=== PATIENT | female | born 1935 | race Hispanic/Latino ===

== ENCOUNTER 2017-01-01 11:45 | Emergency (ER) | payer MEDICARE, BC ==
[2017-01-01 12:06] VITALS: BMI 20.5
[2017-01-01 12:10] VITALS: RESP 18; TEMP 97.9; O2SAT 100
--- NOTE | 2017-01-01 12:11 | ED PDOC ---
Arrival/HPI - General Time Seen by Provider: 01/01/17 11:57 Historian: Patient - History of Present Illness Narrative History of Present Illness (Text): 01/01/17 12:00 Yudith Vann is a 81 year old female whose past medical history includes Atrial Fibrillation and Hypertension, presents to the emergency department complaining of right sided body pain after a fall. Patient reports 3 days ago she was feeling very tired, got up to walk to the bathroom, and when returning to her seat she fell and could not get back up. Patient notes she is unsure why she fell and has been using icy/hot patches to relieve the pain. Patient denies shortness of breath, dizziness, lightheadedness, or palpitation. Patient did not hit their head. Patient denies any loss of consciousness, headache, fever, chills, cough, nausea, vomiting, diarrhea, visual changes, neck pain, other bodily pain or injury. PMD: Dr. Lesa Whiteside Time/Duration: < week (3 days ago) Symptom Onset: Sudden Symptom Course: Unchanged Activities at Onset: Light Context: Home, Other (fall) Associated Symptoms (Text): None Past Medical History - Provider Review Nursing Documentation Reviewed: Yes - Infectious Disease Hx of Infectious Diseases: None - Tetanus Immunization Tetanus Immunization: Unknown - Cardiac Hx Cardiac Disorders: Yes (Afib) Hx Congestive Heart Failure: Yes Hx Hypertension: Yes - Neurological Other/Comment: DELERIUM SINCE SURGERY ORIF ONE WK AGO - HEENT Hx Cataracts: Yes - Endocrine/Metabolic Hx Diabetes Mellitus Type 2: Yes - Hematological/Oncological Hx Anemia: Yes - Musculoskeletal/Rheumatological Hx Falls: Yes - Gastrointestinal Hx Gastrointestinal Disorders: No (CONSTIPATION) - Genitourinary/Gynecological Hx Genitourinary Disorders: Yes (URGENCY FREQUENCY) Hx Reproductive Disorders: No - Psychiatric Hx Anxiety: Yes Hx Depression: Yes Hx Substance Use: No - Surgical History Other/Comment: knee replacement. orif let hip - Anesthesia Hx Anesthesia Reactions: No Hx Malignant Hyperthermia: No - Suicidal Assessment Feels Threatened In Home Enviroment: No Family/Social History - Physician Review Nursing Documentation Reviewed: Yes Family/Social History: Unknown Family HX Smoking Status: Never Smoked Hx Alcohol Use: No Hx Substance Use: No Hx Substance Use Treatment: No Allergies/Home Meds Allergies/Adverse Reactions: Allergies lactose Adverse Reaction (Verified 01/12/16 14:22) DIARRHEA Home Medications: Home Meds Medication Instructions Recorded Confirmed Metoprolol Succinate 50 mg PO DAILY 02/10/13 01/01/17 Calcium Carbonate [Oscal] 1,000 mg PO DAILY 02/17/13 01/01/17 Furosemide [Lasix] 20 mg PO DAILY 01/11/16 01/01/17 Potassium Chloride [Klor-Con 10] 30 meq PO DAILY 01/11/16 01/01/17 Trazodone HCl 100 mg PO DAILY 01/11/16 01/01/17 Warfarin Sodium [Jantoven] 5 mg PO DAILY 01/11/16 01/01/17 Review of Systems - Review of Systems Constitutional: absent: Fevers Respiratory: absent: SOB Gastrointestinal: absent: Abdominal Pain Genitourinary Female: absent: Dysuria, Frequency Musculoskeletal: Other (right sided body pain after fall). absent: Back Pain Neurological: absent: Headache, Dizziness, Focal Weakness Physical Exam Vital Signs Reviewed: Yes Vital Signs Temp Pulse Resp BP Pulse Ox 01/01/17 16:14 69 18 148/69 100 01/01/17 15:33 75 18 151/71 H 100 01/01/17 14:52 79 18 155/79 H 100 01/01/17 12:10 97.9 F 82 18 160/85 H 100 Temperature: Afebrile Blood Pressure: Hypertensive Pulse: Regular Respiratory Rate: Normal Appearance: Positive for: Well-Appearing, Non-Toxic, Comfortable Pain Distress: None Mental Status: Positive for: Alert and Oriented X 3 - Systems Exam Head: Present: Atraumatic, Normocephalic Pupils: Present: PERRL Extroacular Muscles: Present: EOMI Conjunctiva: Present: Normal Mouth: Present: Moist Mucous Membranes Neck: Present: Normal Range of Motion Respiratory/Chest: Present: Clear to Auscultation, Good Air Exchange. No: Respiratory Distress, Accessory Muscle Use Cardiovascular: Present: Regular Rate and Rhythm, Normal S1, S2. No: Murmurs Abdomen: Present: Normal Bowel Sounds. No: Tenderness (soft), Distention, Peritoneal Signs Back: Present: Normal Inspection Upper Extremity: Present: Normal Inspection, Normal ROM. No: Cyanosis, Edema Lower Extremity: Present: Normal Inspection, Swelling (chronic leg swelling), Other (no bony hip tenderness). No: Edema Neurological: Present: GCS=15, CN II-XII Intact, Speech Normal Skin: Present: Warm, Dry, Normal Color, Other (large hematoma on chest. small hematoma on right wrist.). No: Rashes Psychiatric: Present: Alert, Oriented x 3, Normal Insight, Normal Concentration Medical Decision Making ED Course and Treatment: 01/01/17 Impression: 81 year old female with right sided body pain after fall 3 days ago Plan: -- CT Head without contrast -- CT Chest abdomen and pelvis without contrast -- Chest X-ray -- Labs -- Sodium Chloride -- Reassess and disposition Progress Notes: 01/01/17 12:[address] Delmy Ortiz, who is aware of plan and will evaluate patient in the Emergency room. 01/01/17 14:15 Chest X-ray: Creator : Nick Lopez MD COMPARISON: 01/08/2016 FINDINGS: LUNGS: Clear. PLEURA: No pneumothorax or pleural fluid seen. CARDIOVASCULAR: There is mild vascular congestion. Mild cardiomegaly. OSSEOUS STRUCTURES: No significant abnormalities. VISUALIZED UPPER ABDOMEN: Normal. OTHER FINDINGS: None. IMPRESSION: Mild vascular congestion EKG: Ordered, reviewed, and independently interpreted the EKG. Rate : 93 BPM Rhythm : A-fib 01/01/17 15:[address]: Creator : Nick Lopez MD FINDINGS: HEMORRHAGE: No intracranial hemorrhage. BRAIN: No mass effect or edema. There is moderate atrophy VENTRICLES: Unremarkable. No hydrocephalus. CALVARIUM: Unremarkable. PARANASAL SINUSES: Unremarkable as visualized. No significant inflammatory changes. MASTOID AIR CELLS: Unremarkable as visualized. No inflammatory changes. OTHER FINDINGS: None. IMPRESSION: No acute findings 01/01/17 16:10 CT Chest, Abdomen and Pelvis with intravenous contrast: Creator : Nick Lopez MD FINDINGS: CT CHEST WITH CONTRAST: LUNGS: Clear. No nodule, mass or consolidation. MEDIASTINUM: There is cardiomegaly. 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 LYMPH NODES: Unremarkable. PLEURA: Unremarkable. No pneumothorax. No pleural fluid. BONES: Unremarkable. OTHER FINDINGS:None. CT ABDOMEN AND PELVIS: LIVER: Unremarkable. No gross lesion or ductal dilatation. GALLBLADDER AND BILE DUCTS: Unremarkable. PANCREAS: Unremarkable. No gross lesion or ductal dilatation. SPLEEN: Unremarkable. ADRENALS: Unremarkable. No mass. KIDNEYS AND URETERS: Unremarkable. No hydronephrosis. No solid mass. VASCULATURE: Unremarkable. No aortic aneurysm. BOWEL: Unremarkable. No obstruction. No gross mural thickening. APPENDIX: Normal appendix. PERITONEUM:Unremarkable. No free fluid. No free air. LYMPH NODES: Unremarkable. No enlarged lymph nodes. BLADDER: Unremarkable. REPRODUCTIVE: There is a 5.6 cm fibroid. BONES: Multiple compression fractures are seen in the mid thoracic spine. Age uncertain. There is no evidence of rib fracture. The pelvis is unremarkable OTHER FINDINGS: None. IMPRESSION: No acute findings There are no traumatic injuries from patient's fall, but would transfer to tele observation for ?syncope and neuro checks due to hypercoagulable state and trauma. Also, WBC is low, as well as hemoglobin. All of this needs further evaluation. However, patient reports that she does not want to stay in ED. Sister at bedside and unable to make patient agree to stay. 01/01/17 16:22 Leaving Against Medical Advice (AMA): The patient is choosing to leave against medical advice. I have personally explained to the patient that choosing to do so may result in permanent bodily harm or . I have discussed at great length that without further evaluation and monitoring there may be unforeseen circumstances and/or deterioration causing permanent bodily harm or as a result of their choice. The patient is alert, oriented, and shows the mental capacity to make clear decisions regarding the patients health care at this time. The patient continues to wish to leave against medical advice. In light of the patients decision to leave against medical advice, follow-up has been arranged and the patient is aware of the importance to following up as instructed. The patient has been advised that they should return to the emergency room immediately if they change their mind at any time, or if their condition begins to change or worsen in any way. - Lab Interpretations Lab Results: 01/01/17 12:30 01/01/17 12:55 Lab Results 01/01/17 12:55: Sodium 139, Potassium 4.4, Chloride 112 H, Carbon Dioxide 21, Anion Gap 10, BUN 20, Creatinine 0.8, Est GFR ( Amer) > 60, Est GFR (Non- Af Amer) > 60, Random Glucose 90, Calcium 8.3 L, Phosphorus 4.2, Magnesium 1.8, Total Bilirubin 1.1, AST 17, ALT 6 L, Alkaline Phosphatase 76, Total Creatine Kinase 27 L, Troponin I < 0.01 D, Total Protein 10.6 H, Albumin 3.3, Globulin 7.3, Albumin/Globulin Ratio 0.5 L 01/01/17 12:30: PT 29.4 H, INR 2.72 H, APTT 41.0 H 01/01/17 12:30: WBC 2.3 L* D, RBC 2.06 L, Hgb 7.2 L, Hct 22.7 L, MCV 110.2 H, MCH 35.0, MCHC 31.7, RDW 16.6 H, Plt Count 152, MPV 10.1, Gran % 60.9, Lymph % ( Auto) 25.9, Baxter % (Auto) 11.0 H, Eos % (Auto) 1.8, Baso % (Auto) 0.4, Gran # 1.39 L, Lymph # 0.6 L, Baxter # 0.3, Eos # 0.0, Baso # 0.01 I have reviewed the lab results: Yes - RAD Interpretation Radiology Orders: 01/01/17 12:08 CHEST ONE VIEW [RAD] Stat 01/01/17 14:39 CHEST,ABD,PEL W/IV CONT ONLY [CT] Stat HEAD W/O CONTRAST [CT] Stat [employer] Faculty Member: Radiologist - Medication Orders Current Medication Orders: Discontinued Medications Diazepam (Valium) 1 mg IVP STAT STA PRN Reason: Protocol Stop: 01/01/17 14:17 Last Admin: 01/01/17 14:41 Dose: 1 mg Iohexol (Omnipaque 350 100 Ml) Confirm Administered Dose 350 mg .ROUTE .STK-MED ONE Stop: 01/01/17 13:32 Iohexol (Omnipaque 350 100 Ml) Confirm Administered Dose 350 mg .ROUTE .STK-MED ONE Stop: 01/01/17 15:04 - Scribe Statement The provider has reviewed the documentation as recorded by the Scribe 01/01/2017 Alondra Kraus Provider Scribe Attestation: All medical record entries made by the Scribe were at my direction and personally dictated by me. I have reviewed the chart and agree that the record accurately reflects my personal performance of the history, physical exam, medical decision making, and the department course for this patient. I have also personally directed, reviewed, and agree with the discharge instructions and disposition. Disposition/Present on Arrival - Present on Arrival Any Indicators Present on Arrival: No History of DVT/PE: No History of Uncontrolled Diabetes: No Urinary Catheter: No History Surgical Site Infection Following: None - Disposition Have Diagnosis and Disposition been Completed?: Yes Diagnosis: Fall, Anemia, Supratherapeutic INR Disposition: AGAINST MEDICAL ADVICE Disposition Time: 16:21 Condition: UNKNOWN Additional Instructions: YOU ARE SIGNING OUT AGAINST MEDICAL ADVISE. RETURN IF YOU DESIRE TREATMENT Referrals: Alysa Brock DPM [Primary Care Provider] - Follow up with primary Forms: [employer] (Ukrainian)
[2017-01-01 12:48] LABS: BASO # 0.01 K/mm3 (0.0-2.0); BASO % 0.4 % (0.0-3.0); EOS % 1.8 % (1.5-5.0); GRAN # 1.39 (1.4-6.5); GRAN % 60.9 % (50.0-68.0); LYMPH # 0.6 (1.2-3.4); LYMPH % 25.9 % (22.0-35.0); MEAN CELL VOLUME 110.2 fl (80.0-105.0); MEAN CORPUSCULAR HGB CONC 31.7 g/dl (31.0-37.0); MEAN PLATELET VOLUME 10.1 fl (7.0-11.0); MONO # 0.3 (0.1-0.6); RED CELL DISTRIBUTION WIDTH 16.6 % (11.5-14.5)
[2017-01-01 12:52] LABS: HEMATOCRIT 22.7 % (36.0-48.0); WHITE BLOOD COUNT 2.3 10^3/ul (4.5-11.0)
[2017-01-01 12:54] LABS: INR 2.72 (0.93-1.08)
[2017-01-01 13:17] LABS: ALB/GLOB RATIO 0.5 (1.1-1.8); ALKALINE PHOSPHATASE 76 U/L (38-133); ALT/SGPT 6 U/L (7-56); AST/SGOT 17 U/L (15-39); BILIRUBIN,TOTAL 1.1 mg/dL (0.2-1.3); BLOOD UREA NITROGEN 20 mg/dL (7-21); CALCIUM 8.3 mg/dL (8.4-10.5); CARBON DIOXIDE 21 mmol/L (21-33); CHLORIDE 112 mmol/L (98-107); GFR AFRICAN-AMERICAN > 60; GLUCOSE,RANDOM 90 mg/dL (70-110); MAGNESIUM 1.8 mg/dL (1.7-2.2); PHOSPHOROUS 4.2 mg/dL (2.5-4.5); POTASSIUM 4.4 mmol/L (3.6-5.0); SODIUM 139 mmol/L (132-148); TOTAL PROTEIN 10.6 g/dL (5.8-8.3)
[2017-01-01 13:28] LABS: TROPONIN I < 0.01 ng/mL
[2017-01-01] MEDS ORDERED: Iohexol 350 MG/100 ML VIAL ONE ×2 (13:31→15:03)
--- NOTE | 2017-01-01 14:02 | RAD ---
PROCEDURE: CHEST RADIOGRAPH, 1 VIEW HISTORY: R sided hematoma COMPARISON: 01/08/2016 FINDINGS: LUNGS: Clear. PLEURA: No pneumothorax or pleural fluid seen. CARDIOVASCULAR: There is mild vascular congestion. Mild cardiomegaly. OSSEOUS STRUCTURES: No significant abnormalities. VISUALIZED UPPER ABDOMEN: Normal. OTHER FINDINGS: None. IMPRESSION: Mild vascular congestion
[2017-01-01] MEDS ORDERED: diaZEpam 10 mg/2 ml Inj IVP STA (14:16)
--- NOTE | 2017-01-01 15:24 | CT ---
PROCEDURE: CT HEAD WITHOUT CONTRAST. HISTORY: head injury COMPARISON: None available. TECHNIQUE: Axial computed tomography images were obtained through the head/brain without intravenous contrast. Radiation dose: Total exam DLP = 711 mGy-cm. This CT exam was performed using one or more of the following dose reduction techniques: Automated exposure control, adjustment of the mA and/or kV according to patient size, and/or use of iterative reconstruction technique. FINDINGS: HEMORRHAGE: No intracranial hemorrhage. BRAIN: No mass effect or edema. There is moderate atrophy VENTRICLES: Unremarkable. No hydrocephalus. CALVARIUM: Unremarkable. PARANASAL SINUSES: Unremarkable as visualized. No significant inflammatory changes. MASTOID AIR CELLS: Unremarkable as visualized. No inflammatory changes. OTHER FINDINGS: None. IMPRESSION: No acute findings
--- NOTE | 2017-01-01 16:05 | CT ---
PROCEDURE: CT Chest, Abdomen and Pelvis with intravenous contrast HISTORY: fall with R chest hematoma COMPARISON: None. TECHNIQUE: IV dose administered: 100 cc of Omni 350 Radiation dose: Total exam DLP = 820 mGy-cm. This CT exam was performed using one or more of the following dose reduction techniques: Automated exposure control, adjustment of the mA and/or kV according to patient size, and/or use of iterative reconstruction technique. FINDINGS: CT CHEST WITH CONTRAST: LUNGS: Clear. No nodule, mass or consolidation. MEDIASTINUM: There is cardiomegaly. 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 LYMPH NODES: Unremarkable. PLEURA: Unremarkable. No pneumothorax. No pleural fluid. BONES: Unremarkable. OTHER FINDINGS: None. CT ABDOMEN AND PELVIS: LIVER: Unremarkable. No gross lesion or ductal dilatation. GALLBLADDER AND BILE DUCTS: Unremarkable. PANCREAS: Unremarkable. No gross lesion or ductal dilatation. SPLEEN: Unremarkable. ADRENALS: Unremarkable. No mass. KIDNEYS AND URETERS: Unremarkable. No hydronephrosis. No solid mass. VASCULATURE: Unremarkable. No aortic aneurysm. BOWEL: Unremarkable. No obstruction. No gross mural thickening. APPENDIX: Normal appendix. PERITONEUM: Unremarkable. No free fluid. No free air. LYMPH NODES: Unremarkable. No enlarged lymph nodes. BLADDER: Unremarkable. REPRODUCTIVE: There is a 5.6 cm fibroid. BONES: Multiple compression fractures are seen in the mid thoracic spine. Age uncertain. There is no evidence of rib fracture. The pelvis is unremarkable OTHER FINDINGS: None. IMPRESSION: No acute findings
[2017-01-01 16:14] VITALS: BP 148/69; PULSE 69
--- NOTE | 2017-01-01 16:35 | CARD ---
APPROVED REPORT EKG Measurement Heart [id number] <Conclusion> Atrial fibrillation Septal infarct, age undetermined Abnormal ECG
== END 2017-01-01 17:06 | disposition left against medical advice (07) ==
LOC: ED 11:45
DX: Z04.3 Encounter for examination and observation following other accident (principal); W18.39XA Other fall on same level, initial encounter; Y93.89 Activity, other specified; Y92.008 Other place in unspecified non-institutional (private) residence as the place of occurrence of the external cause; D64.9 Anemia, unspecified; R79.1 Abnormal coagulation profile; I11.0 Hypertensive heart disease with heart failure; I50.9 Heart failure, unspecified; I48.91 Unspecified atrial fibrillation; E11.9 Type 2 diabetes mellitus without complications
CPT/HCPCS: 70450; 71010; 71260; 74177; 80053; 82550; 83735; 84100; 84484; 85025; 85610; 85730; 93005; 96374; 99285; J3360; Q9967

== ENCOUNTER 2017-01-03 18:23 | Inpatient (IN) | payer MEDICARE, BC ==
[2017-01-03 18:56] VITALS: BMI 29.0
[2017-01-03 20:30] LABS: EOS % 0.4 % (1.5-5.0); GRAN # 4.11 (1.4-6.5); GRAN % 81.6 % (50.0-68.0); LYMPH # 0.6 (1.2-3.4); LYMPH % 11.5 % (22.0-35.0); MEAN CELL VOLUME 108.8 fl (80.0-105.0); MEAN CORPUSCULAR HEMOGLOBIN 34.6 pg (25.0-35.0); MEAN CORPUSCULAR HGB CONC 31.8 g/dl (31.0-37.0); MONO # 0.3 (0.1-0.6); MONO % 6.5 % (1.0-6.0); RED CELL DISTRIBUTION WIDTH 17.3 % (11.5-14.5)
[2017-01-03 20:35] LABS: HEMATOCRIT 23.6 % (36.0-48.0)
[2017-01-03 20:59] LABS: ALB/GLOB RATIO 0.4 (1.1-1.8); ALKALINE PHOSPHATASE 87 U/L (38-133); ALT/SGPT 7 U/L (7-56); AST/SGOT 21 U/L (15-39); BILIRUBIN,TOTAL 1.2 mg/dL (0.2-1.3); BLOOD UREA NITROGEN 19 mg/dL (7-21); CALCIUM 8.3 mg/dL (8.4-10.5); CARBON DIOXIDE 18 mmol/L (21-33); CHLORIDE 111 mmol/L (98-107); GFR AFRICAN-AMERICAN > 60; GLUCOSE,RANDOM 95 mg/dL (70-110); POTASSIUM 4.3 mmol/L (3.6-5.0); SODIUM 141 mmol/L (132-148); TOTAL PROTEIN 10.7 g/dL (5.8-8.3)
--- NOTE | 2017-01-03 21:04 | ED PDOC ---
Arrival/HPI - General Chief Complaint: Weakness/Neurological Deficit Time Seen by Provider: 01/03/17 18:35 Historian: Patient - History of Present Illness Narrative History of Present Illness (Text): 01/03/17 19:10 Yudith Vann is a 80 year old female whose past medical history includes Atrial Fibrillation and Hypertension, presents to the emergency department complaining of generalized weakness today. Patient denies any chest pain, shortness of breath, nausea, vomiting, diarrhea, back pain, neck pain, headache , dizziness, or any other complaints. Symptom Onset: Gradual Symptom Course: Unchanged Activities at Onset: Light Context: Home Past Medical History - Provider Review Nursing Documentation Reviewed: Yes - Infectious Disease Hx of Infectious Diseases: None - Tetanus Immunization Tetanus Immunization: Unknown - Cardiac Hx Cardiac Disorders: Yes (Afib) Hx Congestive Heart Failure: Yes Hx Hypertension: Yes - Pulmonary Hx Respiratory Disorders: No - Neurological Hx Neurological Disorder: Yes Other/Comment: DELERIUM SINCE SURGERY ORIF ONE WK AGO - HEENT Hx HEENT Disorder: Yes Hx Cataracts: Yes - Renal Hx Renal Disorder: No - Endocrine/Metabolic Hx Endocrine Disorders: Yes Hx Diabetes Mellitus Type 2: Yes - Hematological/Oncological Hx Blood Disorders: Yes Hx Anemia: Yes - Integumentary Hx Dermatological Disorder: No - Musculoskeletal/Rheumatological Hx Musculoskeletal Disorders: Yes Hx Falls: Yes - Gastrointestinal Hx Gastrointestinal Disorders: No (CONSTIPATION) - Genitourinary/Gynecological Hx Genitourinary Disorders: Yes (URGENCY FREQUENCY) - Psychiatric Hx Psychophysiologic Disorder: Yes Hx Anxiety: Yes Hx Depression: Yes Hx Substance Use: No - Surgical History Other/Comment: knee replacement. orif let hip - Anesthesia Hx Anesthesia: No Hx Anesthesia Reactions: No Hx Malignant Hyperthermia: No - Suicidal Assessment Feels Threatened In Home Enviroment: No Family/Social History - Physician Review Nursing Documentation Reviewed: Yes Family/Social History: Unknown Family HX Smoking Status: Never Smoked Hx Alcohol Use: No Hx Substance Use: No Hx Substance Use Treatment: No Allergies/Home Meds Allergies/Adverse Reactions: Allergies lactose Adverse Reaction (Verified 01/06/17 14:34) DIARRHEA Home Medications: Home Meds Medication Instructions Recorded Confirmed Metoprolol Succinate 50 mg PO DAILY 02/10/13 01/06/17 Calcium Carbonate [Oscal] 1,000 mg PO DAILY 02/17/13 01/06/17 Furosemide [Lasix] 20 mg PO DAILY 01/11/16 01/06/17 Potassium Chloride [Klor-Con 10] 30 meq PO DAILY 01/11/16 01/06/17 Trazodone HCl 100 mg PO DAILY 01/11/16 01/06/17 Warfarin Sodium [Jantoven] 5 mg PO DAILY 01/11/16 01/06/17 Review of Systems - Physician Review All systems were reviewed & negative as marked: Yes - Review of Systems Constitutional: Other (+generalized weakness). absent: Fevers Eyes: Normal ENT: Normal Respiratory: Normal. absent: SOB, Cough Cardiovascular: Normal. absent: Chest Pain Gastrointestinal: Normal. absent: Abdominal Pain, Diarrhea, Nausea, Vomiting Genitourinary Female: Normal. absent: Dysuria, Frequency, Hematuria, Urine Output Changes Musculoskeletal: Normal. absent: Back Pain, Neck Pain Skin: Normal. absent: Rash Neurological: Normal. absent: Headache, Dizziness Endocrine: Normal Hemo/Lymphatic: Normal Psychiatric: Normal Physical Exam Vital Signs Reviewed: Yes Vital Signs Temp Pulse Resp BP Pulse Ox 01/03/17 23:51 99.4 F 108 H 18 139/88 01/03/17 23:27 98.8 F 107 H 19 129/81 01/03/17 22:57 107 H 18 142/78 99 01/03/17 18:49 98.1 F 130 H 24 148/71 100 Temperature: Afebrile Blood Pressure: Normal Pulse: Regular Respiratory Rate: Normal Appearance: Positive for: Well-Appearing, Non-Toxic, Comfortable Pain Distress: None Mental Status: Positive for: Alert and Oriented X 3 - Systems Exam Head: Present: Atraumatic, Normocephalic Pupils: Present: PERRL Extroacular Muscles: Present: EOMI Conjunctiva: Present: Normal Mouth: Present: Moist Mucous Membranes Neck: Present: Normal Range of Motion Respiratory/Chest: Present: Clear to Auscultation, Good Air Exchange. No: Respiratory Distress, Accessory Muscle Use Cardiovascular: Present: Regular Rate and Rhythm, Normal S1, S2. No: Murmurs Abdomen: Present: Normal Bowel Sounds. No: Tenderness, Distention, Peritoneal Signs Back: Present: Normal Inspection Upper Extremity: Present: Normal Inspection. No: Cyanosis, Edema Lower Extremity: Present: Swelling (Bilateral lower extremity swelling). No: Edema Neurological: Present: GCS=15, CN II-XII Intact, Speech Normal Skin: Present: Warm, Dry, Normal Color. No: Rashes Psychiatric: Present: Alert, Oriented x 3, Normal Insight, Normal Concentration Medical Decision Making ED Course and Treatment: 01/03/17 19:10 Impression: 81 year old female complaining of generalized weakness. Differential Diagnosis included but are not limited to: anemia Plan: -- EKG -- CXR -- Labs, troponin, blood cultures -- Urinalysis, urine cultures -- Reassess and disposition Prior Visits: Notes and results from previous visits were reviewed. On 01/01/2017, pt was seen in the Emergency department for right-sided body pain s/p fall. Pt left against medical advice. Progress Notes: Reviewed EKG, a fib at 117 bpm. Non-specific ST/T wave changes. 01/03/17 20:30 Reviewed radiology, CXR shows no acute processes. 01/03/17 21:00 Labs reviewed, hemoglobin:7.5, hematocrit:23.6. Blood type and screen order. Will transfuse pt. 01/03/17 22:[address] Barrera, who is aware and agrees with plan. Accepts pt in to his service. Pt will be admitted to Telemetry for anemia and atrial fibrillation. 01/03/17 22:[address] Head, shows: 1. No definite acute intracranial abnormality. 2. Incidental/non-acute findings are described above. - Lab Interpretations Microbiology Results: Microbiology Results 01/03/17 20:00 Blood-Venous Blood Culture - Preliminary NO GROWTH AFTER 48 HOURS 01/03/17 19:30 Blood-Venous Blood Culture - Preliminary NO GROWTH AFTER 48 HOURS Lab Results: 01/03/17 20:00 01/03/17 20:38 Lab Results 01/03/17 21:00: Blood Type O POSITIVE, Antibody Screen Negative, Crossmatch See Detail, BBK History Checked Patient has bt 01/03/17 20:38: Sodium 141, Potassium 4.3, Chloride 111 H, Carbon Dioxide 18 L, Anion Gap 16, BUN 19, Creatinine 0.8, Est GFR ( Amer) > 60, Est GFR (Non- Af Amer) > 60, Random Glucose 95, Calcium 8.3 L, Total Bilirubin 1.2, AST 21, ALT 7, Alkaline Phosphatase 87, Troponin I 0.05 D, Total Protein 10.7 H, Albumin 3.3, Globulin 7.5, Albumin/Globulin Ratio 0.4 L 01/03/17 20:00: PT 27.4 H, INR 2.54 H 01/03/17 20:00: WBC 5.0 D, RBC 2.17 L, Hgb 7.5 L, Hct 23.6 L, MCV 108.8 H, MCH 34.6, MCHC 31.8, RDW 17.3 H, Plt Count 235, MPV 11.0, Gran % 81.6 H, Lymph % ( Auto) 11.5 L, [place] % (Auto) 6.5 H, Eos % (Auto) 0.4 L, Baso % (Auto) 0.0, Gran # 4.11, Lymph # 0.6 L, [place] # 0.3, Eos # 0.0, Baso # 0.00 I have reviewed the lab results: Yes - RAD Interpretation Narrative RAD Interpretations (Text): CT Head shows: Limitations: Motion artifact - mild to moderate. Brain: [id number] atrophy. No definite intracranial hemorrhage. No mass. No definite edema. Ventricles: No hydrocephalus. Bones/joints: No acute fracture. Soft tissues: Unremarkable. Vasculature: Atherosclerotic disease of intracranial arteries. Sinuses: No acute sinusitis. Mastoid air cells: No mastoid effusion. Orbits: Unremarkable as visualized. IMPRESSION: 1. No definite acute intracranial abnormality. 2. Incidental/non-acute findings are described above. Radiology Orders: 01/03/17 19:15 CHEST PORTABLE [RAD] Stat 01/03/17 21:29 HEAD W/O CONTRAST [CT] Stat Service Station Console Operator: ED Physician, Radiologist - EKG Interpretation Interpreted by ED Physician: Yes Type: 12 lead EKG - Medication Orders Current Medication Orders: Discontinued Medications Acetaminophen (Tylenol 325mg Tab) 650 mg PO Q4H PRN PRN Reason: Fever >100.5 F Last Admin: 01/05/17 05:33 Dose: 650 mg Re-Assess: [id number] Pain/Vitals Document 01/05/17 07:30 MM (Rec: 01/05/17 11:34 MM [id number]) Pain Reassessment Is This A Pain ReAssessment? Yes Sleep Is patient sleeping during reassessment? Yes Furosemide (Lasix) 20 mg PO DAILY NIKKIE Last Admin: 01/06/17 09:11 Dose: 20 mg Lidocaine HCl (Lidocaine 1% (20ml)) 1 ml IJ ONCE STA Stop: 01/05/17 14:01 Metoprolol Succinate (Toprol Xl) 50 mg PO DAILY [facility] Last Admin: 01/06/17 09:13 Dose: 50 mg Metoprolol Succinate (Toprol Xl) 100 mg PO BRK NIKKIE Last Admin: 01/06/17 11:23 Dose: Trazodone HCl (Desyrel) 100 mg PO HS [facility] Last Admin: 01/05/17 21:53 Dose: 100 mg Warfarin Sodium (Coumadin) 5 mg PO 1800 NIKKIE PRN Reason: Protocol - Scribe Statement The provider has reviewed the documentation as recorded by the Scribe Talisha Adam All medical record entries made by the Scribe were at my direction and personally dictated by me. I have reviewed the chart and agree that the record accurately reflects my personal performance of the history, physical exam, medical decision making, and the department course for this patient. I have also personally directed, reviewed, and agree with the discharge instructions and disposition. Disposition/Present on Arrival - Present on Arrival Any Indicators Present on Arrival: No History of DVT/PE: No History of Uncontrolled Diabetes: No Urinary Catheter: No History of Decub. Ulcer: No History Surgical Site Infection Following: None - Disposition Have Diagnosis and Disposition been Completed?: Yes Diagnosis: Anemia Disposition: HOSPITALIZED Disposition Time: 22:20 Condition: FAIR
[2017-01-03 21:10] LABS: TROPONIN I 0.05 ng/mL
--- NOTE | 2017-01-03 22:27 | CT ---
EXAM: CT Head Without Intravenous Contrast CLINICAL HISTORY: 81 years old, female; Pain; Headache; Headache not specified; Additional info: [facility] TECHNIQUE: Axial computed tomography images of the head/brain without intravenous contrast. All CT scans at this facility use one or more dose reduction techniques, viz.: automated exposure control; ma/kV adjustment per patient size (including targeted exams where dose is matched to indication; i.e. head); or iterative reconstruction technique. COMPARISON: CT - HEAD W/O CONTRAST 01/01/2017 3:02:16 PM FINDINGS: Limitations: Motion artifact - mild to moderate. Brain: [id number] atrophy. No definite intracranial hemorrhage. No mass. No definite edema. Ventricles: No hydrocephalus. Bones/joints: No acute fracture. Soft tissues: Unremarkable. Vasculature: Atherosclerotic disease of intracranial arteries. Sinuses: No acute sinusitis. Mastoid air cells: No mastoid effusion. Orbits: Unremarkable as visualized. IMPRESSION: 1. No definite acute intracranial abnormality. 2. Incidental/non-acute findings are described above.
[2017-01-04 00:20] LABS: INR 2.54 (0.93-1.08)
[2017-01-04 07:26] LABS: HEMATOCRIT 25.3 % (36.0-48.0); MEAN CELL VOLUME 99.6 fl (80.0-105.0); MEAN CORPUSCULAR HEMOGLOBIN 31.1 pg (25.0-35.0); MEAN CORPUSCULAR HGB CONC 31.2 g/dl (31.0-37.0); MEAN PLATELET VOLUME 9.6 fl (7.0-11.0); RED CELL DISTRIBUTION WIDTH 24.9 % (11.5-14.5); WHITE BLOOD COUNT 3.2 10^3/ul (4.5-11.0)
[2017-01-04 07:42] LABS: ALB/GLOB RATIO 0.4 (1.1-1.8); ALKALINE PHOSPHATASE 70 U/L (38-133); ALT/SGPT 16 U/L (7-56); AST/SGOT 23 U/L (15-39); BILIRUBIN,TOTAL 2.5 mg/dL (0.2-1.3); BLOOD UREA NITROGEN 19 mg/dL (7-21); CALCIUM 7.6 mg/dL (8.4-10.5); CARBON DIOXIDE 19 mmol/L (21-33); CHLORIDE 114 mmol/L (98-107); GFR AFRICAN-AMERICAN > 60; GLUCOSE,RANDOM 99 mg/dL (70-110); POTASSIUM 3.8 mmol/L (3.6-5.0); SODIUM 139 mmol/L (132-148); TOTAL PROTEIN 8.9 g/dL (5.8-8.3)
[2017-01-04 08:08] LABS: TROPONIN I 0.45 ng/mL
[2017-01-04 08:11] LABS: IRON 143 ug/dL (45-180)
--- NOTE | 2017-01-04 08:40 | RAD ---
HISTORY: cp COMPARISON: 01/01/2017 FINDINGS: LUNGS: Examination limited due to steep Joshua oblique positioning. No infiltrate identified. Linear scar or atelectasis at left base, unchanged. Left apex obscured by patient's mandible. PLEURA: No significant pleural effusion identified, no pneumothorax apparent. CARDIOVASCULAR: Normal. OSSEOUS STRUCTURES: No significant abnormalities. VISUALIZED UPPER ABDOMEN: Normal. OTHER FINDINGS: None. IMPRESSION: No active disease.
[2017-01-04 09:10] LABS: PH,URINE 5.5 (4.7-8.0); URINE BILIRUBIN NEGATIVE (NEGATIVE); URINE BLOOD TRACE-INTACT (NEGATIVE); URINE GLUCOSE (UA) NEGATIVE (NEGATIVE); URINE KETONE NEGATIVE (NEGATIVE); URINE LEUKOCYTE ESTERASE NEGATIVE Leu/uL (NEGATIVE); URINE PROTEIN TRACE mg/dL (<30 mg/dL)
[2017-01-04 09:12] LABS: URINE APPEARANCE SL CLOUDY (CLEAR)
[2017-01-04 09:14] LABS: URINE COLOR YELLOW (YELLOW)
[2017-01-04 09:25] LABS: URINE BACTERIA SMALL (NEG); URINE RBC 0 - 2 /hpf (0-2); URINE WBC 0 - 2 /hpf (0-6)
--- NOTE | 2017-01-04 09:45 | CARD ---
APPROVED REPORT EKG Measurement Heart [id number] <Conclusion> Atrial fibrillation with rapid ventricular response Anteroseptal infarct, age undetermined Abnormal ECG
[2017-01-04] MEDS: Metoprolol Succinate 50 mg XL Tab PO SCH (09:58)
--- NOTE | 2017-01-04 14:40 | CP.PCM.CON ---
Addendum entered and electronically signed by Jose Jones DO 01/04/17 16:32: Correction to physical exam - Extremities Exam Extremities exam: Bilateral LE wrappings from mid-foot to knees (patient reports chronically wrapped due to lymphedema, as per Dr. Brock's instructions ). Negative for: calf tenderness, pedal edema, tenderness, joint effusions Original Note: <Jose Jones - Last Filed: 01/04/17 14:30> History of Present Illness - History of Present Illness History of Present Illness: Neurology Consult Note for Dr. Paz Service Consulted for Weakness HPI: This is an 81 yo F with PMH of HTN, AFib, CHF, DM2, and anxiety who presented to [facility] [place] for persisting generalized weakness. History obtained from pt and children at bedside. As per pt, she had a mechanical fall onto her sacral region 2 days prior to current presentation (denies head trauma/ LOC/memory loss), for which she was seen in the ED and discharged to home. Admits that the fall was due to not using her lights in the bathroom when transitioning from toilet to motorized chair because she was trying to keep her electric costs down. Since that time, she has continued to feel "not right," with persisting and worsening weakness, and finally decided to return to the ED last night. In the ED, was noted to have AFib with a rate of 117 bpm and a Hgb of 7.5 (baseline per prior charting mid 8.0's-10). Patient admits after prompting from her children that she has been eating little due to lack of appetite, and is only drinking hot tea and iced teas at home for fluids (both catenated). When discussing testing that she has already done and possible future testing required, patient becomes despondent and agitated, stating that she doesn't want anymore testing, that she is "sick of it all," and wants to be done with this and is ready to . Children state mother is mentating at baseline but her depressive attitude is new. Patient complains of back and shoulder pain which she says has been present since the recent fall, but denies chest pain, shortness of breath, room spinning, syncope/near-syncope, fevers/ chills, nausea/emesis, diarrhea/constipation, melena/hematochezia, head trauma, focal weakness/paresthesias, or dysuria/hematuria. All other ROS in 12-point system review negative. PMH: as above PSH: L-hip ORIF, R knee replacement, unspecified hernia repair FHx: denies SHx: denies tobacco/EtOH/Illicits/IVDA, lives alone (children currently visiting , but live out of state normally) PMD: Dr. Whiteside Review of Systems - Review of Systems All systems: reviewed and no additional remarkable complaints except (as per HPI ) Past Patient History - Infectious Disease Hx of Infectious Diseases: None - Tetanus Immunizations Tetanus Immunization: Unknown - Past Social History Smoking Status: Never Smoked - CARDIAC Hx Cardiac Disorders: Yes (Afib) Hx Congestive Heart Failure: Yes Hx Hypertension: Yes - PULMONARY Hx Respiratory Disorders: No - NEUROLOGICAL Hx Neurological Disorder: Yes Other/Comment: DELERIUM SINCE SURGERY ORIF ONE WK AGO - HEENT Hx HEENT Problems: Yes Hx Cataracts: Yes - RENAL Hx Chronic Kidney Disease: No - ENDOCRINE/METABOLIC Hx Diabetes Mellitus Type 2: Yes - HEMATOLOGICAL/ONCOLOGICAL Hx Blood Disorders: Yes Hx Anemia: Yes - INTEGUMENTARY Hx Dermatological Problems: No - MUSCULOSKELETAL/RHEUMATOLOGICAL Hx Musculoskeletal Disorders: Yes Hx Falls: Yes - GASTROINTESTINAL Hx Gastrointestinal Disorders: No (CONSTIPATION) - GENITOURINARY/GYNECOLOGICAL Hx Genitourinary Disorders: Yes (URGENCY FREQUENCY) - PSYCHIATRIC Hx Psychophysiologic Disorder: Yes Hx Anxiety: Yes Hx Depression: Yes - SURGICAL HISTORY Other/Comment: knee replacement. orif let hip - ANESTHESIA Hx Anesthesia: No Hx Anesthesia Reactions: No Hx Malignant Hyperthermia: No Meds Allergies/Adverse Reactions: Allergies Allergy/AdvReac Type Severity Reaction Status Date / Time lactose AdvReac DIARRHEA Verified 01/03/17 19:05 - Medications Medications: Current Medications Acetaminophen (Tylenol 325mg Tab) 650 mg PO Q4H PRN PRN Reason: Fever >100.5 F Last Admin: 01/04/17 04:36 Dose: 650 mg Metoprolol Succinate (Toprol Xl) 50 mg PO DAILY NIKKIE Last Admin: 01/04/17 09:58 Dose: 50 mg Trazodone HCl (Desyrel) 100 mg PO HS NIKKIE Physical Exam - Constitutional Appears: Non-toxic, Chronically Ill Additional comments: Initially in no acute distress and not agitated, but became agitated/depressed when discussing further testing/workup - Head Exam Head Exam: ATRAUMATIC, NORMAL INSPECTION, NORMOCEPHALIC - Eye Exam Eye Exam: EOMI, Normal appearance. absent: Conjunctival injection, Scleral icterus Pupil Exam: absent: Irregular, Unequal - ENT Exam ENT Exam: Mucous Membranes Moist. absent: Mucous Membranes Dry - Neck Exam Neck exam: Positive for: Full Rom - Respiratory Exam Respiratory Exam: Clear to Auscultation Bilateral, NORMAL BREATHING PATTERN. absent: Accessory Muscle Use, Chest Wall Tenderness, Decreased Breath Sounds, Rales, Rhonchi, Wheezes - Cardiovascular Exam Cardiovascular Exam: Tachycardia, Irregular Rhythm, +S1, +S2. absent: Bradycardia, Diastolic murmur, REGULAR RHYTHM, JVD, RRR, +S4, Systolic Murmur - GI/Abdominal Exam GI & Abdominal Exam: Normal Bowel Sounds, Soft. absent: Diminished Bowel Sounds , Hyperactive Bowel Sounds, Hypoactive Bowel Sounds, Tenderness - Extremities Exam Extremities exam: Negative for: calf tenderness, pedal edema, tenderness - Back Exam Back exam: absent: CVA tenderness (L), CVA tenderness (R) - Neurological Exam Neurological exam: Alert, CN II-XII Intact, Oriented x3 Additional comments: All extremities 5/5 motor strength, sensation grossly intact as well - Psychiatric Exam Psychiatric exam: Agitated, Depressed - Skin Skin Exam: Dry, Intact, Normal Color, Warm Results - Vital Signs Recent Vital Signs: Last Vital Signs Temp 97.8 F 01/04/17 11:21 Pulse 78 01/04/17 11:21 Resp 18 01/04/17 11:21 BP 130/78 01/04/17 11:21 Pulse Ox 99 01/03/17 22:57 - Labs Result Diagrams: 01/04/17 06:50 01/04/17 06:50 Labs: Laboratory Results - last 24 hr 01/04/17 01/04/17 01/04/17 06:50 06:50 06:50 WBC 3.2 L D RBC 2.54 L Hgb 7.9 L Hct 25.3 L MCV 99.6 D MCH 31.1 MCHC 31.2 RDW 24.9 H Plt Count 135 MPV 9.6 Sodium 139 Potassium 3.8 Chloride 114 H Carbon Dioxide 19 L Anion Gap 10 BUN 19 Creatinine 0.8 Est GFR ( Amer) > 60 Est GFR (Non-Af Amer) > 60 Random Glucose 99 Calcium 7.6 L Iron 143 TIBC 210 L % Saturation 68 H Ferritin 223.0 Total Bilirubin 2.5 H AST 23 ALT 16 Alkaline Phosphatase 70 Troponin I 0.45 H* D Total Protein 8.9 H Albumin 2.7 L Globulin 6.2 Albumin/Globulin Ratio 0.4 L Vitamin B12 627 Urine Color Urine Appearance Urine pH Ur Specific Wh[place] Urine Protein Urine Glucose (UA) Urine Ketones Urine Blood Urine Nitrate Urine Bilirubin Urine Urobilinogen Ur Leukocyte Esterase Urine RBC Urine WBC Ur Epithelial Cells Urine Bacteria 01/04/17 07:00 WBC RBC Hgb Hct MCV MCH MCHC RDW Plt Count MPV Sodium Potassium Chloride Carbon Dioxide Anion Gap BUN Creatinine Est GFR ( Amer) Est GFR (Non-Af Amer) Random Glucose Calcium Iron TIBC % Saturation Ferritin Total Bilirubin AST ALT Alkaline Phosphatase Troponin I Total Protein Albumin Globulin Albumin/Globulin Ratio Vitamin B12 Urine Color Yellow Urine Appearance Sl cloudy Urine pH 5.5 Ur Specific [place] >= 1.030 Urine Protein Trace H Urine Glucose (UA) Negative Urine Ketones Negative Urine Blood Trace-intact H Urine Nitrate Negative Urine Bilirubin Negative Urine Urobilinogen 1.0 H Ur Leukocyte Esterase Negative Urine RBC 0 - 2 Urine WBC 0 - 2 Ur Epithelial Cells 3 - 4 Urine Bacteria Small Assessment & Plan - Assessment and Plan (Free Text) Assessment: This is an 81 yo F with PMH of HTN, AFib, CHF, DM2, anxiety, s/p recent mechanical fall, who presented to [facility] [place] for persisting generalized weakness. Her generalized weakness is likely multifactorial, including her depressive affect, deconditioning, and decreased PO intake in the setting of multiple underlying chronic medical conditions. Her Afib may also be contributing as she was tachy-afib up to 130 in the ED, and given her depressive affect, there is a question as to whether she is taking her medications. Anemia component likely present as well, as Hgb was 7.5 on arrival (80-10 baseline), and in setting of decreased PO intake, likely hemoconcentrated with true Hgb lower; pt is s/p transfusion 2 units pRBCs as per Primary. Less likely neurologic component given normal motor strength, sensation, and lack of AMS. Psychiatric consultation would be of benefit for this patient. Plan: 1) Thiamine 100mg PO BID 2) Encourage PO intake 3) Management of anemia as per Primary 4) Psychiatric assessment recommended for depressive affect 5) PT/OT for deconditioning and gait instability Patient reviewed and discussed with attending, Dr. Lori Paz. <Delfino Paz - Last Filed: 01/04/17 17:38> Meds - Medications Medications: Current Medications Acetaminophen (Tylenol 325mg Tab) 650 mg PO Q4H PRN PRN Reason: Fever >100.5 F Last Admin: 01/04/17 04:36 Dose: 650 mg Metoprolol Succinate (Toprol Xl) 50 mg PO DAILY [facility] Last Admin: 01/04/17 09:58 Dose: 50 mg Trazodone HCl (Desyrel) 100 mg PO HS [facility] Results - Vital Signs Recent Vital Signs: Last Vital Signs Temp 97.8 F 01/04/17 11:21 Pulse 70 01/04/17 14:00 Resp 18 01/04/17 11:21 BP 130/78 01/04/17 11:21 Pulse Ox 99 01/03/17 22:57 - Labs Result Diagrams: 01/04/17 06:50 01/04/17 06:50 Labs: Laboratory Results - last 24 hr 01/04/17 01/04/17 01/04/17 06:50 06:50 06:50 WBC 3.2 L D RBC 2.54 L Hgb 7.9 L Hct 25.3 L MCV 99.6 D MCH 31.1 MCHC 31.2 RDW 24.9 H Plt Count 135 MPV 9.6 Sodium 139 Potassium 3.8 Chloride 114 H Carbon Dioxide 19 L Anion Gap 10 BUN 19 Creatinine 0.8 Est GFR ( Amer) > 60 Est GFR (Non-Af Amer) > 60 Random Glucose 99 Calcium 7.6 L Iron 143 TIBC 210 L % Saturation 68 H Ferritin 223.0 Total Bilirubin 2.5 H AST 23 ALT 16 Alkaline Phosphatase 70 Troponin I 0.45 H* D Total Protein 8.9 H Albumin 2.7 L Globulin 6.2 Albumin/Globulin Ratio 0.4 L Vitamin B12 627 Urine Color Urine Appearance Urine pH Ur Specific [place] Urine Protein Urine Glucose (UA) Urine Ketones Urine Blood Urine Nitrate Urine Bilirubin Urine Urobilinogen Ur Leukocyte Esterase Urine RBC Urine WBC Ur Epithelial Cells Urine Bacteria 01/04/17 07:00 WBC RBC Hgb Hct MCV MCH MCHC RDW Plt Count MPV Sodium Potassium Chloride Carbon Dioxide Anion Gap BUN Creatinine Est GFR ( Amer) Est GFR (Non-Af Amer) Random Glucose Calcium Iron TIBC % Saturation Ferritin Total Bilirubin AST ALT Alkaline Phosphatase Troponin I Total Protein Albumin Globulin Albumin/Globulin Ratio Vitamin B12 Urine Color Yellow Urine Appearance Sl cloudy Urine pH 5.5 Ur Specific [place] >= 1.030 Urine Protein Trace H Urine Glucose (UA) Negative Urine Ketones Negative Urine Blood Trace-intact H Urine Nitrate Negative Urine Bilirubin Negative Urine Urobilinogen 1.0 H Ur Leukocyte Esterase Negative Urine RBC 0 - 2 Urine WBC 0 - 2 Ur Epithelial Cells 3 - 4 Urine Bacteria Small Attending/Attestation - Attestation I have personally seen and examined this patient.: Yes I have fully participated in the care of the patient.: Yes I have reviewed all pertinent clinical information: Yes
--- NOTE | 2017-01-04 21:41 | CON ---
DATE: 01/04/2017 REQUESTING PHYSICIAN: Dr. Barrera. REASON FOR CONSULTATION: Atrial fibrillation and weakness. HISTORY OF PRESENT ILLNESS: This is an 81-year-old woman known to us with history of chronic atrial fibrillation, hypertension, multiple falls, recent hip surgery, who was admitted with generalized weakness. She suffered a fall and a contusion of her chest wall. She denies any loss of consciousness. She is seen in the presence of her daughter. She denied any chest pain, was unaware of palpitation or lightheadedness prior to her event. She apparently has history of chronic anemia, has been advised hematologic evaluation, which she has refused for sometime. Her hemoglobin is noted to be less than 8 upon admission and she has been transfused. PAST MEDICAL HISTORY: Notable for chronic atrial fibrillation, hypertension, diabetes, recent left hip surgery as well as prior knee replacement surgery. MEDICATIONS AT HOME: Include metoprolol 50 mg daily, Lasix 20 mg daily, potassium, trazodone 100 mg daily and warfarin. ALLERGIES: SHE HAS NO REPORTED ALLERGIES. SOCIAL HISTORY: She does not smoke or drink. FAMILY HISTORY: Both parents are from age related illness. REVIEW OF SYSTEMS: A 10-point review of systems is notable mainly for the problems mentioned above. PHYSICAL EXAMINATION: GENERAL: She is an elderly woman, who appears comfortable at rest. VITAL SIGNS: Her blood pressure is 134/76 with a pulse of 80-100 in atrial fibrillation, respirations are 16. She is afebrile. HEENT: Normocephalic, atraumatic. NECK: Supple. No JVD noted. CHEST: Few scattered rhonchi heard. HEART: PMI displaced laterally with an irregularly irregular rhythm, systolic murmur presents with the left sternal border and apex. ABDOMEN: Soft, nontender with normoactive bowel sounds. EXTREMITIES: Both lower extremities are currently wrapped. SKIN: Warm and dry. PSYCHIATRIC: Normal mood and affect. NEUROLOGIC: No gross motor or sensory deficits notable. DIAGNOSTIC DATA: Potassium 3.8, BUN and creatinine are 19 and 0.8. Initial troponin was 0.05, repeat is 0.45. White count 3.2, initial hemoglobin 7.5 repeat is 7.9, hematocrit 25.3 with a platelet count 135,000. Chest x-ray is rotated film, cardiac silhouette appears normal with no other abnormalities noted. Electrocardiogram reveals atrial fibrillation with moderate ventricular response prior anteroseptal wall myocardial infarction pattern cannot be excluded. No acute abnormalities are seen. CT of the head is notable for age related atrophy. No clear evidence of acute infarct. IMPRESSION: 1. Weakness, no clear documentation of the syncope possibly related to some degree of hemodynamic compromise with severity of anemia. 2. Marked macrocytic anemia, has refused significant workup to this point in time. Repeat complete blood count is pending. 3. Chronic atrial fibrillation, has been maintained on Coumadin therapy; however, the risk of this may be excessive given her sever anemia and recurrent falls. Rest of the problems as noted. RECOMMENDATIONS: 1. Followup troponin will be order for the morning as well as repeat EKG. 2. Anticoagulant therapy is on hold for the moment. 3. She is strongly encouraged to proceed with evaluation of her macrocytic anemia. The safety of continued anticoagulant therapy in the setting of severe anemia and increased fall risk may be excessive; however, her CHADS-VASc score is 4, putting her at increase risk of cerebrovascular accident. Rate control therapy for atrial fibrillation, she will continue at this time. We will be happy to follow and make further recommendation as appropriate. Thank you for this consultation. Jackson Santos MD
[2017-01-05 08:59] LABS: HEMATOCRIT 27.3 % (36.0-48.0); MEAN CELL VOLUME 102.6 fl (80.0-105.0); MEAN CORPUSCULAR HEMOGLOBIN 32.3 pg (25.0-35.0); MEAN CORPUSCULAR HGB CONC 31.5 g/dl (31.0-37.0); MEAN PLATELET VOLUME 9.8 fl (7.0-11.0)
[2017-01-05 09:03] LABS: WHITE BLOOD COUNT 2.7 10^3/ul (4.5-11.0)
[2017-01-05 09:04] LABS: BLOOD UREA NITROGEN 17 mg/dL (7-21); CALCIUM 7.6 mg/dL (8.4-10.5); CARBON DIOXIDE 21 mmol/L (21-33); CHLORIDE 112 mmol/L (98-107); GFR AFRICAN-AMERICAN > 60; GLUCOSE,RANDOM 85 mg/dL (70-110); MAGNESIUM 1.7 mg/dL (1.7-2.2); PHOSPHOROUS 3.4 mg/dL (2.5-4.5); POTASSIUM 3.9 mmol/L (3.6-5.0); SODIUM 141 mmol/L (132-148)
[2017-01-05 10:58] LABS: IRON 55 ug/dL (45-180)
[2017-01-05] MEDS: Metoprolol Succinate 50 mg XL Tab PO SCH (11:28)
--- NOTE | 2017-01-05 11:28 | CARD ---
APPROVED REPORT EKG Measurement Heart [id number] <Conclusion> Atrial fibrillation Septal infarct, age undetermined ST & T wave abnormality, consider anterolateral ischemia or digitalis effect Prolonged QT Abnormal ECG
[2017-01-05] MEDS ORDERED: Lidocaine 1% Inj (20ml) IJ STA (14:00)
[2017-01-05 18:53] LABS: FOLATE 8.6 ng/mL
--- NOTE | 2017-01-05 19:01 | PN ---
DATE: 01/05/2017 SUBJECTIVE: The patient was seen, lying in bed on telemetry. She is comfortable at the present time. She continues to feel somewhat fatigue. Her post transfusion, hemoglobin is now 8.6. CURRENT MEDICATIONS: Include Desyrel, Toprol-XL 50 mg daily and Tylenol. OBJECTIVE: GENERAL: She is a elderly woman, who is comfortable at rest. VITAL SIGNS: Blood pressure is 122/86 with a pulse of 90 in atrial fibrillation, respirations are 16. She is afebrile. NECK: No JVD. CHEST: Few scattered rhonchi. HEART: PMI displaced laterally with an irregularly irregular rhythm, systolic murmur presents with the left sternal border and apex. ABDOMEN: Soft, nontender with normoactive bowel sounds. EXTREMITIES: Both lower extremities are wrapped. SKIN: Warm and dry. DIAGNOSTIC DATA: Troponin 0.16, potassium 3.9, BUN and creatinine are 17 and 0.8. White count 2.7, hemoglobin 8.6, hematocrit 27.3 and platelet count 135,000. Electrocardiogram reveals atrial fibrillation with prior septal infarct pattern and SVT changes suggestive of anterolateral ischemia, unchaged prior from tracings. IMPRESSION: 1. Weakness, no obvious syncope. 2. Significant macrocytic anemia, status post transfusion. 3. Chronic atrial fibrillation. 4. Rest of the problems as noted. 5. Borderline troponin, doubt acute injury at this time. RECOMMENDATIONS: Conservative cardiac management appears most appropriate at this time and continuation of anticoagulation would be appropriate given her atrial fibrillation; however, she has been strongly advised to proceed with anemia workup, which she has refused in the past. We will be happy to follow during her hospital course and make further recommendation as appropriate. Jackson Santos MD
--- NOTE | 2017-01-06 00:34 | CP.PCM.HP ---
History of Present Illness - History of Present Illness History of Present Illness: Pt. is an 81 year old female admitted with generalized weakness. Hb in ED was 7.5 gm/dl. She has history of CHF, a-fib. H/O DM II controlled on current meds. review of records show progressive decline in WC and Hb over past few years. She gets B12 shots at Dr. Whiteside's office. A-Fib, HR controlled , on anticoagulation. with therapeutic INR. No bleeding from any site. Present on Admission - Present on Admission Any Indicators Present on Admission: No Review of Systems - Constitutional Constitutional: Fatigue, Malaise - EENT Eyes: absent: As Per HPI, Blind Spots, Blurred Vision, Change in Vision, Decreased Night Vision, Diplopia, Discharge, Dry Eye, Exophthalmos, Floaters, Irritation, Itchy Eyes, Loss of Peripheral Vision, Pain, Photophobia, Requires Corrective Lenses, Sees Flashes, Spots in Vision, Tunnel Vision, Other Visual Disturbances, Loss of Vision, Other Ears: absent: As Per HPI, Decreased Hearing, Ear Discharge, Ear Pain, Tinnitus, Abnormal Hearing, Disequilibrium, Dizziness, Other Nose/Mouth/Throat: absent: As Per HPI, Epistaxis, Nasal Congestion, Nasal Discharge, Nasal Obstruction, Nasal Trauma, Nose Pain, Post Nasal Drip, Sinus Pain, Sinus Pressure, Bleeding Gums, Change in Voice, Dental Pain, Dry Mouth, Dysphagia, Halitosis, Hoarsness, Lip Swelling, Mouth Lesions, Mouth Pain, Odynophagia, Sore Throat, Throat Swelling, Tongue Swelling, Facial Pain, Neck Pain, Neck Mass, Other - Cardiovascular Cardiovascular: As Per HPI - Respiratory Respiratory: absent: As Per HPI, Cough, Dyspnea, Hemoptysis, Dyspnea on Exertion , Wheezing, Snoring, Stridor, Pain on Inspiration, Chest Congestion, Excessive Mucous Production, Change in Mucous Color, Pain with Coughing, Other - Musculoskeletal Musculoskeletal: As Per HPI - Integumentary Integumentary: absent: As Per HPI, Acne, Alopecia, Bleeding Lesions, Change in Hair, Change in Nails, Change in Pigmentation, Changing Lesions, Dry Skin, Erythema, Furuncle, Hirsutism, Lesions, New Lesions, Non-Healing Lesions, Photosensitivity, Pruritus, Rash, Skin Pain, Skin Ulcer, Sores, Striae, Swelling , Unusual Bruising, Wounds, Jaundice, Other - Neurological Neurological: absent: As Per HPI, Abnormal Gait, Abnormal Hearing, Abnormal Movements, Abnormal Speech, Behavioral Changes, Burning Sensations, Confusion, Convulsions, Disequilibrium, Dizziness, Numbness, Focal Weakness, Frequent Falls , Headaches, Lack of Coordination, Loss of Vision, Memory Loss, Paresthesias, Radicular Pain, Restless Legs, Sensory Deficit, Syncope, Tingling, Tremor, Vertigo, Weakness, Other Visual Disturbances, Other - Endocrine Endocrine: absent: As Per HPI, Change in Body Appearance, Change in Libido, Cold Intolorance, Deepening of Voice, Excessive Sweating, Fatigue, Flushing, Heat Intolorance, Increase in Ring/Shoe/Hat Size, Palpitations, Polydipsia, Polyphagia, Polyuria, Other - Hematologic/Lymphatic Hematologic: As Per HPI Past Patient History - Infectious Disease Hx of Infectious Diseases: None - Tetanus Immunizations Tetanus Immunization: Unknown - Past Medical History & Family History Past Medical History?: Yes Past Family History: Reviewed and not pertinent - Past Social History Smoking Status: Never Smoked - CARDIAC Hx Cardiac Disorders: Yes (Afib) Hx Congestive Heart Failure: Yes Hx Hypertension: Yes - PULMONARY Hx Respiratory Disorders: No - NEUROLOGICAL Hx Neurological Disorder: Yes Other/Comment: DELERIUM SINCE SURGERY ORIF ONE WK AGO - HEENT Hx HEENT Problems: Yes Hx Cataracts: Yes - RENAL Hx Chronic Kidney Disease: No - ENDOCRINE/METABOLIC Hx Diabetes Mellitus Type 2: Yes - HEMATOLOGICAL/ONCOLOGICAL Hx Blood Disorders: Yes Hx Anemia: Yes - INTEGUMENTARY Hx Dermatological Problems: No - MUSCULOSKELETAL/RHEUMATOLOGICAL Hx Musculoskeletal Disorders: Yes Hx Falls: Yes - GASTROINTESTINAL Hx Gastrointestinal Disorders: No (CONSTIPATION) - GENITOURINARY/GYNECOLOGICAL Hx Genitourinary Disorders: Yes (URGENCY FREQUENCY) - PSYCHIATRIC Hx Psychophysiologic Disorder: Yes Hx Anxiety: Yes Hx Depression: Yes - SURGICAL HISTORY Other/Comment: knee replacement. orif let hip - ANESTHESIA Hx Anesthesia: No Hx Anesthesia Reactions: No Hx Malignant Hyperthermia: No Meds Allergies/Adverse Reactions: Allergies Allergy/AdvReac Type Severity Reaction Status Date / Time lactose AdvReac DIARRHEA Verified 01/03/17 19:05 Physical Exam - Constitutional Appears: Chronically Ill - Head Exam Head Exam: ATRAUMATIC, NORMAL INSPECTION, NORMOCEPHALIC - Eye Exam Eye Exam: Normal appearance - ENT Exam ENT Exam: Mucous Membranes Moist - Neck Exam Neck exam: Positive for: Normal Inspection - Respiratory Exam Respiratory Exam: Clear to Auscultation Bilateral, NORMAL BREATHING PATTERN - Cardiovascular Exam Cardiovascular Exam: REGULAR RHYTHM, +S1, +S2 - GI/Abdominal Exam GI & Abdominal Exam: Normal Bowel Sounds - Extremities Exam Extremities exam: Positive for: pedal edema - Back Exam Back exam: NORMAL INSPECTION - Neurological Exam Neurological exam: Alert, Oriented x3 - Skin Skin Exam: Normal Color, Warm Results - Vital Signs Recent Vital Signs: Last Vital Signs Temp 98.4 F 01/05/17 23:27 Pulse 90 01/05/17 23:27 Resp 20 01/05/17 23:27 BP 158/86 H 01/05/17 23:27 Pulse Ox 96 01/05/17 23:27 - Labs Result Diagrams: 01/05/17 06:00 01/05/17 06:00 Labs: Laboratory Results - last 24 hr 01/05/17 01/05/17 01/05/17 05:50 06:00 06:00 WBC 2.7 L* RBC 2.66 L Hgb 8.6 L Hct 27.3 L MCV 102.6 D MCH 32.3 MCHC 31.5 RDW 25.0 H Plt Count 135 MPV 9.8 Sodium 141 Potassium 3.9 Chloride 112 H Carbon Dioxide 21 Anion Gap 12 BUN 17 Creatinine 0.8 Est GFR ( Amer) > 60 Est GFR (Non-Af Amer) > 60 POC Glucose (mg/dL) Random Glucose 85 Calcium 7.6 L Phosphorus 3.4 Magnesium 1.7 Iron TIBC % Saturation Ferritin Troponin I 0.16 H* D Vitamin B12 Folate 01/05/17 01/05/17 01/05/17 07:23 08:30 08:30 WBC RBC Hgb Hct MCV MCH MCHC RDW Plt Count MPV Sodium Potassium Chloride Carbon Dioxide Anion Gap BUN Creatinine Est GFR ( Amer) Est GFR (Non-Af Amer) POC Glucose (mg/dL) 108 Random Glucose Calcium Phosphorus Magnesium Iron 55 TIBC 205 L % Saturation 27 Ferritin 192.0 Troponin I Vitamin B12 493 Folate 8.6 01/05/17 11:28 WBC RBC Hgb Hct MCV MCH MCHC RDW Plt Count MPV Sodium Potassium Chloride Carbon Dioxide Anion Gap BUN Creatinine Est GFR ( Amer) Est GFR (Non-Af Amer) POC Glucose (mg/dL) 146 H Random Glucose Calcium Phosphorus Magnesium Iron TIBC % Saturation Ferritin Troponin I Vitamin B12 Folate Assessment & Plan - Assessment and Plan (Free Text) Assessment: 1. Severe anemia : HB declined over past few years. Leukopenia . Iron studies ordered. Anmeia macrocytic. Renal functions normal. very likley she has myelodysplastic syndrome. She will need bone marrow apiration/biopsy for evaluation. She will benefit from erythropoeitin therapy. 2 units of PRBC 2. Leukopenia : progressive: likely related to MDS 3. CHF : cardiology consult Dr. Rivera. continue cardiac meds. 4,. A-Fib : HR controlled on current meds. continue coumadin. 5. podiatry consult for chronic leg cellulitis. - Date & Time Date: 01/04/17 Time: 10:00
--- NOTE | 2017-01-06 00:48 | CP.PCM.PN ---
Subjective - Date & Time of Evaluation Date of Evaluation: 01/05/17 Time of Evaluation: 10:00 - Subjective Subjective: complaining of weakness, fatigue. No shortness of breath. . S/P 2 units of PRBC transfusion for severe anemia. A-Fib, HR controlled on current meds. Objective - Vital Signs/Intake and Output Vital Signs (last 24 hours): Temp Pulse Resp BP Pulse Ox 98.4 F 90 20 158/86 H 96 01/05/17 23:27 01/05/17 23:27 01/05/17 23:27 01/05/17 23:27 01/05/17 23:27 Intake and Output: 01/05/17 01/06/17 18:59 06:59 Intake Total 720 Output Total 400 Balance 320 - Medications Medications: Current Medications Acetaminophen (Tylenol 325mg Tab) 650 mg PO Q4H PRN PRN Reason: Fever >100.5 F Last Admin: 01/05/17 05:33 Dose: 650 mg Metoprolol Succinate (Toprol Xl) 50 mg PO DAILY [facility] Last Admin: 01/05/17 11:28 Dose: 50 mg Trazodone HCl (Desyrel) 100 mg PO HS [facility] Last Admin: 01/05/17 21:53 Dose: 100 mg Warfarin Sodium (Coumadin) 5 mg PO 1800 NIKKIE PRN Reason: Protocol - Labs Labs: 01/05/17 06:00 01/05/17 06:00 PT 27.4 Seconds (9.9-11.8) H 01/03/17 20:00 INR 2.54 (0.93-1.08) H 01/03/17 20:00 - Constitutional Appears: Chronically Ill - Head Exam Head Exam: ATRAUMATIC, NORMAL INSPECTION, NORMOCEPHALIC - Eye Exam Eye Exam: Normal appearance Pupil Exam: NORMAL ACCOMODATION - ENT Exam ENT Exam: Mucous Membranes Moist, Normal Exam - Neck Exam Neck Exam: Full ROM, Normal Inspection - Respiratory Exam Respiratory Exam: Clear to Ausculation Bilateral, NORMAL BREATHING PATTERN - Cardiovascular Exam Cardiovascular Exam: REGULAR RHYTHM, +S1, +S2 - GI/Abdominal Exam GI & Abdominal Exam: Soft, Normal Bowel Sounds - Extremities Exam Extremities Exam: Pedal Edema - Back Exam Back Exam: NORMAL INSPECTION - Neurological Exam Neurological Exam: Alert, Awake, Oriented x3 - Skin Skin Exam: Pallor, Warm Assessment and Plan - Assessment and Plan (Free Text) Assessment: 1. Severe anemia : HB declined over past few years. Leukopenia . Iron -54. Anmeia macrocytic. Renal functions normal. very likley she has myelodysplastic syndrome. She will need bone marrow apiration/biopsy for evaluation. She will benefit from erythropoeitin therapy. s/p 2 units of PRBC. Had a lenghty discussion with patient and daughter regarding possible diagnosis of MDS. Initially patient agreed for Bone marow aspiration but then declined. Daughter agreed that she should get work up and treated. 2. Leukopenia : progressive: likely related to MDS 3. CHF : cardiology consult Dr. Rivera appreciated. continue cardiac meds. 4,. A-Fib : HR controlled on current meds. continue coumadin. Pt, INR am.
[2017-01-06 05:48] VITALS: PULSE 86
[2017-01-06 06:45] VITALS: RESP 22; TEMP 98.3; O2SAT 95
[2017-01-06] MEDS: Metoprolol Succinate 50 mg XL Tab PO SCH (09:13)
[2017-01-06 09:16] VITALS: BP 130/70
--- NOTE | 2017-01-06 09:37 | PN ---
DATE: 01/06/2017 SUBJECTIVE: The patient has no complaints of any chest pain or shortness of breath or headaches. PHYSICAL EXAMINATION: VITAL SIGNS: Temperature 98.3, pulse of 86, blood pressure 158/86, and respiration 22. GENERAL: The patient is lying in bed, flat, comfortable. HEENT: No oral lesion. Anicteric sclerae. Moist mucosa. NECK: No JVD, adenopathy, or thyromegaly. CARDIOVASCULAR: S1 and S2, regular. No murmurs, rubs, or gallops. LUNGS: Clear to auscultation bilaterally. No wheeze, rales, or rhonchi. ABDOMEN: Bowel sounds are positive, soft, nontender and nondistended. EXTREMITIES: Both legs are wrapped. LABORATORY DATA: White count of 2.7, hemoglobin 8.6, and platelet count is 135. Creatinine 0.8. ASSESSMENT: 1. Acute anemia, most likely secondary to myelodysplastic syndrome. 2. Leukopenia. 3. Atrial fibrillation. 4. Hypertension. 5. Diabetes type 2. 6. Congestive heart failure secondary to systolic dysfunction, chronic, stable. PLAN: The patient is current comfortable. She is on her Coumadin. She is going to continue with trazodone. She is on metoprolol. She is waiting to got to transitional care unit. She is cleared to be discharged to the transitional care unit for rehab. The patient is going to need followup for issues with Dr. Brock. The patient is on metoprolol. I will also discontinue telemetry. Nas Barrera MD
[2017-01-06] MEDS ORDERED: Metoprolol Succinate 50 mg XL Tab PO SCH (10:20)
[2017-01-06] MEDS ORDERED: Metoprolol Succinate 100 mg XL Tab PO SCH (10:20)
[2017-01-06 10:39] LABS: MEAN CELL VOLUME 102.7 fl (80.0-105.0); MEAN CORPUSCULAR HEMOGLOBIN 32.3 pg (25.0-35.0); MEAN CORPUSCULAR HGB CONC 31.5 g/dl (31.0-37.0); MEAN PLATELET VOLUME 9.6 fl (7.0-11.0); RED CELL DISTRIBUTION WIDTH 23.8 % (11.5-14.5)
[2017-01-06 10:42] LABS: WHITE BLOOD COUNT 2.6 10^3/ul (4.5-11.0)
[2017-01-06 10:45] LABS: INR 1.86 (0.93-1.08)
[2017-01-06 10:46] LABS: BLOOD UREA NITROGEN 15 mg/dL (7-21); CALCIUM 7.7 mg/dL (8.4-10.5); CARBON DIOXIDE 22 mmol/L (21-33); CHLORIDE 113 mmol/L (98-107); GFR AFRICAN-AMERICAN > 60; GLUCOSE,RANDOM 88 mg/dL (70-110); POTASSIUM 3.7 mmol/L (3.6-5.0); SODIUM 139 mmol/L (132-148)
--- NOTE | 2017-01-06 16:35 | PN ---
DATE: 01/06/2017 SUBJECTIVE: The patient is seen, lying in bed, on telemetry. She is currently comfortable. She denies any chest pain or dyspnea at rest. She remains in atrial fibrillation. CURRENT MEDICATIONS: Include warfarin, Desyrel, Lasix 20 mg daily and Toprol-XL 50 mg daily. OBJECTIVE: GENERAL: She is an elderly woman, who appears comfortable at rest. VITAL SIGNS: Blood pressure is 130/70 with a pulse of 90-120 in atrial fibrillation, respirations are 14. She is afebrile. NECK: No JVD. CHEST: Few scattered rhonchi noted. HEART: PMI displaced laterally with an irregularly irregular rhythm, systolic murmur present at the left sternal border and apex. ABDOMEN: Soft, nontender with normoactive bowel sounds. EXTREMITIES: Both legs are wrapped. DIAGNOSTIC DATA: Morning blood work is pending. IMPRESSION: 1. Admitting diagnosis of weakness, likely multifactorial in nature. 2. Does have significant macrocytic anemia, received packed cells and is contemplating a possible anemia workup; however, she is fairly reluctant to do so. 3. Chronic atrial fibrillation with suboptimal rate control. 4. Borderline troponin on admission, likely secondary to stress of illness and not true infarct. RECOMMENDATIONS: At this time, her metoprolol dose to be increased for her heart rate and blood pressure control. Continued anticoagulation is reasonable, but close monitoring of her hemoglobin will be necessary. She was strongly encouraged to proceed with hematologic workup. We will continue to follow and make further recommendations as appropriate. Jackson Santos MD
== END 2017-01-06 13:10 | DRG 812 ==
LOC: ED 18:23 → ERH 22:28 → 2RNO 01-04 00:11
PROVIDERS: ADMIT Internal Medicine Nephrology; ATTEND Internal Medicine Nephrology
PROC: 30233N1 Transfusion of Nonautologous Red Blood Cells into Peripheral Vein, Percutaneous Approach (ICD-10-PCS; principal; 2017-01-03)
DX: D53.9 Nutritional anemia, unspecified (principal); I50.22 Chronic systolic (congestive) heart failure; I11.0 Hypertensive heart disease with heart failure; I48.2 Chronic atrial fibrillation; L03.119 Cellulitis of unspecified part of limb; D46.9 Myelodysplastic syndrome, unspecified; E11.9 Type 2 diabetes mellitus without complications; D72.819 Decreased white blood cell count, unspecified; R53.1 Weakness; F41.9 Anxiety disorder, unspecified; Z79.01 Long term (current) use of anticoagulants

== ENCOUNTER 2017-01-06 13:20 | Inpatient (IN) | payer OTHER, BC ==
[2017-01-06 13:31] VITALS: BMI 28.7
[2017-01-06] MEDS ORDERED: Pneumococcal 23-Valent Vaccine IM ONE (15:02)
[2017-01-07] MEDS: Metoprolol Succinate 50 mg XL Tab PO SCH (11:09)
--- NOTE | 2017-01-07 12:34 | PN ---
DATE: 01/07/2017 SUBJECTIVE: The patient has no complaints of any chest pain or shortness of breath or headaches. The patient's initial H and P was reviewed and I do agree with this. PHYSICAL EXAMINATION: VITAL SIGNS: Temperature 97.3, pulse of 90, blood pressure 172/99, and respirations 20. GENERAL: The patient is lying in bed, flat, comfortable. HEENT: No oral lesion. Anicteric sclerae. Moist mucosa. NECK: No JVD, adenopathy, or thyromegaly. CARDIOVASCULAR: S1 and S2, regular. No murmurs, rubs, or gallops. LUNGS: Clear to auscultation bilaterally. No wheeze, rales, or rhonchi. ABDOMEN: Bowel sounds are positive, soft, nontender and nondistended. EXTREMITIES: No cyanosis, clubbing or edema. ASSESSMENT: 1. Acute anemia, possibly secondary to myelodysplastic syndrome. 2. Acute leukopenia. 3. Atrial fibrillation. 4. Hypertension. 5. Diabetes type 2. 6. Congestive heart failure secondary to systolic dysfunction, chronic, stable. PLAN: The patient is currently comfortable. He is on Coumadin. The patient will need her PT/INR to be checked. She is on Lasix daily. She is receiving Tylenol as needed. She is on heart healthy diet. She is eating well. We will continue to follow closely. Nas Barrera MD
--- NOTE | 2017-01-07 14:08 | CP.PCM.CON ---
<Amita Treviño - Last Filed: 01/07/17 22:25> History of Present Illness - History of Present Illness History of Present Illness: 81 y/o female with PMHx of DM, CHF, and atrial fibrillation seen at bedside for bilateral venous stasis ulcerations. Patient states she came in feeling generally weak a few days ago. Patient states she regularly sees Dr. Brock for dressing changes in the wound care center. Patient has kept her dressings clean dry and intact since her last visit with Dr. Brock. Patient has been experiencing weakness and fatigue, but denies F/C/N/V/SOB. Review of Systems - Review of Systems All systems: reviewed and no additional remarkable complaints except (per HPI) Past Patient History - Infectious Disease Hx of Infectious Diseases: None - Tetanus Immunizations Tetanus Immunization: Unknown - Past Social History Smoking Status: Never Smoked - CARDIAC Hx Cardiac Disorders: Yes (Afib) Hx Congestive Heart Failure: Yes Hx Hypertension: Yes - PULMONARY Hx Respiratory Disorders: No - NEUROLOGICAL Hx Neurological Disorder: Yes Other/Comment: DELERIUM SINCE SURGERY ORIF ONE WK AGO - HEENT Hx HEENT Problems: Yes Hx Cataracts: Yes - RENAL Hx Chronic Kidney Disease: No - ENDOCRINE/METABOLIC Hx Diabetes Mellitus Type 2: Yes - HEMATOLOGICAL/ONCOLOGICAL Hx Blood Disorders: Yes Hx Anemia: Yes - INTEGUMENTARY Hx Dermatological Problems: No - MUSCULOSKELETAL/RHEUMATOLOGICAL Hx Falls: Yes - GASTROINTESTINAL Hx Gastrointestinal Disorders: Yes (CONSTIPATION) - GENITOURINARY/GYNECOLOGICAL Hx Genitourinary Disorders: No (URGENCY/FREQUENCY) Hx Reproductive Disorders: No - PSYCHIATRIC Hx Psychophysiologic Disorder: Yes Hx Anxiety: Yes Hx Depression: Yes - SURGICAL HISTORY Other/Comment: knee replacement. orif let hip - ANESTHESIA Hx Anesthesia: No Hx Anesthesia Reactions: No Hx Malignant Hyperthermia: No Meds Allergies/Adverse Reactions: Allergies Allergy/AdvReac Type Severity Reaction Status Date / Time lactose AdvReac DIARRHEA Verified 01/06/17 14:34 - Medications Medications: Current Medications Acetaminophen (Tylenol 325mg Tab) 650 mg PO Q4H PRN; Protocol PRN Reason: Fever >100.4 F Last Admin: 01/06/17 21:35 Dose: 650 mg Furosemide (Lasix) 20 mg PO DAILY [facility] PRN Reason: Protocol Last Admin: 01/07/17 11:09 Dose: 20 mg Metoprolol Succinate (Toprol Xl) 50 mg PO DAILY [facility] PRN Reason: Protocol Last Admin: 01/07/17 11:09 Dose: 50 mg Trazodone HCl (Desyrel) 100 mg PO HS [facility] PRN Reason: Protocol Last Admin: 01/06/17 21:35 Dose: 100 mg Warfarin Sodium (Coumadin) 5 mg PO 1800 NIKKIE PRN Reason: Protocol Last Admin: 01/06/17 17:18 Dose: 5 mg Physical Exam - Constitutional Appears: Well, Non-toxic, No Acute Distress - Extremities Exam Additional comments: Vasc: Diffuse edema noted to bilateral lower extremities. Derm: Bilateral diffuse venous stasis ulcerations noted, R>L. Minimal drainage noted to RLE dressing, none to LLE dressing. No active drainage noted. No purulence, no malodor. Hyperpigmentation with hemosiderin deposits noted to B/L lower extremities. Neuro: Protective sensation grossly intact Ortho: Tenderness noted on palpation of B/L lower extremities, R>L. - Neurological Exam Neurological exam: Alert, Oriented x3 - Psychiatric Exam Psychiatric exam: Normal Affect, Normal Mood Results - Vital Signs Recent Vital Signs: Last Vital Signs Temp 98.0 F 01/07/17 10:00 Pulse 99 H 01/07/17 11:09 Resp 19 01/07/17 10:00 BP 144/84 01/07/17 11:09 Pulse Ox 98 01/07/17 10:00 Assessment & Plan - Assessment and Plan (Free Text) Assessment: 81 y/o female with bilateral lower extremity venous stasis ulcerations Plan: Pt seen and evaluated at bedside Discussed plan in detail with attending Dr. Brock Dressed bilateral lower extremities with xeroform, ABD pads, kerlix and CARLOS bandages Podiatry will continue to follow while in house Thank you for the consult <Alysa Brock - Last Filed: 01/12/17 13:19> Meds - Medications Medications: Current Medications Acetaminophen (Tylenol 325mg Tab) 650 mg PO Q4H PRN; Protocol PRN Reason: Fever >100.4 F Last Admin: 01/12/17 03:40 Dose: 650 mg Furosemide (Lasix) 20 mg PO DAILY [facility] PRN Reason: Protocol Last Admin: 01/12/17 09:40 Dose: 20 mg Lactic Acid (Lac-Hydrin 12% Cream (140 G)) 0 ea TOP BID [facility] Last Admin: 01/12/17 09:41 Dose: 1 applic Metoprolol Succinate (Toprol Xl) 50 mg PO DAILY [facility] PRN Reason: Protocol Last Admin: 01/12/17 09:40 Dose: 50 mg Potassium Chloride (K-Dur 20 Meq Er Tab) 20 meq PO DAILY [facility] Last Admin: 01/12/17 09:40 Dose: 20 meq Trazodone HCl (Desyrel) 100 mg PO HS [facility] PRN Reason: Protocol Last Admin: 01/11/17 21:07 Dose: Not Given Warfarin Sodium (Coumadin) 5 mg PO 1800 NIKKIE PRN Reason: Protocol Last Admin: 01/11/17 17:49 Dose: 5 mg Results - Vital Signs Recent Vital Signs: Last Vital Signs Temp 97.6 F 01/12/17 10:00 Pulse 76 01/12/17 10:00 Resp 18 01/12/17 10:00 BP 143/80 01/12/17 10:00 Pulse Ox 99 01/12/17 05:31 - Labs Result Diagrams: 01/10/17 16:14 01/10/17 16:14 Attending/Attestation - Attestation I have personally seen and examined this patient.: Yes I have fully participated in the care of the patient.: Yes I have reviewed all pertinent clinical information: Yes
--- NOTE | 2017-01-07 17:21 | CON ---
DATE: 01/07/2017 CHIEF COMPLAINT: Generalized weakness. HISTORY OF PRESENT ILLNESS: This is an 81-year-old woman with past medical history of hypertension and atrial fibrillation, CHF, type 2 diabetes mellitus, anxiety, who came initially to [facility] on 01/03 for generalized weakness. She was found to have low hemoglobin of 7.5 and was also noted to be in atrial fibrillation with rate of 117 initially. She is status post transfusion which currently her hemoglobin today is 8.5, but she has a low WBC count of 2.6. Her acute anemia is possibly likely secondary to myelodysplastic syndrome. She is currently in [facility] for underlying deconditioned state, undergoing physical and occupational therapy. No acute events overnight. PAST MEDICAL HISTORY: History of type 2 diabetes mellitus, hypertension, CHF, and dyslipidemia. REVIEW OF SYSTEMS: A 14-point review of systems is negative except per the HPI. PAST SURGICAL HISTORY: Left hip ORIF and right knee replacement. FAMILY HISTORY: Noncontributory. SOCIAL HISTORY: No illicit drug use, smoking, or EtOH abuse. ALLERGIES: ALLERGIC TO LACTULOSE. PHYSICAL EXAMINATION VITAL SIGNS: The patient is afebrile, pulse rate of 98, blood pressure 144/44, respiratory rate of 19, oxygen saturation 98%. GENERAL: The patient is sitting up in bed, in no acute distress. HEENT: Head is atraumatic and normocephalic. PERRLA. Extraocular muscles intact. NECK: Supple. No JVD. No adenopathy noted. LUNGS: Clear to auscultation. No adventitious sounds. HEART: S1 and S2, normal rate and rhythm. No murmurs, rubs, or gallops. ABDOMEN: Soft, nontender, nondistended. Bowel sounds are present. EXTREMITIES: No clubbing. No cyanosis. Peripheral pulses 2+ felt bilaterally. NEUROLOGIC: The patient is alert and oriented to person, place, month but not year. Recall after 5 minutes is 0/3. Poor attention span, slow thought process. Cranial nerves II through XII intact. Motor exam: Moves all extremities equally. Slight increased tone throughout. No pronator drift seen. Sensory exam: Decreased light touch and pinprick up to calves bilaterally. DTRs are 1+ throughout and absent at the ankles. Coordination: [id number] intact. Gait is deferred for now. LABORATORY DATA: WBC is 2.6, hemoglobin 8.5, hematocrit 27, platelet count of 127. Sodium is 139, potassium 3.7, chloride 113, carbon dioxide 22, BUN of 15, creatinine 0.8, random glucose 88, calcium is 7.7. ASSESSMENT AND PLAN: This is an 81-year-old woman with past medical history of hypertension, atrial fibrillation, congestive heart failure, type 2 diabetes mellitus, anxiety, status post recent mechanical fall, presented to the [facility] for persisting generalized weakness, at that time in the hospital was found that her generalized weakness is likely multifactorial including secondary to underlying depressive effect, deconditioning state, decreased p.o. intake in the setting of underlying chronic medical conditions. She has also had acute anemia which is with a hemoglobin of 7.5 and was transfused 2 units of packed red blood cells which is now 8.5. She is currently in [facility] for underlying deconditioned state, undergoing physical therapy and occupational therapy. No acute events overnight. She has some evidence of myelodysplastic syndrome, likely cause of her acute anemia and acute leukopenia. Hematology is on board. At this time, recommend: 1. 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 2. Avoid sedative medications. 3. Frequent orientation throughout the day. 4. Continue with Coumadin 5 mg p.o. daily for underlying atrial fibrillation for stroke prevention and continue current present medical management. Thank you for this consult. She is neurologically stable. Delfino Paz MD
[2017-01-08 07:16] LABS: INR 2.54 (0.93-1.08)
--- NOTE | 2017-01-08 09:27 | PN ---
DATE: 01/08/2017 SUBJECTIVE: The patient is seen, sitting in bed, in the transitional care unit. She is tearful and unhappy. She feels that her leg wounds are not being dressed appropriately. She denies any chest pain or dyspnea present. CURRENT MEDICATIONS: Include Coumadin, trazodone, Lasix 20 mg daily, metoprolol 50 mg daily and Tylenol p.r.n. OBJECTIVE: GENERAL: She is an elderly woman, who appears somewhat stressed. VITAL SIGNS: Her blood pressure is 146/90 with a pulse of 76 in irregularly irregular, respirations are 16. HEENT: No JVD. CHEST: Few scattered rhonchi noted. HEART: PMI displaced laterally with systolic murmur at the left sternal border. Rhythm is irregularly irregular. ABDOMEN: Soft, nontender with normoactive bowel sounds. EXTREMITIES: Both lower extremities are wrapped. DIAGNOSTIC DATA: INR is 2.54. IMPRESSION: 1. Severe anemia, suspicious for myelodysplastic syndrome. 2. Chronic atrial fibrillation, maintained on anticoagulation and rhythm control. 3. History of hypertension, diabetes. 4. Chronic congestive heart failure, predominantly systolic, stable at present. . RECOMMENDATIONS: Current medications should be continued. She is encouraged to proceed with workup of her anemia, but remains reluctant to do so. Increase activities as tolerated is recommended. We would be happy to continue to follow along as needed. Jackson Santos MD
[2017-01-08] MEDS: Metoprolol Succinate 50 mg XL Tab PO SCH (10:42)
--- NOTE | 2017-01-08 11:03 | CP.PCM.PN ---
<HudsonAmita - Last Filed: 01/08/17 11:06> Subjective - Date & Time of Evaluation Date of Evaluation: 01/08/17 Time of Evaluation: 11:02 - Subjective Subjective: 81 y/o female seen at bedside with Dr. Brock for bilateral non-draining venous stasis superficial ulcerations. Patient states she is experiencing a little bit of pain in the legs. Pt admits that she has not been moving out of bed very much. Pt denies F/C/N/V/SOB at this time. Objective - Vital Signs/Intake and Output Vital Signs (last 24 hours): Temp Pulse Resp BP Pulse Ox 97.4 F L 93 H 14 155/97 H 94 L 01/08/17 10:08 01/08/17 10:42 01/08/17 10:08 01/08/17 10:42 01/08/17 10:08 - Medications Medications: Current Medications Acetaminophen (Tylenol 325mg Tab) 650 mg PO Q4H PRN; Protocol PRN Reason: Fever >100.4 F Last Admin: 01/07/17 21:12 Dose: 650 mg Furosemide (Lasix) 20 mg PO DAILY NIKKIE PRN Reason: Protocol Last Admin: 01/08/17 10:42 Dose: 20 mg Lactic Acid (Lac-Hydrin 12% Cream (140 G)) 0 ea TOP BID NIKKIE Metoprolol Succinate (Toprol Xl) 50 mg PO DAILY NIKKIE PRN Reason: Protocol Last Admin: 01/08/17 10:42 Dose: 50 mg Trazodone HCl (Desyrel) 100 mg PO HS NIKKIE PRN Reason: Protocol Last Admin: 01/07/17 21:12 Dose: 100 mg Warfarin Sodium (Coumadin) 5 mg PO 1800 NIKKIE PRN Reason: Protocol Last Admin: 01/07/17 17:30 Dose: 5 mg - Labs Labs: PT 27.4 Seconds (9.9-11.8) H 01/08/17 07:01 INR 2.54 (0.93-1.08) H 01/08/17 07:01 - Constitutional Appears: Well, Non-toxic, No Acute Distress - Extremities Exam Additional comments: Vasc: Diffuse edema noted to bilateral lower extremities Derm: Venous stasis superficial preulcerations noted to bilateral lower extremities. No drainage noted on dressing. No active drainage noted. No purulence, no malodor. Hyperpigmentation with hemosiderin deposits noted to B/L lower extremities. Neuro: Protective sensation grossly intact Ortho: Tenderness noted on palpation of B/L lower extremities, R>L. - Neurological Exam Neurological Exam: Alert, Awake, Oriented x3 - Psychiatric Exam Psychiatric exam: Normal Affect, Normal Mood Assessment and Plan - Assessment and Plan (Free Text) Assessment: 81 y/o female with bilateral lower extremity superficial venous stasis preulcerations Plan: Pt seen and evaluated at bedside with attending Dr. Brock Applied Tubigrip stockings to bilateral lower extremities Lac Hydrin to be applied BID to legs and Tubigrips to be worn at all times during the day and removed at night to sleep Pt encouraged to increase ambulation and mobilize to and from her chair No additional dressings are to be applied to B/L lower extremities Podiatry will continue to follow while in house <Alysa Brock - Last Filed: 01/12/17 13:19> Objective - Vital Signs/Intake and Output Vital Signs (last 24 hours): Temp Pulse Resp BP Pulse Ox 97.6 F 76 18 143/80 99 01/12/17 10:00 01/12/17 10:00 01/12/17 10:00 01/12/17 10:00 01/12/17 05:31 - Medications Medications: Current Medications Acetaminophen (Tylenol 325mg Tab) 650 mg PO Q4H PRN; Protocol PRN Reason: Fever >100.4 F Last Admin: 01/12/17 03:40 Dose: 650 mg Furosemide (Lasix) 20 mg PO DAILY NIKKIE PRN Reason: Protocol Last Admin: 01/12/17 09:40 Dose: 20 mg Lactic Acid (Lac-Hydrin 12% Cream (140 G)) 0 ea TOP BID NIKKIE Last Admin: 01/12/17 09:41 Dose: 1 applic Metoprolol Succinate (Toprol Xl) 50 mg PO DAILY NIKKIE PRN Reason: Protocol Last Admin: 01/12/17 09:40 Dose: 50 mg Potassium Chloride (K-Dur 20 Meq Er Tab) 20 meq PO DAILY NIKKIE Last Admin: 01/12/17 09:40 Dose: 20 meq Trazodone HCl (Desyrel) 100 mg PO HS NIKKIE PRN Reason: Protocol Last Admin: 01/11/17 21:07 Dose: Not Given Warfarin Sodium (Coumadin) 5 mg PO 1800 NIKKIE PRN Reason: Protocol Last Admin: 01/11/17 17:49 Dose: 5 mg - Labs Labs: 01/10/17 16:14 01/10/17 16:14 PT 27.4 Seconds (9.9-11.8) H 01/08/17 07:01 INR 2.54 (0.93-1.08) H 01/08/17 07:01 Attending/Attestation - Attestation I have personally seen and examined this patient.: Yes I have fully participated in the care of the patient.: Yes I have reviewed all pertinent clinical information, including history, physical exam and plan: Yes
[2017-01-08] MEDS: Ammonium Lactate 12% Cream (140 g) TOP SCH (18:40)
--- NOTE | 2017-01-09 08:32 | CP.PCM.PN ---
<Beronica Looney - Last Filed: 01/09/17 08:30> Subjective - Date & Time of Evaluation Date of Evaluation: 01/09/17 Time of Evaluation: 08:30 - Subjective Subjective: 81 y/o female seen at bedside with Dr. Brock for bilateral non-draining venous stasis superficial ulcerations. Patient states she is experiencing a little bit of pain in the legs. Pt admits that she has not been moving out of bed very much. Pt denies F/C/N/V/SOB at this time. Objective - Vital Signs/Intake and Output Vital Signs (last 24 hours): Temp Pulse Resp BP Pulse Ox 98.5 F 78 20 150/75 98 01/09/17 06:00 01/09/17 06:00 01/09/17 06:00 01/09/17 06:00 01/09/17 06:00 - Medications Medications: Current Medications Acetaminophen (Tylenol 325mg Tab) 650 mg PO Q4H PRN; Protocol PRN Reason: Fever >100.4 F Last Admin: 01/07/17 21:12 Dose: 650 mg Furosemide (Lasix) 20 mg PO DAILY NIKKIE PRN Reason: Protocol Last Admin: 01/08/17 10:42 Dose: 20 mg Lactic Acid (Lac-Hydrin 12% Cream (140 G)) 0 ea TOP BID [facility] Last Admin: 01/08/17 18:40 Dose: 1 applic Metoprolol Succinate (Toprol Xl) 50 mg PO DAILY NIKKIE PRN Reason: Protocol Last Admin: 01/08/17 10:42 Dose: 50 mg Trazodone HCl (Desyrel) 100 mg PO HS NIKKIE PRN Reason: Protocol Last Admin: 01/08/17 21:16 Dose: Not Given Warfarin Sodium (Coumadin) 5 mg PO 1800 NIKKIE PRN Reason: Protocol Last Admin: 01/08/17 18:39 Dose: 5 mg - Labs Labs: PT 27.4 Seconds (9.9-11.8) H 01/08/17 07:01 INR 2.54 (0.93-1.08) H 01/08/17 07:01 - Constitutional Appears: Well, Non-toxic, No Acute Distress - Extremities Exam Additional comments: Vasc: Diffuse edema noted to bilateral lower extremities Derm: Venous stasis superficial preulcerations noted to bilateral lower extremities. No drainage noted on dressing. No active drainage noted. No purulence, no malodor. Hyperpigmentation with hemosiderin deposits noted to B/L lower extremities. Neuro: Protective sensation grossly intact Ortho: Tenderness noted on palpation of B/L lower extremities, R>L. - Neurological Exam Neurological Exam: Alert, Awake, Oriented x3 - Psychiatric Exam Psychiatric exam: Normal Affect, Normal Mood Assessment and Plan - Assessment and Plan (Free Text) Assessment: 81 y/o female with bilateral lower extremity superficial venous stasis preulcerations Plan: Pt seen and evaluated at bedside with attending Dr. Brock Lac Hydrin to be applied BID to legs and Tubigrips to be worn at all times during the day and removed at night to sleep Pt encouraged to increase ambulation and mobilize to and from her chair No additional dressings are to be applied to B/L lower extremities Podiatry will continue to follow while in house <Alysa Brock - Last Filed: 01/12/17 13:21> Objective - Vital Signs/Intake and Output Vital Signs (last 24 hours): Temp Pulse Resp BP Pulse Ox 97.6 F 76 18 143/80 99 01/12/17 10:00 01/12/17 10:00 01/12/17 10:00 01/12/17 10:00 01/12/17 05:31 - Medications Medications: Current Medications Acetaminophen (Tylenol 325mg Tab) 650 mg PO Q4H PRN; Protocol PRN Reason: Fever >100.4 F Last Admin: 01/12/17 03:40 Dose: 650 mg Furosemide (Lasix) 20 mg PO DAILY NIKKIE PRN Reason: Protocol Last Admin: 01/12/17 09:40 Dose: 20 mg Lactic Acid (Lac-Hydrin 12% Cream (140 G)) 0 ea TOP BID NIKKIE Last Admin: 01/12/17 09:41 Dose: 1 applic Metoprolol Succinate (Toprol Xl) 50 mg PO DAILY [facility] PRN Reason: Protocol Last Admin: 01/12/17 09:40 Dose: 50 mg Potassium Chloride (K-Dur 20 Meq Er Tab) 20 meq PO DAILY NIKKIE Last Admin: 01/12/17 09:40 Dose: 20 meq Trazodone HCl (Desyrel) 100 mg PO HS NIKKIE PRN Reason: Protocol Last Admin: 01/11/17 21:07 Dose: Not Given Warfarin Sodium (Coumadin) 5 mg PO 1800 NIKKIE PRN Reason: Protocol Last Admin: 01/11/17 17:49 Dose: 5 mg - Labs Labs: 01/10/17 16:14 01/10/17 16:14 PT 27.4 Seconds (9.9-11.8) H 01/08/17 07:01 INR 2.54 (0.93-1.08) H 01/08/17 07:01 Attending/Attestation - Attestation I have personally seen and examined this patient.: Yes I have fully participated in the care of the patient.: Yes I have reviewed all pertinent clinical information, including history, physical exam and plan: Yes
--- NOTE | 2017-01-09 09:16 | PN ---
DATE: 01/09/2017 SUBJECTIVE: The patient is seen lying in bed on the TCU. She is currently comfortable at the present time. She denies any chest pain. Her leg edema has improved. CURRENT MEDICATIONS: Remain Coumadin, trazodone, Lasix 20 mg daily, Toprol XL 50 mg daily. OBJECTIVE GENERAL: She is an elderly woman, who is comfortable at rest. VITAL SIGNS: Blood pressure is 150/70 with a pulse of 76 and sinus, respiratory rate is 14, she is afebrile. HEENT: No JVD. CHEST: Few scattered rhonchi noted. HEART: PMI displaced laterally with a systolic murmur at the lower left sternal border. ABDOMEN: Soft and nontender with normoactive bowel sounds. EXTREMITIES: Chronic cellulitic changes noted in both legs. LABORATORY DATA: Morning labs are pending. IMPRESSION: 1. Severe anemia, suspicious for myelodysplastic syndrome. 2. Chronic atrial fibrillation, maintained on anticoagulation and rhythm control at present. 3. Chronic congestive heart failure, predominantly systolic, stable at present. 4. History of hypertension. 5. Diabetes. RECOMMENDATIONS: Her current medications should continue. She is encouraged to proceed with anemia workup at this time. Continue fluid restriction as advised. Local wound care for her leg issues is planned. We would be happy to follow along as needed. Jackson Santos MD
[2017-01-09] MEDS: Metoprolol Succinate 50 mg XL Tab PO SCH (09:40)
[2017-01-09] MEDS: Ammonium Lactate 12% Cream (140 g) TOP SCH ×2 (09:41→17:56)
[2017-01-10] MEDS: Ammonium Lactate 12% Cream (140 g) TOP SCH ×2 (09:53→17:17)
[2017-01-10] MEDS: Metoprolol Succinate 50 mg XL Tab PO SCH (10:00)
--- NOTE | 2017-01-10 16:06 | CP.PCM.PN ---
<Beronica Looney - Last Filed: 01/10/17 16:04> Subjective - Date & Time of Evaluation Date of Evaluation: 01/10/17 Time of Evaluation: 16:04 - Subjective Subjective: 81 y/o female seen at bedside with Dr. Brock for bilateral non-draining venous stasis superficial ulcerations. Patient states she is not experiencing any pain in the legs. Pt admits that she has not been moving out of bed very much. Pt denies F/C/N/V/SOB at this time. Objective - Vital Signs/Intake and Output Vital Signs (last 24 hours): Temp Pulse Resp BP Pulse Ox 98.8 F 77 14 184/92 H 99 01/10/17 11:17 01/10/17 11:17 01/10/17 11:17 01/10/17 11:17 01/10/17 11:17 Intake and Output: 01/10/17 01/10/17 06:59 18:59 Intake Total 240 Balance 240 - Medications Medications: Current Medications Acetaminophen (Tylenol 325mg Tab) 650 mg PO Q4H PRN; Protocol PRN Reason: Fever >100.4 F Last Admin: 01/10/17 05:30 Dose: 650 mg Furosemide (Lasix) 20 mg PO DAILY NIKKIE PRN Reason: Protocol Last Admin: 01/10/17 09:54 Dose: 20 mg Lactic Acid (Lac-Hydrin 12% Cream (140 G)) 0 ea TOP BID NIKKIE Last Admin: 01/10/17 09:53 Dose: 1 applic Metoprolol Succinate (Toprol Xl) 50 mg PO DAILY NIKKIE PRN Reason: Protocol Last Admin: 01/09/17 09:40 Dose: 50 mg Trazodone HCl (Desyrel) 100 mg PO HS NIKKIE PRN Reason: Protocol Last Admin: 01/09/17 21:42 Dose: Not Given Warfarin Sodium (Coumadin) 5 mg PO 1800 NIKKIE PRN Reason: Protocol Last Admin: 01/09/17 17:59 Dose: 5 mg - Labs Labs: PT 27.4 Seconds (9.9-11.8) H 01/08/17 07:01 INR 2.54 (0.93-1.08) H 01/08/17 07:01 - Constitutional Appears: Well, Non-toxic, No Acute Distress - Extremities Exam Additional comments: Vasc: Diffuse edema noted to bilateral lower extremities Derm: Venous stasis superficial preulcerations noted to bilateral lower extremities. No drainage noted on dressing. No active drainage noted. No purulence, no malodor. Hyperpigmentation with hemosiderin deposits noted to B/L lower extremities. Neuro: Protective sensation grossly intact Ortho: Tenderness noted on palpation of B/L lower extremities, R>L. - Neurological Exam Neurological Exam: Alert, Awake, Oriented x3 - Psychiatric Exam Psychiatric exam: Normal Affect, Normal Mood Assessment and Plan - Assessment and Plan (Free Text) Assessment: 81 y/o female with bilateral lower extremity superficial venous stasis preulcerations Plan: Pt seen and evaluated at bedside with attending Dr. Brock Lac Hydrin to be applied BID to legs and Tubigrips to be worn at all times during the day and removed at night to sleep Pt encouraged to increase ambulation and mobilize to and from her chair No additional dressings are to be applied to B/L lower extremities Podiatry will continue to follow while in house <Alysa Brock - Last Filed: 01/12/17 13:22> Objective - Vital Signs/Intake and Output Vital Signs (last 24 hours): Temp Pulse Resp BP Pulse Ox 97.6 F 76 18 143/80 99 01/12/17 10:00 01/12/17 10:00 01/12/17 10:00 01/12/17 10:00 01/12/17 05:31 - Medications Medications: Current Medications Acetaminophen (Tylenol 325mg Tab) 650 mg PO Q4H PRN; Protocol PRN Reason: Fever >100.4 F Last Admin: 01/12/17 03:40 Dose: 650 mg Furosemide (Lasix) 20 mg PO DAILY NIKKIE PRN Reason: Protocol Last Admin: 01/12/17 09:40 Dose: 20 mg Lactic Acid (Lac-Hydrin 12% Cream (140 G)) 0 ea TOP BID NIKKIE Last Admin: 01/12/17 09:41 Dose: 1 applic Metoprolol Succinate (Toprol Xl) 50 mg PO DAILY NIKKIE PRN Reason: Protocol Last Admin: 01/12/17 09:40 Dose: 50 mg Potassium Chloride (K-Dur 20 Meq Er Tab) 20 meq PO DAILY NIKKIE Last Admin: 01/12/17 09:40 Dose: 20 meq Trazodone HCl (Desyrel) 100 mg PO HS NIKKIE PRN Reason: Protocol Last Admin: 01/11/17 21:07 Dose: Not Given Warfarin Sodium (Coumadin) 5 mg PO 1800 NIKKIE PRN Reason: Protocol Last Admin: 01/11/17 17:49 Dose: 5 mg - Labs Labs: 01/10/17 16:14 01/10/17 16:14 PT 27.4 Seconds (9.9-11.8) H 01/08/17 07:01 INR 2.54 (0.93-1.08) H 01/08/17 07:01 Attending/Attestation - Attestation I have personally seen and examined this patient.: Yes I have fully participated in the care of the patient.: Yes I have reviewed all pertinent clinical information, including history, physical exam and plan: Yes
[2017-01-10 16:25] LABS: EOS # 0.1 (0.0-0.7); EOS % 2.7 % (1.5-5.0); GRAN # 1.35 (1.4-6.5); GRAN % 51.7 % (50.0-68.0); HEMATOCRIT 29.5 % (36.0-48.0); LYMPH % 36.4 % (22.0-35.0); MEAN CELL VOLUME 102.8 fl (80.0-105.0); MEAN CORPUSCULAR HEMOGLOBIN 32.4 pg (25.0-35.0); MEAN CORPUSCULAR HGB CONC 31.5 g/dl (31.0-37.0); MEAN PLATELET VOLUME 10.2 fl (7.0-11.0); MONO # 0.2 (0.1-0.6); MONO % 9.2 % (1.0-6.0)
[2017-01-10 16:29] LABS: BLOOD UREA NITROGEN 15 mg/dL (7-21); CARBON DIOXIDE 27 mmol/L (21-33); CHLORIDE 105 mmol/L (98-107); GFR AFRICAN-AMERICAN > 60; GLUCOSE,RANDOM 93 mg/dL (70-110); POTASSIUM 3.5 mmol/L (3.6-5.0); SODIUM 138 mmol/L (132-148)
[2017-01-10 16:30] LABS: WHITE BLOOD COUNT 2.6 10^3/ul (4.5-11.0)
[2017-01-11] MEDS: Metoprolol Succinate 50 mg XL Tab PO SCH (09:44)
[2017-01-11] MEDS: Ammonium Lactate 12% Cream (140 g) TOP SCH ×2 (09:55→17:59)
--- NOTE | 2017-01-11 11:00 | CP.PCM.PN ---
<Beronica Looney - Last Filed: 01/11/17 10:58> Subjective - Date & Time of Evaluation Date of Evaluation: 01/11/17 Time of Evaluation: 10:59 - Subjective Subjective: 81 y/o female seen at bedside for bilateral non-draining venous stasis superficial ulcerations. Patient states she is not experiencing any pain in the legs. Pt admits that she has not been moving out of bed very much. SHe states that her legs have been very itchy overnight and was not able to sleep. Pt denies F/C/N/V/SOB at this time. Objective - Vital Signs/Intake and Output Vital Signs (last 24 hours): Temp Pulse Resp BP Pulse Ox 97.6 F 79 18 158/79 H 98 01/10/17 16:20 01/11/17 09:44 01/10/17 16:20 01/11/17 09:44 01/10/17 16:20 - Medications Medications: Current Medications Acetaminophen (Tylenol 325mg Tab) 650 mg PO Q4H PRN; Protocol PRN Reason: Fever >100.4 F Last Admin: 01/10/17 05:30 Dose: 650 mg Furosemide (Lasix) 20 mg PO DAILY NIKKIE PRN Reason: Protocol Last Admin: 01/11/17 09:43 Dose: 20 mg Lactic Acid (Lac-Hydrin 12% Cream (140 G)) 0 ea TOP BID NIKKIE Last Admin: 01/11/17 09:55 Dose: 1 applic Metoprolol Succinate (Toprol Xl) 50 mg PO DAILY NIKKIE PRN Reason: Protocol Last Admin: 01/11/17 09:44 Dose: 50 mg Trazodone HCl (Desyrel) 100 mg PO HS NIKKIE PRN Reason: Protocol Last Admin: 01/10/17 21:29 Dose: Not Given Warfarin Sodium (Coumadin) 5 mg PO 1800 NIKKIE PRN Reason: Protocol Last Admin: 01/10/17 17:16 Dose: 5 mg - Labs Labs: 01/10/17 16:14 01/10/17 16:14 PT 27.4 Seconds (9.9-11.8) H 01/08/17 07:01 INR 2.54 (0.93-1.08) H 01/08/17 07:01 - Constitutional Appears: Well, Non-toxic, No Acute Distress - Extremities Exam Additional comments: Vasc: Diffuse edema noted to bilateral lower extremities Derm: Venous stasis superficial preulcerations noted to bilateral lower extremities. No drainage noted on dressing. No active drainage noted. No purulence, no malodor. Hyperpigmentation with hemosiderin deposits noted to B/L lower extremities. Neuro: Protective sensation grossly intact Ortho: Tenderness noted on palpation of B/L lower extremities, R>L. - Neurological Exam Neurological Exam: Alert, Awake, Oriented x3 - Psychiatric Exam Psychiatric exam: Normal Affect, Normal Mood Assessment and Plan - Assessment and Plan (Free Text) Assessment: 81 y/o female with bilateral lower extremity superficial venous stasis preulcerations Plan: Pt seen and evaluated at bedside with attending Dr. Brock Lac Hydrin to be applied BID to legs and Tubigrips to be worn at all times during the day and removed at night to sleep Pt encouraged to increase ambulation and mobilize to and from her chair No additional dressings are to be applied to B/L lower extremities Podiatry will continue to follow while in house <Alysa Brock - Last Filed: 01/12/17 13:22> Objective - Vital Signs/Intake and Output Vital Signs (last 24 hours): Temp Pulse Resp BP Pulse Ox 97.6 F 76 18 143/80 99 01/12/17 10:00 01/12/17 10:00 01/12/17 10:00 01/12/17 10:00 01/12/17 05:31 - Medications Medications: Current Medications Acetaminophen (Tylenol 325mg Tab) 650 mg PO Q4H PRN; Protocol PRN Reason: Fever >100.4 F Last Admin: 01/12/17 03:40 Dose: 650 mg Furosemide (Lasix) 20 mg PO DAILY NIKKIE PRN Reason: Protocol Last Admin: 01/12/17 09:40 Dose: 20 mg Lactic Acid (Lac-Hydrin 12% Cream (140 G)) 0 ea TOP BID NIKKIE Last Admin: 01/12/17 09:41 Dose: 1 applic Metoprolol Succinate (Toprol Xl) 50 mg PO DAILY NIKKIE PRN Reason: Protocol Last Admin: 01/12/17 09:40 Dose: 50 mg Potassium Chloride (K-Dur 20 Meq Er Tab) 20 meq PO DAILY NIKKIE Last Admin: 01/12/17 09:40 Dose: 20 meq Trazodone HCl (Desyrel) 100 mg PO HS NIKKIE PRN Reason: Protocol Last Admin: 01/11/17 21:07 Dose: Not Given Warfarin Sodium (Coumadin) 5 mg PO 1800 NIKKIE PRN Reason: Protocol Last Admin: 01/11/17 17:49 Dose: 5 mg - Labs Labs: 01/10/17 16:14 01/10/17 16:14 PT 27.4 Seconds (9.9-11.8) H 01/08/17 07:01 INR 2.54 (0.93-1.08) H 01/08/17 07:01 Attending/Attestation - Attestation I have personally seen and examined this patient.: Yes I have fully participated in the care of the patient.: Yes I have reviewed all pertinent clinical information, including history, physical exam and plan: Yes
[2017-01-12] MEDS: Potassium Chloride 20 mEq ER Tab PO SCH (09:40)
[2017-01-12] MEDS: Metoprolol Succinate 50 mg XL Tab PO SCH (09:40)
[2017-01-12] MEDS: Ammonium Lactate 12% Cream (140 g) TOP SCH ×2 (09:41→17:46)
--- NOTE | 2017-01-12 11:47 | CP.PCM.PN ---
<AureBeronica - Last Filed: 01/12/17 11:45> Subjective - Date & Time of Evaluation Date of Evaluation: 01/12/17 Time of Evaluation: 11:45 - Subjective Subjective: 81 y/o female seen at bedside with attending Dr. Montgomery for bilateral non- draining venous stasis superficial ulcerations. Patient states she is not experiencing any pain in the legs. Pt admits that she has not been moving out of bed very much. SHe states that her legs have been very itchy in her legs. Pt denies F/C/N/V/SOB at this time. Objective - Vital Signs/Intake and Output Vital Signs (last 24 hours): Temp Pulse Resp BP Pulse Ox 97.8 F 79 18 149/85 99 01/12/17 05:31 01/12/17 09:40 01/12/17 05:31 01/12/17 09:40 01/12/17 05:31 - Medications Medications: Current Medications Acetaminophen (Tylenol 325mg Tab) 650 mg PO Q4H PRN; Protocol PRN Reason: Fever >100.4 F Last Admin: 01/12/17 03:40 Dose: 650 mg Furosemide (Lasix) 20 mg PO DAILY NIKKIE PRN Reason: Protocol Last Admin: 01/12/17 09:40 Dose: 20 mg Lactic Acid (Lac-Hydrin 12% Cream (140 G)) 0 ea TOP BID NIKKIE Last Admin: 01/12/17 09:41 Dose: 1 applic Metoprolol Succinate (Toprol Xl) 50 mg PO DAILY NIKKIE PRN Reason: Protocol Last Admin: 01/12/17 09:40 Dose: 50 mg Potassium Chloride (K-Dur 20 Meq Er Tab) 20 meq PO DAILY NIKKIE Last Admin: 01/12/17 09:40 Dose: 20 meq Trazodone HCl (Desyrel) 100 mg PO HS NIKKIE PRN Reason: Protocol Last Admin: 01/11/17 21:07 Dose: Not Given Warfarin Sodium (Coumadin) 5 mg PO 1800 NIKKIE PRN Reason: Protocol Last Admin: 01/11/17 17:49 Dose: 5 mg - Labs Labs: 01/10/17 16:14 01/10/17 16:14 PT 27.4 Seconds (9.9-11.8) H 01/08/17 07:01 INR 2.54 (0.93-1.08) H 01/08/17 07:01 - Constitutional Appears: Well, Non-toxic, No Acute Distress - Extremities Exam Additional comments: Vasc: Diffuse edema noted to bilateral lower extremities Derm: Venous stasis superficial preulcerations noted to bilateral lower extremities. No drainage noted on dressing. No active drainage noted. No purulence, no malodor. Hyperpigmentation with hemosiderin deposits noted to B/L lower extremities. Neuro: Protective sensation grossly intact Ortho: Tenderness noted on palpation of B/L lower extremities, R>L. - Neurological Exam Neurological Exam: Alert, Awake, Oriented x3 - Psychiatric Exam Psychiatric exam: Normal Affect, Normal Mood Assessment and Plan - Assessment and Plan (Free Text) Assessment: 81 y/o female with bilateral lower extremity superficial venous stasis preulcerations Plan: Pt seen and evaluated at bedside with attending Dr. Montgomery applied lac hydrin to legs bilaterally Lac Hydrin to be applied BID to legs and Tubigrips to be worn at all times during the day and removed at night to sleep Pt encouraged to increase ambulation and mobilize to and from her chair No additional dressings are to be applied to B/L lower extremities Podiatry will continue to follow while in house <Bryan Montgomery - Last Filed: 01/12/17 15:53> Objective - Vital Signs/Intake and Output Vital Signs (last 24 hours): Temp Pulse Resp BP Pulse Ox 97.6 F 76 18 143/80 99 01/12/17 10:00 01/12/17 10:00 01/12/17 10:00 01/12/17 10:00 01/12/17 05:31 Intake and Output: 01/12/17 01/12/17 06:59 18:59 Intake Total 840 Balance 840 - Medications Medications: Current Medications Acetaminophen (Tylenol 325mg Tab) 650 mg PO Q4H PRN; Protocol PRN Reason: Fever >100.4 F Last Admin: 01/12/17 03:40 Dose: 650 mg Furosemide (Lasix) 20 mg PO DAILY NIKKIE PRN Reason: Protocol Last Admin: 01/12/17 09:40 Dose: 20 mg Lactic Acid (Lac-Hydrin 12% Cream (140 G)) 0 ea TOP BID NIKKIE Last Admin: 01/12/17 09:41 Dose: 1 applic Metoprolol Succinate (Toprol Xl) 50 mg PO DAILY NIKKIE PRN Reason: Protocol Last Admin: 01/12/17 09:40 Dose: 50 mg Potassium Chloride (K-Dur 20 Meq Er Tab) 20 meq PO DAILY NIKKIE Last Admin: 01/12/17 09:40 Dose: 20 meq Trazodone HCl (Desyrel) 100 mg PO HS NIKKIE PRN Reason: Protocol Last Admin: 01/11/17 21:07 Dose: Not Given Warfarin Sodium (Coumadin) 5 mg PO 1800 NIKKIE PRN Reason: Protocol Last Admin: 01/11/17 17:49 Dose: 5 mg - Labs Labs: 01/10/17 16:14 01/10/17 16:14 PT 27.4 Seconds (9.9-11.8) H 01/08/17 07:01 INR 2.54 (0.93-1.08) H 01/08/17 07:01 Attending/Attestation - Attestation I have personally seen and examined this patient.: Yes I have fully participated in the care of the patient.: Yes I have reviewed all pertinent clinical information, including history, physical exam and plan: Yes
--- NOTE | 2017-01-13 09:39 | CP.PCM.PN ---
<Ella Del Toro - Last Filed: 01/13/17 09:36> Subjective - Date & Time of Evaluation Date of Evaluation: 01/13/17 Time of Evaluation: 09:36 - Subjective Subjective: 81 y/o female seen at bedside with attending Dr. Montgomery for bilateral non- draining venous stasis superficial ulcerations. Patient is AAOx3 and is in NAD. Patient states she is not experiencing any pain in the legs. Pt admits that she has not been moving out of bed very much. She states that her legs have been very itchy in her legs. Pt denies F/C/N/V/SOB at this time. Objective - Vital Signs/Intake and Output Vital Signs (last 24 hours): Temp Pulse Resp BP Pulse Ox 98 F 87 20 157/73 H 97 01/13/17 05:49 01/13/17 05:49 01/13/17 05:49 01/13/17 05:49 01/13/17 05:49 - Medications Medications: Current Medications Acetaminophen (Tylenol 325mg Tab) 650 mg PO Q4H PRN; Protocol PRN Reason: Fever >100.4 F Last Admin: 01/13/17 08:36 Dose: 650 mg Furosemide (Lasix) 20 mg PO DAILY NIKKIE PRN Reason: Protocol Last Admin: 01/12/17 09:40 Dose: 20 mg Lactic Acid (Lac-Hydrin 12% Cream (140 G)) 0 ea TOP BID NIKKIE Last Admin: 01/12/17 17:46 Dose: 1 applic Metoprolol Succinate (Toprol Xl) 50 mg PO DAILY NIKKIE PRN Reason: Protocol Last Admin: 01/12/17 09:40 Dose: 50 mg Potassium Chloride (K-Dur 20 Meq Er Tab) 20 meq PO DAILY NIKKIE Last Admin: 01/12/17 09:40 Dose: 20 meq Trazodone HCl (Desyrel) 100 mg PO HS NIKKIE PRN Reason: Protocol Last Admin: 01/12/17 21:59 Dose: Not Given Warfarin Sodium (Coumadin) 5 mg PO 1800 NIKKIE PRN Reason: Protocol Last Admin: 01/12/17 17:45 Dose: 5 mg - Labs Labs: 01/10/17 16:14 01/10/17 16:14 PT 27.4 Seconds (9.9-11.8) H 01/08/17 07:01 INR 2.54 (0.93-1.08) H 01/08/17 07:01 - Constitutional Appears: Well, Non-toxic, No Acute Distress - Extremities Exam Additional comments: Vasc: Diffuse edema noted to bilateral lower extremities Derm: Venous stasis superficial preulcerations noted to bilateral lower extremities. No drainage noted on dressing. No active drainage noted. No purulence, no malodor. Hyperpigmentation with hemosiderin deposits noted to B/L lower extremities, superficial sloughing of the skin noted on the legs bilaterally Neuro: Protective sensation grossly intact Ortho: Tenderness noted on palpation of B/L lower extremities, R>L. - Neurological Exam Neurological Exam: Alert, Awake, Oriented x3 - Psychiatric Exam Psychiatric exam: Normal Affect, Normal Mood Assessment and Plan - Assessment and Plan (Free Text) Assessment: 81 y/o female with bilateral lower extremity superficial venous stasis preulcerations Plan: Pt seen and evaluated at bedside with attending Dr. Montgomery applied lac hydrin to legs bilaterally Lac Hydrin to be applied BID to legs and Tubigrips to be worn at all times during the day and removed at night to sleep Pt encouraged to increase ambulation and mobilize to and from her chair No additional dressings are to be applied to B/L lower extremities Podiatry will continue to follow while in house <Bryan Montgomery - Last Filed: 01/16/17 11:20> Objective - Vital Signs/Intake and Output Vital Signs (last 24 hours): Temp Pulse Resp BP Pulse Ox 97.2 F L 72 16 142/84 100 01/13/17 16:18 01/14/17 10:18 01/13/17 16:18 01/14/17 10:18 01/13/17 16:18 - Labs Labs: 01/10/17 16:14 01/10/17 16:14 PT 27.4 Seconds (9.9-11.8) H 01/08/17 07:01 INR 2.54 (0.93-1.08) H 01/08/17 07:01 Attending/Attestation - Attestation I have personally seen and examined this patient.: Yes I have fully participated in the care of the patient.: Yes I have reviewed all pertinent clinical information, including history, physical exam and plan: Yes
[2017-01-13] MEDS: Potassium Chloride 20 mEq ER Tab PO SCH (10:08)
[2017-01-13] MEDS: Metoprolol Succinate 50 mg XL Tab PO SCH (10:09)
[2017-01-13] MEDS: Ammonium Lactate 12% Cream (140 g) TOP SCH ×2 (10:09→17:36)
[2017-01-13 11:04] VITALS: O2SAT 100
--- NOTE | 2017-01-13 12:46 | PN ---
DATE: 01/13/2017 SUBJECTIVE: The patient is seen lying in bed on transitional care unit. She is anxious to go home. She is seen the presence of her daughter. She denies any chest pain or dyspnea at present. She remains reluctant to proceed with any further anemia workup. CURRENT MEDICATIONS: Her current medications remain Coumadin, Lasix 20 mg daily, potassium supplements, metoprolol 50 mg daily, and trazodone. OBJECTIVE: She is an elderly woman who appears comfortable at rest. PHYSICAL EXAMINATION VITAL SIGNS: Blood pressure is 144/86 with a pulse of 80, respirations are 16, and she is afebrile. HEENT: No JVD. CHEST: Few scattered rhonchi heard. HEART: PMI displaced laterally with systolic murmur in the left sternal border. ABDOMEN: Soft and nontender with bowel sounds. EXTREMITIES: Chronic cellulitic changes noted with trace edema. DIAGNOSTIC DATA: No blood work pending from this morning. IMPRESSION: 1. 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 2. Chronic atrial fibrillation maintained anticoagulation and rate control at present. 3. Chronic congestive heart failure, stable at present. 4. History of hypertension and diabetes. RECOMMENDATIONS: Her current cardiac medications will be continued, obviously continued precaution with use of anticoagulation giving her baseline anemia, should be employed. She was encourage to proceed with anemia workup as an outpatient. From a cardiac standpoint, she is stable for discharge and we are having her medically cleared. Jackson Santos MD
[2017-01-13 16:19] VITALS: RESP 16; TEMP 97.2
--- NOTE | 2017-01-13 23:55 | PN ---
DATE: 01/13/2017 SUBJECTIVE: She is comfortable in bed in no acute distress. She is complaining of bilateral leg swelling. She is complaining of fatigue, weakness. She is saying she does not want to live anymore. She thinks she is going to soon, daughter is at the bedside. REVIEW OF SYSTEMS: As per HPI. She is ambulating with physical therapy. PHYSICAL EXAMINATION: GENERAL: Comfortable in bed, in no acute distress. VITAL SIGNS: Stable with temperature of 98.7, heart rate of 80 per minute, blood pressure of 140/86, and temperature of 98.7. HEENT: Pallor positive. NECK: No lymphadenopathy. CHEST: Air entry present and equal and bilaterally. No added sounds. CARDIOVASCULAR: S1 and S2 normal. No murmur and no gallop. ABDOMEN: Soft, nontender, and obese. EXTREMITIES: Bilateral lower extremity edema present. Cellulitis present, chronic changes. No skin breakdown. LABORATORY DATA: On 01/10/2017, white count of 2.6, hemoglobin of 9.3, hematocrit of 29.3 and platelets of 168. Sodium is 138, potassium is 3.5, and calcium is 8. MEDICATIONS: Tylenol 650 mg q. 4 hours. p.r.n., Lasix 20 mg daily, metoprolol 50 mg daily, K-Dur 20 mEq daily, trazodone 100 mg p.o. at bedtime, and warfarin 5 mg p.o. daily. ASSESSMENT AND PLAN: 1 Anemia. 2. Leukopenia. 3. Atrial fibrillation. 4. Congestive heart failure. 5. Hypertension. 6. Diabetes mellitus, type 2. 7. Bilateral chronic leg cellulitis. PLAN: She is off antibiotics, does not require antibiotics for cellulitis. Heart rate control on current medication. For atrial fibrillation, she is on anticoagulation with Coumadin 5 mg daily. She has leukopenia, anemia likely due to MDS. She declined bone marrow aspiration biopsy during hospitalization. I recommended to her that she should consider because she can be treated with erythropoietin stimulating agent for chronic anemia. Also discussed with the daughter same. We will continue potassium supplementation for hypokalemia. Encourage ambulation. Discussed with the staff nurse. Daya Rm MD [facility] # [id number] MTDShannon
[2017-01-14] MEDS: Potassium Chloride 20 mEq ER Tab PO SCH (10:15)
[2017-01-14] MEDS: Ammonium Lactate 12% Cream (140 g) TOP SCH (10:17)
[2017-01-14] MEDS: Metoprolol Succinate 50 mg XL Tab PO SCH (10:18)
[2017-01-14 10:26] VITALS: BP 142/84; PULSE 72
--- NOTE | 2017-01-15 00:35 | CP.PCM.DIS ---
Provider - Provider Date of Admission: 01/06/17 13:20 Attending physician: Nas Barrera MD Primary care physician: Lesa Whiteside MD Time Spent in preparation of Discharge (in minutes): 50 Hospital Course - Lab Results Lab Results: Most Recent Lab Values WBC 2.6 10^3/ul (4.5-11.0) L* 01/10/17 16:14 RBC 2.87 10^6/uL (3.5-6.1) L 01/10/17 16:14 Hgb 9.3 g/dL (12.0-16.0) L 01/10/17 16:14 Hct 29.5 % (36.0-48.0) L 01/10/17 16:14 MCV 102.8 fl (80.0-105.0) 01/10/17 16:14 MCH 32.4 pg (25.0-35.0) 01/10/17 16:14 MCHC 31.5 g/dl (31.0-37.0) 01/10/17 16:14 RDW 22.0 % (11.5-14.5) H 01/10/17 16:14 Plt Count 168 10^3/uL (120.0-450.0) 01/10/17 16:14 MPV 10.2 fl (7.0-11.0) 01/10/17 16:14 Gran % 51.7 % (50.0-68.0) 01/10/17 16:14 Lymph % (Auto) 36.4 % (22.0-35.0) H 01/10/17 16:14 Motley % (Auto) 9.2 % (1.0-6.0) H 01/10/17 16:14 Eos % (Auto) 2.7 % (1.5-5.0) 01/10/17 16:14 Baso % (Auto) 0.0 % (0.0-3.0) 01/10/17 16:14 Gran # 1.35 (1.4-6.5) L 01/10/17 16:14 Lymph # 1.0 (1.2-3.4) L 01/10/17 16:14 Motley # 0.2 (0.1-0.6) 01/10/17 16:14 Eos # 0.1 (0.0-0.7) 01/10/17 16:14 Baso # 0.00 K/mm3 (0.0-2.0) 01/10/17 16:14 PT 27.4 Seconds (9.9-11.8) H 01/08/17 07:01 INR 2.54 (0.93-1.08) H 01/08/17 07:01 Sodium 138 mmol/L (132-148) 01/10/17 16:14 Potassium 3.5 mmol/L (3.6-5.0) L 01/10/17 16:14 Chloride 105 mmol/L (98-107) 01/10/17 16:14 Carbon Dioxide 27 mmol/L (21-33) 01/10/17 16:14 Anion Gap 10 (10-20) 01/10/17 16:14 BUN 15 mg/dL (7-21) 01/10/17 16:14 Creatinine 0.9 mg/dL (0.5-1.4) 01/10/17 16:14 Est GFR ( Amer) > 60 01/10/17 16:14 Est GFR (Non-Af Amer) 60 01/10/17 16:14 Random Glucose 93 mg/dL (70-110) 01/10/17 16:14 Calcium 8.0 mg/dL (8.4-10.5) L 01/10/17 16:14 - Hospital Course Hospital Course: DATE: 01/14/2017 SUBJECTIVE: She is comfortable in bed in no acute distress. She is complaining of bilateral leg swelling. She is complaining of fatigue, weakness. Ambulating with support. PHYSICAL EXAMINATION: GENERAL: Comfortable in bed, in no acute distress. VITAL SIGNS: Stable with temperature of 98.7, heart rate of 80 per minute, blood pressure of 140/86, and temperature of 98.7. HEENT: Pallor positive. NECK: No lymphadenopathy. CHEST: Air entry present and equal and bilaterally. No added sounds. CARDIOVASCULAR: S1 and S2 normal. No murmur and no gallop. ABDOMEN: Soft, nontender, and obese. EXTREMITIES: Bilateral lower extremity edema present. Cellulitis present, chronic changes. No skin breakdown. LABORATORY DATA: On 01/10/2017, white count of 2.6, hemoglobin of 9.3, hematocrit of 29.3 and platelets of 168. Sodium is 138, potassium is 3.5, and calcium is 8. MEDICATIONS: Tylenol 650 mg q. 4 hours. p.r.n., Lasix 20 mg daily, metoprolol 50 mg daily, K-Dur 20 mEq daily, trazodone 100 mg p.o. at bedtime, and warfarin 5 mg p.o. daily. ASSESSMENT AND PLAN: 1 Anemia. 2. Leukopenia. 3. Atrial fibrillation. 4. Congestive heart failure. 5. Hypertension. 6. Diabetes mellitus, type 2. 7. Bilateral chronic leg cellulitis. PLAN: discharge home today. condition stable. continue home meds. need bone marrow aspiration biopsy to r/o MDS. FU DR. Whiteside. Discussed with daughter. Daya Rm MD - Date & Time of H&P Date of H&P: 01/14/17 Time of H&P: 11:00 Discharge Plan - Follow Up Plan Condition: GOOD Disposition: HOME/ ROUTINE Instructions: Heart Failure (DC), Atrial Fibrillation (DC), MRSA (Methicillin Resistant Staphylococcus Aureus) (DC), Chronic Wound Care (DC), Chronic Hypertension (DC), Stasis Dermatitis (DC), Anemia (DC), Venous Insufficiency (DC ) Referrals: Lesa Whiteside MD [Primary Care Provider] -
== END 2017-01-14 14:37 | disposition home or self-care (01) | DRG 945 ==
LOC: TRCU 13:20
PROVIDERS: ADMIT Internal Medicine Nephrology; ATTEND Internal Medicine Nephrology
PROC: F07Z9FZ Gait Training/Functional Ambulation Treatment using Assistive, Adaptive, Supportive or Protective Equipment (ICD-10-PCS; principal; 2017-01-08)
PROC: F07Z5FZ Bed Mobility Treatment using Assistive, Adaptive, Supportive or Protective Equipment (ICD-10-PCS; 2017-01-08)
PROC: F07L6YZ Therapeutic Exercise Treatment of Musculoskeletal System - Lower Back / Lower Extremity using Other Equipment (ICD-10-PCS; 2017-01-08)
PROC: F07K6ZZ Therapeutic Exercise Treatment of Musculoskeletal System - Upper Back / Upper Extremity (ICD-10-PCS; 2017-01-08)
PROC: F07Z8FZ Transfer Training Treatment using Assistive, Adaptive, Supportive or Protective Equipment (ICD-10-PCS; 2017-01-09)
PROC: F08Z2ZZ Grooming/Personal Hygiene Treatment (ICD-10-PCS; 2017-01-10)
PROC: F08Z1ZZ Dressing Techniques Treatment (ICD-10-PCS; 2017-01-12)
DX: R53.1 Weakness (principal); R53.83 Other fatigue; D46.9 Myelodysplastic syndrome, unspecified; I50.22 Chronic systolic (congestive) heart failure; I11.0 Hypertensive heart disease with heart failure; E11.42 Type 2 diabetes mellitus with diabetic polyneuropathy; L97.929 Non-pressure chronic ulcer of unspecified part of left lower leg with unspecified severity; L97.919 Non-pressure chronic ulcer of unspecified part of right lower leg with unspecified severity; L03.116 Cellulitis of left lower limb; L03.115 Cellulitis of right lower limb; E11.622 Type 2 diabetes mellitus with other skin ulcer; D64.9 Anemia, unspecified; I87.8 Other specified disorders of veins; I48.2 Chronic atrial fibrillation; F41.9 Anxiety disorder, unspecified; D72.819 Decreased white blood cell count, unspecified; E87.6 Hypokalemia; Z96.651 Presence of right artificial knee joint; Z79.01 Long term (current) use of anticoagulants

== ENCOUNTER 2017-02-23 11:55 | Inpatient (IN) | payer MEDICARE, BC ==
[2017-02-23 12:05] VITALS: BMI 26.6
--- NOTE | 2017-02-23 12:27 | ED PDOC ---
Arrival/HPI - General Chief Complaint: Weakness/Neurological Deficit Time Seen by Provider: 02/23/17 11:57 Historian: Patient - History of Present Illness Narrative History of Present Illness (Text): 02/23/17 12:21 An 81 year old female whose past medical history includes, Atrial Fibrillation and Hypertension, presents to the emergency department after being sent in by her PMD, Dr. Whiteside for anemia. The patient is due for an outpatient bone marrow biopsy. The patient states she feels weak and tired. The patient denies fevers, chills, headache, dizziness, chest pain, shortness of breath, dyspnea on exertion, cough, abdominal pain, nausea, vomiting, diarrhea, back pain, neck pain, urinary/bowel changes, or any other complaint. PMD: Dr. Whiteside Time/Duration: Other (2 Days) Symptom Course: Unchanged Activities at Onset: Rest, Light Context: Home Past Medical History - Provider Review Nursing Documentation Reviewed: Yes - Infectious Disease Hx of Infectious Diseases: None - Tetanus Immunization Tetanus Immunization: Unknown - Cardiac Hx Cardiac Disorders: Yes Hx Congestive Heart Failure: Yes Hx Hypertension: Yes - Pulmonary Hx Respiratory Disorders: No - Neurological Hx Neurological Disorder: Yes Other/Comment: DELERIUM SINCE SURGERY ORIF ONE WK AGO - HEENT Hx HEENT Disorder: Yes Hx Cataracts: Yes - Renal Hx Renal Disorder: No - Endocrine/Metabolic Hx Endocrine Disorders: Yes Hx Diabetes Mellitus Type 2: Yes - Hematological/Oncological Hx Blood Disorders: Yes Hx Anemia: Yes - Integumentary Hx Dermatological Disorder: No - Musculoskeletal/Rheumatological Hx Falls: Yes - Gastrointestinal Hx Gastrointestinal Disorders: Yes (CONSTIPATION) Hx Constipation: Yes - Genitourinary/Gynecological Hx Genitourinary Disorders: No (URGENCY/FREQUENCY) Hx Reproductive Disorders: No - Psychiatric Hx Psychophysiologic Disorder: Yes Hx Anxiety: Yes Hx Depression: Yes Hx Substance Use: No - Surgical History Hx Open Reduction Internal Fixation: Yes Other/Comment: knee replacement. orif let hip - Anesthesia Hx Anesthesia: No Hx Anesthesia Reactions: No Hx Malignant Hyperthermia: No - Suicidal Assessment Feels Threatened In Home Enviroment: No Family/Social History - Physician Review Nursing Documentation Reviewed: Yes Family/Social History: No Known Family HX Smoking Status: Never Smoked Hx Alcohol Use: No Hx Substance Use: No Hx Substance Use Treatment: No Allergies/Home Meds Allergies/Adverse Reactions: Allergies lactose Adverse Reaction (Verified 01/06/17 14:34) DIARRHEA Home Medications: Home Meds Medication Instructions Recorded Confirmed Metoprolol Succinate 50 mg PO DAILY 02/10/13 02/23/17 Calcium Carbonate [Oscal] 1,000 mg PO DAILY 02/17/13 02/23/17 Furosemide [Lasix] 20 mg PO DAILY 01/11/16 02/23/17 Potassium Chloride [Klor-Con 10] 30 meq PO DAILY 01/11/16 02/23/17 Trazodone HCl 100 mg PO DAILY 01/11/16 02/23/17 Warfarin Sodium [Jantoven] 5 mg PO DAILY 01/11/16 02/23/17 Review of Systems - Physician Review All systems were reviewed & negative as marked: Yes - Review of Systems Constitutional: absent: Fevers, Night Sweats ENT: absent: Sore Throat Respiratory: absent: SOB, Cough Cardiovascular: absent: Chest Pain, CEBALLOS Gastrointestinal: absent: Abdominal Pain, Stool Changes, Diarrhea, Nausea, Vomiting Genitourinary Female: absent: Urine Output Changes Musculoskeletal: absent: Back Pain, Neck Pain Neurological: Other (Weak and Tired). absent: Headache, Dizziness Physical Exam Vital Signs Reviewed: Yes Vital Signs Temp Pulse Resp BP Pulse Ox 02/23/17 16:35 98.3 F 78 20 160/99 H 02/23/17 16:20 98.0 F 75 20 172/80 H 02/23/17 16:07 84 20 172/80 H 97 02/23/17 16:02 73 20 185/113 H 96 02/23/17 15:47 87 197/107 H 02/23/17 15:40 98.8 F 87 20 197/107 H 98 02/23/17 12:05 98.1 F 74 18 174/91 H 98 Temperature: Afebrile Blood Pressure: Hypertensive Pulse: Regular Respiratory Rate: Normal Appearance: Positive for: Well-Appearing, Non-Toxic, Comfortable Pain Distress: None Mental Status: Positive for: Alert and Oriented X 3 - Systems Exam Head: Present: Atraumatic, Normocephalic Pupils: Present: PERRL Extroacular Muscles: Present: EOMI Conjunctiva: Present: Normal Mouth: Present: Moist Mucous Membranes Neck: Present: Normal Range of Motion Respiratory/Chest: Present: Clear to Auscultation, Good Air Exchange. No: Respiratory Distress, Accessory Muscle Use Cardiovascular: Present: Regular Rate and Rhythm, Normal S1, S2. No: Murmurs Abdomen: Present: Normal Bowel Sounds. No: Tenderness, Distention, Peritoneal Signs Back: Present: Normal Inspection Upper Extremity: Present: Normal Inspection. No: Cyanosis, Edema Lower Extremity: Present: Edema (Lower extremity +4 edema) Neurological: Present: GCS=15, CN II-XII Intact, Speech Normal Skin: Present: Warm, Dry, Normal Color. No: Rashes Psychiatric: Present: Alert, Oriented x 3, Normal Insight, Normal Concentration Medical Decision Making ED Course and Treatment: 02/23/17 12:33 Impression: An 81 year old female present sot the emergency department after being sent by her PMD for anemia. The patient complains of feeling weak and tired. Plan: -- Urinalysis -- Labs -- Reassess and disposition Prior Visits: Notes and results from previous visits were reviewed. Patient was last seen in the emergency department on 01/03/2017 for generalized weakness. The patient was hospitalized with a diagnosis of anemia. Progress Notes: EKG: Ordered, reviewed, and independently interpreted the EKG. Rate : 71 BPM Rhythm : A- Fib. Interpretation : Non specific ST/T- wave changes. 02/23/17 15:41 pt refuses rectal. denies gi bleeding. accepted by dr black - Lab Interpretations Lab Results: 02/23/17 14:04 02/23/17 12:40 Lab Results 02/23/17 14:04: Blood Type O POSITIVE, Antibody Screen Negative, Crossmatch See Detail, BBK History Checked Patient has bt 02/23/17 14:04: PT 17.1 H, INR 1.55 H, APTT 30.0 02/23/17 14:04: WBC 3.9 L D, RBC 2.22 L, Hgb 7.7 L, Hct 25.0 L, MCV 112.6 H, MCH 34.7, MCHC 30.8 L, RDW 22.7 H, Plt Count 117 L, MPV 10.5, Gran % 70.3 H, Lymph % (Auto) 23.1, Nance % (Auto) 5.5, Eos % (Auto) 0.8 L, Baso % (Auto) 0.3, Gran # 2.71, Lymph # 0.9 L, Nance # 0.2, Eos # 0.0, Baso # 0.01 02/23/17 12:40: Lactate Dehydrogenase 681, Total Creatine Kinase 51, Troponin I < 0.01 D 02/23/17 12:40: Sodium 144, Potassium 4.3, Chloride 113 H, Carbon Dioxide 22, Anion Gap 13, BUN 19, Creatinine 0.8, Est GFR ( Amer) > 60, Est GFR (Non- Af Amer) > 60, Random Glucose 95, Calcium 8.3 L, Magnesium 1.8, Total Bilirubin 2.1 H, AST 24, ALT 14, Alkaline Phosphatase 81, Total Protein 11.5 H, Albumin 3.6, Globulin 7.9, Albumin/Globulin Ratio 0.5 L I have reviewed the lab results: Yes - Medication Orders Current Medication Orders: Discontinued Medications Acetaminophen (Tylenol 325mg Tab) 650 mg PO STAT STA Stop: 02/23/17 15:23 Last Admin: 02/23/17 15:27 Dose: 650 mg MAR Pain/Vitals Document 02/23/17 15:27 CNR (Rec: 02/23/17 15:28 [facility] [id number] Pain Reassessment Is This A Pain ReAssessment? Yes Sleep Is patient sleeping during reassessment? No Presence of Pain Presence of Pain Yes Location Pain Location Body Site Generalized Hydralazine HCl (Apresoline) 10 mg IVP STAT STA Stop: 02/23/17 15:43 Last Admin: 02/23/17 15:47 Dose: 10 mg IVP Administration Document 02/23/17 15:47 NH (Rec: 02/23/17 15:48 SC [id number]) Charges for Administration # of IVP Administrations 1 JUL Pulse and Blood Pressure Document 02/23/17 15:47 NH (Rec: 02/23/17 15:48 NH [id number]) Pulse Pulse Rate (60-90) 87 Blood Pressure Blood Pressure (100/60-150/90) 197/107 - Scribe Statement The provider has reviewed the documentation as recorded by the Scottibrosa Kang Provider Scribe Attestation: All medical record entries made by the Scribe were at my direction and personally dictated by me. I have reviewed the chart and agree that the record accurately reflects my personal performance of the history, physical exam, medical decision making, and the department course for this patient. I have also personally directed, reviewed, and agree with the discharge instructions and disposition. Disposition/Present on Arrival - Present on Arrival Any Indicators Present on Arrival: No History of DVT/PE: No History of Uncontrolled Diabetes: No Urinary Catheter: No History of Decub. Ulcer: No History Surgical Site Infection Following: None - Disposition Have Diagnosis and Disposition been Completed?: Yes Diagnosis: Anemia, Pancytopenia Disposition: HOME/ ROUTINE Disposition Time: 02:00 Condition: STABLE
[2017-02-23 13:01] LABS: ALKALINE PHOSPHATASE 81 U/L (38-126); ALT/SGPT 14 U/L (7-56); AST/SGOT 24 U/L (14-36); BILIRUBIN,TOTAL 2.1 mg/dL (0.2-1.3); BLOOD UREA NITROGEN 19 mg/dL (7-21); CALCIUM 8.3 mg/dL (8.4-10.5); CARBON DIOXIDE 22 mmol/L (21-33); CHLORIDE 113 mmol/L (98-107); GFR AFRICAN-AMERICAN > 60; GLUCOSE,RANDOM 95 mg/dL (70-110); MAGNESIUM 1.8 mg/dL (1.7-2.2); POTASSIUM 4.3 mmol/L (3.6-5.0); SODIUM 144 mmol/L (132-148)
[2017-02-23 13:21] LABS: TOTAL PROTEIN 11.5 g/dL (5.8-8.3)
[2017-02-23 13:26] LABS: ALB/GLOB RATIO 0.5 (1.1-1.8)
[2017-02-23 14:09] LABS: BASO # 0.01 K/mm3 (0.0-2.0); BASO % 0.3 % (0.0-3.0); EOS % 0.8 % (1.5-5.0); GRAN # 2.71 (1.4-6.5); GRAN % 70.3 % (50.0-68.0); LYMPH # 0.9 (1.2-3.4); LYMPH % 23.1 % (22.0-35.0); MEAN CELL VOLUME 112.6 fl (80.0-105.0); MEAN CORPUSCULAR HEMOGLOBIN 34.7 pg (25.0-35.0); MEAN CORPUSCULAR HGB CONC 30.8 g/dl (31.0-37.0); MEAN PLATELET VOLUME 10.5 fl (7.0-11.0); MONO # 0.2 (0.1-0.6); MONO % 5.5 % (1.0-6.0); RED CELL DISTRIBUTION WIDTH 22.7 % (11.5-14.5); WHITE BLOOD COUNT 3.9 10^3/ul (4.5-11.0)
[2017-02-23 14:20] LABS: INR 1.55 (0.93-1.08)
[2017-02-23 14:58] LABS: TROPONIN I < 0.01 ng/mL
[2017-02-23 19:44] LABS: PH,URINE 6.5 (4.7-8.0); URINE BILIRUBIN NEGATIVE (NEGATIVE); URINE BLOOD TRACE-INTACT (NEGATIVE); URINE GLUCOSE (UA) NEGATIVE (NEGATIVE); URINE KETONE NEGATIVE (NEGATIVE); URINE LEUKOCYTE ESTERASE NEGATIVE Leu/uL (NEGATIVE); URINE PROTEIN 30 mg/dL (<30 mg/dL); URINE UROBILINOGEN 0.2 E.U./dL (<1 E.U./dL)
[2017-02-23 19:45] LABS: URINE APPEARANCE CLEAR (CLEAR); URINE COLOR YELLOW (YELLOW)
[2017-02-23 19:53] LABS: URINE BACTERIA MOD (NEG); URINE RBC 0 - 2 /hpf (0-2); URINE WBC 0 - 2 /hpf (0-6)
--- NOTE | 2017-02-23 22:47 | CARD ---
APPROVED REPORT EKG Measurement Heart [id number] <Conclusion> Atrial fibrillation Nonspecific ST and T wave abnormality, probably digitalis effect Abnormal ECG
--- NOTE | 2017-02-23 23:09 | CP.PCM.PN ---
Subjective - Date & Time of Evaluation Date of Evaluation: 02/23/17 Time of Evaluation: 23:02 - Subjective Subjective: called by nurse pt is confused and agitated and wants to see a doctor.pt has hx of MDS chf and admitted for anemia and blood transfusion. Objective - Vital Signs/Intake and Output Vital Signs (last 24 hours): Temp Pulse Resp BP Pulse Ox 97.6 F 162 H 20 182/130 H 96 02/23/17 18:36 02/23/17 22:49 02/23/17 19:15 02/23/17 22:49 02/23/17 19:15 Intake and Output: 02/23/17 02/24/17 18:59 06:59 Intake Total 325 Balance 325 - Medications Medications: Current Medications Alprazolam (Xanax) 0.5 mg PO Q6 PRN; Protocol PRN Reason: Anxiety Last Admin: 02/23/17 21:27 Dose: 0.5 mg Diltiazem HCl (Cardizem) 5 mg IVP ONCE ONE Stop: 02/23/17 23:00 Furosemide (Lasix) 20 mg PO DAILY NIKKIE Metoprolol Succinate (Toprol Xl) 50 mg PO DAILY NIKKIE - Labs Labs: PT 17.1 SECONDS (9.4-12.5) H 02/23/17 14:04 INR 1.55 (0.93-1.08) H 02/23/17 14:04 APTT 30.0 Seconds (25.1-36.5) 02/23/17 14:04 - Constitutional Appears: Agitated - Head Exam Head Exam: NORMOCEPHALIC - Eye Exam Eye Exam: Normal appearance Pupil Exam: PERRL - ENT Exam ENT Exam: Mucous Membranes Moist - Neck Exam Neck Exam: Full ROM - Respiratory Exam Respiratory Exam: Respiratory Distress - Cardiovascular Exam Cardiovascular Exam: Tachycardia - GI/Abdominal Exam GI & Abdominal Exam: Soft - Rectal Exam Rectal Exam: Deferred - Extremities Exam Extremities Exam: Full ROM - Neurological Exam Neurological Exam: Awake, CN II-XII Intact, Oriented x3 - Psychiatric Exam Psychiatric exam: Agitated - Skin Skin Exam: Warm Assessment and Plan - Assessment and Plan (Free Text) Assessment: afib with rapid vent rate. sob.chf anemia mds. agitation. Plan: pt was given ativan 1 mg x1 cardiazem 10mg bolous .
[2017-02-23] MEDS ORDERED: Levalbuterol 1.25 MG/3 ML Inhal Soln UD IH STA (23:16)
[2017-02-24] MEDS: diltiaZEM IVPB 100mg in NS 100 ML IV PRN ×2 (00:24→15:55)
[2017-02-24] MEDS ORDERED: DiphenhydrAMINE 50 mg/ml Inj IVP STA ×2 (00:38→02:50)
[2017-02-24] MEDS ORDERED: METHYLPREDNISOLONE IV ONE (00:39)
[2017-02-24] MEDS ORDERED: SODIUM CHLORIDE 0.9% IV ONE (00:39)
[2017-02-24 01:01] LABS: ARTERIAL BLOOD GAS HCO3 21.1 mmol/L (21-28); ARTERIAL BLOOD GAS O2 CAPACITY 13.9 mL/dl (16-24); ARTERIAL BLOOD GAS PH 7.47 (7.35-7.45); ARTERIAL BLOOD HGB O2 SAT 96.1 % (95.0-98.0); CARBOXYHEMOGLOBIN 3.4 % (0.5-1.5); HHB -0.5 % (0-5)
[2017-02-24 01:30] LABS: GRAN # 5.56 (1.4-6.5); GRAN % 87.1 % (50.0-68.0); HEMATOCRIT 28.2 % (36.0-48.0); LYMPH # 0.5 (1.2-3.4); LYMPH % 7.4 % (22.0-35.0); MEAN CELL VOLUME 107.6 fl (80.0-105.0); MEAN CORPUSCULAR HEMOGLOBIN 34.4 pg (25.0-35.0); MEAN CORPUSCULAR HGB CONC 31.9 g/dl (31.0-37.0); MEAN PLATELET VOLUME 10.6 fl (7.0-11.0); MONO # 0.4 (0.1-0.6); MONO % 5.5 % (1.0-6.0); RED CELL DISTRIBUTION WIDTH 26.3 % (11.5-14.5); WHITE BLOOD COUNT 6.4 10^3/ul (4.5-11.0)
[2017-02-24 01:40] LABS: BLOOD UREA NITROGEN 20 mg/dL (7-21); CALCIUM 8.4 mg/dL (8.4-10.5); CARBON DIOXIDE 22 mmol/L (21-33); CHLORIDE 109 mmol/L (98-107); GFR AFRICAN-AMERICAN > 60; GLUCOSE,RANDOM 82 mg/dL (70-110); POTASSIUM 3.4 mmol/L (3.6-5.0); SODIUM 142 mmol/L (132-148)
[2017-02-24 01:51] LABS: TROPONIN I 0.04 ng/mL
[2017-02-24 02:57] LABS: URINE BILIRUBIN NEGATIVE (NEGATIVE); URINE BLOOD TRACE-INTACT (NEGATIVE); URINE GLUCOSE (UA) NEGATIVE (NEGATIVE); URINE KETONE NEGATIVE (NEGATIVE); URINE LEUKOCYTE ESTERASE NEGATIVE Leu/uL (NEGATIVE); URINE PROTEIN NEGATIVE mg/dL (<30 mg/dL); URINE UROBILINOGEN 0.2 E.U./dL (<1 E.U./dL)
[2017-02-24 03:00] LABS: URINE APPEARANCE CLEAR (CLEAR); URINE COLOR YELLOW (YELLOW)
[2017-02-24 03:16] LABS: URINE RBC 0 - 2 /hpf (0-2); URINE WBC 0 - 2 /hpf (0-6)
[2017-02-24 03:17] LABS: URINE BACTERIA MOD (NEG)
[2017-02-24 06:53] LABS: VENOUS BLOOD GAS BASE EXCESS 1.3 mmol/L (0.0-2.0); VENOUS BLOOD PH 7.42 (7.32-7.43)
[2017-02-24 06:55] LABS: HEMATOCRIT 29.7 % (36.0-48.0); MEAN CELL VOLUME 106.8 fl (80.0-105.0); MEAN CORPUSCULAR HEMOGLOBIN 33.8 pg (25.0-35.0); MEAN CORPUSCULAR HGB CONC 31.6 g/dl (31.0-37.0); MEAN PLATELET VOLUME 10.1 fl (7.0-11.0); RED CELL DISTRIBUTION WIDTH 26.1 % (11.5-14.5); WHITE BLOOD COUNT 8.7 10^3/ul (4.5-11.0)
[2017-02-24 07:04] LABS: ALKALINE PHOSPHATASE 79 U/L (38-126); ALT/SGPT 16 U/L (7-56); AST/SGOT 26 U/L (14-36); BILIRUBIN,TOTAL 4.5 mg/dL (0.2-1.3); BLOOD UREA NITROGEN 20 mg/dL (7-21); CALCIUM 8.5 mg/dL (8.4-10.5); CARBON DIOXIDE 22 mmol/L (21-33); CHLORIDE 108 mmol/L (98-107); GFR AFRICAN-AMERICAN > 60; GLUCOSE,RANDOM 104 mg/dL (70-110); POTASSIUM 3.9 mmol/L (3.6-5.0); SODIUM 143 mmol/L (132-148)
[2017-02-24 07:15] LABS: INR 1.82 (0.93-1.08); PARTIAL THROMBOPLASTIN TIME 26.4 Seconds (25.1-36.5)
[2017-02-24 07:27] LABS: TOTAL PROTEIN 11.8 g/dL (5.8-8.3)
[2017-02-24 09:33] LABS: ALB/GLOB RATIO 0.4 (1.1-1.8)
[2017-02-24] MEDS ORDERED: Metoprolol Succinate 50 mg XL Tab PO SCH (10:00)
[2017-02-24 11:07] LABS: VENOUS BLOOD GAS BASE EXCESS 0.3 mmol/L (0.0-2.0); VENOUS BLOOD PH 7.39 (7.32-7.43)
--- NOTE | 2017-02-24 12:24 | CT ---
PROCEDURE: CT HEAD WITHOUT CONTRAST. HISTORY: r/o COMPARISON: 01/03/2017 TECHNIQUE: Axial computed tomography images were obtained through the head/brain without intravenous contrast. Radiation dose: Total exam DLP = 1895 mGy-cm. This CT exam was performed using one or more of the following dose reduction techniques: Automated exposure control, adjustment of the mA and/or kV according to patient size, and/or use of iterative reconstruction technique. FINDINGS: HEMORRHAGE: No intracranial hemorrhage. BRAIN: No mass effect or edema. There is atrophy and chronic microvascular changes. Findings are unchanged VENTRICLES: Unremarkable. No hydrocephalus. CALVARIUM: Unremarkable. PARANASAL SINUSES: Unremarkable as visualized. No significant inflammatory changes. MASTOID AIR CELLS: Unremarkable as visualized. No inflammatory changes. OTHER FINDINGS: None. IMPRESSION: No acute findings
[2017-02-24 15:00] LABS: FOLATE > 20.0 ng/mL
--- NOTE | 2017-02-24 22:42 | HP ---
CHIEF COMPLAINT AND HISTORY OF PRESENT ILLNESS: This is an 81-year-old female who is coming in to the hospital with anemia. The patient had routine blood work done as an outpatient by her primary care doctor, Dr. Whiteside and she was found to be anemic, so she was advised to come in. She initially was refusing and after follow up, this patient has agreed. Her hemoglobin was 7.5, so she was admitted to the hospital for further evaluation. She is confused this morning and not able to get the history. I do know her from previously, she has a history of diabetes type 2 and atrial fibrillation. She has been on anticoagulation for her atrial fibrillation. The patient was given Benadryl and Xanax yesterday with some relief, but she is agitated and confused, not able to recognize and answers questions properly. She is not able to concentrate and focus. REVIEW OF SYSTEMS: Review of symptoms is limited because of the patient's underlying condition. HOME MEDICATIONS: Metoprolol, calcium carbonate, Lasix, potassium chloride, trazodone, Coumadin. SOCIAL HISTORY: No smoke. No drinking currently. FAMILY HISTORY: Noncontributory. PHYSICAL EXAMINATION VITAL SIGNS: Temperature is 98.6, pulse of 122, blood pressure is 171/82, respiration is 22 and O2 saturation is 96%. Height is 5 feet 8 inches, weight is 175 pounds, and BMI is 26.6. GENERAL: The patient lying in bed, uncomfortable, and in no acute distress. HEENT: Atraumatic and normocephalic. Anicteric sclerae. Moist mucosa. [place] conjunctivae. No oral lesions. NECK: No JVD, anterior and posterior adenopathy, thyromegaly, or bruits. CARDIOVASCULAR: S1 and S2 regular. No murmur, rubs, or gallop. LUNGS: Clear to auscultation bilaterally. No wheezes, rales, or rhonchi. ABDOMEN: Bowel sounds are positive. Soft, nontender and nondistended. No hepatosplenomegaly. No rebound and no guarding. EXTREMITIES: No cyanosis, clubbing, or edema. NEUROLOGIC: No facial asymmetry. Tongue is midline. No uvula deviation. PSYCHIATRIC: Unable to fully assess as the patient is not able to focus on questions. GENITOURINARY: No CVA tenderness. VASCULAR: 2+ pulses in the carotid pulses and pedal pulses. SKIN: No erythema or nodules. SPINE: Shows normal curvature. EXTREMITIES: No Cyanosis and clubbing, no edema. LABORATORY DATA: White count of 8.7, hemoglobin 9.4, initial hemoglobin was 7.7, rest of the blood workup has been reviewed. Creatinine 0.9. EKG shows heart rate of 71 with atrial fibrillation and QTc is 430. ASSESSMENT: 1. Acute anemia. 2. Delirium. 3. Pancytopenia. 4. Atrial fibrillation. 5. Hypertension. 6. Diabetes type 2. 7. Congestive heart failure secondary to systolic dysfunction, chronic stable. PLAN: The patient is currently on Cardizem because of the tachycardia. The patient is on Lasix daily. She is on metoprolol. The patient is on Xanax. I will get Cardiology evaluation. I will also get Psychiatric evaluation for the delirium. The patient's Coumadin will be on hold because of the anemia. We will get Dr. Sahu to evaluate the patient. The patient may have a myelodysplastic syndrome. She has low platelets, low white count and low hemoglobin. She most likely will need a bone marrow. I did speak to the patient's son to give him an update on the patient's diagnosis and plan. I spoke with . We will continue to follow closely. Nas Barrera MD
--- NOTE | 2017-02-25 00:16 | CON ---
DATE: 02/24/2017 REFERRING PHYSICIAN: Dr. Pruitt REASON FOR CONSULTATION: Dyspnea. HISTORY OF PRESENT ILLNESS: This is an 81-year-old woman well known to us, last admitted in 12/2016, who was recently admitted with worsening dyspnea and anemia. She has a history of chronic atrial fibrillation, hypertension, multiple falls, and prior hip surgery. She has had evidence of pancytopenia, has been advised a bone marrow biopsy, which she has been resisting. She was seen recently with worsening dyspnea and advised admission. She is currently seen in CT scan area. PAST MEDICAL HISTORY: Notable for the problems mentioned above. She has had prior left hip surgery, has a history of hypertension, diabetes, and has undergone prior knee replacement. CURRENT MEDICATIONS: Include IV Cardizem, Lasix 20 mg daily, metoprolol XL 50 mg daily, Xanax 0.5 mg q.6 hours p.r.n. ALLERGIES: SHE HAS LACTOSE INTOLERANT. SHE HAS NO DRUG ALLERGIES. FAMILY HISTORY: Both parents from age-related illness. SOCIAL HISTORY: She does not smoke or drink. REVIEW OF SYSTEMS: As noted above. PHYSICAL EXAMINATION GENERAL: She is elderly woman, who appears comfortable at rest. VITAL SIGNS: Her current blood pressure 170/80 with a pulse of 120 and irregularly irregular, respirations 14. She is in atrial fibrillation. HEENT: Normocephalic and atraumatic. NECK: Supple. No JVD noted. CHEST: Bilateral scattered rhonchi heard. HEART: The rhythm is irregularly irregular with systolic murmur is present in the left sternal border. ABDOMEN: Soft, nontender, and normoactive bowel sounds. EXTREMITIES: A 3+ leg edema. SKIN: Warm and dry. PSYCHIATRIC: Normal mood and affect. NEUROLOGIC: No gross motor or sensory deficit appreciated. DIAGNOSTIC DATA: White count is 8.7, hemoglobin and hematocrit 9.4 and 29.7, prior hemoglobin 7.7, MCV is 107, platelet count 131,000. INR is 1.82, she had been on Coumadin therapy. Potassium is 3.9, BUN and creatinine 20 and 0.9. Bilirubin is 4.5 and protein 11.8. Chest x-ray is pending. Electrocardiogram reveals atrial fibrillation with nonspecific ST-T abnormalities. IMPRESSION: 1. Pancytopenia, workup in progress. 2. Chronic atrial fibrillation with rapid ventricular response. 3. Respiratory problems as noted. RECOMMENDATIONS: Metoprolol will be increased as needed for rate control. Dilitiazem will be added for the moment as well. Anticoagulation remains on hold and plans for a bone marrow biopsy early next week. In general conservative management is advised. Thank you for this consultation. We will be happy to follow along as needed. Jackson Santos MD
[2017-02-25] MEDS: Metoprolol 1 mg/ml Inj IVP SCH ×3 (06:07→18:04)
[2017-02-25 08:26] LABS: IRON 71 ug/dL (45-180)
--- NOTE | 2017-02-25 09:09 | PN ---
DATE: 02/25/2017 SUBJECTIVE: The patient is seen lying in bed on telemetry. She has been extremely restless. She is currently on BiPAP mask. She is unable to take oral medications. She remains on atrial fibrillation with moderate ventricular response. OBJECTIVE: GENERAL: She is an elderly woman who appears restless at this point. VITAL SIGNS: Her blood pressure is 196/84 with pulse of 110 to 120 in atrial fibrillation, respiratory rate is 16, and she is afebrile. HEENT: BiPAP mask in place. CHEST: Bilateral scattered rhonchi. HEART: PMI displaced laterally. Systolic murmur in the left sternal border at the base. ABDOMEN: Soft and nontender. Normoactive bowel sounds. EXTREMITIES: 1+ leg edema. DIAGNOSTIC DATA: Morning blood work is pending. MEDICATIONS: Her scheduled medications include diltiazem 30 mg 4 times a day, Lasix 20 mg daily, metoprolol 50 mg b.i.d., Xanax p.r.n. and she is currently on IV diltiazem at 5 mg per hour. IMPRESSION: 1. Chronic atrial fibrillation with increased ventricular response likely due to agitation and inability to take oral medication. 2. Pancytopenia awaiting bone marrow biopsy. 3. History of hypertension and diabetes. 4. Prior orthopedic surgery. RECOMMENDATIONS: Her oral medications will be switched to IV administration at this time. Anticoagulation is currently on hold. We will continue to follow and make further recommendations as appropriate. Jackson Santos MD
[2017-02-25] MEDS ORDERED: Morphine 4 mg/ml ISec IVP ONE (09:19)
[2017-02-25] MEDS ORDERED: Sodium Chloride 0.9% 1,000 ML IV SCH (09:30)
[2017-02-25 10:22] LABS: TOTAL PROTEIN, SERUM 10.7 g/dL (6.1-8.1)
[2017-02-25] MEDS: diltiaZEM IVPB 100mg in NS 100 ML IV PRN (13:26)
--- NOTE | 2017-02-25 13:56 | PN ---
DATE: 02/25/2017 SUBJECTIVE: The patient is confused, is agitated, and trying to get out of bed. PHYSICAL EXAMINATION VITAL SIGNS: Temperature is 98.4, pulse 97, blood pressure 141/89, and respirations 21. GENERAL: The patient is lying in bed, flat, comfortable. HEENT: No oral lesion. Anicteric sclerae. Moist mucosa. NECK: No JVD, adenopathy, or thyromegaly. CARDIOVASCULAR: S1 and S2, regular. No murmurs, rubs, or gallops. LUNGS: Clear to auscultation bilaterally. No wheeze, rales, or rhonchi. ABDOMEN: Bowel sounds are positive, soft, nontender and nondistended. EXTREMITIES: No cyanosis, clubbing or edema. LABORATORY DATA: White count of 8.7, hemoglobin 9.4, and creatinine 0.9. ASSESSMENT: 1. Chronic atrial fibrillation. 2. Pancytopenia. 3. Hypertension. 4. Diabetes type II. 5. Delirium. 6. Congestive heart failure secondary to systolic dysfunction, chronic, stable. PLAN: The patient is currently receiving Ativan. The patient is on Cardizem drip. For the atrial fibrillation is on metoprolol IV. She is going to be on morphine for pain because she may be having pain issues according to the aid that is with the patient. The patient is waiting for consultation with oncology and psychiatry. I did speak to the patient's daughter, her number is [phone] and she was going to be coming in to see her mother tomorrow. Nas Barrera MD
--- NOTE | 2017-02-25 22:35 | CP.PCM.PN ---
Subjective - Date & Time of Evaluation Date of Evaluation: 02/25/17 Time of Evaluation: 22:35 - Subjective Subjective: Patient was seen at bedside. She complained of sob, was congested as per nurse. Has audible wheezing from distance. Pulse ox was 88% on 3L/tray. BP 163/74. On lasix 20 mg daily . On 0.9 NS @ 75 CC / hr. 81 year old woman admitted for weakness, tiredness, anemia, pancytopenia. Has PMH of anemia, atrial fibrillation , HTN, CHF, DM II, ORIF left hip, b/l leg cellulitis, falls , constipation, anxiety, depression, knee replacement surgery. Objective - Vital Signs/Intake and Output Vital Signs (last 24 hours): Temp Pulse Resp BP Pulse Ox 98.7 F 109 H 22 143/71 95 02/25/17 18:00 02/25/17 18:04 02/25/17 18:00 02/25/17 18:04 02/25/17 06:00 Intake and Output: 02/25/17 02/26/17 18:59 06:59 Intake Total 100 Balance 100 - Medications Medications: Current Medications Alprazolam (Xanax) 0.5 mg PO Q6 PRN; Protocol PRN Reason: Anxiety Last Admin: 02/23/17 21:27 Dose: 0.5 mg Alprazolam (Xanax) 0.5 mg PO TID PRN; Protocol PRN Reason: Anxiety Diltiazem HCl (Cardizem) 30 mg PO QID [facility] Last Admin: 02/25/17 01:27 Dose: Not Given Furosemide (Lasix) 20 mg PO DAILY [facility] Last Admin: 02/24/17 15:59 Dose: Not Given Furosemide (Lasix) 20 mg IVP DAILY [facility] Last Admin: 02/25/17 09:26 Dose: 20 mg Hydralazine HCl (Apresoline) 10 mg IVP Q6 [facility] Last Admin: 02/25/17 18:04 Dose: 10 mg diltiaZEM IVPB 100mg in NS (Cardizem 100mg In Ns) 100 mls @ 5 mls/hr IV .Q20H PRN; Protocol; 5 MG/HR PRN Reason: TITRATE PER MD ORDER Last Admin: 02/25/17 13:26 Dose: 5 mg/hr, 5 mls/hr Sodium Chloride (Sodium Chloride 0.9%) 1,000 mls @ 75 mls/hr IV .[id number] [facility] Last Admin: 02/25/17 09:35 Dose: 75 mls/hr Lorazepam (Ativan) 0.5 mg IVP Q4H PRN; Protocol PRN Reason: Anxiety Last Admin: 02/25/17 06:08 Dose: 0.5 mg Metoprolol Tartrate (Lopressor) 50 mg PO BRKDIN [facility] Last Admin: 02/24/17 17:44 Dose: Not Given Metoprolol Tartrate (Lopressor) 5 mg IVP Q6H [facility] Last Admin: 02/25/17 18:04 Dose: 5 mg Morphine Sulfate (Morphine) 2 mg IVP Q4H PRN PRN Reason: Pain, moderate (4-7) - Labs Labs: 02/24/17 06:30 02/24/17 06:30 PT 20.1 SECONDS (9.4-12.5) H 02/24/17 06:30 INR 1.82 (0.93-1.08) H 02/24/17 06:30 APTT 26.4 Seconds (25.1-36.5) 02/24/17 06:30 Micro Results 02/24/17 01:00 Nose MRSA Culture (Admit) - Final MRSA NOT DETECTED Most Recent Lab Values WBC 8.7 10^3/ul (4.5-11.0) D 02/24/17 06:30 RBC 2.78 10^6/uL (3.5-6.1) L 02/24/17 06:30 Hgb 9.4 g/dL (12.0-16.0) L 02/24/17 06:30 Hct 29.7 % (36.0-48.0) L 02/24/17 06:30 MCV 106.8 fl (80.0-105.0) H 02/24/17 06:30 MCH 33.8 pg (25.0-35.0) 02/24/17 06:30 MCHC 31.6 g/dl (31.0-37.0) 02/24/17 06:30 RDW 26.1 % (11.5-14.5) H 02/24/17 06:30 Plt Count 131 10^3/uL (120.0-450.0) 10/21/17 06:30 MPV 10.1 fl (7.0-11.0) 02/24/17 06:30 Gran % 87.1 % (50.0-68.0) H 02/24/17 01:15 Lymph % (Auto) 7.4 % (22.0-35.0) L 02/24/17 01:15 [place] % (Auto) 5.5 % (1.0-6.0) 02/24/17 01:15 Eos % (Auto) 0.0 % (1.5-5.0) L 02/24/17 01:15 Baso % (Auto) 0.0 % (0.0-3.0) 02/24/17 01:15 Gran # 5.56 (1.4-6.5) 02/24/17 01:15 Lymph # 0.5 (1.2-3.4) L 02/24/17 01:15 [place] # 0.4 (0.1-0.6) 02/24/17 01:15 Eos # 0.0 (0.0-0.7) 02/24/17 01:15 Baso # 0.00 K/mm3 (0.0-2.0) 02/24/17 01:15 PT 20.1 SECONDS (9.4-12.5) H 02/24/17 06:30 INR 1.82 (0.93-1.08) H 02/24/17 06:30 APTT 26.4 Seconds (25.1-36.5) 02/24/17 06:30 pCO2 29 mm/Hg (35-45) L 02/24/17 00:55 pO2 159 mm/Hg (30-55) H 02/24/17 10:30 HCO3 21.1 mmol/L (21-28) 02/24/17 00:55 ABG pH 7.47 (7.35-7.45) H 02/24/17 00:55 ABG Total CO2 22.0 mmol.L (22-28) 02/24/17 00:55 ABG O2 Saturation 100.5 % (95-98) H 02/24/17 00:55 ABG O2 Content 14.0 ML/dl (15-23) L 02/24/17 00:55 ABG Base Excess -1.9 mmol/L (-2.0-3.0) 02/24/17 00:55 ABG Hemoglobin 9.9 g/dL (11.7-17.4) L 02/24/17 00:55 ABG Carboxyhemoglobin 3.4 % (0.5-1.5) H 02/24/17 00:55 POC ABG HHb (Measured) -0.5 % (0-5) L 02/24/17 00:55 ABG Methemoglobin 1.0 % (0.0-3.0) 02/24/17 00:55 ABG O2 Capacity 13.9 mL/dl (16-24) L 02/24/17 00:55 ABG Potassium 3.0 mmol/L (3.6-5.2) L 02/24/17 00:55 VBG pH 7.39 (7.32-7.43) 02/24/17 10:30 VBG pCO2 42.0 (40-60) 02/24/17 10:30 VBG HCO3 25.4 mmol/l (21-28) 02/24/17 10:30 VBG Total CO2 26.7 mmol.L (22-28) 02/24/17 10:30 VBG O2 Sat (Calc) 99.9 % (40-65) H 02/24/17 10:30 VBG Base Excess 0.3 mmol/L (0.0-2.0) 02/24/17 10:30 VBG Potassium 3.8 mmol/L (3.6-5.2) 02/24/17 10:30 Hgb O2 Saturation 96.1 % (95.0-98.0) 02/24/17 00:55 Sodium 139.0 mmol/L (132-148) 02/24/17 10:30 Chloride 110.0 mmol/L (98-107) H 02/24/17 10:30 Glucose 88 mg/dl (65-105) 02/24/17 10:30 Lactate 2.9 mmol/L (0.7-2.1) H 02/24/17 10:30 FiO2 21.0 % 02/24/17 10:30 Sodium 143 mmol/L (132-148) 02/24/17 06:30 Potassium 3.9 mmol/L (3.6-5.0) 02/24/17 06:30 Chloride 108 mmol/L (98-107) H 02/24/17 06:30 Carbon Dioxide 22 mmol/L (21-33) 02/24/17 06:30 Anion Gap 17 (10-20) 02/24/17 06:30 BUN 20 mg/dL (7-21) 02/24/17 06:30 Creatinine 0.9 mg/dL (0.7-1.2) 02/24/17 06:30 Est GFR ( Amer) > 60 02/24/17 06:30 Est GFR (Non-Af Amer) 60 02/24/17 06:30 Random Glucose 104 mg/dL (70-110) 02/24/17 06:30 Calcium 8.5 mg/dL (8.4-10.5) 02/24/17 06:30 Magnesium 1.8 mg/dL (1.7-2.2) 02/23/17 12:40 Iron 71 ug/dL (45-180) 02/24/17 06:30 TIBC 237 ug/dL (265-497) L 02/24/17 06:30 % Saturation 30 % (20-55) 02/24/17 06:30 Ferritin 742.0 ng/mL 02/24/17 06:30 Total Bilirubin 4.5 mg/dL (0.2-1.3) H 02/24/17 06:30 AST 26 U/L (14-36) 02/24/17 06:30 ALT 16 U/L (7-56) 02/24/17 06:30 Alkaline Phosphatase 79 U/L (38-126) 02/24/17 06:30 Lactate Dehydrogenase 658 U/L (333-699) 02/24/17 01:15 Total Creatine Kinase 34 U/L (35-230) L 02/24/17 01:15 Troponin I 0.04 ng/mL D 02/24/17 01:15 Total Protein 11.8 g/dL (5.8-8.3) H 02/24/17 06:30 Total Protein (PEP) 10.7 g/dL (6.1-8.1) H 02/24/17 08:00 Albumin 3.6 g/dL (3.0-4.8) 02/24/17 06:30 Globulin 8.2 gm/dL 02/24/17 06:30 Albumin/Globulin Ratio 0.4 (1.1-1.8) L 02/24/17 06:30 Vitamin B12 901 pg/mL (239-931) 02/24/17 06:30 Folate > 20.0 ng/mL 02/24/17 06:30 Arterial Blood Potassium 3.0 mmol/L (3.6-5.2) L 02/24/17 00:55 Venous Blood Potassium 3.8 mmol/L (3.6-5.2) 02/24/17 10:30 Urine Color Yellow (YELLOW) 02/24/17 02:35 Urine Appearance Clear (CLEAR) 02/24/17 02:35 Urine pH 6.0 (4.7-8.0) 02/24/17 02:35 Ur Specific [place] 1.010 (1.005-1.035) 02/24/17 02:35 Urine Protein Negative mg/dL (<30 mg/dL) 02/24/17 02:35 Urine Glucose (UA) Negative mg/dL (NEGATIVE) 02/24/17 02:35 Urine Ketones Negative mg/dL (NEGATIVE) 02/24/17 02:35 Urine Blood Trace-intact (NEGATIVE) H 02/24/17 02:35 Urine Nitrate Negative (NEGATIVE) 02/24/17 02:35 Urine Bilirubin Negative (NEGATIVE) 02/24/17 02:35 Urine Urobilinogen 0.2 E.U./dL (<1 E.U./dL) 02/24/17 02:35 Ur Leukocyte Esterase Negative [place]/uL (NEGATIVE) 02/24/17 02:35 Urine RBC 0 - 2 /hpf (0-2) 02/24/17 02:35 Urine WBC 0 - 2 /hpf (0-6) 02/24/17 02:35 Ur Epithelial Cells 1 - 3 /hpf (0-5) 02/24/17 02:35 Urine Bacteria Mod (NEG) 02/24/17 02:35 Ur Random Creatinine 8 mg/dL 02/24/17 02:35 U Random Total Protein 15 mg/L 02/24/17 02:35 Blood Type O POSITIVE 02/23/17 14:04 Antibody Screen Negative 02/23/17 14:04 Crossmatch See Detail 02/23/17 14:04 BBK History Checked Patient has bt 02/23/17 14:04 - Constitutional Appears: Well, Other (In mild respiratory distress.) - Head Exam Head Exam: ATRAUMATIC, NORMAL INSPECTION, NORMOCEPHALIC - Eye Exam Eye Exam: Normal appearance - ENT Exam ENT Exam: Mucous Membranes Moist, Normal External Ear Exam - Neck Exam Neck Exam: Normal Inspection - Respiratory Exam Respiratory Exam: Rales (Bilateral.), Wheezes (Bilateral.), Respiratory Distress (Mild.), NORMAL BREATHING PATTERN. absent: Accessory Muscle Use, Chest Wall Tenderness, Stridor - Cardiovascular Exam Cardiovascular Exam: REGULAR RHYTHM. absent: JVD - Rectal Exam Rectal Exam: Deferred - Exam Additional comments: Deferred. - Extremities Exam Extremities Exam: Normal Inspection - Back Exam Back Exam: NORMAL INSPECTION - Neurological Exam Neurological Exam: Altered - Psychiatric Exam Psychiatric exam: Depressed - Skin Skin Exam: Normal Color, Warm Assessment and Plan - Assessment and Plan (Free Text) Assessment: Hypoxia. Wheezing. CHF. Anemia. S/P recent blood transfusion. Atrial fibrillation. DM II. HTN. Plan: Lasix 80 mg IV stat. Duoneb neb treatment stat. DC IV fluids. Morphine 2 mg IV stat. Nitropaste 0.5 inch to ACW stat. Continue present management. [place] catheter was inserted which drained 900 CC urine initially.
[2017-02-25] MEDS ORDERED: Albuterol-Ipratrop 3 mg / 0.5 (3 ml) UD IH STA (22:50)
[2017-02-25] MEDS ORDERED: Nitroglycerin 2% Ointment Foilpak UD TOP STA (22:51)
[2017-02-25] MEDS: Morphine 2 mg/ml ISec IVP PRN (23:04)
[2017-02-26] MEDS: Metoprolol 1 mg/ml Inj IVP SCH ×4 (01:21→17:58)
[2017-02-26 09:26] LABS: BASO # 0.01 K/mm3 (0.0-2.0); BASO % 0.2 % (0.0-3.0); GRAN # 3.71 (1.4-6.5); GRAN % 81.2 % (50.0-68.0); HEMATOCRIT 27.2 % (36.0-48.0); LYMPH # 0.4 (1.2-3.4); MEAN CELL VOLUME 110.1 fl (80.0-105.0); MEAN CORPUSCULAR HEMOGLOBIN 33.6 pg (25.0-35.0); MEAN CORPUSCULAR HGB CONC 30.5 g/dl (31.0-37.0); MEAN PLATELET VOLUME 10.8 fl (7.0-11.0); MONO # 0.4 (0.1-0.6); MONO % 9.6 % (1.0-6.0); RED CELL DISTRIBUTION WIDTH 25.6 % (11.5-14.5); WHITE BLOOD COUNT 4.6 10^3/ul (4.5-11.0)
[2017-02-26 09:38] LABS: ALB/GLOB RATIO 0.5 (1.1-1.8); BILIRUBIN,TOTAL 3.8 mg/dL (0.2-1.3); CALCIUM 8.8 mg/dL (8.4-10.5); MAGNESIUM 1.9 mg/dL (1.7-2.2); PHOSPHOROUS 4.2 mg/dL (2.5-4.5); POTASSIUM 3.1 mmol/L (3.6-5.0)
[2017-02-26 09:49] LABS: TROPONIN I 0.07 ng/mL
[2017-02-26] MEDS ORDERED: Levalbuterol 0.63 MG/3 ML Inhal Soln UD IH PRN (09:55)
[2017-02-26] MEDS ORDERED: Vancomycin 1.7 GM in Sodium Chloride 0.9% 500 ML IVPB STA (10:24)
--- NOTE | 2017-02-26 10:29 | PN ---
DATE: 02/26/2017 SUBJECTIVE: The patient is confused. She is not able to recognize me and not able to answer questions. She has a BiPAP machine that was on. Her overnight events were noted and reviewed by me. I also spoke with evening nurse. PHYSICAL EXAMINATION: VITAL SIGNS: Temperature is 97.9, pulse of 91, blood pressure 125/69, and respirations 20. GENERAL: The patient is lying in bed, flat, comfortable. HEENT: No oral lesion. Anicteric sclerae. Moist mucosa. NECK: No JVD, adenopathy, or thyromegaly. CARDIOVASCULAR: S1 and S2, regular. No murmurs, rubs, or gallops. LUNGS: Good bilateral air entry. Bilateral rhonchi. No rales. ABDOMEN: Bowel sounds are positive, soft, nontender and nondistended. EXTREMITIES: No cyanosis, clubbing or edema. LABORATORY DATA: White count of 8.7 and hemoglobin 9.4. Creatinine 0.9. ASSESSMENT: 1. Pancytopenia. 2. Delirium. 3. Hypertension. 4. Diabetes type 2. 5. Congestive heart failure secondary to systolic dysfunction. 6. Atrial fibrillation, chronic. PLAN: The patient is currently on Ativan. She is on Lasix. The patient being followed by Cardiology and awaiting input from Hematology. The patient is on Xanax. If she is able to tolerate p.o. she is on BiPAP machine. I will get Pulmonary evaluation as well. Nas Barrera MD
[2017-02-26] MEDS ORDERED: Cefepime IV 2 gm in NS 2 GM/100 ML BAG IVPB ONE (10:33)
[2017-02-26] MEDS: Nitroglycerin 2% Ointment Foilpak UD TOP SCH ×4 (10:51→23:00)
--- NOTE | 2017-02-26 11:07 | RAD ---
HISTORY: Shortness of breath COMPARISON: 01/03/2017. FINDINGS: LUNGS: There are low lung volumes. There is severe pulmonary venous congestion and prominent central vasculature. There dense airspace disease in the left lung. PLEURA: No significant pleural effusion identified, no pneumothorax apparent. CARDIOVASCULAR: Normal. OSSEOUS STRUCTURES: No significant abnormalities. VISUALIZED UPPER ABDOMEN: Normal. OTHER FINDINGS: None. IMPRESSION: Findings may represent pulmonary edema/ consolidation in the left lung. Also noted is pulmonary venous congestion and prominent central vasculature.
[2017-02-26] MEDS: diltiaZEM IVPB 100mg in NS 100 ML IV PRN (12:55)
--- NOTE | 2017-02-26 13:37 | CON ---
DATE: 02/26/2017 PULMONARY CONSULTATION REASON FOR CONSULTATION: Shortness of breath. REFERRING PHYSICIAN: Nas Barrera MD HISTORY OF PRESENT ILLNESS: History is obtained via extensive discussion with the nurse. I have also had a long discussion with the health home health rn. I have also reviewed the chart at length. The patient is not an adequate historian at this point in time. The patient is an 81-year-old female, with past medical history significant for atrial fibrillation (on Coumadin), hypertension, who presented to [facility] - originally on 02/23/2017 - after she was found to be severely anemic (by outpatient testing). In the emergency room, the patient also complained of progressive weakness and feeling fatigued. She was thus admitted for additional evaluation. Again, I did discuss the case with the nurse at length. Apparently, on Sunday, the patient was noted to be disoriented and restless. She was then given several doses of Ativan. Starting late last night, the patient started to experience shortness of breath, cough, and congestion. There is no history of significant sputum production. There is no history of chest pain, coughing up of blood, or chest pain - made worse with deep respirations. There is no history of temperatures, chills or infectious exposure. There is no history of night sweats, weight loss or appetite change prior to the above events. No history of leg or calf pains. No history of syncope or diaphoresis. No history of recent travel or trauma. REVIEW OF SYSTEMS: No history of nausea, vomiting or diarrhea. No acute urinary symptoms. No new musculoskeletal complaints. Rest of the review of systems negative. ALLERGIES: LACTOSE. SOCIAL HISTORY: Positive for tobacco, negative for alcohol. FAMILY HISTORY: No inheritable diseases. HOME MEDICATIONS: Include calcium, warfarin, trazodone, metoprolol, Lasix. PHYSICAL EXAMINATION: GENERAL: The patient is confused and disoriented. She is mildly short of breath, but in no acute distress. VITALS: Temperature is 97.9, pulse on the monitor is 110. Respiratory rate 20/22. Last blood pressure recorded 125/69. Oxygen saturation on nasal cannula is 94%. HEENT: Normocephalic and atraumatic. NECK: No JVD. CARDIOVASCULAR: Systolic ejection murmur at the lower left sternal border. No S3 gallop. LUNGS: Crackles at the left lower lobe. Scattered bilateral rhonchi (left worse than right). No wheezing. EXTREMITIES: No clubbing, cyanosis or edema. Calves are nontender to palpation. GASTROINTESTINAL: Abdomen is soft, nontender and nondistended. Bowel sounds are positive. SKIN: No acute rash. NEUROLOGIC: Exam limited at the present time. PERTINENT LABORATORY DATA: Chest x-ray was done this morning and reviewed. I also compared today's x-ray to previous films. The chest x-ray today reveals a diffuse infiltrate in the left lung - consistent with aspiration pneumonia. CBC: White count 4.6; hemoglobin 8.3; hematocrit 27.2; platelets of 94,000. INR 1.82. Complete metabolic profile: Potassium 3.1, chloride 113, BUN 45, bilirubin 3.8, total protein 9.0 and albumin 2.8. Troponin 0.07. Rest of the metabolic profile is within normal limits. IMPRESSION: 1. Aspiration pneumonia - left lung. 2. Acute bronchospasm. 3. Encephalopathy. 4. Pancytopenia. 5. Rapid atrial fibrillation. PLAN: Again, I did discuss the case with the nurse at length. I have also reviewed the chart at length. The patient initially presented to [facility] - on 02/23/2017 - after outpatient laboratory work revealed a severe anemia. In the emergency room, the patient also stated to progressive weakness and feeling tired. She was thus admitted for additional evaluation. On Sunday, the patient began to experience a mental status change. She was noted to be confused and disoriented. As above, she did receive several doses of Ativan. As per the nurse, starting late last night, the patient began to experience shortness of breath, cough, and congestion. I did review the chest x-ray as above. There is a diffuse infiltrate noted in the left lung, consistent with aspiration pneumonia. Stat doses of vancomycin and cefepime were given. Infectious disease evaluation with Dr. Valdez has also been ordered. The patient remains on a Cardizem drip for rapid atrial fibrillation. Inputs by Dr. Santos and Dr. Rivera are noted. On physical exam, the patient is in [id number] bronchospasm. I will start the patient on half-strength Xopenex nebulizer treatments - given her rapid atrial fibrillation. I will also order aspiration precautions. Clinical status of the patient is certainly guarded at this point in time. I will discuss the above with Dr. Barrera. Thank you very much for this pulmonary consultation. Bear El MD GABI
[2017-02-26] MEDS: Levalbuterol 0.63 MG/3 ML Inhal Soln UD IH SCH ×2 (14:04→20:00)
[2017-02-26] MEDS: Morphine 2 mg/ml ISec IVP PRN (14:50)
[2017-02-26 16:56] LABS: ARTERIAL BLOOD GAS HCO3 21.6 mmol/L (21-28); ARTERIAL BLOOD GAS O2 CAPACITY 10.3 mL/dl (16-24); ARTERIAL BLOOD GAS O2 CONTENT 9.5 ML/dl (15-23); ARTERIAL BLOOD GAS PH 7.48 (7.35-7.45); ARTERIAL BLOOD HGB O2 SAT 88.5 % (95.0-98.0); HHB 7.4 % (0-5)
[2017-02-26] MEDS ORDERED: Meropenem 1g/NS 100mL IVPB 1 GM/100 ML PIGGYBACK IVPB SCH ×2 (18:20→22:00)
--- NOTE | 2017-02-26 18:20 | CP.PCM.CON ---
History of Present Illness - History of Present Illness History of Present Illness: 81 year old female with PMH of atrial fibrillation, chronic CHF, HTN, cataracts , DM, chronic anemia, S/P ORIF of the left hip, history of anxiety and depression, history of bilateral lower extremity cellulitis was initially admitted in [facility] because of generalized weakness and fatigue and she was sent in by her PMD because of anemia and for blood transfusion. Her condition however started deteriorating on admission and she started having episodes of confusion and agitation and was getting short of breath even at rest. This morning CXR was done which showed left lung opacities and Infectious Diseases consult is requested to further evaluate and manage. She is currently not responsive to verbal commands, but localizes to pain. She is currently in respiratory distress as well. Review of Systems - Review of Systems Systems not reviewed;Unavailable: Altered Mental Status Past Patient History - Infectious Disease Hx of Infectious Diseases: None - Tetanus Immunizations Tetanus Immunization: Unknown - Past Social History Smoking Status: Former Smoker - CARDIAC Hx Cardiac Disorders: Yes Hx Cardia Arrhythmia: Yes (Afib) Hx Congestive Heart Failure: Yes Hx Hypertension: Yes - PULMONARY Hx Respiratory Disorders: No - NEUROLOGICAL Hx Neurological Disorder: Yes - HEENT Hx HEENT Problems: Yes Hx Cataracts: Yes - RENAL Hx Chronic Kidney Disease: No - ENDOCRINE/METABOLIC Hx Endocrine Disorders: Yes Hx Diabetes Mellitus Type 2: Yes - HEMATOLOGICAL/ONCOLOGICAL Hx Blood Disorders: Yes Hx Anemia: Yes - INTEGUMENTARY Hx Dermatological Problems: Yes Other/Comment: bilateral lower extremity cellulitis, MRSA in wounds - MUSCULOSKELETAL/RHEUMATOLOGICAL Hx Falls: Yes - GASTROINTESTINAL Hx Gastrointestinal Disorders: Yes (CONSTIPATION) - GENITOURINARY/GYNECOLOGICAL Hx Genitourinary Disorders: No (URGENCY/FREQUENCY) - PSYCHIATRIC Hx Psychophysiologic Disorder: Yes Hx Anxiety: Yes Hx Depression: Yes - SURGICAL HISTORY Hx Musculoskeletal Surgery: Yes Other/Comment: knee replacement. orif let hip - ANESTHESIA Hx Anesthesia: No Hx Anesthesia Reactions: No Hx Malignant Hyperthermia: No Meds Allergies/Adverse Reactions: Allergies Allergy/AdvReac Type Severity Reaction Status Date / Time lactose AdvReac DIARRHEA Verified 01/06/17 14:34 - Medications Medications: Current Medications Alprazolam (Xanax) 0.5 mg PO TID PRN; Protocol PRN Reason: Anxiety Diltiazem HCl (Cardizem) 30 mg PO QID NIKKIE Last Admin: 02/25/17 01:27 Dose: Not Given Furosemide (Lasix) 20 mg PO DAILY [facility] Last Admin: 02/24/17 15:59 Dose: Not Given Furosemide (Lasix) 20 mg IVP DAILY [facility] Last Admin: 02/26/17 10:51 Dose: 20 mg Hydralazine HCl (Apresoline) 10 mg IVP Q6 [facility] Last Admin: 02/26/17 12:48 Dose: 10 mg diltiaZEM IVPB 100mg in NS (Cardizem 100mg In Ns) 100 mls @ 5 mls/hr IV .Q20H PRN; Protocol; 5 MG/HR PRN Reason: TITRATE PER MD ORDER Last Admin: 02/26/17 12:55 Dose: 5 mg/hr, 5 mls/hr Meropenem 1g/NS 100mL IVPB (Meropenem 1g/Ns 100ml Ivpb) 1 gm in 100 mls @ 100 mls/hr IVPB Q12 NIKKIE PRN Reason: Protocol Stop: 03/05/17 22:01 Doxycycline Hyclate 100 mg/ (Sodium Chloride) 100 mls @ 100 mls/hr IVPB Q12 NIKKIE PRN Reason: Protocol Levalbuterol HCl (Xopenex) 0.63 mg IH [id number] [facility] Last Admin: 02/26/17 14:04 Dose: 0.63 mg Levalbuterol HCl (Xopenex) 0.63 mg IH Q2 PRN PRN Reason: Shortness of Breath Lorazepam (Ativan) 1 mg IVP Q4H PRN; Protocol PRN Reason: Anxiety Metoprolol Tartrate (Lopressor) 50 mg PO BRKDIN [facility] Last Admin: 02/24/17 17:44 Dose: Not Given Metoprolol Tartrate (Lopressor) 5 mg IVP Q6H [facility] Last Admin: 02/26/17 12:50 Dose: 5 mg Morphine Sulfate (Morphine) 2 mg IVP Q4H PRN PRN Reason: Pain, moderate (4-7) Last Admin: 02/26/17 14:50 Dose: 2 mg Nitroglycerin (Nitro-Bid 2% Oint) 1 ea TOP Q4H [facility] Last Admin: 02/26/17 14:29 Dose: 1 ea Physical Exam - Constitutional Appears: In Acute Distress, Cachectic, Chronically Ill - Head Exam Head Exam: NORMAL INSPECTION - Neck Exam Neck exam: Negative for: Meningismus - Respiratory Exam Respiratory Exam: Decreased Breath Sounds, Rales (scattered) - Cardiovascular Exam Cardiovascular Exam: +S1, +S2 - GI/Abdominal Exam GI & Abdominal Exam: Soft. absent: Tenderness Results - Vital Signs Recent Vital Signs: Last Vital Signs Temp 98 F 02/26/17 12:00 Pulse 96 H 02/26/17 14:00 Resp 20 02/26/17 12:00 BP 145/119 H 02/26/17 12:50 Pulse Ox 100 02/26/17 06:00 - Labs Result Diagrams: 02/26/17 09:15 02/26/17 09:15 Labs: Laboratory Results - last 24 hr 02/26/17 02/26/17 02/26/17 09:15 09:15 09:15 WBC 4.6 D RBC 2.47 L Hgb 8.3 L Hct 27.2 L MCV 110.1 H D MCH 33.6 MCHC 30.5 L RDW 25.6 H Plt Count 94 L MPV 10.8 Gran % 81.2 H Lymph % (Auto) 9.0 L Martin % (Auto) 9.6 H Eos % (Auto) 0.0 L Baso % (Auto) 0.2 Gran # 3.71 Lymph # 0.4 L Martin # 0.4 Eos # 0.0 Baso # 0.01 Sodium 146 Potassium 3.1 L Chloride 113 H Carbon Dioxide 24 Anion Gap 12 BUN 45 H Creatinine 1.2 Est GFR ( Amer) 52 Est GFR (Non-Af Amer) 43 Random Glucose 107 Calcium 8.8 Phosphorus 4.2 Magnesium 1.9 Total Bilirubin 3.8 H AST 26 ALT 25 Alkaline Phosphatase 58 Ammonia < 9 L Troponin I 0.07 D Total Protein 9.0 H Albumin 2.8 L Globulin 6.2 Albumin/Globulin Ratio 0.5 L Assessment & Plan - Assessment and Plan (Free Text) Plan: Assessment Consider severe sepsis with acute encephalopathy and respiratory distress due to left sided healthcare-associated pneumonia with possible gram positive cocci and/or gram negative bacilli atrial fibrillation chronic CHF HTN cataracts DM chronic anemia S/P ORIF of the left hip history of anxiety and depression history of bilateral lower extremity cellulitis Plan patient has been given a dose of IV Vancomycin and Cefepime this morning; we will start the patient on Merrem and Doxycycline pending blood, sputum cx, PCT; reviewed CXR and Dr. El's evaluation and recommendations will monitor clinically overall prognosis is guarded at best and may deteriorate if not monitored closely discussed with nursing staff at length and recommend ICU evaluation at the very least
[2017-02-26 19:06] LABS: ABNORMAL PROTEIN BAND 1 4.64 g/dL (None Detected); BETA 1 GLOBULIN 0.4 g/dL (0.4-0.6); BETA 2 GLOBULIN 0.2 g/dL (0.2-0.5); GAMMA GLOBULIN 5.6 g/dL (0.8-1.7)
--- NOTE | 2017-02-26 19:37 | CP.PCM.CON ---
<Frandy Cervantes - Last Filed: 02/26/17 19:58> History of Present Illness - History of Present Illness History of Present Illness: Frandy Cervantes D.O. PGY-2, Critical Care Consultation Note 81 year old female with a PMH of atrial fibrillation, CHF last EF 51%, HTN, cataracts, DM, chronic anemia, depression, who [place] [facility] for anemia found on outpatient labs. Consultation placed for critical care evaluation as patient had increasing work of breathing. Discussed at bedside with daughter Dora Rizzo [phone] who was present during evaluation and stated that the patient has been having increased restlessness and shortness of breath. Patient notably agitated, eyes closed, not answering questions, and appears uncomfortable. O2 Sat noted to be 82% on NC. Review of Systems - Review of Systems Systems not reviewed;Unavailable: Dementia, Altered Mental Status, Uncooperative Past Patient History - Infectious Disease Hx of Infectious Diseases: None - Tetanus Immunizations Tetanus Immunization: Unknown - Past Social History Smoking Status: Former Smoker - CARDIAC Hx Cardiac Disorders: Yes Hx Cardia Arrhythmia: Yes (Afib) Hx Congestive Heart Failure: Yes Hx Hypertension: Yes - PULMONARY Hx Respiratory Disorders: No - NEUROLOGICAL Hx Neurological Disorder: Yes - HEENT Hx HEENT Problems: Yes Hx Cataracts: Yes - RENAL Hx Chronic Kidney Disease: No - ENDOCRINE/METABOLIC Hx Endocrine Disorders: Yes Hx Diabetes Mellitus Type 2: Yes - HEMATOLOGICAL/ONCOLOGICAL Hx Blood Disorders: Yes Hx Anemia: Yes - INTEGUMENTARY Hx Dermatological Problems: Yes Other/Comment: bilateral lower extremity cellulitis, MRSA in wounds - MUSCULOSKELETAL/RHEUMATOLOGICAL Hx Falls: Yes - GASTROINTESTINAL Hx Gastrointestinal Disorders: Yes (CONSTIPATION) - GENITOURINARY/GYNECOLOGICAL Hx Genitourinary Disorders: No (URGENCY/FREQUENCY) - PSYCHIATRIC Hx Psychophysiologic Disorder: Yes Hx Anxiety: Yes Hx Depression: Yes - SURGICAL HISTORY Hx Musculoskeletal Surgery: Yes Other/Comment: knee replacement. orif let hip - ANESTHESIA Hx Anesthesia: No Hx Anesthesia Reactions: No Hx Malignant Hyperthermia: No Meds Allergies/Adverse Reactions: Allergies Allergy/AdvReac Type Severity Reaction Status Date / Time lactose AdvReac DIARRHEA Verified 01/06/17 14:34 - Medications Medications: Current Medications Diltiazem HCl (Cardizem) 30 mg PO QID [facility] Last Admin: 02/25/17 01:27 Dose: Not Given Furosemide (Lasix) 20 mg PO DAILY [facility] Last Admin: 02/24/17 15:59 Dose: Not Given Furosemide (Lasix) 20 mg IVP DAILY [facility] Last Admin: 02/26/17 10:51 Dose: 20 mg Hydralazine HCl (Apresoline) 10 mg IVP Q6 [facility] Last Admin: 02/26/17 18:00 Dose: 10 mg diltiaZEM IVPB 100mg in NS (Cardizem 100mg In Ns) 100 mls @ 5 mls/hr IV .Q20H PRN; Protocol; 5 MG/HR PRN Reason: TITRATE PER MD ORDER Last Admin: 02/26/17 12:55 Dose: 5 mg/hr, 5 mls/hr Doxycycline Hyclate 100 mg/ (Sodium Chloride) 100 mls @ 100 mls/hr IVPB Q12 NIKKIE PRN Reason: Protocol Meropenem 1g/NS 100mL IVPB (Meropenem 1g/Ns 100ml Ivpb) 1 gm in 100 mls @ 100 mls/hr IVPB Q12 NIKKIE PRN Reason: Protocol Stop: 03/05/17 18:21 Levalbuterol HCl (Xopenex) 0.63 mg IH [id number] [facility] Last Admin: 02/26/17 14:04 Dose: 0.63 mg Levalbuterol HCl (Xopenex) 0.63 mg IH Q2 PRN PRN Reason: Shortness of Breath Lorazepam (Ativan) 0.5 mg PO BID NIKKIE PRN Reason: Protocol Last Admin: 02/26/17 18:01 Dose: Not Given Lorazepam (Ativan) 1 mg IVP Q4H PRN; Protocol PRN Reason: RESTLESSNESS, AGITATION Metoprolol Tartrate (Lopressor) 50 mg PO BRKDIN [facility] Last Admin: 02/24/17 17:44 Dose: Not Given Metoprolol Tartrate (Lopressor) 5 mg IVP Q6H [facility] Last Admin: 02/26/17 17:58 Dose: 5 mg Morphine Sulfate (Morphine) 2 mg IVP Q4H PRN PRN Reason: Pain, moderate (4-7) Last Admin: 02/26/17 14:50 Dose: 2 mg Nitroglycerin (Nitro-Bid 2% Oint) 1 ea TOP Q4H [facility] Last Admin: 02/26/17 17:58 Dose: 1 ea Quetiapine Fumarate (Seroquel) 12.5 mg PO HS PRN; Protocol PRN Reason: RESTLESS/AGITATION/PSYCHOSIS Physical Exam - Constitutional Appears: Other (awake, not alert, agitated elderly woman) - Head Exam Head Exam: ATRAUMATIC, NORMOCEPHALIC - Eye Exam Additional comments: kept closed, unable to have patient open them - ENT Exam ENT Exam: Mucous Membranes Moist - Neck Exam Additional comments: extensive jugular vein distension noted - Respiratory Exam Respiratory Exam: Rales. absent: Rhonchi, Wheezes - Cardiovascular Exam Cardiovascular Exam: RRR, +S1, +S2. absent: Gallop, Rubs - GI/Abdominal Exam GI & Abdominal Exam: Normal Bowel Sounds, Soft. absent: Distended - Extremities Exam Extremities exam: Negative for: calf tenderness - Neurological Exam Additional comments: awake, not alert, not following commands, eyes shut tightly, moving all four extremities spontaneously - Psychiatric Exam Psychiatric exam: Agitated - Skin Skin Exam: Dry, Warm Results - Vital Signs Recent Vital Signs: Last Vital Signs Temp 98.3 F 02/26/17 18:00 Pulse 112 H 02/26/17 18:00 Resp 20 02/26/17 18:00 BP 160/68 H 02/26/17 18:00 Pulse Ox 100 02/26/17 06:00 - Labs Result Diagrams: 02/26/17 09:15 02/26/17 09:15 Labs: Laboratory Results - last 24 hr 02/24/17 02/26/17 02/26/17 08:00 09:15 09:15 WBC 4.6 D RBC 2.47 L Hgb 8.3 L Hct 27.2 L MCV 110.1 H D MCH 33.6 MCHC 30.5 L RDW 25.6 H Plt Count 94 L MPV 10.8 Gran % 81.2 H Lymph % (Auto) 9.0 L [place] % (Auto) 9.6 H Eos % (Auto) 0.0 L Baso % (Auto) 0.2 Gran # 3.71 Lymph # 0.4 L [place] # 0.4 Eos # 0.0 Baso # 0.01 pCO2 pO2 HCO3 ABG pH ABG Total CO2 ABG O2 Saturation ABG O2 Content ABG Base Excess ABG Hemoglobin ABG Carboxyhemoglobin POC ABG HHb (Measured) ABG Methemoglobin ABG O2 Capacity Hgb O2 Saturation FiO2 Sodium 146 Potassium 3.1 L Chloride 113 H Carbon Dioxide 24 Anion Gap 12 BUN 45 H Creatinine 1.2 Est GFR ( Amer) 52 Est GFR (Non-Af Amer) 43 Random Glucose 107 Calcium 8.8 Phosphorus 4.2 Magnesium 1.9 Total Bilirubin 3.8 H AST 26 ALT 25 Alkaline Phosphatase 58 Ammonia Troponin I 0.07 D Total Protein 9.0 H Albumin 2.8 L Albumin (PEP) 3.6 L Globulin 6.2 Albumin/Globulin Ratio 0.5 L Ygzch-0-Balkeytvd 0.4 H Libox-1-Dgrhjdgjf 0.5 Xcqa-7-Wvfrxjzi 0.4 Zolp-2-Skkfdaic 0.2 Gamma Globulins 5.6 H Abnorm Protein Band 1 4.64 H Abnorm Protein Band 2 TEST NOT PERFORMED Abnorm Protein Band 3 TEST NOT PERFORMED JAYCEE & SPEP Interp See note 02/26/17 02/26/17 09:15 16:53 WBC RBC Hgb Hct MCV MCH MCHC RDW Plt Count MPV Gran % Lymph % (Auto) [place] % (Auto) Eos % (Auto) Baso % (Auto) Gran # Lymph # [place] # Eos # Baso # pCO2 29 L pO2 48.0 L HCO3 21.6 ABG pH 7.48 H ABG Total CO2 22.5 ABG O2 Saturation 92.3 L ABG O2 Content 9.5 L ABG Base Excess -1.5 ABG Hemoglobin 7.6 L ABG Carboxyhemoglobin 3.0 H POC ABG HHb (Measured) 7.4 H ABG Methemoglobin 1.0 ABG O2 Capacity 10.3 L Hgb O2 Saturation 88.5 L FiO2 30.0 Sodium Potassium Chloride Carbon Dioxide Anion Gap BUN Creatinine Est GFR ( Amer) Est GFR (Non-Af Amer) Random Glucose Calcium Phosphorus Magnesium Total Bilirubin AST ALT Alkaline Phosphatase Ammonia < 9 L Troponin I Total Protein Albumin Albumin (PEP) Globulin Albumin/Globulin Ratio Ehdry-7-Yomseniyl Kjwry-1-Gmdiptgcm Mixt-5-Ulmjbohh Isrs-9-Wgiiozpk Gamma Globulins Abnorm Protein Band 1 Abnorm Protein Band 2 Abnorm Protein Band 3 JAYCEE & SPEP Interp Assessment & Plan - Assessment and Plan (Free Text) Assessment: 81 year old female with a PMH of atrial fibrillation, CHF last EF 51%, HTN, cataracts, DM, chronic anemia, depression, whom developed worsening shortness of breath and agitation while on the telemetry floor. Plan: 1. Worsening shortness of breath in the setting of known CHF Will place in ICU for monitoring overnight Discussed with daughter at bedside who states that her brother is POA and that patient has made her wishes known that she is DNR/DNI Likely combination of CHF and what appears to be a left sided PNA Will give lasix 40 IVP stat and monitor response Placed on high flow 50% 60L/min ABG noted CXR reviewed Will closely monitor O2 Sat 2. Altered mental status Patient has been undergoing work up for delirium by PMD Seen by ID Dr. Duncan and will be starting antibiotics, was given vanco and cefepime this am Continue with doxycycline and meropenem for suspected septic etiology, ID recs appreciated Workup pending 3. Hypokalemia Will give two 20meq KCl riders Recheck CMP in the AM Patient was seen and examined and case was discussed at length with attending physician. - Date & Time Date: 02/26/17 Time: 16:45 <Jeffry Patel - Last Filed: 02/27/17 07:12> Meds - Medications Medications: Current Medications Diltiazem HCl (Cardizem) 30 mg PO QID [facility] Last Admin: 02/25/17 01:27 Dose: Not Given Furosemide (Lasix) 20 mg PO DAILY [facility] Last Admin: 02/24/17 15:59 Dose: Not Given Furosemide (Lasix) 20 mg IVP DAILY [facility] Last Admin: 02/26/17 10:51 Dose: 20 mg Hydralazine HCl (Apresoline) 10 mg IVP Q6 [facility] Last Admin: 02/27/17 06:04 Dose: 10 mg diltiaZEM IVPB 100mg in NS (Cardizem 100mg In Ns) 100 mls @ 5 mls/hr IV .Q20H PRN; Protocol; 5 MG/HR PRN Reason: TITRATE PER MD ORDER Last Admin: 02/26/17 12:55 Dose: 5 mg/hr, 5 mls/hr Doxycycline Hyclate 100 mg/ (Sodium Chloride) 100 mls @ 100 mls/hr IVPB Q12 NIKKIE PRN Reason: Protocol Last Admin: 02/26/17 23:00 Dose: 100 mls/hr Meropenem 1g/NS 100mL IVPB (Meropenem 1g/Ns 100ml Ivpb) 1 gm in 100 mls @ 100 mls/hr IVPB Q12 NIKKIE PRN Reason: Protocol Stop: 03/05/17 18:21 Last Admin: 02/26/17 22:55 Dose: 100 mls/hr Levalbuterol HCl (Xopenex) 0.63 mg IH [id number] [facility] Last Admin: 02/27/17 02:00 Dose: 0.63 mg Levalbuterol HCl (Xopenex) 0.63 mg IH Q2 PRN PRN Reason: Shortness of Breath Lorazepam (Ativan) 0.5 mg PO BID NIKKIE PRN Reason: Protocol Last Admin: 02/26/17 18:01 Dose: Not Given Lorazepam (Ativan) 1 mg IVP Q4H PRN; Protocol PRN Reason: RESTLESSNESS, AGITATION Lorazepam (Ativan) 0.5 mg IVP Q6H PRN; Protocol PRN Reason: Agitation Metoprolol Tartrate (Lopressor) 50 mg PO BRKDIN [facility] Last Admin: 02/24/17 17:44 Dose: Not Given Metoprolol Tartrate (Lopressor) 5 mg IVP Q6H [facility] Last Admin: 02/27/17 06:04 Dose: 5 mg Morphine Sulfate (Morphine) 2 mg IVP Q4H PRN PRN Reason: Pain, moderate (4-7) Last Admin: 02/27/17 06:03 Dose: 2 mg Nitroglycerin (Nitro-Bid 2% Oint) 1 ea TOP Q4H [facility] Last Admin: 02/27/17 06:04 Dose: 1 ea Quetiapine Fumarate (Seroquel) 12.5 mg PO HS PRN; Protocol PRN Reason: RESTLESS/AGITATION/PSYCHOSIS Results - Vital Signs Recent Vital Signs: Last Vital Signs Temp 98.4 F 02/27/17 06:00 Pulse 132 H 02/27/17 02:00 Resp 20 02/26/17 18:00 BP 149/90 02/26/17 19:30 Pulse Ox 100 02/26/17 06:00 - Labs Result Diagrams: 02/26/17 09:15 02/26/17 09:15 Labs: Laboratory Results - last 24 hr 02/24/17 02/26/17 02/26/17 08:00 09:15 09:15 WBC 4.6 D RBC 2.47 L Hgb 8.3 L Hct 27.2 L MCV 110.1 H D MCH 33.6 MCHC 30.5 L RDW 25.6 H Plt Count 94 L MPV 10.8 Gran % 81.2 H Lymph % (Auto) 9.0 L [place] % (Auto) 9.6 H Eos % (Auto) 0.0 L Baso % (Auto) 0.2 Gran # 3.71 Lymph # 0.4 L [place] # 0.4 Eos # 0.0 Baso # 0.01 pCO2 pO2 HCO3 ABG pH ABG Total CO2 ABG O2 Saturation ABG O2 Content ABG Base Excess ABG Hemoglobin ABG Carboxyhemoglobin POC ABG HHb (Measured) ABG Methemoglobin ABG O2 Capacity Hgb O2 Saturation FiO2 Sodium 146 Potassium 3.1 L Chloride 113 H Carbon Dioxide 24 Anion Gap 12 BUN 45 H Creatinine 1.2 Est GFR ( Amer) 52 Est GFR (Non-Af Amer) 43 Random Glucose 107 Calcium 8.8 Phosphorus 4.2 Magnesium 1.9 Total Bilirubin 3.8 H AST 26 ALT 25 Alkaline Phosphatase 58 Ammonia Troponin I 0.07 D Total Protein 9.0 H Albumin 2.8 L Albumin (PEP) 3.6 L Globulin 6.2 Albumin/Globulin Ratio 0.5 L Eibdd-9-Qqhsuybej 0.4 H Nvlsr-4-Owznysixv 0.5 Eyqe-3-Cdmxmpol 0.4 Vmmx-6-Djxwpzas 0.2 Gamma Globulins 5.6 H Abnorm Protein Band 1 4.64 H Abnorm Protein Band 2 TEST NOT PERFORMED Abnorm Protein Band 3 TEST NOT PERFORMED Procalcitonin JAYCEE & SPEP Interp See note Ur L.pneumophila Ag 02/26/17 02/26/17 02/26/17 09:15 15:50 16:53 WBC RBC Hgb Hct MCV MCH MCHC RDW Plt Count MPV Gran % Lymph % (Auto) [place] % (Auto) Eos % (Auto) Baso % (Auto) Gran # Lymph # [place] # Eos # Baso # pCO2 29 L pO2 48.0 L HCO3 21.6 ABG pH 7.48 H ABG Total CO2 22.5 ABG O2 Saturation 92.3 L ABG O2 Content 9.5 L ABG Base Excess -1.5 ABG Hemoglobin 7.6 L ABG Carboxyhemoglobin 3.0 H POC ABG HHb (Measured) 7.4 H ABG Methemoglobin 1.0 ABG O2 Capacity 10.3 L Hgb O2 Saturation 88.5 L FiO2 30.0 Sodium Potassium Chloride Carbon Dioxide Anion Gap BUN Creatinine Est GFR ( Amer) Est GFR (Non-Af Amer) Random Glucose Calcium Phosphorus Magnesium Total Bilirubin AST ALT Alkaline Phosphatase Ammonia < 9 L Troponin I Total Protein Albumin Albumin (PEP) Globulin Albumin/Globulin Ratio Glccs-0-Dsmdtrrxi Odfqx-1-Hixthntlm Xtgu-5-Exxdaxek Evns-4-Wnouccyy Gamma Globulins Abnorm Protein Band 1 Abnorm Protein Band 2 Abnorm Protein Band 3 Procalcitonin 8.23 H JAYCEE & SPEP Interp Ur L.pneumophila Ag 02/26/17 18:43 WBC RBC Hgb Hct MCV MCH MCHC RDW Plt Count MPV Gran % Lymph % (Auto) [place] % (Auto) Eos % (Auto) Baso % (Auto) Gran # Lymph # [place] # Eos # Baso # pCO2 pO2 HCO3 ABG pH ABG Total CO2 ABG O2 Saturation ABG O2 Content ABG Base Excess ABG Hemoglobin ABG Carboxyhemoglobin POC ABG HHb (Measured) ABG Methemoglobin ABG O2 Capacity Hgb O2 Saturation FiO2 Sodium Potassium Chloride Carbon Dioxide Anion Gap BUN Creatinine Est GFR ( Amer) Est GFR (Non-Af Amer) Random Glucose Calcium Phosphorus Magnesium Total Bilirubin AST ALT Alkaline Phosphatase Ammonia Troponin I Total Protein Albumin Albumin (PEP) Globulin Albumin/Globulin Ratio Ouuio-7-Kfaitysdz Hagev-6-Ijvdmarrl Dzoc-3-Soeeivup Lhjo-2-Lzryjyui Gamma Globulins Abnorm Protein Band 1 Abnorm Protein Band 2 Abnorm Protein Band 3 Procalcitonin JAYCEE & SPEP Interp Ur L.pneumophila Ag Negative Assessment & Plan - Assessment and Plan (Free Text) Plan: LATE ENTRY: Patient seen and examined yesterday 02/26/17, at 1820, with Dr Cervantes, agree with note. Patient is 81yo female with PMhx Anemia, CHF, HTN, a/w pancytopenia, with worsening resp status, on abx. Patient is DNR/DNI as per her living will, which the daughter reports. Patient hypoxic on 2LNC, 82%, placed on BIPAP with improvement. Mental status continuous to be tenuous, Hypoxic Resp Failure PNA AMS CHF, acute on chronic Recommend: - Transfer to MICU - trial of BIPAP - broad spectrum abx as per ID - hold BP meds - Lasix IV - morphine PRN - monitor HH - neurology consult - keep NPO - patient is DNR/DNI as per the daughter critical care time 40 minutes
[2017-02-27] MEDS: Metoprolol 1 mg/ml Inj IVP SCH ×4 (00:48→17:49)
[2017-02-27] MEDS: Levalbuterol 0.63 MG/3 ML Inhal Soln UD IH SCH ×4 (02:00→19:53)
[2017-02-27] MEDS: Nitroglycerin 2% Ointment Foilpak UD TOP SCH ×5 (02:00→22:00)
--- NOTE | 2017-02-27 04:02 | CON ---
HISTORY OF PRESENT ILLNESS: The patient is an 81-year-old female with not known previous psychiatric history. The patient has multiple medical issues including atrial fibrillation and hypertension. The patient was sent to the emergency room by primary care physician for anemia. Psych consult was called for evaluation of change in mental status and possible delirium stage. The patient was seen and examined today, discussed with the patient's daughter who is next to her. The patient appears to be very anxious, restless, was not able to participate in interview because of the confusion and restless behavior. Based on daughters collateral information, the patient does not have history of dementia. The patient has history of depression but the patient was functioning at her baseline prior to coming to the hospital. The patient also has homemaker who is also next to her. Prior to coming to the hospital, the patient was very anxious and she was afraid to go back to the hospital because the patient's approximately a year ago in this facility. Besides that, the patient was able to take care of her finances, the patient has good memory, was able to pay her bills and take care of herself. At times, the patient needs to have assistance in regards of the dressing herself because the patient is afraid to fall. This assembly instructions writer reviewed previous history. The patient was not seen by psychiatrist in the past at least here at [facility]. PHYSICAL EXAMINATION: VITAL SIGNS: Reviewed. Temperature 98, pulse is 96, blood pressure 145/119, respiration 20. MEDICATIONS: Reviewed. The patient is on Cardizem. The patient is on doxycycline, Lasix, hydralazine, Zenapax, Ativan will be given as needed for restless and agitated behavior 1 mg IV push q.4 hours and Ativan 0.5 mg scheduled will be given. The patient is on meropenem and Lopressor. This assembly instructions writer also recommended Seroquel 12.5 mg at the nighttime for restless and agitated behavior. The patient is on morphine and nitroglycerin. LABORATORY DATA: Labs reviewed. The patient has hemoglobin 8.3 and 29.2 of hematocrit, granulocytes 3.71. Chest x-ray reviewed which showed pulmonary edema, consolidation of the left lung, also pulmonary, nose congestion and prominent central vasculature. Notes from Dr. Barrera reviewed. This assembly instructions writer is in agreement with assessment. The patient most likely is in delirium stage. The patient has pancytopenia, hypertension, diabetes, congestive heart failure, atrial fibrillation. The patient is on antibiotics most likely this is due to questionable pneumonia. MENTAL STATUS EXAMINATION: The patient appears to be restless and not comfortable, confused, was not able to participate in interview. PLAN: This assembly instructions writer will implement Ativan IV push for agitated and restless behavior as needed, 0.5 mg of Ativan twice a day scheduled, Seroquel 12.5 mg at the nighttime as needed for psychotic and restless behavior. Collaterals were obtained from the patient's daughter, Dora, phone number [phone] and the patient's POA, Brandin, phone number is [phone]. Meanwhile, continue current management. Continue current medication. We will follow up and advise accordingly. Thank you very much for letting me participate in care of your patient. Ronel Simon MD
[2017-02-27] MEDS: Morphine 2 mg/ml ISec IVP PRN ×2 (06:03→13:21)
[2017-02-27 06:27] LABS: GRAN % 75.5 % (50.0-68.0); HEMATOCRIT 26.5 % (36.0-48.0); LYMPH # 0.2 (1.2-3.4); LYMPH % 7.9 % (22.0-35.0); MEAN CORPUSCULAR HGB CONC 30.9 g/dl (31.0-37.0); MEAN PLATELET VOLUME 10.4 fl (7.0-11.0); MONO # 0.4 (0.1-0.6); MONO % 16.6 % (1.0-6.0); RED CELL DISTRIBUTION WIDTH 25.6 % (11.5-14.5)
[2017-02-27 06:50] LABS: ALB/GLOB RATIO 0.4 (1.1-1.8); BILIRUBIN,TOTAL 5.2 mg/dL (0.2-1.3); CALCIUM 8.8 mg/dL (8.4-10.5); POTASSIUM 3.2 mmol/L (3.6-5.0); TOTAL PROTEIN 8.9 g/dL (5.8-8.3)
[2017-02-27 07:39] LABS: WHITE BLOOD COUNT 2.7 10^3/ul (4.5-11.0)
--- NOTE | 2017-02-27 08:06 | RAD ---
HISTORY: follow up COMPARISON: Portable chest 02/26/2017 FINDINGS: LUNGS: Pulmonary venous congestion pattern appears to be diminishing with improved history volume noted bilaterally. Residual infiltrates remain at the bilateral hilar regions and left base. PLEURA: No significant pleural effusion identified, no pneumothorax apparent. Patient's lower face obscures the right pulmonary apex however. CARDIOVASCULAR: Stable cardiomediastinal silhouette. OSSEOUS STRUCTURES: No significant abnormalities. VISUALIZED UPPER ABDOMEN: Normal. OTHER FINDINGS: None. IMPRESSION: Interval improvement in history effort with diminished pulmonary venous congestion pattern. Mild airspace disease at the bilateral hilar regions and left base once again.
--- NOTE | 2017-02-27 08:23 | CP.PCM.PN ---
Subjective - Date & Time of Evaluation Date of Evaluation: 02/26/17 Time of Evaluation: 07:00 - Subjective Subjective: She was agitated and restless during the night. She is on BiPap mask and got IV Lasix with good urine output. V/S noted: PE: Lungs: rhonchi Cor.: obscured Abd.: soft Ext.: mild edema Neuro.: somnolent I/O 100/1200 Labs: pending. Objective - Vital Signs/Intake and Output Vital Signs (last 24 hours): Temp Pulse Resp BP Pulse Ox 97.9 F 91 H 20 125/69 100 02/26/17 06:00 02/26/17 06:17 02/26/17 06:00 02/26/17 06:17 02/26/17 06:00 Intake and Output: 02/26/17 02/26/17 06:59 18:59 Intake Total 0 Output Total 1200 Balance -1200 - Medications Medications: Current Medications Alprazolam (Xanax) 0.5 mg PO Q6 PRN; Protocol PRN Reason: Anxiety Last Admin: 02/23/17 21:27 Dose: 0.5 mg Alprazolam (Xanax) 0.5 mg PO TID PRN; Protocol PRN Reason: Anxiety Diltiazem HCl (Cardizem) 30 mg PO QID [facility] Last Admin: 02/25/17 01:27 Dose: Not Given Furosemide (Lasix) 20 mg PO DAILY [facility] Last Admin: 02/24/17 15:59 Dose: Not Given Furosemide (Lasix) 20 mg IVP DAILY [facility] Last Admin: 02/25/17 09:26 Dose: 20 mg Hydralazine HCl (Apresoline) 10 mg IVP Q6 [facility] Last Admin: 02/26/17 06:16 Dose: 10 mg diltiaZEM IVPB 100mg in NS (Cardizem 100mg In Ns) 100 mls @ 5 mls/hr IV .Q20H PRN; Protocol; 5 MG/HR PRN Reason: TITRATE PER MD ORDER Last Admin: 02/25/17 13:26 Dose: 5 mg/hr, 5 mls/hr Lorazepam (Ativan) 0.5 mg IVP Q4H PRN; Protocol PRN Reason: Anxiety Last Admin: 02/25/17 06:08 Dose: 0.5 mg Metoprolol Tartrate (Lopressor) 50 mg PO BRKDIN [facility] Last Admin: 02/24/17 17:44 Dose: Not Given Metoprolol Tartrate (Lopressor) 5 mg IVP Q6H [facility] Last Admin: 02/26/17 06:17 Dose: 5 mg Morphine Sulfate (Morphine) 2 mg IVP Q4H PRN PRN Reason: Pain, moderate (4-7) Last Admin: 02/25/17 23:04 Dose: 2 mg - Labs Labs: 02/24/17 06:30 02/24/17 06:30 PT 20.1 SECONDS (9.4-12.5) H 02/24/17 06:30 INR 1.82 (0.93-1.08) H 02/24/17 06:30 APTT 26.4 Seconds (25.1-36.5) 02/24/17 06:30 Assessment and Plan - Assessment and Plan (Free Text) Assessment: Dyspnea/Weakness/Fatigue CHF Delerium Pancytopenia/anemia/s/p transfusion AF HBP Diabetes TK Plan: IV lasix Check CXR Await AM labs Pulmonary eval. BiPap mask
--- NOTE | 2017-02-27 08:28 | PN ---
DATE: 02/27/2017(630am--720am) PULMONARY PROGRESS NOTE SUBJECTIVE: The patient remains very restless and disoriented. She also has periods of lethargy. She is mildly short of breath, but in no acute distress. PHYSICAL EXAMINATION: VITAL SIGNS: Temperature is 98.4, pulse on the monitor is 111, respiratory rate is 20/22, and blood pressure is 149/90. Oxygen saturation on BiPAP is 100%. HEENT: Normocephalic and atraumatic. NECK: No JVD. CARDIOVASCULAR: Systolic ejection murmur at the lower left sternal border. No S3 gallop. LUNGS: Less crackles at the lower lobe. Less rhonchi. No wheezing. EXTREMITIES : No clubbing, cyanosis or edema. Calves are nontender to palpation. GASTROINTESTINAL: Abdomen is soft, nontender and nondistended. Bowel sounds are positive. SKIN: No acute rash. NEUROLOGIC: Exam is limited at the present time. PERTINENT LABORATORY DATA: Chest x-ray was done this morning and reviewed. There is significant clearing of the left-sided infiltrates. Repeat a.m. labs are pending. IMPRESSION 1. Aspiration pneumonia - left lung. 2. Acute bronchospasm. 3. Encephalopathy. 4. Pancytopenia. 5. Rapid atrial fibrillation. PLAN: The patient is currently in the ICU. She remains restless and disoriented. She is lethargic at times. I did discuss the case with the night nurse at length. Apparently, yesterday, the patient was transferred to the medical ICU for increasing shortness of breath. She is currently on BiPAP. Oxygen saturation on BiPAP is 100%. I did review the chest x-ray - as above. The chest x-ray is significantly improved - with significant clearing of the left-sided infiltrates. I would continue with the antibiotic coverage as per infectious disease. Input by Dr. Duncan is noted. I will also continue with the aspiration precautions. On physical exam, there is certainly less bronchospasm noted. I will also continue the current nebulizer treatments for now. The patient remains on a Cardizem drip as per cardiology. Input by Dr. Santos is noted. The patient also remains encephalopathic. I would advise a neurologic evaluation at this point in time. I did discuss the above with the family (at bedside) at length. I will also discuss the above with the entire ICU team the next few moments. I will also discuss the above with Dr. Barrera later this morning. Bear El MD GABI
--- NOTE | 2017-02-27 08:42 | CP.PCM.PN ---
Subjective - Date & Time of Evaluation Date of Evaluation: 02/27/17 Time of Evaluation: 07:00 - Subjective Subjective: Now in ICU. Not very responsive. BiPap mask. V/S noted: AF ~ 120. On IV dilt. PE: Lungs: rhonchi Cor.: obscured Abd.: soft Ext.: mild edema Neuro.: somnolent I/O 550/1200 recorded Labs noted: WBC = 2700, H/H = 8.2/26.5, Pl ct. = [address], na+= 149, K+= 3.2, Cr.= 1.2., TBR 5.2, Trop 02/26= 0.7 Objective - Vital Signs/Intake and Output Vital Signs (last 24 hours): Temp Pulse Resp BP Pulse Ox 98.4 F 84 20 149/90 100 02/27/17 06:00 02/27/17 07:22 02/26/17 18:00 02/26/17 19:30 02/26/17 06:00 Intake and Output: 02/27/17 02/27/17 06:59 18:59 Intake Total 450 Output Total 1000 Balance -550 - Medications Medications: Current Medications Diltiazem HCl (Cardizem) 30 mg PO QID [facility] Last Admin: 02/25/17 01:27 Dose: Not Given Furosemide (Lasix) 20 mg PO DAILY [facility] Last Admin: 02/24/17 15:59 Dose: Not Given Furosemide (Lasix) 20 mg IVP DAILY [facility] Last Admin: 02/26/17 10:51 Dose: 20 mg Hydralazine HCl (Apresoline) 10 mg IVP Q6 [facility] Last Admin: 02/27/17 06:04 Dose: 10 mg diltiaZEM IVPB 100mg in NS (Cardizem 100mg In Ns) 100 mls @ 5 mls/hr IV .Q20H PRN; Protocol; 5 MG/HR PRN Reason: TITRATE PER MD ORDER Last Admin: 02/26/17 12:55 Dose: 5 mg/hr, 5 mls/hr Doxycycline Hyclate 100 mg/ (Sodium Chloride) 100 mls @ 100 mls/hr IVPB Q12 NIKKIE PRN Reason: Protocol Last Admin: 02/26/17 23:00 Dose: 100 mls/hr Meropenem 1g/NS 100mL IVPB (Meropenem 1g/Ns 100ml Ivpb) 1 gm in 100 mls @ 100 mls/hr IVPB Q12 NIKKIE PRN Reason: Protocol Stop: 03/05/17 18:21 Last Admin: 02/26/17 22:55 Dose: 100 mls/hr Levalbuterol HCl (Xopenex) 0.63 mg IH [id number] NIKKIE Last Admin: 02/27/17 07:21 Dose: 0.63 mg Levalbuterol HCl (Xopenex) 0.63 mg IH Q2 PRN PRN Reason: Shortness of Breath Lorazepam (Ativan) 0.5 mg PO BID NIKKIE PRN Reason: Protocol Last Admin: 02/26/17 18:01 Dose: Not Given Lorazepam (Ativan) 1 mg IVP Q4H PRN; Protocol PRN Reason: RESTLESSNESS, AGITATION Lorazepam (Ativan) 0.5 mg IVP Q6H PRN; Protocol PRN Reason: Agitation Metoprolol Tartrate (Lopressor) 50 mg PO BRKDIN [facility] Last Admin: 02/24/17 17:44 Dose: Not Given Metoprolol Tartrate (Lopressor) 5 mg IVP Q6H [facility] Last Admin: 02/27/17 06:04 Dose: 5 mg Morphine Sulfate (Morphine) 2 mg IVP Q4H PRN PRN Reason: Pain, moderate (4-7) Last Admin: 02/27/17 06:03 Dose: 2 mg Nitroglycerin (Nitro-Bid 2% Oint) 1 ea TOP Q4H [facility] Last Admin: 02/27/17 06:04 Dose: 1 ea Quetiapine Fumarate (Seroquel) 12.5 mg PO HS PRN; Protocol PRN Reason: RESTLESS/AGITATION/PSYCHOSIS - Labs Labs: 02/27/17 05:30 02/27/17 05:30 PT 20.1 SECONDS (9.4-12.5) H 02/24/17 06:30 INR 1.82 (0.93-1.08) H 02/24/17 06:30 APTT 26.4 Seconds (25.1-36.5) 02/24/17 06:30 Assessment and Plan - Assessment and Plan (Free Text) Assessment: Dyspnea/Weakness/Fatigue Abnormal CXR R/O Sepsis, pneumonia, cellulitis CHF Delirium Pancytopenia/anemia/s/p transfusion AF HBP Diabetes TKR DNR/DNI noted Plan: IV lasix, IV diltiazem, IV metoprolol Replace K+. Pulmonary eval. and tx. BiPap mask ID eval./AB GI evaluation Neuro and Psych evals. As per [facility]. DNR/DNI noted
[2017-02-27] MEDS: diltiaZEM IVPB 100mg in NS 100 ML IV PRN (09:00)
--- NOTE | 2017-02-27 09:05 | CP.PCM.CON ---
History of Present Illness - History of Present Illness History of Present Illness: Heme/Onc Consult Note for Kathi Gallo PGY2 Reason for consult: Anemia This is an 81Y F with PMH HTN, DM, atrial fibrillation on Coumadin, CHF, chronic anemia, anxiety/depression who was sent to [facility] for anemia that was found as outpatient by PMD, Dr. Whiteside. Hemoglobin was noted to be 7.5. Patient was admitted to [facility] for further evaluation. She was transfused 1 Unit of PRBC and became short of breath. She was noted to be in a.fib with HR at 160s. She was given Lasix and placed on Cardizem drip. Anticoagulation was on hold due to her anemia. Patient was also found to have aspiration pneumonia in L lung. Throughout this time, patient has been delirious and a poor historian. ROS could not be obtained. History obtained from previous records. Patient was thought to have myelodysplastic syndrome at last admission on 01/04/17. Patient was offered bone marrow biopsy, but family refused at the time. Past medical history: HTN, DM, atrial fibrillation, CHF, chronic anemia, anxiety /depression Past surgical history: L hip ORIF, R knee replacement Home meds: as per [facility] Allergies: Lactose Social History: Denies EtOH, tobacco or drug use PMD: Dr. Whiteside Review of Systems - Review of Systems Systems not reviewed;Unavailable: Altered Mental Status Past Patient History - Infectious Disease Hx of Infectious Diseases: None - Tetanus Immunizations Tetanus Immunization: Unknown - Past Social History Smoking Status: Former Smoker - CARDIAC Hx Cardiac Disorders: Yes Hx Cardia Arrhythmia: Yes (Afib) Hx Congestive Heart Failure: Yes Hx Hypertension: Yes - PULMONARY Hx Respiratory Disorders: No - NEUROLOGICAL Hx Neurological Disorder: Yes - HEENT Hx HEENT Problems: Yes Hx Cataracts: Yes - RENAL Hx Chronic Kidney Disease: No - ENDOCRINE/METABOLIC Hx Endocrine Disorders: Yes Hx Diabetes Mellitus Type 2: Yes - HEMATOLOGICAL/ONCOLOGICAL Hx Blood Disorders: Yes Hx Anemia: Yes - INTEGUMENTARY Hx Dermatological Problems: Yes Other/Comment: bilateral lower extremity cellulitis, MRSA in wounds - MUSCULOSKELETAL/RHEUMATOLOGICAL Hx Falls: Yes - GASTROINTESTINAL Hx Gastrointestinal Disorders: Yes (CONSTIPATION) - GENITOURINARY/GYNECOLOGICAL Hx Genitourinary Disorders: No (URGENCY/FREQUENCY) - PSYCHIATRIC Hx Psychophysiologic Disorder: Yes Hx Anxiety: Yes Hx Depression: Yes - SURGICAL HISTORY Hx Musculoskeletal Surgery: Yes Other/Comment: knee replacement. orif let hip - ANESTHESIA Hx Anesthesia: No Hx Anesthesia Reactions: No Hx Malignant Hyperthermia: No Meds Allergies/Adverse Reactions: Allergies Allergy/AdvReac Type Severity Reaction Status Date / Time lactose AdvReac DIARRHEA Verified 01/06/17 14:34 - Medications Medications: Current Medications Diltiazem HCl (Cardizem) 30 mg PO QID [facility] Last Admin: 02/25/17 01:27 Dose: Not Given Furosemide (Lasix) 20 mg PO DAILY [facility] Last Admin: 02/24/17 15:59 Dose: Not Given Furosemide (Lasix) 20 mg IVP DAILY [facility] Last Admin: 02/26/17 10:51 Dose: 20 mg Hydralazine HCl (Apresoline) 10 mg IVP Q6 [facility] Last Admin: 02/27/17 06:04 Dose: 10 mg diltiaZEM IVPB 100mg in NS (Cardizem 100mg In Ns) 100 mls @ 5 mls/hr IV .Q20H PRN; Protocol; 5 MG/HR PRN Reason: TITRATE PER MD ORDER Last Admin: 02/26/17 12:55 Dose: 5 mg/hr, 5 mls/hr Doxycycline Hyclate 100 mg/ (Sodium Chloride) 100 mls @ 100 mls/hr IVPB Q12 NIKKIE PRN Reason: Protocol Last Admin: 02/26/17 23:00 Dose: 100 mls/hr Meropenem 1g/NS 100mL IVPB (Meropenem 1g/Ns 100ml Ivpb) 1 gm in 100 mls @ 100 mls/hr IVPB Q12 NIKKIE PRN Reason: Protocol Stop: 03/05/17 18:21 Last Admin: 02/26/17 22:55 Dose: 100 mls/hr Levalbuterol HCl (Xopenex) 0.63 mg IH [id number] [facility] Last Admin: 02/27/17 07:21 Dose: 0.63 mg Levalbuterol HCl (Xopenex) 0.63 mg IH Q2 PRN PRN Reason: Shortness of Breath Lorazepam (Ativan) 0.5 mg PO BID NIKKIE PRN Reason: Protocol Last Admin: 02/26/17 18:01 Dose: Not Given Lorazepam (Ativan) 1 mg IVP Q4H PRN; Protocol PRN Reason: RESTLESSNESS, AGITATION Lorazepam (Ativan) 0.5 mg IVP Q6H PRN; Protocol PRN Reason: Agitation Metoprolol Tartrate (Lopressor) 50 mg PO BRKDIN [facility] Last Admin: 02/24/17 17:44 Dose: Not Given Metoprolol Tartrate (Lopressor) 5 mg IVP Q6H [facility] Last Admin: 02/27/17 06:04 Dose: 5 mg Morphine Sulfate (Morphine) 2 mg IVP Q4H PRN PRN Reason: Pain, moderate (4-7) Last Admin: 02/27/17 06:03 Dose: 2 mg Nitroglycerin (Nitro-Bid 2% Oint) 1 ea TOP Q4H [facility] Last Admin: 02/27/17 06:04 Dose: 1 ea Quetiapine Fumarate (Seroquel) 12.5 mg PO HS PRN; Protocol PRN Reason: RESTLESS/AGITATION/PSYCHOSIS Physical Exam - Constitutional Appears: Chronically Ill - Head Exam Head Exam: ATRAUMATIC, NORMAL INSPECTION, NORMOCEPHALIC - Eye Exam Eye Exam: PERRL Pupil Exam: NORMAL ACCOMODATION, PERRL - ENT Exam ENT Exam: Mucous Membranes Dry - Respiratory Exam Respiratory Exam: Rhonchi (on LLL ), NORMAL BREATHING PATTERN. absent: Clear to Auscultation Bilateral - Cardiovascular Exam Cardiovascular Exam: Irregular Rhythm, +S1, +S2. absent: Gallop, Rubs, Systolic Murmur - GI/Abdominal Exam GI & Abdominal Exam: Normal Bowel Sounds, Soft. absent: Rebound, Rigid, Tenderness - Extremities Exam Extremities exam: Negative for: normal inspection (discoloration of lower extremities bilaterally ), pedal edema - Neurological Exam Neurological exam: Altered, CN II-XII Intact - Psychiatric Exam Psychiatric exam: Agitated - Skin Skin Exam: Dry, Warm Results - Vital Signs Recent Vital Signs: Last Vital Signs Temp 98.4 F 02/27/17 06:00 Pulse 84 02/27/17 07:22 Resp 20 02/26/17 18:00 BP 149/90 02/26/17 19:30 Pulse Ox 100 02/26/17 06:00 - Labs Result Diagrams: 02/27/17 05:30 02/27/17 05:30 Labs: Laboratory Results - last 24 hr 02/24/17 02/26/17 02/26/17 08:00 09:15 09:15 WBC 4.6 D RBC 2.47 L Hgb 8.3 L Hct 27.2 L MCV 110.1 H D MCH 33.6 MCHC 30.5 L RDW 25.6 H Plt Count 94 L MPV 10.8 Gran % 81.2 H Lymph % (Auto) 9.0 L [place] % (Auto) 9.6 H Eos % (Auto) 0.0 L Baso % (Auto) 0.2 Gran # 3.71 Lymph # 0.4 L [place] # 0.4 Eos # 0.0 Baso # 0.01 pCO2 pO2 HCO3 ABG pH ABG Total CO2 ABG O2 Saturation ABG O2 Content ABG Base Excess ABG Hemoglobin ABG Carboxyhemoglobin POC ABG HHb (Measured) ABG Methemoglobin ABG O2 Capacity Hgb O2 Saturation FiO2 Sodium 146 Potassium 3.1 L Chloride 113 H Carbon Dioxide 24 Anion Gap 12 BUN 45 H Creatinine 1.2 Est GFR ( Amer) 52 Est GFR (Non-Af Amer) 43 Random Glucose 107 Calcium 8.8 Phosphorus 4.2 Magnesium 1.9 Total Bilirubin 3.8 H AST 26 ALT 25 Alkaline Phosphatase 58 Ammonia Troponin I 0.07 D Total Protein 9.0 H Albumin 2.8 L Albumin (PEP) 3.6 L Globulin 6.2 Albumin/Globulin Ratio 0.5 L Rxepf-3-Aqvmudqfl 0.4 H Odncr-2-Rmnmsuynk 0.5 Thzj-4-Nroncczi 0.4 Wvah-8-Ysurfvsm 0.2 Gamma Globulins 5.6 H Abnorm Protein Band 1 4.64 H Abnorm Protein Band 2 TEST NOT PERFORMED Abnorm Protein Band 3 TEST NOT PERFORMED Procalcitonin JAYCEE & SPEP Interp See note Ur L.pneumophila Ag 02/26/17 02/26/17 02/26/17 09:15 15:50 16:53 WBC RBC Hgb Hct MCV MCH MCHC RDW Plt Count MPV Gran % Lymph % (Auto) [place] % (Auto) Eos % (Auto) Baso % (Auto) Gran # Lymph # [place] # Eos # Baso # pCO2 29 L pO2 48.0 L HCO3 21.6 ABG pH 7.48 H ABG Total CO2 22.5 ABG O2 Saturation 92.3 L ABG O2 Content 9.5 L ABG Base Excess -1.5 ABG Hemoglobin 7.6 L ABG Carboxyhemoglobin 3.0 H POC ABG HHb (Measured) 7.4 H ABG Methemoglobin 1.0 ABG O2 Capacity 10.3 L Hgb O2 Saturation 88.5 L FiO2 30.0 Sodium Potassium Chloride Carbon Dioxide Anion Gap BUN Creatinine Est GFR ( Amer) Est GFR (Non-Af Amer) Random Glucose Calcium Phosphorus Magnesium Total Bilirubin AST ALT Alkaline Phosphatase Ammonia < 9 L Troponin I Total Protein Albumin Albumin (PEP) Globulin Albumin/Globulin Ratio Lcopo-6-Cptcnykuo Moxyi-5-Awhbzvbal Blbr-7-Ajyritxh Jdlf-9-Mxalyfdd Gamma Globulins Abnorm Protein Band 1 Abnorm Protein Band 2 Abnorm Protein Band 3 Procalcitonin 8.23 H JAYCEE & SPEP Interp Ur L.pneumophila Ag 02/26/17 02/27/17 02/27/17 18:43 05:30 05:30 WBC 2.7 L* D RBC 2.41 L Hgb 8.2 L Hct 26.5 L MCV 110.0 H MCH 34.0 MCHC 30.9 L RDW 25.6 H Plt Count 86 L MPV 10.4 Gran % 75.5 H Lymph % (Auto) 7.9 L [place] % (Auto) 16.6 H Eos % (Auto) 0.0 L Baso % (Auto) 0.0 Gran # 2.00 Lymph # 0.2 L [place] # 0.4 Eos # 0.0 Baso # 0.00 pCO2 pO2 HCO3 ABG pH ABG Total CO2 ABG O2 Saturation ABG O2 Content ABG Base Excess ABG Hemoglobin ABG Carboxyhemoglobin POC ABG HHb (Measured) ABG Methemoglobin ABG O2 Capacity Hgb O2 Saturation FiO2 Sodium 149 H Potassium 3.2 L Chloride 117 H Carbon Dioxide 22 Anion Gap 13 BUN 54 H Creatinine 1.2 Est GFR ( Amer) 52 Est GFR (Non-Af Amer) 43 Random Glucose 105 Calcium 8.8 Phosphorus Magnesium Total Bilirubin 5.2 H AST 25 ALT 19 Alkaline Phosphatase 57 Ammonia Troponin I Total Protein 8.9 H Albumin 2.7 L Albumin (PEP) Globulin 6.2 Albumin/Globulin Ratio 0.4 L Lmkvl-1-Ydpozhnub Dibuh-3-Etqiyqgpt Jaym-5-Tgbdugjh Txti-7-Rwldtvot Gamma Globulins Abnorm Protein Band 1 Abnorm Protein Band 2 Abnorm Protein Band 3 Procalcitonin JAYCEE & SPEP Interp Ur L.pneumophila Ag Negative Assessment & Plan - Assessment and Plan (Free Text) Assessment: This is an 81Y F with PMH HTN, DM, atrial fibrillation on Coumadin, CHF, chronic anemia, anxiety/depression who was sent to [facility] for anemia of 7.5 status post 1 unit transfusion of PRBC. Patient is found to have: 1. Pancytopenia- most likely myelodysplastic syndrome versus low leukemic process or refractory anemia 2. Atrial fibrillation 3. Aspiration pneumonia 4. Delirium 5. CHF 6. DM type 2 7. HTN Plan: - will obtain flow cytometry of blood - Bone marrow biopsy not recommended at this time. Dr. Sahu spoke with patient daughter yesterday who both agreed to further optimize her a.fib and pneumonia before biopsy - Continue medical management - Bilirubin elevated - will obtain direct bilirubin as well as abdominal ultrasound - Continue to monitor CBC - Coumadin on hold currently for anemia - HAS-BLED score of 3 which correlates with risk was 5.8% in one validation study and 3.72 bleeds per 100 patient-years in another validation study (high bleeding risk) - Continue SCDs Case seen, discussed and reviewed with Dr. Adelina Webster PGY2 - Date & Time Date: 02/27/17 Time: 09:13
--- NOTE | 2017-02-27 09:58 | CP.CCUPN ---
<Roney Del Toro - Last Filed: 02/27/17 10:02> CCU Subjective - Physician Review Subjective (Free Text): Subjective: Patient seen and examined at bedside. Resting comfortably in bed with BiPAP mask in proper position. No acute overnight events. Extruder Operator Vertical is at bedside. ROS cannot be attained at this time due to AMS. Physical Examination: - Head Exam Head Exam: ATRAUMATIC, NORMAL INSPECTION, NORMOCEPHALIC - Eye Exam Eye Exam: no scleral icterus Pupil Exam: NORMAL ACCOMODATION, PERRL - ENT Exam ENT Exam: Mucous Membranes Dry - Respiratory Exam Respiratory Exam: Rhonchi (on LLL ), NORMAL BREATHING PATTERN. absent: Clear to Auscultation Bilateral - Cardiovascular Exam Cardiovascular Exam: Irregular Rhythm, +S1, +S2. absent: Gallop, Rubs, Systolic Murmur - GI/Abdominal Exam GI & Abdominal Exam: Normal Bowel Sounds, Soft. absent: Rebound, Rigid, Tenderness - Extremities Exam Extremities exam: Negative for: normal inspection (discoloration of lower extremities bilaterally ), pedal edema - Neurological Exam Neurological exam: Altered, does not follow commands - Psychiatric Exam Psychiatric exam: resting comfortably - Skin Skin Exam: Dry, Warm Assessment and Plan: This is an 81Y F with PMH HTN, DM, atrial fibrillation on Coumadin, CHF, chronic anemia, anxiety/depression who was sent to [facility] for anemia of 7.5 status post 1 unit transfusion of PRBC. Hypoxic Respiratory Failure; Pneumonia; CHF - abg reviewed and appreciated - c/w bipap, titrate FiO2 down as tolerated keep SaO2 > 92% - c/w doxycycline and meropenem, ID is consulted- appreciate recommendations - c/w xopenex - lasix 20 IV x 1 after potassium is repleted - blood cultures x 2 ordered and pending - procalc noted to be elevated Altered Mental Status; Encephalopathic - neuro consulted- appreciate recommendations - possibly toxic metabolic encephalopathy vs delirium - monitor closely Atrial Fibrillation - cardiology consulted- appreciate recommendations - cardizem gtt stopped - c/w patient on lopressor - no anticogulation due to anemia; HAS-BLED score of 3 Pancytopenia - heme/onc consulted- appreciate recommendations - likely due to myelodysplastic syndrome - Bone marrow biopsy to confirm diagnosis Hypokalemia - repleted and will monitor closely - mag ordered and pending Hx of DM - accuchecks achs - ISS Hx of HTN - c/w hydralazine Prophylaxis - famotidine - scds Patient seen, case discussed with, and plan approved by attending physician, Dr. Patel. 02/27/17 10:30 CCU Objective - Vital Signs / Intake & Output Vital Signs (Last 4 hours): Vital Signs Temp Pulse BP 02/27/17 09:00 76 125/50 L 02/27/17 07:22 84 02/27/17 06:00 98.4 F Intake and Output (Last 8hrs): Intake & Output 02/26/17 02/27/17 02/27/17 22:59 06:59 14:59 Intake Total 450 100 Output Total 1000 Balance -550 100 Weight 153 lb 6.4 oz Intake: IV 450 100 Right Forearm 450 Oral 0 Output: Urine 500 Urine, Voided 500 Other 500 Other: # Bowel Movements 0 - Physical Exam Head: Positive for: Atraumatic, Normocephalic Pupils: Positive for: PERRL Extroacular Muscles: Positive for: EOMI Conjunctiva: Positive for: Normal Mouth: Positive for: Moist Mucous Membranes Neck: Positive for: Normal Range of Motion Respiratory/Chest: Positive for: Clear to Auscultation, Good Air Exchange. Negative for: Respiratory Distress, Accessory Muscle Use Cardiovascular: Positive for: Regular Rate and Rhythm, Normal S1, S2. Negative for: Murmurs Abdomen: Positive for: Normal Bowel Sounds. Negative for: Tenderness, Distention, Peritoneal Signs Back: Positive for: Normal Inspection Upper Extremity: Positive for: Normal Inspection. Negative for: Cyanosis, Edema Lower Extremity: Positive for: Edema (Lower extremity +4 edema) Neurological: Positive for: GCS=15, CN II-XII Intact, Speech Normal Skin: Positive for: Warm, Dry, Normal Color. Negative for: Rashes Psychiatric: Positive for: Alert, Oriented x 3, Normal Insight, Normal Concentration - Medications Active Medications: Active Medications Generic Name Dose Route Start Last Admin Trade Name Freq PRN Reason Stop Dose Admin Diltiazem HCl 30 mg 02/24/17 14:00 02/25/17 01:27 Cardizem PO Not Given QID NIKKIE Furosemide 20 mg 02/24/17 10:00 02/24/17 15:59 Lasix PO Not Given DAILY NIKKIE Hydralazine HCl 10 mg 02/25/17 06:00 02/27/17 06:04 Apresoline IVP 10 mg Q6 NIKKIE Administration Doxycycline Hyclate 100 mg/ 100 mls @ 100 mls/hr 02/26/17 22:00 02/26/17 23: 00 Sodium Chloride IVPB 100 mls/hr Q12 NIKKIE Administration Protocol Meropenem 1g/NS 100mL IVPB 1 gm in 100 mls @ 100 mls/hr 02/26/17 18:20 22:55 Meropenem 1g/Ns 100ml Ivpb IVPB 03/05/17 18:21 100 mls/hr Q12 NIKKIE Administration Protocol Potassium Chloride 40 meq/ 1,020 mls @ 75 mls/hr 02/27/17 09:15 Dextrose IV .[id number] NIKKIE Potassium Chloride 20 meq in 100 mls @ 50 mls/hr 02/27/17 10:00 Potassium Chloride 20 Meq/100 Ml IVPB 02/27/17 13:59 Q2H NIKKIE Levalbuterol HCl 0.63 mg 02/26/17 14:00 02/27/17 07:21 Xopenex IH 0.63 mg [id number] NIKKIE Administration Levalbuterol HCl 0.63 mg 02/26/17 09:55 Xopenex IH Q2 PRN Shortness of Breath Lorazepam 0.5 mg 02/26/17 18:00 02/26/17 18:01 Ativan PO Not Given BID NIKKIE Protocol Lorazepam 1 mg 02/26/17 17:24 Ativan IVP Q4H PRN RESTLESSNESS, AGITATION Protocol Lorazepam 0.5 mg 02/26/17 21:00 Ativan IVP Q6H PRN Agitation Protocol Metoprolol Tartrate 50 mg 02/24/17 17:00 02/24/17 17:44 Lopressor PO Not Given BRKDIN NIKKIE Metoprolol Tartrate 5 mg 02/25/17 06:00 02/27/17 06:04 Lopressor IVP 5 mg Q6H NIKKIE Administration Morphine Sulfate 2 mg 02/25/17 09:19 02/27/17 06:03 Morphine IVP 2 mg Q4H PRN Administration Pain, moderate (4-7) Nitroglycerin 1 ea 02/26/17 10:00 02/27/17 06:04 Nitro-Bid 2% Oint TOP 1 ea Q4H NIKKIE Administration Quetiapine Fumarate 12.5 mg 02/26/17 17:25 Seroquel PO HS PRN RESTLESS/AGITATION/PSYCHOSIS Protocol - Patient Studies Lab Studies: Lab Studies 02/27/17 02/27/17 02/26/17 Range/Units 05:30 05:30 18:43 WBC 2.7 L* D (4.5-11.0) 10^3/ul RBC 2.41 L (3.5-6.1) 10^6/uL Hgb 8.2 L (12.0-16.0) g/dL Hct 26.5 L (36.0-48.0) % MCV 110.0 H (80.0-105.0) fl MCH 34.0 (25.0-35.0) pg MCHC 30.9 L (31.0-37.0) g/dl RDW 25.6 H (11.5-14.5) % Plt Count 86 L (120.0-450.0) 10^3/uL MPV 10.4 (7.0-11.0) fl Gran % 75.5 H (50.0-68.0) % Lymph % (Auto) 7.9 L (22.0-35.0) % [place] % (Auto) 16.6 H (1.0-6.0) % Eos % (Auto) 0.0 L (1.5-5.0) % Baso % (Auto) 0.0 (0.0-3.0) % Gran # 2.00 (1.4-6.5) Lymph # 0.2 L (1.2-3.4) [place] # 0.4 (0.1-0.6) Eos # 0.0 (0.0-0.7) Baso # 0.00 (0.0-2.0) K/mm3 pCO2 (35-45) mm/Hg pO2 (80-100) mm/Hg HCO3 (21-28) mmol/L ABG pH (7.35-7.45) ABG Total CO2 (22-28) mmol.L ABG O2 Saturation (95-98) % ABG O2 Content (15-23) ML/dl ABG Base Excess (-2.0-3.0) mmol/L ABG Hemoglobin (11.7-17.4) g/dL ABG Carboxyhemoglobin (0.5-1.5) % POC ABG HHb (Measured) (0-5) % ABG Methemoglobin (0.0-3.0) % ABG O2 Capacity (16-24) mL/dl Hgb O2 Saturation (95.0-98.0) % FiO2 % Sodium 149 H (132-148) mmol/L Potassium 3.2 L (3.6-5.0) mmol/L Chloride 117 H (95-110) mmol/L Carbon Dioxide 22 (21-33) mmol/L Anion Gap 13 (10-20) BUN 54 H (7-21) mg/dL Creatinine 1.2 (0.7-1.2) mg/dL Est GFR ( Amer) 52 Est GFR (Non-Af Amer) 43 Random Glucose 105 (70-110) mg/dL Calcium 8.8 (8.4-10.5) mg/dL Total Bilirubin 5.2 H (0.2-1.3) mg/dL AST 25 (14-36) U/L ALT 19 (7-56) U/L Alkaline Phosphatase 57 (38-126) U/L Total Protein 8.9 H (5.8-8.3) g/dL Albumin 2.7 L (3.0-4.8) g/dL Albumin (PEP) (3.8-4.8) g/dL Globulin 6.2 gm/dL Albumin/Globulin Ratio 0.4 L (1.1-1.8) Nmwmi-1-Dhujfoowa (0.2-0.3) g/dL Ahsha-3-Jksuepfsk (0.5-0.9) g/dL Vumq-8-Papolalp (0.4-0.6) g/dL Thpv-4-Qiaisvol (0.2-0.5) g/dL Gamma Globulins (0.8-1.7) g/dL Abnorm Protein Band 1 (None Detected) g/dL Abnorm Protein Band 2 Abnorm Protein Band 3 Procalcitonin (0.19-0.49) NG/ML JAYCEE & SPEP Interp Ur L.pneumophila Ag Negative (NEGATIVE) 02/26/17 02/26/17 02/24/17 Range/Units 16:53 15:50 08:00 WBC (4.5-11.0) 10^3/ul RBC (3.5-6.1) 10^6/uL Hgb (12.0-16.0) g/dL Hct (36.0-48.0) % MCV (80.0-105.0) fl MCH (25.0-35.0) pg MCHC (31.0-37.0) g/dl RDW (11.5-14.5) % Plt Count (120.0-450.0) 10^3/uL MPV (7.0-11.0) fl Gran % (50.0-68.0) % Lymph % (Auto) (22.0-35.0) % [place] % (Auto) (1.0-6.0) % Eos % (Auto) (1.5-5.0) % Baso % (Auto) (0.0-3.0) % Gran # (1.4-6.5) Lymph # (1.2-3.4) [place] # (0.1-0.6) Eos # (0.0-0.7) Baso # (0.0-2.0) K/mm3 pCO2 29 L (35-45) mm/Hg pO2 48.0 L (80-100) mm/Hg HCO3 21.6 (21-28) mmol/L ABG pH 7.48 H (7.35-7.45) ABG Total CO2 22.5 (22-28) mmol.L ABG O2 Saturation 92.3 L (95-98) % ABG O2 Content 9.5 L (15-23) ML/dl ABG Base Excess -1.5 (-2.0-3.0) mmol/L ABG Hemoglobin 7.6 L (11.7-17.4) g/dL ABG Carboxyhemoglobin 3.0 H (0.5-1.5) % POC ABG HHb (Measured) 7.4 H (0-5) % ABG Methemoglobin 1.0 (0.0-3.0) % ABG O2 Capacity 10.3 L (16-24) mL/dl Hgb O2 Saturation 88.5 L (95.0-98.0) % FiO2 30.0 % Sodium (132-148) mmol/L Potassium (3.6-5.0) mmol/L Chloride (95-110) mmol/L Carbon Dioxide (21-33) mmol/L Anion Gap (10-20) BUN (7-21) mg/dL Creatinine (0.7-1.2) mg/dL Est GFR ( Amer) Est GFR (Non-Af Amer) Random Glucose (70-110) mg/dL Calcium (8.4-10.5) mg/dL Total Bilirubin (0.2-1.3) mg/dL AST (14-36) U/L ALT (7-56) U/L Alkaline Phosphatase (38-126) U/L Total Protein (5.8-8.3) g/dL Albumin (3.0-4.8) g/dL Albumin (PEP) 3.6 L (3.8-4.8) g/dL Globulin gm/dL Albumin/Globulin Ratio (1.1-1.8) Eiexj-5-Dhhkltygd 0.4 H (0.2-0.3) g/dL Dbgvq-6-Lhapdhlyf 0.5 (0.5-0.9) g/dL Uxlg-7-Tsrufrdw 0.4 (0.4-0.6) g/dL Fzhl-7-Fqgemeez 0.2 (0.2-0.5) g/dL Gamma Globulins 5.6 H (0.8-1.7) g/dL Abnorm Protein Band 1 4.64 H (None Detected) g/dL Abnorm Protein Band 2 TEST NOT PERFORMED Abnorm Protein Band 3 TEST NOT PERFORMED Procalcitonin 8.23 H (0.19-0.49) NG/ML JAYCEE & SPEP Interp See note Ur L.pneumophila Ag (NEGATIVE) Laboratory Results - last 24 hr 02/24/17 02/26/17 02/26/17 08:00 15:50 16:53 WBC RBC Hgb Hct MCV MCH MCHC RDW Plt Count MPV Gran % Lymph % (Auto) [place] % (Auto) Eos % (Auto) Baso % (Auto) Gran # Lymph # [place] # Eos # Baso # pCO2 29 L pO2 48.0 L HCO3 21.6 ABG pH 7.48 H ABG Total CO2 22.5 ABG O2 Saturation 92.3 L ABG O2 Content 9.5 L ABG Base Excess -1.5 ABG Hemoglobin 7.6 L ABG Carboxyhemoglobin 3.0 H POC ABG HHb (Measured) 7.4 H ABG Methemoglobin 1.0 ABG O2 Capacity 10.3 L Hgb O2 Saturation 88.5 L FiO2 30.0 Sodium Potassium Chloride Carbon Dioxide Anion Gap BUN Creatinine Est GFR ( Amer) Est GFR (Non-Af Amer) Random Glucose Calcium Total Bilirubin AST ALT Alkaline Phosphatase Total Protein Albumin Albumin (PEP) 3.6 L Globulin Albumin/Globulin Ratio Ezved-9-Wyrosimkb 0.4 H Ftbsy-0-Nbyivmxvq 0.5 Ibjm-8-Yubnhons 0.4 Jyew-1-Epswixhy 0.2 Gamma Globulins 5.6 H Abnorm Protein Band 1 4.64 H Abnorm Protein Band 2 TEST NOT PERFORMED Abnorm Protein Band 3 TEST NOT PERFORMED Procalcitonin 8.23 H JAYCEE & SPEP Interp See note Ur L.pneumophila Ag 02/26/17 02/27/17 02/27/17 18:43 05:30 05:30 WBC 2.7 L* D RBC 2.41 L Hgb 8.2 L Hct 26.5 L MCV 110.0 H MCH 34.0 MCHC 30.9 L RDW 25.6 H Plt Count 86 L MPV 10.4 Gran % 75.5 H Lymph % (Auto) 7.9 L [place] % (Auto) 16.6 H Eos % (Auto) 0.0 L Baso % (Auto) 0.0 Gran # 2.00 Lymph # 0.2 L [place] # 0.4 Eos # 0.0 Baso # 0.00 pCO2 pO2 HCO3 ABG pH ABG Total CO2 ABG O2 Saturation ABG O2 Content ABG Base Excess ABG Hemoglobin ABG Carboxyhemoglobin POC ABG HHb (Measured) ABG Methemoglobin ABG O2 Capacity Hgb O2 Saturation FiO2 Sodium 149 H Potassium 3.2 L Chloride 117 H Carbon Dioxide 22 Anion Gap 13 BUN 54 H Creatinine 1.2 Est GFR ( Amer) 52 Est GFR (Non-Af Amer) 43 Random Glucose 105 Calcium 8.8 Total Bilirubin 5.2 H AST 25 ALT 19 Alkaline Phosphatase 57 Total Protein 8.9 H Albumin 2.7 L Albumin (PEP) Globulin 6.2 Albumin/Globulin Ratio 0.4 L Howkv-6-Klnpttqeo Aozsg-0-Dznhgsspk Kvhc-0-Ffysglvb Ragi-1-Uespsudt Gamma Globulins Abnorm Protein Band 1 Abnorm Protein Band 2 Abnorm Protein Band 3 Procalcitonin JAYCEE & SPEP Interp Ur L.pneumophila Ag Negative Critical Care Progress Note - Nutrition Nutrition: Nutrition Category Date Time Status Regular Diet [DIET] Diets 02/23/17 Breakfast Ordered <Jeffry Patel - Last Filed: 02/27/17 12:11> CCU Subjective - Physician Review Subjective (Free Text): 02/27/17 12:07 Patient seen and examined with resident, agree with note. Patient is 81yo female with PMhx Anemia, CHF, HTN, a/w pancytopenia, with worsening resp status , on abx. Patient is DNR/DNI as per her living will, which the daughter reports. Patient placed on BIPAP with improvement on oxygenation, currently on BIPAP 10/60%, sat 100%. Mental status continuous to be tenuous, with delirium , unclear etiology, possible toxic metabolic encephalopathy. Blood cultures with GPC in clusters, on Merrem, Doxy, and Vanco by levels, ID is following. Hypoxic Resp Failure PNA AMS CHF, acute on chronic Bacteremia Recommend: - cont with BIPAP, would consider switching to high flow as less chance of aspiration given altered mental status - broad spectrum abx as per ID - follow up repeat BCx - hold BP meds - Lasix IV - morphine PRN - monitor HH - neurology consult, consider CT head - keep NPO - patient is DNR/DNI as per the daughter critical care time 35 minutes CCU Objective - Vital Signs / Intake & Output Vital Signs (Last 4 hours): Vital Signs Pulse BP 02/27/17 11:12 96 H 136/69 02/27/17 11:11 98 H 136/69 02/27/17 10:10 81 02/27/17 09:00 76 125/50 L Intake and Output (Last 8hrs): Intake & Output 02/26/17 02/27/17 02/27/17 22:59 06:59 14:59 Intake Total 450 100 Output Total 1000 Balance -550 100 Weight 153 lb 6.4 oz Intake: IV 450 100 Right Forearm 450 Oral 0 Output: Urine 500 Urine, Voided 500 Other 500 Other: # Bowel Movements 0 - Medications Active Medications: Active Medications Generic Name Dose Route Start Last Admin Trade Name Freq PRN Reason Stop Dose Admin Diltiazem HCl 30 mg 10/21/17 14:00 02/25/17 01:27 Cardizem PO Not Given QID NIKKIE Famotidine 20 mg 02/27/17 10:45 02/27/17 11:59 Pepcid IVP 20 mg DAILY NIKKIE Administration Furosemide 20 mg 02/24/17 10:00 02/24/17 15:59 Lasix PO Not Given DAILY NIKKIE Furosemide 20 mg 02/27/17 15:00 Lasix IVP 02/27/17 15:01 ONCE ONE Hydralazine HCl 10 mg 02/25/17 06:00 02/27/17 11:11 Apresoline IVP 10 mg Q6 NIKKIE Administration Doxycycline Hyclate 100 mg/ 100 mls @ 100 mls/hr 02/26/17 22:00 02/27/17 11: 56 Sodium Chloride IVPB 100 mls/hr Q12 NIKKIE Administration Protocol Potassium Chloride 40 meq/ 1,020 mls @ 75 mls/hr 02/27/17 09:15 Dextrose IV .[id number] NIKKIE Potassium Chloride 20 meq in 100 mls @ 50 mls/hr 02/27/17 10:00 02/27/17 10: 30 Potassium Chloride 20 Meq/100 Ml IVPB 02/27/17 13:59 50 mls/hr Q2H NIKKIE Administration Meropenem 50 mls @ 100 mls/hr 02/27/17 11:24 Merrem Iv 1 Gm Premix IVPB 03/05/17 18:21 Q12 NIKKIE Protocol Levalbuterol HCl 0.63 mg 02/26/17 14:00 02/27/17 07:21 Xopenex IH 0.63 mg [id number] NIKKIE Administration Levalbuterol HCl 0.63 mg 02/26/17 09:55 Xopenex IH Q2 PRN Shortness of Breath Lorazepam 0.5 mg 02/26/17 18:00 02/27/17 10:16 Ativan PO Not Given BID NIKKIE Protocol Lorazepam 1 mg 02/26/17 17:24 02/27/17 11:29 Ativan IVP 1 mg Q4H PRN Administration RESTLESSNESS, AGITATION Protocol Lorazepam 0.5 mg 02/26/17 21:00 Ativan IVP Q6H PRN Agitation Protocol Metoprolol Tartrate 50 mg 02/24/17 17:00 02/24/17 17:44 Lopressor PO Not Given BRKDIN NIKKIE Metoprolol Tartrate 5 mg 02/25/17 06:00 02/27/17 11:12 Lopressor IVP 5 mg Q6H NIKKIE Administration Morphine Sulfate 2 mg 02/25/17 09:19 02/27/17 06:03 Morphine IVP 2 mg Q4H PRN Administration Pain, moderate (4-7) Nitroglycerin 1 ea 02/26/17 10:00 02/27/17 11:10 Nitro-Bid 2% Oint TOP 1 ea Q4H NIKKIE Administration Quetiapine Fumarate 12.5 mg 02/26/17 17:25 Seroquel PO HS PRN RESTLESS/AGITATION/PSYCHOSIS Protocol - Patient Studies Lab Studies: Microbiology Studies 02/26/17 15:50 Blood Culture - Preliminary Blood-Venous Gram Stain - Final 02/26/17 15:30 Blood Culture - Preliminary Blood-Venous Gram Positive Cocci Gram Stain - Final Lab Studies 02/27/17 02/27/17 02/27/17 Range/Units 10:45 10:45 05:30 WBC (4.5-11.0) 10^3/ul RBC (3.5-6.1) 10^6/uL Hgb (12.0-16.0) g/dL Hct (36.0-48.0) % MCV (80.0-105.0) fl MCH (25.0-35.0) pg MCHC (31.0-37.0) g/dl RDW (11.5-14.5) % Plt Count (120.0-450.0) 10^3/uL MPV (7.0-11.0) fl Gran % (50.0-68.0) % Lymph % (Auto) (22.0-35.0) % [place] % (Auto) (1.0-6.0) % Eos % (Auto) (1.5-5.0) % Baso % (Auto) (0.0-3.0) % Gran # (1.4-6.5) Lymph # (1.2-3.4) [place] # (0.1-0.6) Eos # (0.0-0.7) Baso # (0.0-2.0) K/mm3 pCO2 (35-45) mm/Hg pO2 (80-100) mm/Hg HCO3 (21-28) mmol/L ABG pH (7.35-7.45) ABG Total CO2 (22-28) mmol.L ABG O2 Saturation (95-98) % ABG O2 Content (15-23) ML/dl ABG Base Excess (-2.0-3.0) mmol/L ABG Hemoglobin (11.7-17.4) g/dL ABG Carboxyhemoglobin (0.5-1.5) % POC ABG HHb (Measured) (0-5) % ABG Methemoglobin (0.0-3.0) % ABG O2 Capacity (16-24) mL/dl Hgb O2 Saturation (95.0-98.0) % FiO2 % Sodium 149 H (132-148) mmol/L Potassium 3.2 L (3.6-5.0) mmol/L Chloride 117 H (95-110) mmol/L Carbon Dioxide 22 (21-33) mmol/L Anion Gap 13 (10-20) BUN 54 H (7-21) mg/dL Creatinine 1.2 (0.7-1.2) mg/dL Est GFR ( Amer) 52 Est GFR (Non-Af Amer) 43 Random Glucose 105 (70-110) mg/dL Calcium 8.8 (8.4-10.5) mg/dL Magnesium 2.0 (1.7-2.2) mg/dL Total Bilirubin 5.2 H (0.2-1.3) mg/dL Direct Bilirubin 4.1 H (0.0-0.4) mg/dL AST 25 (14-36) U/L ALT 19 (7-56) U/L Alkaline Phosphatase 57 (38-126) U/L Total Protein 8.9 H (5.8-8.3) g/dL Albumin 2.7 L (3.0-4.8) g/dL Albumin (PEP) (3.8-4.8) g/dL Globulin 6.2 gm/dL Albumin/Globulin Ratio 0.4 L (1.1-1.8) Fzsro-9-Haotsmaai (0.2-0.3) g/dL Upeja-7-Urdbcgomx (0.5-0.9) g/dL Orrk-3-Obsrfcof (0.4-0.6) g/dL Wdle-0-Lkvcverd (0.2-0.5) g/dL Gamma Globulins (0.8-1.7) g/dL Abnorm Protein Band 1 (None Detected) g/dL Abnorm Protein Band 2 Abnorm Protein Band 3 Procalcitonin (0.19-0.49) NG/ML Random Vancomycin 10.9 L (20.0-40.0) ug/mL JAYCEE & SPEP Interp Ur L.pneumophila Ag (NEGATIVE) 02/27/17 02/26/17 02/26/17 Range/Units 05:30 18:43 16:53 WBC 2.7 L* D (4.5-11.0) 10^3/ul RBC 2.41 L (3.5-6.1) 10^6/uL Hgb 8.2 L (12.0-16.0) g/dL Hct 26.5 L (36.0-48.0) % MCV 110.0 H (80.0-105.0) fl MCH 34.0 (25.0-35.0) pg MCHC 30.9 L (31.0-37.0) g/dl RDW 25.6 H (11.5-14.5) % Plt Count 86 L (120.0-450.0) 10^3/uL MPV 10.4 (7.0-11.0) fl Gran % 75.5 H (50.0-68.0) % Lymph % (Auto) 7.9 L (22.0-35.0) % [place] % (Auto) 16.6 H (1.0-6.0) % Eos % (Auto) 0.0 L (1.5-5.0) % Baso % (Auto) 0.0 (0.0-3.0) % Gran # 2.00 (1.4-6.5) Lymph # 0.2 L (1.2-3.4) [place] # 0.4 (0.1-0.6) Eos # 0.0 (0.0-0.7) Baso # 0.00 (0.0-2.0) K/mm3 pCO2 29 L (35-45) mm/Hg pO2 48.0 L (80-100) mm/Hg HCO3 21.6 (21-28) mmol/L ABG pH 7.48 H (7.35-7.45) ABG Total CO2 22.5 (22-28) mmol.L ABG O2 Saturation 92.3 L (95-98) % ABG O2 Content 9.5 L (15-23) ML/dl ABG Base Excess -1.5 (-2.0-3.0) mmol/L ABG Hemoglobin 7.6 L (11.7-17.4) g/dL ABG Carboxyhemoglobin 3.0 H (0.5-1.5) % POC ABG HHb (Measured) 7.4 H (0-5) % ABG Methemoglobin 1.0 (0.0-3.0) % ABG O2 Capacity 10.3 L (16-24) mL/dl Hgb O2 Saturation 88.5 L (95.0-98.0) % FiO2 30.0 % Sodium (132-148) mmol/L Potassium (3.6-5.0) mmol/L Chloride (95-110) mmol/L Carbon Dioxide (21-33) mmol/L Anion Gap (10-20) BUN (7-21) mg/dL Creatinine (0.7-1.2) mg/dL Est GFR ( Amer) Est GFR (Non-Af Amer) Random Glucose (70-110) mg/dL Calcium (8.4-10.5) mg/dL Magnesium (1.7-2.2) mg/dL Total Bilirubin (0.2-1.3) mg/dL Direct Bilirubin (0.0-0.4) mg/dL AST (14-36) U/L ALT (7-56) U/L Alkaline Phosphatase (38-126) U/L Total Protein (5.8-8.3) g/dL Albumin (3.0-4.8) g/dL Albumin (PEP) (3.8-4.8) g/dL Globulin gm/dL Albumin/Globulin Ratio (1.1-1.8) Egzbc-2-Bhjiflddb (0.2-0.3) g/dL Iiols-8-Fkfvgwuzj (0.5-0.9) g/dL Frxl-4-Omyvwyji (0.4-0.6) g/dL Pbev-1-Heolgotq (0.2-0.5) g/dL Gamma Globulins (0.8-1.7) g/dL Abnorm Protein Band 1 (None Detected) g/dL Abnorm Protein Band 2 Abnorm Protein Band 3 Procalcitonin (0.19-0.49) NG/ML Random Vancomycin (20.0-40.0) ug/mL JAYCEE & SPEP Interp Ur L.pneumophila Ag Negative (NEGATIVE) 02/26/17 02/24/17 Range/Units 15:50 08:00 WBC (4.5-11.0) 10^3/ul RBC (3.5-6.1) 10^6/uL Hgb (12.0-16.0) g/dL Hct (36.0-48.0) % MCV (80.0-105.0) fl MCH (25.0-35.0) pg MCHC (31.0-37.0) g/dl RDW (11.5-14.5) % Plt Count (120.0-450.0) 10^3/uL MPV (7.0-11.0) fl Gran % (50.0-68.0) % Lymph % (Auto) (22.0-35.0) % [place] % (Auto) (1.0-6.0) % Eos % (Auto) (1.5-5.0) % Baso % (Auto) (0.0-3.0) % Gran # (1.4-6.5) Lymph # (1.2-3.4) [place] # (0.1-0.6) Eos # (0.0-0.7) Baso # (0.0-2.0) K/mm3 pCO2 (35-45) mm/Hg pO2 (80-100) mm/Hg HCO3 (21-28) mmol/L ABG pH (7.35-7.45) ABG Total CO2 (22-28) mmol.L ABG O2 Saturation (95-98) % ABG O2 Content (15-23) ML/dl ABG Base Excess (-2.0-3.0) mmol/L ABG Hemoglobin (11.7-17.4) g/dL ABG Carboxyhemoglobin (0.5-1.5) % POC ABG HHb (Measured) (0-5) % ABG Methemoglobin (0.0-3.0) % ABG O2 Capacity (16-24) mL/dl Hgb O2 Saturation (95.0-98.0) % FiO2 % Sodium (132-148) mmol/L Potassium (3.6-5.0) mmol/L Chloride (95-110) mmol/L Carbon Dioxide (21-33) mmol/L Anion Gap (10-20) BUN (7-21) mg/dL Creatinine (0.7-1.2) mg/dL Est GFR ( Amer) Est GFR (Non-Af Amer) Random Glucose (70-110) mg/dL Calcium (8.4-10.5) mg/dL Magnesium (1.7-2.2) mg/dL Total Bilirubin (0.2-1.3) mg/dL Direct Bilirubin (0.0-0.4) mg/dL AST (14-36) U/L ALT (7-56) U/L Alkaline Phosphatase (38-126) U/L Total Protein (5.8-8.3) g/dL Albumin (3.0-4.8) g/dL Albumin (PEP) 3.6 L (3.8-4.8) g/dL Globulin gm/dL Albumin/Globulin Ratio (1.1-1.8) Bzfxw-0-Phoucjwrf 0.4 H (0.2-0.3) g/dL Qtjms-7-Igwsalznv 0.5 (0.5-0.9) g/dL Qcly-7-Hzteklsq 0.4 (0.4-0.6) g/dL Hhkc-0-Qpginyht 0.2 (0.2-0.5) g/dL Gamma Globulins 5.6 H (0.8-1.7) g/dL Abnorm Protein Band 1 4.64 H (None Detected) g/dL Abnorm Protein Band 2 TEST NOT PERFORMED Abnorm Protein Band 3 TEST NOT PERFORMED Procalcitonin 8.23 H (0.19-0.49) NG/ML Random Vancomycin (20.0-40.0) ug/mL JAYCEE & SPEP Interp See note Ur L.pneumophila Ag (NEGATIVE) Laboratory Results - last 24 hr 02/24/17 02/26/17 02/26/17 08:00 15:50 16:53 WBC RBC Hgb Hct MCV MCH MCHC RDW Plt Count MPV Gran % Lymph % (Auto) [place] % (Auto) Eos % (Auto) Baso % (Auto) Gran # Lymph # [place] # Eos # Baso # pCO2 29 L pO2 48.0 L HCO3 21.6 ABG pH 7.48 H ABG Total CO2 22.5 ABG O2 Saturation 92.3 L ABG O2 Content 9.5 L ABG Base Excess -1.5 ABG Hemoglobin 7.6 L ABG Carboxyhemoglobin 3.0 H POC ABG HHb (Measured) 7.4 H ABG Methemoglobin 1.0 ABG O2 Capacity 10.3 L Hgb O2 Saturation 88.5 L FiO2 30.0 Sodium Potassium Chloride Carbon Dioxide Anion Gap BUN Creatinine Est GFR ( Amer) Est GFR (Non-Af Amer) Random Glucose Calcium Magnesium Total Bilirubin Direct Bilirubin AST ALT Alkaline Phosphatase Total Protein Albumin Albumin (PEP) 3.6 L Globulin Albumin/Globulin Ratio Ulckm-2-Zczqzvxsh 0.4 H Retgo-0-Yroyaoqtu 0.5 Cfys-7-Sattloqk 0.4 Mdol-8-Tctejcts 0.2 Gamma Globulins 5.6 H Abnorm Protein Band 1 4.64 H Abnorm Protein Band 2 TEST NOT PERFORMED Abnorm Protein Band 3 TEST NOT PERFORMED Procalcitonin 8.23 H Random Vancomycin JAYCEE & SPEP Interp See note Ur L.pneumophila Ag 02/26/17 02/27/17 02/27/17 18:43 05:30 05:30 WBC 2.7 L* D RBC 2.41 L Hgb 8.2 L Hct 26.5 L MCV 110.0 H MCH 34.0 MCHC 30.9 L RDW 25.6 H Plt Count 86 L MPV 10.4 Gran % 75.5 H Lymph % (Auto) 7.9 L [place] % (Auto) 16.6 H Eos % (Auto) 0.0 L Baso % (Auto) 0.0 Gran # 2.00 Lymph # 0.2 L [place] # 0.4 Eos # 0.0 Baso # 0.00 pCO2 pO2 HCO3 ABG pH ABG Total CO2 ABG O2 Saturation ABG O2 Content ABG Base Excess ABG Hemoglobin ABG Carboxyhemoglobin POC ABG HHb (Measured) ABG Methemoglobin ABG O2 Capacity Hgb O2 Saturation FiO2 Sodium 149 H Potassium 3.2 L Chloride 117 H Carbon Dioxide 22 Anion Gap 13 BUN 54 H Creatinine 1.2 Est GFR ( Amer) 52 Est GFR (Non-Af Amer) 43 Random Glucose 105 Calcium 8.8 Magnesium Total Bilirubin 5.2 H Direct Bilirubin AST 25 ALT 19 Alkaline Phosphatase 57 Total Protein 8.9 H Albumin 2.7 L Albumin (PEP) Globulin 6.2 Albumin/Globulin Ratio 0.4 L Txols-2-Seozccpyy Hbulr-2-Zaszenxwe Ipzg-7-Bpvwtjmp Msqr-8-Qarfhqqm Gamma Globulins Abnorm Protein Band 1 Abnorm Protein Band 2 Abnorm Protein Band 3 Procalcitonin Random Vancomycin JAYCEE & SPEP Interp Ur L.pneumophila Ag Negative 02/27/17 02/27/17 10:45 10:45 WBC RBC Hgb Hct MCV MCH MCHC RDW Plt Count MPV Gran % Lymph % (Auto) [place] % (Auto) Eos % (Auto) Baso % (Auto) Gran # Lymph # [place] # Eos # Baso # pCO2 pO2 HCO3 ABG pH ABG Total CO2 ABG O2 Saturation ABG O2 Content ABG Base Excess ABG Hemoglobin ABG Carboxyhemoglobin POC ABG HHb (Measured) ABG Methemoglobin ABG O2 Capacity Hgb O2 Saturation FiO2 Sodium Potassium Chloride Carbon Dioxide Anion Gap BUN Creatinine Est GFR ( Amer) Est GFR (Non-Af Amer) Random Glucose Calcium Magnesium 2.0 Total Bilirubin Direct Bilirubin 4.1 H AST ALT Alkaline Phosphatase Total Protein Albumin Albumin (PEP) Globulin Albumin/Globulin Ratio Pdqak-7-Rwkswxyhw Nuinn-2-Ziwxtkngh Dbsz-3-Srkcwbyl Ashz-7-Eeaueqsa Gamma Globulins Abnorm Protein Band 1 Abnorm Protein Band 2 Abnorm Protein Band 3 Procalcitonin Random Vancomycin 10.9 L JAYCEE & SPEP Interp Ur L.pneumophila Ag Critical Care Progress Note - Nutrition Nutrition: Nutrition Category Date Time Status Regular Diet [DIET] Diets 02/23/17 Breakfast Ordered
--- NOTE | 2017-02-27 10:10 | CP.PCM.PN ---
Subjective - Date & Time of Evaluation Date of Evaluation: 02/27/17 Time of Evaluation: 09:40 - Subjective Subjective: Now on BiPAP, oxygenation is better, but patient continues to be not responding appropriately to commands, moves all her extremities, agitated. No fevers overnight. Objective - Vital Signs/Intake and Output Vital Signs (last 24 hours): Temp Pulse Resp BP Pulse Ox 98.4 F 132 H 20 149/90 100 02/27/17 06:00 02/27/17 02:00 02/26/17 18:00 02/26/17 19:30 02/26/17 06:00 Intake and Output: 02/27/17 02/27/17 06:59 18:59 Intake Total 450 Output Total 1000 Balance -550 - Medications Medications: Current Medications Diltiazem HCl (Cardizem) 30 mg PO QID [facility] Last Admin: 02/25/17 01:27 Dose: Not Given Furosemide (Lasix) 20 mg PO DAILY [facility] Last Admin: 02/24/17 15:59 Dose: Not Given Furosemide (Lasix) 20 mg IVP DAILY [facility] Last Admin: 02/26/17 10:51 Dose: 20 mg Hydralazine HCl (Apresoline) 10 mg IVP Q6 [facility] Last Admin: 02/27/17 06:04 Dose: 10 mg diltiaZEM IVPB 100mg in NS (Cardizem 100mg In Ns) 100 mls @ 5 mls/hr IV .Q20H PRN; Protocol; 5 MG/HR PRN Reason: TITRATE PER MD ORDER Last Admin: 02/26/17 12:55 Dose: 5 mg/hr, 5 mls/hr Doxycycline Hyclate 100 mg/ (Sodium Chloride) 100 mls @ 100 mls/hr IVPB Q12 NIKKIE PRN Reason: Protocol Last Admin: 02/26/17 23:00 Dose: 100 mls/hr Meropenem 1g/NS 100mL IVPB (Meropenem 1g/Ns 100ml Ivpb) 1 gm in 100 mls @ 100 mls/hr IVPB Q12 NIKKIE PRN Reason: Protocol Stop: 03/05/17 18:21 Last Admin: 02/26/17 22:55 Dose: 100 mls/hr Levalbuterol HCl (Xopenex) 0.63 mg IH [id number] [facility] Last Admin: 02/27/17 02:00 Dose: 0.63 mg Levalbuterol HCl (Xopenex) 0.63 mg IH Q2 PRN PRN Reason: Shortness of Breath Lorazepam (Ativan) 0.5 mg PO BID NIKKIE PRN Reason: Protocol Last Admin: 02/26/17 18:01 Dose: Not Given Lorazepam (Ativan) 1 mg IVP Q4H PRN; Protocol PRN Reason: RESTLESSNESS, AGITATION Lorazepam (Ativan) 0.5 mg IVP Q6H PRN; Protocol PRN Reason: Agitation Metoprolol Tartrate (Lopressor) 50 mg PO BRKDIN [facility] Last Admin: 02/24/17 17:44 Dose: Not Given Metoprolol Tartrate (Lopressor) 5 mg IVP Q6H [facility] Last Admin: 02/27/17 06:04 Dose: 5 mg Morphine Sulfate (Morphine) 2 mg IVP Q4H PRN PRN Reason: Pain, moderate (4-7) Last Admin: 02/27/17 06:03 Dose: 2 mg Nitroglycerin (Nitro-Bid 2% Oint) 1 ea TOP Q4H [facility] Last Admin: 02/27/17 06:04 Dose: 1 ea Quetiapine Fumarate (Seroquel) 12.5 mg PO HS PRN; Protocol PRN Reason: RESTLESS/AGITATION/PSYCHOSIS - Labs Labs: 02/26/17 09:15 02/26/17 09:15 PT 20.1 SECONDS (9.4-12.5) H 02/24/17 06:30 INR 1.82 (0.93-1.08) H 02/24/17 06:30 APTT 26.4 Seconds (25.1-36.5) 02/24/17 06:30 - Constitutional Appears: Other (on BiPAP, agitated) - Head Exam Head Exam: NORMAL INSPECTION - Neck Exam Neck Exam: absent: Meningismus - Respiratory Exam Respiratory Exam: Decreased Breath Sounds, Rales (scattered) - Cardiovascular Exam Cardiovascular Exam: +S1, +S2 - GI/Abdominal Exam GI & Abdominal Exam: Soft. absent: Tenderness Assessment and Plan - Assessment and Plan (Free Text) Plan: Assessment Consider severe sepsis with acute encephalopathy and respiratory distress due to left sided healthcare-associated pneumonia with possible gram positive cocci and/or gram negative bacilli atrial fibrillation chronic CHF HTN cataracts DM chronic anemia S/P ORIF of the left hip history of anxiety and depression history of bilateral lower extremity cellulitis Plan continue Merrem and Doxycycline day 2, pending blood, sputum cx, PCT; will get Vanco random level and may give another dose of IV Vanco today depending on the Vanco level; reviewed CXR and Dr. El's evaluation and recommendations Neurology is being consulted; currently no signs of meningismus - may consider LP pending CT scan of the head overall prognosis is poor; patient is DNR and DNI discussed with ICU team
--- NOTE | 2017-02-27 11:00 | PN ---
DATE: 02/27/2017 SUBJECTIVE: The patient is confused, not able to give review of symptoms. PHYSICAL EXAMINATION: VITAL SIGNS: Temperature is 98.4, pulse of 76, blood pressure of 125/50 and respirations of 20. GENERAL: The patient is lying in bed, flat, comfortable. HEENT: No oral lesion. Anicteric sclerae. Moist mucosa. NECK: No JVD, adenopathy, or thyromegaly. CARDIOVASCULAR: S1 and S2, regular. No murmurs, rubs, or gallops. LUNGS: Clear to auscultation bilaterally. No wheeze, rales, or rhonchi. ABDOMEN: Bowel sounds are positive, soft, nontender and nondistended. EXTREMITIES: No cyanosis, clubbing or edema. She has bilateral hand mittens on. She is on BiPAP. LABORATORY DATA: White count of , hemoglobin of 8.2 and platelets count of 86. Sodium is 149, potassium is 3.2 and creatinine is 1.2. DIAGNOSTIC DATA: Chest x-ray shows interval improvement of the diminished pulmonary venous congestion. ASSESSMENT: 1. Aspiration pneumonia. 2. Pancytopenia. 3. Delirium. 4. Hypertension. 5. Diabetes type 2. 6. Congestive heart failure secondary to systolic dysfunction, stable. 7. Atrial fibrillation, chronic. 8. Hypernatremia. 9. Hypokalemia. PLAN: The patient is currently in the ICU. She was transferred there because she was having more difficulty with breathing and becoming hypoxic. The patient is on Lasix daily. She is on doxycycline for antibiotics. The patient is on Xopenex. The patient is on Cardizem. The patient's urine Legionella is normal. The patient does have an M spike, we will get immunofixation. We will replace potassium. Nas Barrera MD
[2017-02-27 11:12] LABS: BILIRUBIN,DIRECT 4.1 mg/dL (0.0-0.4)
--- NOTE | 2017-02-27 11:58 | US ---
HISTORY: elevated bilirubin COMPARISON: Abdomen pelvis CT examination 01/01/2017. No prior abdomen ultrasound available for comparison. TECHNIQUE: Sonographic evaluation of the abdomen. FINDINGS: LIVER: Measures 12.4 cm. Normal echogenicity of the liver parenchyma. No mass. No intrahepatic bile duct dilatation. GALLBLADDER: Gallbladder appears mildly distended with sludge. No definitive cholelithiasis is appreciated. No mural thickening or pericholecystic fluid collection. COMMON BILE DUCT: Measures 4.9 mm. No stones. No dilatation. PANCREAS: The head and tail of the pancreas are obscured by overlying bowel. No mass is seen in the body however the pancreas appears atrophic. Dilatation of the pancreatic duct is not excluded and follow-up abdomen and pelvis CT with contrast or MRCP is recommended for additional characterization. RIGHT KIDNEY: Measures 9.9cm. Normal echogenicity. No calculus, mass, or hydronephrosis. LEFT KIDNEY: Measures 9.7cm. Normal echogenicity. No calculus, mass, or hydronephrosis. SPLEEN: Normal in size and contour. No mass. AORTA: No aneurysmal dilatation. IVC: Unremarkable. OTHER FINDINGS: None. IMPRESSION: There is questionable dilatation of the pancreatic duct in it atrophic pancreas. Consider follow-up CT of the abdomen with contrast for greater characterization or possible MRCP. Sludge is identified within the gallbladder lumen without obvious cholelithiasis, mural thickening or pericholecystic fluid collection. No significant biliary tree dilatation grossly appreciable. No definitive hepatic pathology evident at this time.
--- NOTE | 2017-02-27 17:20 | CP.PCM.PCO ---
Physician Communication Note - Physician Communication Note Physician Communication Note: pt was transferred to CCU, d/w inspector tester sorter, advised to reconsult as needed
[2017-02-27] MEDS: Meropenem IV 1 gm in NS 50 ML IVPB SCH (21:25)
[2017-02-28] MEDS: Metoprolol 1 mg/ml Inj IVP SCH ×4 (00:41→17:31)
[2017-02-28] MEDS: Levalbuterol 0.63 MG/3 ML Inhal Soln UD IH SCH (01:12)
[2017-02-28] MEDS: Nitroglycerin 2% Ointment Foilpak UD TOP SCH ×6 (02:00→21:03)
[2017-02-28] MEDS: Morphine 2 mg/ml ISec IVP PRN ×2 (02:04→09:19)
[2017-02-28] MEDS ORDERED: DAPTOmycin 500 mg Inj (Cubicin) IV ONE (07:15)
[2017-02-28] MEDS: Linezolid 600 mg in D5W 300 ml 600 MG/300 ML BAG IVPB SCH ×2 (08:04→21:02)
[2017-02-28 08:18] LABS: BASO # 0.01 K/mm3 (0.0-2.0); BASO % 0.2 % (0.0-3.0); EOS % 0.2 % (1.5-5.0); GRAN # 3.96 (1.4-6.5); HEMATOCRIT 24.8 % (36.0-48.0); LYMPH # 0.5 (1.2-3.4); LYMPH % 9.8 % (22.0-35.0); MEAN CELL VOLUME 109.7 fl (80.0-105.0); MEAN CORPUSCULAR HEMOGLOBIN 34.1 pg (25.0-35.0); MEAN PLATELET VOLUME 10.7 fl (7.0-11.0); MONO # 0.4 (0.1-0.6); MONO % 8.8 % (1.0-6.0); RED CELL DISTRIBUTION WIDTH 25.7 % (11.5-14.5); WHITE BLOOD COUNT 4.9 10^3/ul (4.5-11.0)
[2017-02-28 08:33] LABS: ALB/GLOB RATIO 0.4 (1.1-1.8); BILIRUBIN,TOTAL 3.6 mg/dL (0.2-1.3); CALCIUM 9.6 mg/dL (8.4-10.5); POTASSIUM 3.8 mmol/L (3.6-5.0); TOTAL PROTEIN 8.9 g/dL (5.8-8.3)
--- NOTE | 2017-02-28 08:58 | CP.PCM.PN ---
Subjective - Date & Time of Evaluation Date of Evaluation: 02/28/17 Time of Evaluation: 08:55 - Subjective Subjective: Heme/Onc Progress Note for Kathi Gallo PGY2 Patient seen and examined at bedside. As per nursing, there were no acute overnight events. Patient was laying in bed, restless and altered. ROS could not be obtained. I spoke with daughter who was at bedside. She is a Hospice nurse and reported that she did not want to do aggressive care for her mother and is leaning towards doing home hospice care. Objective - Vital Signs/Intake and Output Vital Signs (last 24 hours): Temp Pulse Resp BP Pulse Ox 97.6 F 100 H 33 H 131/45 L 90 L 02/28/17 04:00 02/28/17 06:10 02/28/17 06:10 02/28/17 06:00 02/28/17 06:10 Intake and Output: 02/28/17 02/28/17 06:59 18:59 Intake Total 950 Output Total 550 Balance 400 - Medications Medications: Current Medications Diltiazem HCl (Cardizem) 30 mg PO QID [facility] Last Admin: 02/25/17 01:27 Dose: Not Given Famotidine (Pepcid) 20 mg IVP DAILY [facility] Last Admin: 02/27/17 11:59 Dose: 20 mg Furosemide (Lasix) 20 mg PO DAILY [facility] Last Admin: 02/24/17 15:59 Dose: Not Given Hydralazine HCl (Apresoline) 10 mg IVP Q6 [facility] Last Admin: 02/28/17 05:51 Dose: 10 mg Doxycycline Hyclate 100 mg/ (Sodium Chloride) 100 mls @ 100 mls/hr IVPB Q12 NIKKIE PRN Reason: Protocol Last Admin: 02/27/17 21:27 Dose: 100 mls/hr Potassium Chloride 40 meq/ (Dextrose) 1,020 mls @ 75 mls/hr IV .[id number] [facility] Last Admin: 02/28/17 05:57 Dose: 75 mls/hr Meropenem (Merrem Iv 1 Gm Premix) 50 mls @ 100 mls/hr IVPB Q12 NIKKIE PRN Reason: Protocol Stop: 03/05/17 18:21 Last Admin: 02/27/17 21:25 Dose: 100 mls/hr Linezolid (Zyvox 600mg/300ml D5w) 600 mg in 300 mls @ 200 mls/hr IVPB Q12 NIKKIE PRN Reason: Protocol Stop: 03/07/17 07:16 Last Admin: 02/28/17 08:04 Dose: 200 mls/hr Levalbuterol HCl (Xopenex) 0.63 mg IH [id number] [facility]KKIE Last Admin: 02/28/17 01:12 Dose: 0.63 mg Levalbuterol HCl (Xopenex) 0.63 mg IH Q2 PRN PRN Reason: Shortness of Breath Lorazepam (Ativan) 0.5 mg PO BID NIKKIE PRN Reason: Protocol Last Admin: 02/27/17 18:03 Dose: Not Given Lorazepam (Ativan) 1 mg IVP Q4H PRN; Protocol PRN Reason: RESTLESSNESS, AGITATION Last Admin: 02/28/17 05:50 Dose: 1 mg Lorazepam (Ativan) 0.5 mg IVP Q6H PRN; Protocol PRN Reason: Agitation Metoprolol Tartrate (Lopressor) 50 mg PO BRKDIN [facility] Last Admin: 02/24/17 17:44 Dose: Not Given Metoprolol Tartrate (Lopressor) 5 mg IVP Q6H [facility] Last Admin: 02/28/17 05:52 Dose: 5 mg Morphine Sulfate (Morphine) 2 mg IVP Q4H PRN PRN Reason: Pain, moderate (4-7) Last Admin: 02/28/17 02:04 Dose: 2 mg Nitroglycerin (Nitro-Bid 2% Oint) 1 ea TOP Q4H [facility] Last Admin: 02/28/17 05:51 Dose: 1 ea Quetiapine Fumarate (Seroquel) 12.5 mg PO HS PRN; Protocol PRN Reason: RESTLESS/AGITATION/PSYCHOSIS - Labs Labs: 02/28/17 08:10 02/28/17 08:10 PT 20.1 SECONDS (9.4-12.5) H 02/24/17 06:30 INR 1.82 (0.93-1.08) H 02/24/17 06:30 APTT 26.4 Seconds (25.1-36.5) 02/24/17 06:30 - Constitutional Appears: Agitated, Chronically Ill - Head Exam Head Exam: ATRAUMATIC, NORMAL INSPECTION, NORMOCEPHALIC - Eye Exam Eye Exam: Normal appearance - ENT Exam ENT Exam: Mucous Membranes Moist - Neck Exam Neck Exam: Full ROM - Respiratory Exam Respiratory Exam: Rhonchi. absent: Rales, Wheezes - Cardiovascular Exam Cardiovascular Exam: Irregular Rhythm, +S1, +S2. absent: Gallop, Rubs, Murmur - GI/Abdominal Exam GI & Abdominal Exam: Soft, Normal Bowel Sounds. absent: Rigid, Tenderness, Mass , Rebound - Extremities Exam Extremities Exam: absent: Normal Inspection, Pedal Edema Additional comments: discoloration of calves bilaterally - Neurological Exam Neurological Exam: Altered, CN II-XII Intact. absent: Oriented x3 - Psychiatric Exam Psychiatric exam: Agitated - Skin Skin Exam: Dry, Warm Assessment and Plan - Assessment and Plan (Free Text) Assessment: This is an 81Y F with PMH HTN, DM, atrial fibrillation on Coumadin, CHF, chronic anemia, anxiety/depression who was sent to [facility] [place] for anemia of 7.5 status post 1 unit transfusion of PRBC. Patient is found to have: 1. Pancytopenia- most likely myelodysplastic syndrome versus low leukemic process or refractory anemia 2. Bacteremia with positive blood cultures for gram positive cocci 3. Atrial fibrillation- rate controlled 4. Aspiration pneumonia 5. Delirium 6. CHF 7. DM type 2 8. HTN Plan: - Blood flow cytometry pending - Bilirubin trending down with elevated direct bilirubin which is more likely from obstruction rather than hemolysis - Abdominal ultrasound showed dilated pancreatic duct - Continue to hold Coumadin due to elevated HAS-BLED score and high risk for bleeding - Continue SCDs - Palliative consulted- family is leaning towards Hospice care - Since family wants more conservative care- will hold off on doing bone marrow biopsy - Continue medical management Case seen, discussed and reviewed with Dr. Adelina Webster PGY2
[2017-02-28] MEDS ORDERED: DAPTOmycin 500 mg Inj (Cubicin) IV SCH (09:00)
[2017-02-28] MEDS ORDERED: Vitamin A/D oint 60G TP PRN (09:26)
--- NOTE | 2017-02-28 09:28 | CP.CCUPN ---
<Roney Del Toro - Last Filed: 02/28/17 11:45> CCU Subjective - Physician Review Subjective (Free Text): Subjective: Patient seen and examined at bedside. Resting comfortably in bed with nasal canulla in proper position. Family at bedside. No acute overnight events. ROS cannot be attained at this time due to AMS. CCU Objective - Vital Signs / Intake & Output Vital Signs (Last 4 hours): Vital Signs Pulse Resp BP Pulse Ox 02/28/17 08:00 110 H 02/28/17 06:10 100 H 33 H 90 L 02/28/17 06:00 103 H 20 131/45 L 95 02/28/17 05:52 112 H 170/65 H 02/28/17 05:51 112 H 170/65 H 02/28/17 05:50 101 H 21 97 02/28/17 05:42 110 H 28 H 02/28/17 05:41 119 H 16 02/28/17 05:40 107 H 31 H 02/28/17 05:39 104 H 44 H 02/28/17 05:38 91 H 20 02/28/17 05:37 103 H 16 02/28/17 05:36 110 H 23 02/28/17 05:35 115 H 23 02/28/17 05:34 111 H 18 02/28/17 05:33 119 H 27 H 02/28/17 05:32 47 L 18 02/28/17 05:31 113 H 23 02/28/17 05:30 118 H 30 H Intake and Output (Last 8hrs): Intake & Output 02/27/17 02/28/17 02/28/17 22:59 06:59 14:59 Intake Total 950 Output Total 350 550 Balance -350 400 Intake: IV 950 Left Hand 950 Oral 0 Output: Urine 350 550 2-way Urethral 350 550 Other: # Bowel Movements 0 - Physical Exam Other physical findings (Free Text): Physical Examination: - Head Exam Head Exam: ATRAUMATIC, NORMAL INSPECTION, NORMOCEPHALIC - Eye Exam Eye Exam: no scleral icterus Pupil Exam: NORMAL ACCOMODATION, PERRL - ENT Exam ENT Exam: Mucous Membranes Dry - Respiratory Exam Respiratory Exam: Rhonchi (on LLL ), NORMAL BREATHING PATTERN. absent: Clear to Auscultation Bilateral - Cardiovascular Exam Cardiovascular Exam: Irregular Rhythm, +S1, +S2. absent: Gallop, Rubs, Systolic Murmur - GI/Abdominal Exam GI & Abdominal Exam: Normal Bowel Sounds, Soft. absent: Rebound, Rigid, Tenderness - Extremities Exam Extremities exam: Negative for: normal inspection (discoloration of lower extremities bilaterally ), pedal edema - Neurological Exam Neurological exam: Altered, does not follow commands - Psychiatric Exam Psychiatric exam: resting comfortably - Skin Skin Exam: Dry, Warm - Medications Active Medications: Active Medications Generic Name Dose Route Start Last Admin Trade Name Freq PRN Reason Stop Dose Admin Diltiazem HCl 30 mg 02/24/17 14:00 02/25/17 01:27 Cardizem PO Not Given QID NIKKIE Famotidine 20 mg 02/27/17 10:45 02/27/17 11:59 Pepcid IVP 20 mg DAILY NIKKIE Administration Furosemide 20 mg 02/24/17 10:00 02/24/17 15:59 Lasix PO Not Given DAILY NIKKIE Hydralazine HCl 10 mg 02/25/17 06:00 02/28/17 05:51 Apresoline IVP 10 mg Q6 NIKKIE Administration Doxycycline Hyclate 100 mg/ 100 mls @ 100 mls/hr 02/26/17 22:00 02/27/17 21: 27 Sodium Chloride IVPB 100 mls/hr Q12 NIKKIE Administration Protocol Potassium Chloride 40 meq/ 1,020 mls @ 75 mls/hr 02/27/17 09:15 02/28/17 05: 57 Dextrose IV 75 mls/hr .[id number] NIKKIE Administration Meropenem 50 mls @ 100 mls/hr 02/27/17 11:24 02/27/17 21:25 Merrem Iv 1 Gm Premix IVPB 03/05/17 18:21 100 mls/hr Q12 NIKKIE Administration Protocol Linezolid 600 mg in 300 mls @ 200 mls/hr 02/28/17 07:15 02/28/17 08:04 Zyvox 600mg/300ml D5w IVPB 03/07/17 07:16 200 mls/hr Q12 NIKKIE Administration Protocol Daptomycin 420 mg/ Sodium 100 mls @ 200 mls/hr 02/28/17 09:00 Chloride IV 03/07/17 09:01 Q24H NIKKIE Levalbuterol HCl 0.63 mg 02/26/17 14:00 02/28/17 01:12 Xopenex IH 0.63 mg [id number] NIKKIE Administration Levalbuterol HCl 0.63 mg 02/26/17 09:55 Xopenex IH Q2 PRN Shortness of Breath Lorazepam 0.5 mg 02/26/17 18:00 02/27/17 18:03 Ativan PO Not Given BID NIKKIE Protocol Lorazepam 1 mg 02/26/17 17:24 02/28/17 05:50 Ativan IVP 1 mg Q4H PRN Administration RESTLESSNESS, AGITATION Protocol Lorazepam 0.5 mg 02/26/17 21:00 Ativan IVP Q6H PRN Agitation Protocol Metoprolol Tartrate 50 mg 02/24/17 17:00 02/24/17 17:44 Lopressor PO Not Given BRKDIN NIKKIE Metoprolol Tartrate 5 mg 02/25/17 06:00 02/28/17 05:52 Lopressor IVP 5 mg Q6H NIKKIE Administration Morphine Sulfate 2 mg 02/25/17 09:19 02/28/17 02:04 Morphine IVP 2 mg Q4H PRN Administration Pain, moderate (4-7) Nitroglycerin 1 ea 02/26/17 10:00 02/28/17 05:51 Nitro-Bid 2% Oint TOP 1 ea Q4H NIKKIE Administration Quetiapine Fumarate 12.5 mg 02/26/17 17:25 Seroquel PO HS PRN RESTLESS/AGITATION/PSYCHOSIS Protocol - Patient Studies Lab Studies: Microbiology Studies 02/26/17 15:50 Blood Culture - Preliminary Blood-Venous Gram Positive Cocci Gram Stain - Final 02/26/17 15:30 S.aureus & Coag-Neg Staph PNA FISH - Preliminary Blood-Venous Blood Culture - Preliminary Gram Positive Cocci Gram Stain - Final Lab Studies 02/28/17 02/28/17 02/27/17 Range/Units 08:10 08:10 10:45 WBC 4.9 D (4.5-11.0) 10^3/ul RBC 2.26 L (3.5-6.1) 10^6/uL Hgb 7.7 L (12.0-16.0) g/dL Hct 24.8 L (36.0-48.0) % MCV 109.7 H (80.0-105.0) fl MCH 34.1 (25.0-35.0) pg MCHC 31.0 (31.0-37.0) g/dl RDW 25.7 H (11.5-14.5) % Plt Count 82 L (120.0-450.0) 10^3/uL MPV 10.7 (7.0-11.0) fl Gran % 81.0 H (50.0-68.0) % Lymph % (Auto) 9.8 L (22.0-35.0) % Divide % (Auto) 8.8 H (1.0-6.0) % Eos % (Auto) 0.2 L (1.5-5.0) % Baso % (Auto) 0.2 (0.0-3.0) % Gran # 3.96 (1.4-6.5) Lymph # 0.5 L (1.2-3.4) Divide # 0.4 (0.1-0.6) Eos # 0.0 (0.0-0.7) Baso # 0.01 (0.0-2.0) K/mm3 Sodium 150 H (132-148) mmol/L Potassium 3.8 (3.6-5.0) mmol/L Chloride 119 H (98-107) mmol/L Carbon Dioxide 22 (21-33) mmol/L Anion Gap 13 (10-20) BUN 66 H (7-21) mg/dL Creatinine 1.1 (0.7-1.2) mg/dL Est GFR ( Amer) 57 Est GFR (Non-Af Amer) 47 Random Glucose 141 H (70-110) mg/dL Calcium 9.6 (8.4-10.5) mg/dL Magnesium 2.0 (1.7-2.2) mg/dL Total Bilirubin 3.6 H (0.2-1.3) mg/dL Direct Bilirubin (0.0-0.4) mg/dL AST 24 (14-36) U/L ALT 29 (7-56) U/L Alkaline Phosphatase 57 (38-126) U/L Total Protein 8.9 H (5.8-8.3) g/dL Albumin 2.6 L (3.0-4.8) g/dL Globulin 6.3 gm/dL Albumin/Globulin Ratio 0.4 L (1.1-1.8) Random Vancomycin 10.9 L (20.0-40.0) ug/mL FRANKIE Screen (Negative) 02/27/17 02/24/17 Range/Units 10:45 06:30 WBC (4.5-11.0) 10^3/ul RBC (3.5-6.1) 10^6/uL Hgb (12.0-16.0) g/dL Hct (36.0-48.0) % MCV (80.0-105.0) fl MCH (25.0-35.0) pg MCHC (31.0-37.0) g/dl RDW (11.5-14.5) % Plt Count (120.0-450.0) 10^3/uL MPV (7.0-11.0) fl Gran % (50.0-68.0) % Lymph % (Auto) (22.0-35.0) % Divide % (Auto) (1.0-6.0) % Eos % (Auto) (1.5-5.0) % Baso % (Auto) (0.0-3.0) % Gran # (1.4-6.5) Lymph # (1.2-3.4) Divide # (0.1-0.6) Eos # (0.0-0.7) Baso # (0.0-2.0) K/mm3 Sodium (132-148) mmol/L Potassium (3.6-5.0) mmol/L Chloride (98-107) mmol/L Carbon Dioxide (21-33) mmol/L Anion Gap (10-20) BUN (7-21) mg/dL Creatinine (0.7-1.2) mg/dL Est GFR ( Amer) Est GFR (Non-Af Amer) Random Glucose (70-110) mg/dL Calcium (8.4-10.5) mg/dL Magnesium 2.0 (1.7-2.2) mg/dL Total Bilirubin (0.2-1.3) mg/dL Direct Bilirubin 4.1 H (0.0-0.4) mg/dL AST (14-36) U/L ALT (7-56) U/L Alkaline Phosphatase (38-126) U/L Total Protein (5.8-8.3) g/dL Albumin (3.0-4.8) g/dL Globulin gm/dL Albumin/Globulin Ratio (1.1-1.8) Random Vancomycin (20.0-40.0) ug/mL FRANKIE Screen Negative (Negative) Laboratory Results - last 24 hr 02/24/17 02/27/17 02/27/17 06:30 10:45 10:45 WBC RBC Hgb Hct MCV MCH MCHC RDW Plt Count MPV Gran % Lymph % (Auto) Divide % (Auto) Eos % (Auto) Baso % (Auto) Gran # Lymph # Divide # Eos # Baso # Sodium Potassium Chloride Carbon Dioxide Anion Gap BUN Creatinine Est GFR ( Amer) Est GFR (Non-Af Amer) Random Glucose Calcium Magnesium 2.0 Total Bilirubin Direct Bilirubin 4.1 H AST ALT Alkaline Phosphatase Total Protein Albumin Globulin Albumin/Globulin Ratio Random Vancomycin 10.9 L FRANKIE Screen Negative 02/28/17 02/28/17 08:10 08:10 WBC 4.9 D RBC 2.26 L Hgb 7.7 L Hct 24.8 L MCV 109.7 H MCH 34.1 MCHC 31.0 RDW 25.7 H Plt Count 82 L MPV 10.7 Gran % 81.0 H Lymph % (Auto) 9.8 L Divide % (Auto) 8.8 H Eos % (Auto) 0.2 L Baso % (Auto) 0.2 Gran # 3.96 Lymph # 0.5 L Divide # 0.4 Eos # 0.0 Baso # 0.01 Sodium 150 H Potassium 3.8 Chloride 119 H Carbon Dioxide 22 Anion Gap 13 BUN 66 H Creatinine 1.1 Est GFR ( Amer) 57 Est GFR (Non-Af Amer) 47 Random Glucose 141 H Calcium 9.6 Magnesium 2.0 Total Bilirubin 3.6 H Direct Bilirubin AST 24 ALT 29 Alkaline Phosphatase 57 Total Protein 8.9 H Albumin 2.6 L Globulin 6.3 Albumin/Globulin Ratio 0.4 L Random Vancomycin FRANKIE Screen Review of Systems - Review of Systems Review of Systems: 12 point ros cannot be ascertained at this time due to AMS Critical Care Progress Note - Nutrition Nutrition: Nutrition Category Date Time Status NPO Diet [DIET] Diets 02/28/17 Breakfast Ordered Assessment/Plan - Assessment and Plan (Free Text) Assessment: This is an 81Y F with PMH HTN, DM, atrial fibrillation on Coumadin, CHF, chronic anemia, anxiety/depression who was sent to [facility] for anemia of 7.5 status post 1 unit transfusion of PRBC. Plan: Neuro: Altered Mental Status; Encephalopathic - neuro consulted- appreciate recommendations - possibly toxic metabolic encephalopathy vs delirium - started patient on morphine gtt for comfort, c/w ativan for agitation Pulm: Hypoxic Respiratory Failure - c/w bipap, titrate FiO2 down as tolerated keep SaO2 > 92% - will switch to nasal canulla upon family's request - c/w xopenex - CXR this AM reviewed and appreciated Cardio: Atrial Fibrillation - cardiology consulted- appreciate recommendations - cardizem gtt stopped - c/w patient on lopressor - no anticogulation; HAS-BLED score of 3, CHADsVASC > 2 Hx of Htn - c/w hydralazine GI: - NPO - GI prophylaxis with famotidine - total bilirubin and direct bili are elevated - abdominal ultrasound is reviewed and appreciated- shows atrophic pancreas, dilation of pancreatic duct, sludge in gallbladder lumen no stones - no acute intervention at this time Renal: - Creatinine 1.1 BUN 66 - GFR low- renally dose medications - Monitor I's and O's - hypernatremia noted- no acute intervention at this time Endo: - no fingersticks achs ID: - infectious disease is consulted- appreciate recommendations - blood cultures- gram positive cocci, staph. aureus and coag negative staph - c/w doxycycline, linezolid, meropenem, and daptomycin - ECHO order to rule out vegetations- cancelled as per family request, pros and cons of having ECHO were discussed with medical POA Heme: Pancytopenia - heme/onc consulted- appreciate recommendations - likely due to myelodysplastic syndrome - flow cytometry and peripheral smear pending DVT Prophylaxis - SCDs Dispo - conducted extensive conversation with the family regarding wishes, informed that patient did not want aggressive life saving measures, family informed of risks and benefits of morphine drip, POA agrees to starting morphine drip - clergy consult - transfer to general med/surg floor Patient seen, case discussed with, and plan approved by attending physician, Dr. Leal. <Lm Alexandre - Last Filed: 02/28/17 13:47> CCU Objective - Vital Signs / Intake & Output Vital Signs (Last 4 hours): Vital Signs Temp Pulse Resp BP Pulse Ox 02/28/17 12:50 93 H 25 H 98 02/28/17 12:40 88 97 02/28/17 12:30 88 28 H 97 02/28/17 12:20 81 23 96 02/28/17 12:10 90 40 H 97 02/28/17 12:02 87 22 102/40 L 97 02/28/17 12:00 98 F 88 40 H 02/28/17 11:54 99 H 139/59 L 02/28/17 11:50 105 H 23 96 02/28/17 11:40 109 H 21 95 02/28/17 11:30 101 H 23 94 L 02/28/17 11:20 106 H 23 92 L 02/28/17 11:10 106 H 23 91 L 02/28/17 11:00 113 H 24 139/59 L 91 L 02/28/17 10:58 108 H 27 H 02/28/17 10:50 104 H 30 H 86 L 02/28/17 10:40 114 H 31 H 88 L 02/28/17 10:32 108 H 25 H 02/28/17 10:31 119 H 02/28/17 10:30 110 H 26 H 88 L 02/28/17 10:26 114 H 32 H 02/28/17 10:25 115 H 19 02/28/17 10:22 106 H 52 H 02/28/17 10:21 110 H 41 H 02/28/17 10:20 119 H 28 H 89 L 02/28/17 10:10 114 H 32 H 02/28/17 10:07 112 H 33 H 02/28/17 10:06 112 H 30 H 02/28/17 10:05 112 H 32 H 02/28/17 10:03 113 H 29 H 02/28/17 10:00 106 H 35 H 156/85 H 85 L 02/28/17 09:54 114 H 39 H 02/28/17 09:53 113 H 37 H 02/28/17 09:50 108 H 32 H 143/98 H 89 L Intake and Output (Last 8hrs): Intake & Output 02/27/17 02/28/17 02/28/17 22:59 06:59 14:59 Intake Total 950 Output Total 350 550 Balance -350 400 Weight 153 lb Intake: IV 950 Left Hand 950 Oral 0 Output: Urine 350 550 2-way Urethral 350 550 Other: # Bowel Movements 0 - Medications Active Medications: Active Medications Generic Name Dose Route Start Last Admin Trade Name Freq PRN Reason Stop Dose Admin Diltiazem HCl 30 mg 02/24/17 14:00 02/25/17 01:27 Cardizem PO Not Given QID NIKKIE Famotidine 20 mg 02/27/17 10:45 02/28/17 09:19 Pepcid IVP 20 mg DAILY NIKKIE Administration Furosemide 20 mg 02/24/17 10:00 02/24/17 15:59 Lasix PO Not Given DAILY NIKKIE Hydralazine HCl 10 mg 02/25/17 06:00 02/28/17 11:54 Apresoline IVP 10 mg Q6 NIKKIE Administration Doxycycline Hyclate 100 mg/ 100 mls @ 100 mls/hr 02/26/17 22:00 02/28/17 09: 19 Sodium Chloride IVPB 100 mls/hr Q12 NIKKIE Administration Protocol Potassium Chloride 40 meq/ 1,020 mls @ 75 mls/hr 02/27/17 09:15 02/28/17 05: 57 Dextrose IV 75 mls/hr .[id number] NIKKIE Administration Meropenem 50 mls @ 100 mls/hr 02/27/17 11:24 02/28/17 09:38 Merrem Iv 1 Gm Premix IVPB 03/05/17 18:21 100 mls/hr Q12 NIKKIE Administration Protocol Linezolid 600 mg in 300 mls @ 200 mls/hr 02/28/17 07:15 02/28/17 08:04 Zyvox 600mg/300ml D5w IVPB 03/07/17 07:16 200 mls/hr Q12 NIKKIE Administration Protocol Morphine Sulfate 25 mls @ 4 mls/hr 02/28/17 13:37 Morphine Quality Control 1 Mg/Ml IV PRN 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 Protocol 4 MG/HR Lorazepam 0.5 mg 02/26/17 18:00 02/27/17 18:03 Ativan PO Not Given BID NIKKIE Protocol Lorazepam 1 mg 02/26/17 17:24 02/28/17 05:50 Ativan IVP 1 mg Q4H PRN Administration RESTLESSNESS, AGITATION Protocol Lorazepam 0.5 mg 02/26/17 21:00 Ativan IVP Q6H PRN Agitation Protocol Metoprolol Tartrate 50 mg 02/24/17 17:00 02/24/17 17:44 Lopressor PO Not Given BRKDIN NIKKIE Metoprolol Tartrate 5 mg 02/25/17 06:00 02/28/17 11:54 Lopressor IVP 5 mg Q6H NIKKIE Administration Morphine Sulfate 2 mg 02/25/17 09:19 02/28/17 09:19 Morphine IVP 2 mg Q4H PRN Administration Pain, moderate (4-7) Nitroglycerin 1 ea 02/26/17 10:00 02/28/17 05:51 Nitro-Bid 2% Oint TOP 1 ea Q4H NIKKIE Administration Quetiapine Fumarate 12.5 mg 02/26/17 17:25 Seroquel PO HS PRN RESTLESS/AGITATION/PSYCHOSIS Protocol Vitamin A 1 applic 02/28/17 09:26 Vitamin A&D TP Q8 PRN dryness - Patient Studies Lab Studies: Microbiology Studies 02/27/17 10:45 Blood Culture - Preliminary Blood NO GROWTH AFTER 24 HOURS 02/27/17 10:30 Blood Culture - Preliminary Blood NO GROWTH AFTER 24 HOURS 02/26/17 15:50 Blood Culture - Preliminary Blood-Venous Gram Positive Cocci Gram Stain - Final 02/26/17 15:30 S.aureus & Coag-Neg Staph PNA FISH - Preliminary Blood-Venous Blood Culture - Preliminary Gram Positive Cocci Gram Stain - Final Lab Studies 02/28/17 02/28/17 02/28/17 Range/Units 08:45 08:10 08:10 WBC 4.9 D (4.5-11.0) 10^3/ul RBC 2.26 L (3.5-6.1) 10^6/uL Hgb 7.7 L (12.0-16.0) g/dL Hct 24.8 L (36.0-48.0) % MCV 109.7 H (80.0-105.0) fl MCH 34.1 (25.0-35.0) pg MCHC 31.0 (31.0-37.0) g/dl RDW 25.7 H (11.5-14.5) % Plt Count 82 L (120.0-450.0) 10^3/uL MPV 10.7 (7.0-11.0) fl Gran % 81.0 H (50.0-68.0) % Lymph % (Auto) 9.8 L (22.0-35.0) % Divide % (Auto) 8.8 H (1.0-6.0) % Eos % (Auto) 0.2 L (1.5-5.0) % Baso % (Auto) 0.2 (0.0-3.0) % Gran # 3.96 (1.4-6.5) Lymph # 0.5 L (1.2-3.4) Divide # 0.4 (0.1-0.6) Eos # 0.0 (0.0-0.7) Baso # 0.01 (0.0-2.0) K/mm3 Sodium 150 H (132-148) mmol/L Potassium 3.8 (3.6-5.0) mmol/L Chloride 119 H (98-107) mmol/L Carbon Dioxide 22 (21-33) mmol/L Anion Gap 13 (10-20) BUN 66 H (7-21) mg/dL Creatinine 1.1 (0.7-1.2) mg/dL Est GFR ( Amer) 57 Est GFR (Non-Af Amer) 47 Random Glucose 141 H (70-110) mg/dL Calcium 9.6 (8.4-10.5) mg/dL Magnesium 2.0 (1.7-2.2) mg/dL Total Bilirubin 3.6 H (0.2-1.3) mg/dL AST 24 (14-36) U/L ALT 29 (7-56) U/L Alkaline Phosphatase 57 (38-126) U/L Total Creatine Kinase 30 L (35-230) U/L Total Protein 8.9 H (5.8-8.3) g/dL Albumin 2.6 L (3.0-4.8) g/dL Globulin 6.3 gm/dL Albumin/Globulin Ratio 0.4 L (1.1-1.8) FRANKIE Screen (Negative) 02/24/17 Range/Units 06:30 WBC (4.5-11.0) 10^3/ul RBC (3.5-6.1) 10^6/uL Hgb (12.0-16.0) g/dL Hct (36.0-48.0) % MCV (80.0-105.0) fl MCH (25.0-35.0) pg MCHC (31.0-37.0) g/dl RDW (11.5-14.5) % Plt Count (120.0-450.0) 10^3/uL MPV (7.0-11.0) fl Gran % (50.0-68.0) % Lymph % (Auto) (22.0-35.0) % Divide % (Auto) (1.0-6.0) % Eos % (Auto) (1.5-5.0) % Baso % (Auto) (0.0-3.0) % Gran # (1.4-6.5) Lymph # (1.2-3.4) Divide # (0.1-0.6) Eos # (0.0-0.7) Baso # (0.0-2.0) K/mm3 Sodium (132-148) mmol/L Potassium (3.6-5.0) mmol/L Chloride (98-107) mmol/L Carbon Dioxide (21-33) mmol/L Anion Gap (10-20) BUN (7-21) mg/dL Creatinine (0.7-1.2) mg/dL Est GFR ( Amer) Est GFR (Non-Af Amer) Random Glucose (70-110) mg/dL Calcium (8.4-10.5) mg/dL Magnesium (1.7-2.2) mg/dL Total Bilirubin (0.2-1.3) mg/dL AST (14-36) U/L ALT (7-56) U/L Alkaline Phosphatase (38-126) U/L Total Creatine Kinase (35-230) U/L Total Protein (5.8-8.3) g/dL Albumin (3.0-4.8) g/dL Globulin gm/dL Albumin/Globulin Ratio (1.1-1.8) FRANKIE Screen Negative (Negative) Laboratory Results - last 24 hr 02/24/17 02/28/17 02/28/17 06:30 08:10 08:10 WBC 4.9 D RBC 2.26 L Hgb 7.7 L Hct 24.8 L MCV 109.7 H MCH 34.1 MCHC 31.0 RDW 25.7 H Plt Count 82 L MPV 10.7 Gran % 81.0 H Lymph % (Auto) 9.8 L Divide % (Auto) 8.8 H Eos % (Auto) 0.2 L Baso % (Auto) 0.2 Gran # 3.96 Lymph # 0.5 L Divide # 0.4 Eos # 0.0 Baso # 0.01 Sodium 150 H Potassium 3.8 Chloride 119 H Carbon Dioxide 22 Anion Gap 13 BUN 66 H Creatinine 1.1 Est GFR ( Amer) 57 Est GFR (Non-Af Amer) 47 Random Glucose 141 H Calcium 9.6 Magnesium 2.0 Total Bilirubin 3.6 H AST 24 ALT 29 Alkaline Phosphatase 57 Total Creatine Kinase Total Protein 8.9 H Albumin 2.6 L Globulin 6.3 Albumin/Globulin Ratio 0.4 L FRANKIE Screen Negative 02/28/17 08:45 WBC RBC Hgb Hct MCV MCH MCHC RDW Plt Count MPV Gran % Lymph % (Auto) Divide % (Auto) Eos % (Auto) Baso % (Auto) Gran # Lymph # Divide # Eos # Baso # Sodium Potassium Chloride Carbon Dioxide Anion Gap BUN Creatinine Est GFR ( Amer) Est GFR (Non-Af Amer) Random Glucose Calcium Magnesium Total Bilirubin AST ALT Alkaline Phosphatase Total Creatine Kinase 30 L Total Protein Albumin Globulin Albumin/Globulin Ratio FRANKIE Screen Critical Care Progress Note - Nutrition Nutrition: Nutrition Category Date Time Status NPO Diet [DIET] Diets 02/28/17 Breakfast Ordered Attending/Attestation - Attestation I have personally seen and examined this patient.: Yes I have fully participated in the care of the patient.: Yes I have reviewed all pertinent clinical information: Yes Notes (Text): 02/28/17 13:44 81 yo DNR/DNI patient with respiratory failure due to GPC sepsis and bacteremia/ pneumonia. family decided to switch to comfort care only, Morphine drip started , risks and benefits of it explained. Family had a chance to ask questions and all questions were answered. Pallaitive care consult requested. Ok to downgrade to [facility] ccm time 40 min
[2017-02-28] MEDS: Meropenem IV 1 gm in NS 50 ML IVPB SCH ×2 (09:38→21:02)
--- NOTE | 2017-02-28 09:39 | CP.PCM.CON ---
History of Present Illness - History of Present Illness History of Present Illness: Neurology consult note for Dr. Paz's service Reason for consult: Delirium HPI: Patient is an 81 year-old female with past medical history of HTN, DM, atrial fibrillation on coumadin, CHF, chronic anemia, anxiety/depression who presented to [facility] for evaluation of anemia that was found as an outpatient by PMD, Dr. Whiteside. At that time, her hemoglobin was noted to be 7.5. She was subsequently transfused 1 Unit PRBC and became short of breath. She was noted to be in atrial fibrillation with rapid ventricular rate (rate in the 160's) and was placed on a cardizem drip. Anticoagulation was held due to anemia. A chest xray done on admission revealed pulmonary edema/consolidation in the left lung with pulmonary venous congestion. Throughout this time, patient has been delirious and a poor historian. Review of systems has been limited as a result. Neurology consulted for evaluation of delirium. PMH: HTN, DM, atrial fibrillation, CHF, chronic anemia, anxiety/depression PSH: L hip ORIF, R knee replacement Allergies: Lactose Medications: Reviewed and as per chart Social History: Denies EtOH, tobacco or drug use Family Hx: Reviewed; non-contributory PMD: Dr. Whiteside Past Patient History - Infectious Disease Hx of Infectious Diseases: None - Tetanus Immunizations Tetanus Immunization: Unknown - Past Social History Smoking Status: Former Smoker - CARDIAC Hx Cardiac Disorders: Yes Hx Cardia Arrhythmia: Yes (Afib) Hx Congestive Heart Failure: Yes Hx Hypertension: Yes - PULMONARY Hx Respiratory Disorders: No - NEUROLOGICAL Hx Neurological Disorder: Yes - HEENT Hx HEENT Problems: Yes Hx Cataracts: Yes - RENAL Hx Chronic Kidney Disease: No - ENDOCRINE/METABOLIC Hx Endocrine Disorders: Yes Hx Diabetes Mellitus Type 2: Yes - HEMATOLOGICAL/ONCOLOGICAL Hx Blood Disorders: Yes Hx Anemia: Yes - INTEGUMENTARY Hx Dermatological Problems: Yes Other/Comment: bilateral lower extremity cellulitis, MRSA in wounds - MUSCULOSKELETAL/RHEUMATOLOGICAL Hx Falls: Yes - GASTROINTESTINAL Hx Gastrointestinal Disorders: Yes (CONSTIPATION) - GENITOURINARY/GYNECOLOGICAL Hx Genitourinary Disorders: No (URGENCY/FREQUENCY) - PSYCHIATRIC Hx Psychophysiologic Disorder: Yes Hx Anxiety: Yes Hx Depression: Yes - SURGICAL HISTORY Hx Musculoskeletal Surgery: Yes Other/Comment: knee replacement. orif let hip - ANESTHESIA Hx Anesthesia: No Hx Anesthesia Reactions: No Hx Malignant Hyperthermia: No Meds Allergies/Adverse Reactions: Allergies Allergy/AdvReac Type Severity Reaction Status Date / Time lactose AdvReac DIARRHEA Verified 01/06/17 14:34 - Medications Medications: Current Medications Diltiazem HCl (Cardizem) 30 mg PO QID [facility] Last Admin: 02/25/17 01:27 Dose: Not Given Famotidine (Pepcid) 20 mg IVP DAILY [facility] Last Admin: 02/28/17 09:19 Dose: 20 mg Furosemide (Lasix) 20 mg PO DAILY [facility] Last Admin: 02/24/17 15:59 Dose: Not Given Hydralazine HCl (Apresoline) 10 mg IVP Q6 [facility] Last Admin: 02/28/17 05:51 Dose: 10 mg Doxycycline Hyclate 100 mg/ (Sodium Chloride) 100 mls @ 100 mls/hr IVPB Q12 [facility] PRN Reason: Protocol Last Admin: 02/28/17 09:19 Dose: 100 mls/hr Potassium Chloride 40 meq/ (Dextrose) 1,020 mls @ 75 mls/hr IV .[id number] [facility] Last Admin: 02/28/17 05:57 Dose: 75 mls/hr Meropenem (Merrem Iv 1 Gm Premix) 50 mls @ 100 mls/hr IVPB Q12 [facility]KKIE PRN Reason: Protocol Stop: 03/05/17 18:21 Last Admin: 02/27/17 21:25 Dose: 100 mls/hr Linezolid (Zyvox 600mg/300ml D5w) 600 mg in 300 mls @ 200 mls/hr IVPB Q12 [facility]KKIE PRN Reason: Protocol Stop: 03/07/17 07:16 Last Admin: 02/28/17 08:04 Dose: 200 mls/hr Daptomycin 420 mg/ Sodium (Chloride) 100 mls @ 200 mls/hr IV Q24H [facility] Stop: 03/07/17 09:01 Last Admin: 02/28/17 09:31 Dose: Not Given Levalbuterol HCl (Xopenex) 0.63 mg IH [id number] [facility] Last Admin: 02/28/17 01:12 Dose: 0.63 mg Levalbuterol HCl (Xopenex) 0.63 mg IH Q2 PRN PRN Reason: Shortness of Breath Lorazepam (Ativan) 0.5 mg PO BID [facility] PRN Reason: Protocol Last Admin: 02/27/17 18:03 Dose: Not Given Lorazepam (Ativan) 1 mg IVP Q4H PRN; Protocol PRN Reason: RESTLESSNESS, AGITATION Last Admin: 02/28/17 05:50 Dose: 1 mg Lorazepam (Ativan) 0.5 mg IVP Q6H PRN; Protocol PRN Reason: Agitation Metoprolol Tartrate (Lopressor) 50 mg PO BRKDIN [facility] Last Admin: 02/24/17 17:44 Dose: Not Given Metoprolol Tartrate (Lopressor) 5 mg IVP Q6H [facility] Last Admin: 02/28/17 05:52 Dose: 5 mg Morphine Sulfate (Morphine) 2 mg IVP Q4H PRN PRN Reason: Pain, moderate (4-7) Last Admin: 02/28/17 09:19 Dose: 2 mg Nitroglycerin (Nitro-Bid 2% Oint) 1 ea TOP Q4H [facility] Last Admin: 02/28/17 05:51 Dose: 1 ea Quetiapine Fumarate (Seroquel) 12.5 mg PO HS PRN; Protocol PRN Reason: RESTLESS/AGITATION/PSYCHOSIS Vitamin A (Vitamin A&D) 1 applic TP Q8 PRN PRN Reason: dryness Physical Exam - Head Exam Head Exam: ATRAUMATIC, NORMOCEPHALIC - Eye Exam Pupil Exam: PERRL - Respiratory Exam Respiratory Exam: Rhonchi. absent: Rales, Wheezes - Cardiovascular Exam Cardiovascular Exam: Irregular Rhythm, +S1, +S2. absent: Gallop, Rubs - GI/Abdominal Exam GI & Abdominal Exam: Soft. absent: Distended, Firm, Guarding - Skin Skin Exam: Dry, Intact Results - Vital Signs Recent Vital Signs: Last Vital Signs Temp 97.6 F 02/28/17 04:00 Pulse 110 H 02/28/17 08:00 Resp 33 H 02/28/17 06:10 BP 131/45 L 02/28/17 06:00 Pulse Ox 90 L 02/28/17 06:10 - Labs Result Diagrams: 02/28/17 08:10 02/28/17 08:10 Labs: Laboratory Results - last 24 hr 02/24/17 02/27/17 02/27/17 06:30 10:45 10:45 WBC RBC Hgb Hct MCV MCH MCHC RDW Plt Count MPV Gran % Lymph % (Auto) Shelby % (Auto) Eos % (Auto) Baso % (Auto) Gran # Lymph # Shelby # Eos # Baso # Sodium Potassium Chloride Carbon Dioxide Anion Gap BUN Creatinine Est GFR ( Amer) Est GFR (Non-Af Amer) Random Glucose Calcium Magnesium 2.0 Total Bilirubin Direct Bilirubin 4.1 H AST ALT Alkaline Phosphatase Total Protein Albumin Globulin Albumin/Globulin Ratio Random Vancomycin 10.9 L FRANKIE Screen Negative 02/28/17 02/28/17 08:10 08:10 WBC 4.9 D RBC 2.26 L Hgb 7.7 L Hct 24.8 L MCV 109.7 H MCH 34.1 MCHC 31.0 RDW 25.7 H Plt Count 82 L MPV 10.7 Gran % 81.0 H Lymph % (Auto) 9.8 L Shelby % (Auto) 8.8 H Eos % (Auto) 0.2 L Baso % (Auto) 0.2 Gran # 3.96 Lymph # 0.5 L Shelby # 0.4 Eos # 0.0 Baso # 0.01 Sodium 150 H Potassium 3.8 Chloride 119 H Carbon Dioxide 22 Anion Gap 13 BUN 66 H Creatinine 1.1 Est GFR ( Amer) 57 Est GFR (Non-Af Amer) 47 Random Glucose 141 H Calcium 9.6 Magnesium 2.0 Total Bilirubin 3.6 H Direct Bilirubin AST 24 ALT 29 Alkaline Phosphatase 57 Total Protein 8.9 H Albumin 2.6 L Globulin 6.3 Albumin/Globulin Ratio 0.4 L Random Vancomycin FRANKIE Screen Assessment & Plan - Assessment and Plan (Free Text) Plan: 81 year-old female with history of atrial fibrillation, hypertension, DM, CHF, chronic anemia and anxiety/depression admitted to [facility] for anemia. Neurology consulted for evaluation of delirium. 1. Delirium 2. Pancytopenia 3. Bacteremia 4. Atrial fibrillation 5. Aspiration pneumonia 6. CHF 7. DM type 2 8. HTN -Per family's request, patient is currently comfort care measures only and is DNR/DNI -Continue current medical management as per primary/ICU team -Further recommendations as per attending, Dr. Paz Patient seen and case discussed/reviewed with attending, Dr. Paz - Date & Time Date: 02/28/17 Time: 09:43
--- NOTE | 2017-02-28 10:02 | CP.PCM.PN ---
Subjective - Date & Time of Evaluation Date of Evaluation: 02/28/17 Time of Evaluation: 09:30 - Subjective Subjective: Continues to be in respiratory distress, no fevers overnight, agitated, still not responsive to commands. Objective - Vital Signs/Intake and Output Vital Signs (last 24 hours): Temp Pulse Resp BP Pulse Ox 97.6 F 100 H 33 H 131/45 L 90 L 02/28/17 04:00 02/28/17 06:10 02/28/17 06:10 02/28/17 06:00 02/28/17 06:10 Intake and Output: 02/28/17 02/28/17 06:59 18:59 Intake Total 950 Output Total 550 Balance 400 - Medications Medications: Current Medications Diltiazem HCl (Cardizem) 30 mg PO QID [facility] Last Admin: 02/25/17 01:27 Dose: Not Given Famotidine (Pepcid) 20 mg IVP DAILY [facility] Last Admin: 02/27/17 11:59 Dose: 20 mg Furosemide (Lasix) 20 mg PO DAILY [facility] Last Admin: 02/24/17 15:59 Dose: Not Given Hydralazine HCl (Apresoline) 10 mg IVP Q6 [facility] Last Admin: 02/28/17 05:51 Dose: 10 mg Doxycycline Hyclate 100 mg/ (Sodium Chloride) 100 mls @ 100 mls/hr IVPB Q12 [facility] PRN Reason: Protocol Last Admin: 02/27/17 21:27 Dose: 100 mls/hr Potassium Chloride 40 meq/ (Dextrose) 1,020 mls @ 75 mls/hr IV .[id number] [facility] Last Admin: 02/28/17 05:57 Dose: 75 mls/hr Meropenem (Merrem Iv 1 Gm Premix) 50 mls @ 100 mls/hr IVPB Q12 [facility] PRN Reason: Protocol Stop: 03/05/17 18:21 Last Admin: 02/27/17 21:25 Dose: 100 mls/hr Linezolid (Zyvox 600mg/300ml D5w) 600 mg in 300 mls @ 200 mls/hr IVPB Q12 [facility] PRN Reason: Protocol Stop: 03/07/17 07:16 Daptomycin 420 mg/ Sodium (Chloride) 100 mls @ 200 mls/hr IV ONCE ONE Stop: 02/28/17 07:44 Levalbuterol HCl (Xopenex) 0.63 mg IH [id number] [facility] Last Admin: 02/28/17 01:12 Dose: 0.63 mg Levalbuterol HCl (Xopenex) 0.63 mg IH Q2 PRN PRN Reason: Shortness of Breath Lorazepam (Ativan) 0.5 mg PO BID [facility] PRN Reason: Protocol Last Admin: 02/27/17 18:03 Dose: Not Given Lorazepam (Ativan) 1 mg IVP Q4H PRN; Protocol PRN Reason: RESTLESSNESS, AGITATION Last Admin: 02/28/17 05:50 Dose: 1 mg Lorazepam (Ativan) 0.5 mg IVP Q6H PRN; Protocol PRN Reason: Agitation Metoprolol Tartrate (Lopressor) 50 mg PO BRKDIN [facility] Last Admin: 02/24/17 17:44 Dose: Not Given Metoprolol Tartrate (Lopressor) 5 mg IVP Q6H [facility] Last Admin: 02/28/17 05:52 Dose: 5 mg Morphine Sulfate (Morphine) 2 mg IVP Q4H PRN PRN Reason: Pain, moderate (4-7) Last Admin: 02/28/17 02:04 Dose: 2 mg Nitroglycerin (Nitro-Bid 2% Oint) 1 ea TOP Q4H [facility] Last Admin: 02/28/17 05:51 Dose: 1 ea Quetiapine Fumarate (Seroquel) 12.5 mg PO HS PRN; Protocol PRN Reason: RESTLESS/AGITATION/PSYCHOSIS - Labs Labs: 02/27/17 05:30 02/27/17 05:30 PT 20.1 SECONDS (9.4-12.5) H 02/24/17 06:30 INR 1.82 (0.93-1.08) H 02/24/17 06:30 APTT 26.4 Seconds (25.1-36.5) 02/24/17 06:30 - Constitutional Appears: In Acute Distress - Neck Exam Neck Exam: absent: Meningismus - Respiratory Exam Respiratory Exam: Decreased Breath Sounds, Rales (scattered) - Cardiovascular Exam Cardiovascular Exam: +S1, +S2 - GI/Abdominal Exam GI & Abdominal Exam: Soft. absent: Tenderness Assessment and Plan - Assessment and Plan (Free Text) Plan: Assessment Consider severe sepsis with acute encephalopathy and respiratory distress due to left sided healthcare-associated pneumonia with associated Staph bacteremia atrial fibrillation chronic CHF HTN cataracts DM chronic anemia S/P ORIF of the left hip history of anxiety and depression history of bilateral lower extremity cellulitis Plan continue Merrem and Doxycycline day 3 and added Zyvox; patient has been given IV Vancomycin previously and will give a dose of Daptomycin; follow up sensitivities of the Staph aureus in the blood and will get 2D echo to rule out vegetations; repeat blood cx today - reviewed CXR and Dr. El's evaluation and recommendations Neurology is being consulted; currently no signs of meningismus overall prognosis is poor; patient is DNR and DNI discussed with ICU team
--- NOTE | 2017-02-28 10:48 | RAD ---
HISTORY: follow up COMPARISON: 02/27/2017 FINDINGS: LUNGS: No active pulmonary disease. PLEURA: No significant pleural effusion identified, no pneumothorax apparent. CARDIOVASCULAR: Mild cardiomegaly. Moderate vascular congestion. OSSEOUS STRUCTURES: No significant abnormalities. VISUALIZED UPPER ABDOMEN: Normal. OTHER FINDINGS: None. IMPRESSION: Mild cardiomegaly. Moderate vascular congestion
[2017-02-28] MEDS ORDERED: Morphine PCA 1 mg/ml (25ml) 25 ML IV PRN (10:56)
--- NOTE | 2017-02-28 11:23 | PN ---
PULMONARY NOTE DATE: 02/28/2017(630am--725am) SUBJECTIVE: The patient is currently sedated, but arousable. She is mildly short of breath, but in no acute distress. PHYSICAL EXAMINATION: VITAL SIGNS: Temperature is 97.6, pulse on the monitor is 91, respiratory rate 22, blood pressure 131/45. Oxygen saturation on BiPAP is 97%. HEENT: Normocephalic, atraumatic. No JVD. CARDIOVASCULAR: Systolic ejection murmur at the lower left sternal border. No S3 gallop. LUNGS: Less crackles at the lower lobes. Less rhonchi. No wheezing. EXTREMITIES: No clubbing, cyanosis or edema. Calves are nontender to palpation. GI: Abdomen is soft, nontender and nondistended. Bowel sounds are positive. SKIN: No acute rash. NEUROLOGIC: Exam limited at the present time. PERTINENT LABORATORY DATA: Chest x-ray was done this morning and reviewed. It is similar to yesterday's film, but significantly improved from the film of 02/26/2017. IMPRESSION: 1. Aspiration pneumonia - left lung. 2. Acute bronchospasm. 3. Encephalopathy. 4. Pancytopenia. 5. Rapid atrial fibrillation. PLAN: The patient remains in the ICU. She is mildly sedated, but arousable. She is also mildly short of breath but in no acute distress. I did discuss the case with the night nurse at length. The night nurse did confirm that the patient received Ativan - when she became very restless. I did review the chest x-ray as above. The chest x-ray is similar to yesterday's film, but significantly improved from the film of 02/26/2017. I would continue with the antibiotic coverage as per Infectious Disease. Input by Dr. Duncan is noted. I will also continue with the nebulizer treatments and aspiration questions. I did discuss the case with the Respiratory Therapist at length. We will try transitioning the patient to nasal cannula during the day. Oxygen saturations will be monitored closely. The patient remains encephalopathic. Neurologic and Psychiatric evaluations are noted. Clinical status of the patient is certainly improved - compared to a few days ago. However, the overall status/prognosis for this elderly patient does remain very guarded. All are aware. I will discuss the above with the entire ICU team in the next few moments. I did discuss the case with the resident earlier. I will also discuss the above with Dr. Barrera later this morning. Bear El MD [facility]
--- NOTE | 2017-02-28 13:34 | PN ---
DATE: 02/28/2017 SUBJECTIVE: The patient is seen lying in bed in the CCU. She appears somewhat restless and on BiPAP mask. She is seen in the presence of her daughter. DNR and DNI order are in place. She is restless, but not responsive, but can follow commands. MEDICATIONS: Include hydralazine 10 mg IV q. 6 hours., Ativan p.r.n.,doxycycline, metoprolol 5 mg q. 6 hours., meropenem, and morphine infusion. PHYSICAL EXAMINATION GENERAL: She is a frail appearing elderly woman who appears chronically ill. VITAL SIGNS: Her blood pressure is 140/60 with a pulse of 100 in atrial fibrillation, respirations are 14, and she is afebrile. HEENT: BiPAP mask is noted. CHEST: Bilateral scattered rhonchi heard. HEART: PMI is displaced laterally with an irregularly irregular rhythm. Systolic murmur noted in the left sternal border and apex. ABDOMEN: Soft with bowel sounds present. EXTREMITIES: No edema. DIAGNOSTIC DATA: Sodium is 150, potassium is 3.8, and BUN and creatinine are 66 and 1.1. White count is 4.9 and hemoglobin and hematocrit are 7.7 and 24.8, with a platelet count of 82,000. IMPRESSION: 1. Altered mental status appears premorbid. 2. Pancytopenia, no workup planned at the present time. 3. History of atrial fibrillation. RECOMMENDATIONS: At this time, conservative measures are planned and comfort care will be provided. The patient will be maintained on a morphine infusion for comfort care. IV medications will be continued for now. The family is accepting of her terminal status and wish that she undergo no suffering. We will be happy to see if needed to assist with any issues. Jackson Santos MD [facility]
[2017-02-28] MEDS: Morphine PCA 1 mg/ml (25ml) 25 ML IV PRN ×2 (13:43→18:18)
[2017-02-28] MEDS: Saliva Substitute 44.3 ML PO SCH (18:43)
[2017-02-28] MEDS ORDERED: Vitamins A & D Oint UD Foilpak TOP PRN (22:00)
--- NOTE | 2017-02-28 23:21 | PN ---
DATE: 02/28/2017 SUBJECTIVE: The patient is confused. She is not able to answer questions. PHYSICAL EXAMINATION: VITAL SIGNS: Temperature is 97.6, pulse of 106, blood pressure is 113/51, respiration is 25. GENERAL: The patient is lying in bed, flat, comfortable. HEENT: No oral lesion. Anicteric sclerae. Moist mucosa. NECK: No JVD, adenopathy, or thyromegaly. CARDIOVASCULAR: S1 and S2, regular. No murmurs, rubs, or gallops. LUNGS: Clear to auscultation bilaterally. No wheeze, rales, or rhonchi. ABDOMEN: Bowel sounds are positive, soft, nontender and nondistended. EXTREMITIES: No cyanosis, clubbing or edema. LABORATORY DATA: White count of 4.9, hemoglobin of 7.7, platelet count is 82. Creatinine is 1.1, sodium is 150. Ultrasound of the abdomen showed a questionable dilation of the pancreatic duct, atrophic pancreas, sludge is identified in the gallbladder lumen without obvious cholelithiasis. ASSESSMENT: 1. Aspiration pneumonia. 2. Pancytopenia. 3. Delirium. 4. Hypertension. 5. Diabetes type 2. 6. Hypernatremia. 7. Congestive heart failure secondary to systolic dysfunction. 8. Atrial fibrillation. 9. Hypokalemia, improved. 10. Sepsis. 11. Do Not Resuscitate/Do Not Intubate. PLAN: The patient's sodium remains elevated. She has blood cultures that are positive with gram-positive cocci. She has Ativan p.r.n. She is receiving IV fluids with D5W, potassium has improved. She is going to need an increased dosage of her IV fluids. We will increase her IV fluids to 100. The patient has a poor prognosis from sepsis. I did speak to the patient's daughter at the bedside to give an update on the patient's diagnosis and plan of care. The patient is being followed by Infectious Disease. The chest x-ray shows moderate congestion. The patient is doxycycline as well. She is on morphine for pain as needed. Her BiPAP, she is able to come off and she is placed on nasal cannula. Her oxygenation is stable. She is on linezolid. She is being followed by multiple consultants. Overall prognosis is poor. She is a DNR/DNI. Nas Barrera MD [facility] # [id number]
[2017-03-01] MEDS: Saliva Substitute 44.3 ML PO SCH ×3 (00:35→18:47)
[2017-03-01] MEDS: Morphine PCA 1 mg/ml (25ml) 25 ML IV PRN (00:38)
[2017-03-01] MEDS: Metoprolol 1 mg/ml Inj IVP SCH ×3 (01:31→18:44)
[2017-03-01] MEDS: Nitroglycerin 2% Ointment Foilpak UD TOP SCH ×5 (05:14→21:42)
[2017-03-01] MEDS ORDERED: DAPTOmycin 500 mg Inj (Cubicin) IV SCH (07:00)
--- NOTE | 2017-03-01 08:02 | CP.PCM.PN ---
Subjective - Date & Time of Evaluation Date of Evaluation: 03/01/17 Time of Evaluation: 09:00 - Subjective Subjective: Neurology progress note for Dr. Paz's service Patient seen and examined at bedside. No overnight issues reported. Patient presently on BiPAP, lethargic. ROS limited due to patient status. Objective - Vital Signs/Intake and Output Vital Signs (last 24 hours): Temp Pulse Resp BP Pulse Ox 97 F L 109 H 8 L 92/62 L 90 L 03/01/17 04:00 03/01/17 05:17 03/01/17 05:00 03/01/17 05:17 03/01/17 05:00 Intake and Output: 03/01/17 03/01/17 06:59 18:59 Intake Total 25 Balance 25 - Medications Medications: Current Medications Diltiazem HCl (Cardizem) 30 mg PO QID [facility] Last Admin: 02/25/17 01:27 Dose: Not Given Famotidine (Pepcid) 20 mg IVP DAILY [facility] Last Admin: 02/28/17 09:19 Dose: 20 mg Furosemide (Lasix) 20 mg PO DAILY [facility] Last Admin: 02/24/17 15:59 Dose: Not Given Hydralazine HCl (Apresoline) 10 mg IVP Q6 [facility] Last Admin: 03/01/17 05:14 Dose: Not Given Doxycycline Hyclate 100 mg/ (Sodium Chloride) 100 mls @ 100 mls/hr IVPB Q12 [facility] PRN Reason: Protocol Last Admin: 02/28/17 21:02 Dose: Not Given Meropenem (Merrem Iv 1 Gm Premix) 50 mls @ 100 mls/hr IVPB Q12 [facility] PRN Reason: Protocol Stop: 03/05/17 18:21 Last Admin: 02/28/17 21:02 Dose: Not Given Linezolid (Zyvox 600mg/300ml D5w) 600 mg in 300 mls @ 200 mls/hr IVPB Q12 [facility] PRN Reason: Protocol Stop: 03/07/17 07:16 Last Admin: 02/28/17 21:02 Dose: Not Given Morphine Sulfate (Morphine Merchandising Intern 1 Mg/Ml) 25 mls @ 4 mls/hr IV PRN PRN; Protocol ; 4 MG/HR PRN Reason: TREASURY SPECIALIST PER MD ORDER Last Admin: 03/01/17 00:38 Dose: 4 mg/hr, 4 mls/hr Potassium Chloride 20 meq/ (Dextrose) 1,010 mls @ 125 mls/hr IV .Q8H5M [facility] Last Admin: 03/01/17 05:20 Dose: 125 mls/hr Daptomycin 420 mg/ Sodium (Chloride) 100 mls @ 200 mls/hr IV Q24H [facility] Stop: 03/06/17 07:01 Last Admin: 03/01/17 07:48 Dose: 200 mls/hr Lorazepam (Ativan) 0.5 mg PO BID [facility] PRN Reason: Protocol Last Admin: 02/28/17 18:40 Dose: Not Given Lorazepam (Ativan) 1 mg IVP Q4H PRN; Protocol PRN Reason: RESTLESSNESS, AGITATION Last Admin: 02/28/17 05:50 Dose: 1 mg Lorazepam (Ativan) 0.5 mg IVP Q6H PRN; Protocol PRN Reason: Agitation Metoprolol Tartrate (Lopressor) 50 mg PO BRKDIN [facility] Last Admin: 02/24/17 17:44 Dose: Not Given Metoprolol Tartrate (Lopressor) 5 mg IVP Q6H [facility] Last Admin: 03/01/17 05:17 Dose: Not Given Morphine Sulfate (Morphine) 2 mg IVP Q4H PRN PRN Reason: Pain, moderate (4-7) Last Admin: 02/28/17 09:19 Dose: 2 mg Mupirocin (Bactroban Ointment) 0 gm NS BID [facility] Stop: 03/05/17 10:01 Last Admin: 02/28/17 17:31 Dose: 1 drop Nitroglycerin (Nitro-Bid 2% Oint) 1 ea TOP Q4H [facility] Last Admin: 03/01/17 06:01 Dose: Not Given Quetiapine Fumarate (Seroquel) 12.5 mg PO HS PRN; Protocol PRN Reason: RESTLESS/AGITATION/PSYCHOSIS Saliva Substitute (Saliva Substitute) 5 ml PO Q6 [facility] Last Admin: 03/01/17 06:01 Dose: Not Given Vitamin A (Vitamin A & D Oint Ud Foilpak) 1 ea TOP Q8 PRN PRN Reason: DRYNESS - Labs Labs: 02/28/17 08:10 02/28/17 08:10 PT 20.1 SECONDS (9.4-12.5) H 02/24/17 06:30 INR 1.82 (0.93-1.08) H 02/24/17 06:30 APTT 26.4 Seconds (25.1-36.5) 02/24/17 06:30 - Constitutional Appears: Chronically Ill - Head Exam Head Exam: ATRAUMATIC, NORMOCEPHALIC - Respiratory Exam Respiratory Exam: absent: Rales, Rhonchi, Wheezes - Cardiovascular Exam Cardiovascular Exam: +S1, +S2. absent: Gallop, Rubs - GI/Abdominal Exam GI & Abdominal Exam: Soft. absent: Distended, Firm, Guarding, Rigid, Tenderness , Rebound - Neurological Exam Neurological Exam: absent: Alert, Awake, Oriented x3 - Skin Skin Exam: Dry, Intact, Normal Color, Warm Assessment and Plan - Assessment and Plan (Free Text) Plan: 81 year-old female with history of atrial fibrillation, hypertension, DM, CHF, chronic anemia and anxiety/depression admitted to [facility] for anemia. Neurology consulted for evaluation of delirium. 1. Delirium 2. Pancytopenia 3. Bacteremia 4. Atrial fibrillation 5. Aspiration pneumonia 6. CHF 7. DM type 2 8. HTN -Per prior discussions with patient's daughter, she had wished for her mother to be comfort care measures only. She was subsequently started on morphine TREASURY SPECIALIST. However, per reports today, patient's daughter requesting to stop morphine and continue treatment of sepsis. -Delirium likely secondary to sepsis, however sedative medication would need to be held for assessment -Continue current medical management as per primary/ICU team -Further recommendations as per attending, Dr. Paz Patient seen and case discussed/reviewed with attending, Dr. Paz
--- NOTE | 2017-03-01 08:41 | PN ---
DATE: 03/01/2017(640am--740am) PULMONARY PROGRESS NOTE SUBJECTIVE: The patient is currently very lethargic and unresponsive. She is currently on a morphine drip. She is taking slow, shallow respirations. PHYSICAL EXAMINATION: VITAL SIGNS: Temperature is 97.0, pulse is 109, respirations are 8, and blood pressure is 92/62. Oxygen saturation on nasal cannula is 90%. HEENT: Normocephalic and atraumatic. NECK: No JVD. CARDIOVASCULAR: Systolic ejection murmur at the lower left sternal border. No S3 gallop. LUNGS: Minimal crackles at the lower lobes. Scattered bilateral rhonchi. No wheezing. EXTREMITIES: No clubbing, cyanosis or edema. GASTROINTESTINAL: Abdomen is soft and nondistended. Bowel sounds are positive. SKIN: No acute rash. NEUROLOGIC: Exam limited at the present time. PERTINENT LABORATORY DATA: No chest x-ray or lab work was done this morning - as per family request. IMPRESSION 1. Aspiration pneumonia - left lung. 2. Acute bronchospasm. 3. Encephalopathy. 4. Pancytopenia. 5. Rapid atrial fibrillation. PLAN: The patient remains in the ICU. She is very lethargic and unresponsive at this point in time. She is currently on a morphine drip. She is taking slow, shallow respirations. I did discuss the case with the night nurse at length. I also discussed the case with the daughter (at bedside) at length. The daughter did ask me this morning if there is "any chance" (whatsoever) that her mom could leave the hospital after this infection. I firmly told her that the odds were against her mother returning home, but that there is a small chance that her mother can return home. I also discussed the case with Dr. Barrera and the entire ICU team at length. The daughter remains very ambivalent about certain decisions. At this point in time, she wants to "try." BiPAP will be re-instituted . Antibiotics will be re-instituted. Chest x-ray (already ordered) will be done. I will check that when feasible. The patient remains critically ill, with overall poor prognosis. Again, I did discuss the above with Dr. Barrera, and the entire ICU team at length. Bear El MD [facility] # [id number] GABI
--- NOTE | 2017-03-01 09:22 | CP.PCM.PN ---
Subjective - Date & Time of Evaluation Date of Evaluation: 03/01/17 Time of Evaluation: 09:17 - Subjective Subjective: Heme/Onc Progress Note for Kathi Gallo PGY2 Patient seen and examined at bedside. As per nursing, there were no acute overnight events. Patient is in bed with BIPAP in place. She is lethargic and not responding at this time. ROS could not be obtained. The daughter was at bedside who spoke with Dr. El this AM. The daughter decided to stop the Morphine and continue treatment for her sepsis. She wants to decide on Hospice care at a later date. As for the anemia and possible leukemia, the daughter reports she does not want aggressive care including bone marrow biopsy or chemotherapy. She reports that she would be okay with blood transfusions to treat the anemia, but as far as exploring the possibility of a blood cancer, the daughter prefers to just continue to monitor. Objective - Vital Signs/Intake and Output Vital Signs (last 24 hours): Temp Pulse Resp BP Pulse Ox 97 F L 109 H 8 L 92/62 L 90 L 03/01/17 04:00 03/01/17 05:17 03/01/17 05:00 03/01/17 05:17 03/01/17 05:00 Intake and Output: 03/01/17 03/01/17 06:59 18:59 Intake Total 25 Balance 25 - Medications Medications: Current Medications Diltiazem HCl (Cardizem) 30 mg PO QID [facility] Last Admin: 02/25/17 01:27 Dose: Not Given Famotidine (Pepcid) 20 mg IVP DAILY [facility] Last Admin: 02/28/17 09:19 Dose: 20 mg Furosemide (Lasix) 20 mg PO DAILY [facility] Last Admin: 02/24/17 15:59 Dose: Not Given Hydralazine HCl (Apresoline) 10 mg IVP Q6 [facility] Last Admin: 03/01/17 05:14 Dose: Not Given Doxycycline Hyclate 100 mg/ (Sodium Chloride) 100 mls @ 100 mls/hr IVPB Q12 [facility] PRN Reason: Protocol Last Admin: 02/28/17 21:02 Dose: Not Given Meropenem (Merrem Iv 1 Gm Premix) 50 mls @ 100 mls/hr IVPB Q12 [facility]KKIE PRN Reason: Protocol Stop: 03/05/17 18:21 Last Admin: 02/28/17 21:02 Dose: Not Given Linezolid (Zyvox 600mg/300ml D5w) 600 mg in 300 mls @ 200 mls/hr IVPB Q12 [facility]KKIE PRN Reason: Protocol Stop: 03/07/17 07:16 Last Admin: 02/28/17 21:02 Dose: Not Given Morphine Sulfate (Morphine Scrap Dealer 1 Mg/Ml) 25 mls @ 4 mls/hr IV PRN PRN; Protocol ; 4 MG/HR PRN Reason: TELECOM ANALYST PER MD ORDER Last Admin: 03/01/17 00:38 Dose: 4 mg/hr, 4 mls/hr Potassium Chloride 20 meq/ (Dextrose) 1,010 mls @ 125 mls/hr IV .Q8H5M [facility] Last Admin: 03/01/17 05:20 Dose: 125 mls/hr Daptomycin 420 mg/ Sodium (Chloride) 100 mls @ 200 mls/hr IV Q24H [facility] Stop: 03/06/17 07:01 Last Admin: 03/01/17 07:48 Dose: 200 mls/hr Lorazepam (Ativan) 0.5 mg PO BID [facility] PRN Reason: Protocol Last Admin: 02/28/17 18:40 Dose: Not Given Lorazepam (Ativan) 1 mg IVP Q4H PRN; Protocol PRN Reason: RESTLESSNESS, AGITATION Last Admin: 02/28/17 05:50 Dose: 1 mg Lorazepam (Ativan) 0.5 mg IVP Q6H PRN; Protocol PRN Reason: Agitation Metoprolol Tartrate (Lopressor) 50 mg PO BRKDIN [facility] Last Admin: 02/24/17 17:44 Dose: Not Given Metoprolol Tartrate (Lopressor) 5 mg IVP Q6H [facility] Last Admin: 03/01/17 05:17 Dose: Not Given Morphine Sulfate (Morphine) 2 mg IVP Q4H PRN PRN Reason: Pain, moderate (4-7) Last Admin: 02/28/17 09:19 Dose: 2 mg Mupirocin (Bactroban Ointment) 0 gm NS BID [facility] Stop: 03/05/17 10:01 Last Admin: 02/28/17 17:31 Dose: 1 drop Nitroglycerin (Nitro-Bid 2% Oint) 1 ea TOP Q4H [facility] Last Admin: 03/01/17 06:01 Dose: Not Given Quetiapine Fumarate (Seroquel) 12.5 mg PO HS PRN; Protocol PRN Reason: RESTLESS/AGITATION/PSYCHOSIS Saliva Substitute (Saliva Substitute) 5 ml PO Q6 [facility] Last Admin: 03/01/17 06:01 Dose: Not Given Vitamin A (Vitamin A & D Oint Ud Foilpak) 1 ea TOP Q8 PRN PRN Reason: DRYNESS - Labs Labs: 02/28/17 08:10 02/28/17 08:10 PT 20.1 SECONDS (9.4-12.5) H 02/24/17 06:30 INR 1.82 (0.93-1.08) H 02/24/17 06:30 APTT 26.4 Seconds (25.1-36.5) 02/24/17 06:30 - Constitutional Appears: Chronically Ill - Head Exam Head Exam: ATRAUMATIC, NORMAL INSPECTION, NORMOCEPHALIC - Eye Exam Eye Exam: PERRL Pupil Exam: PERRL - ENT Exam ENT Exam: Mucous Membranes Moist - Respiratory Exam Respiratory Exam: Rhonchi, NORMAL BREATHING PATTERN. absent: Rales, Wheezes - GI/Abdominal Exam GI & Abdominal Exam: Soft, Normal Bowel Sounds. absent: Tenderness, Rebound - Extremities Exam Extremities Exam: Pedal Edema. absent: Calf Tenderness - Neurological Exam Neurological Exam: CN II-XII Intact. absent: Alert, Awake, Oriented x3 - Skin Skin Exam: Dry, Warm Assessment and Plan - Assessment and Plan (Free Text) Assessment: This is an 81Y F with PMH HTN, DM, atrial fibrillation on Coumadin, CHF, chronic anemia, anxiety/depression who was sent to [facility] for anemia of 7.5 status post 1 unit transfusion of PRBC. Patient is found to have: 1. Pancytopenia- most likely myelodysplastic syndrome versus low leukemic process or refractory anemia 2. Bacteremia with positive blood cultures for gram positive cocci (3rd set of cultures now negative) 3. Atrial fibrillation- rate controlled 4. Aspiration pneumonia 5. Delirium 6. CHF 7. DM type 2 8. HTN Plan: - Blood flow cytometry pending - Continue medical management as per primary team, ICU team, Pulm, ID and Cardio - Hold Coumadin due to elevated HAS-BLED score and high risk for bleeding - Continue SCDs - Family wants more conservative care as far as exploring possible leukemia - No plan for bone marrow biopsy - Will continue to monitor CBC Case seen, discussed and reviewed with Dr. Adelina Webster PGY2
--- NOTE | 2017-03-01 09:36 | RAD ---
HISTORY: follow up COMPARISON: 02/28/2017 FINDINGS: LUNGS: Infiltrate right lung base PLEURA: Small right effusion CARDIOVASCULAR: There is moderate cardiomegaly and moderate vascular congestion. There is an infiltrate at the right lung base and a small right pleural effusion OSSEOUS STRUCTURES: No significant abnormalities. VISUALIZED UPPER ABDOMEN: Normal. OTHER FINDINGS: None. IMPRESSION: There is moderate cardiomegaly and moderate vascular congestion. There is an infiltrate at the right lung base and a small right pleural effusion
--- NOTE | 2017-03-01 10:03 | CP.PCM.PN ---
Subjective - Date & Time of Evaluation Date of Evaluation: 03/01/17 Time of Evaluation: 09:40 - Subjective Subjective: Patient is very lethargic, not responsive to commands, no fevers, currently on BiPAP. Objective - Vital Signs/Intake and Output Vital Signs (last 24 hours): Temp Pulse Resp BP Pulse Ox 97 F L 109 H 8 L 92/62 L 90 L 03/01/17 04:00 03/01/17 05:17 03/01/17 05:00 03/01/17 05:17 03/01/17 05:00 Intake and Output: 02/28/17 03/01/17 18:59 06:59 Intake Total 1298 25 Output Total 250 Balance 1048 25 - Medications Medications: Current Medications Diltiazem HCl (Cardizem) 30 mg PO QID [facility] Last Admin: 02/25/17 01:27 Dose: Not Given Famotidine (Pepcid) 20 mg IVP DAILY [facility] Last Admin: 02/28/17 09:19 Dose: 20 mg Furosemide (Lasix) 20 mg PO DAILY [facility] Last Admin: 02/24/17 15:59 Dose: Not Given Hydralazine HCl (Apresoline) 10 mg IVP Q6 [facility] Last Admin: 03/01/17 05:14 Dose: Not Given Doxycycline Hyclate 100 mg/ (Sodium Chloride) 100 mls @ 100 mls/hr IVPB Q12 [facility] PRN Reason: Protocol Last Admin: 02/28/17 21:02 Dose: Not Given Meropenem (Merrem Iv 1 Gm Premix) 50 mls @ 100 mls/hr IVPB Q12 [facility] PRN Reason: Protocol Stop: 03/05/17 18:21 Last Admin: 02/28/17 21:02 Dose: Not Given Linezolid (Zyvox 600mg/300ml D5w) 600 mg in 300 mls @ 200 mls/hr IVPB Q12 [facility] PRN Reason: Protocol Stop: 03/07/17 07:16 Last Admin: 02/28/17 21:02 Dose: Not Given Morphine Sulfate (Morphine Supervisor Varnish 1 Mg/Ml) 25 mls @ 4 mls/hr IV PRN PRN; Protocol ; 4 MG/HR PRN Reason: SKIP LOADER PER MD ORDER Last Admin: 03/01/17 00:38 Dose: 4 mg/hr, 4 mls/hr Potassium Chloride 20 meq/ (Dextrose) 1,010 mls @ 125 mls/hr IV .Q8H5M [facility] Last Admin: 03/01/17 05:20 Dose: 125 mls/hr Daptomycin 420 mg/ Sodium (Chloride) 100 mls @ 200 mls/hr IV Q24H [facility] Stop: 03/06/17 07:01 Lorazepam (Ativan) 0.5 mg PO BID [facility] PRN Reason: Protocol Last Admin: 02/28/17 18:40 Dose: Not Given Lorazepam (Ativan) 1 mg IVP Q4H PRN; Protocol PRN Reason: RESTLESSNESS, AGITATION Last Admin: 02/28/17 05:50 Dose: 1 mg Lorazepam (Ativan) 0.5 mg IVP Q6H PRN; Protocol PRN Reason: Agitation Metoprolol Tartrate (Lopressor) 50 mg PO BRKDIN [facility] Last Admin: 02/24/17 17:44 Dose: Not Given Metoprolol Tartrate (Lopressor) 5 mg IVP Q6H [facility] Last Admin: 03/01/17 05:17 Dose: Not Given Morphine Sulfate (Morphine) 2 mg IVP Q4H PRN PRN Reason: Pain, moderate (4-7) Last Admin: 02/28/17 09:19 Dose: 2 mg Mupirocin (Bactroban Ointment) 0 gm NS BID [facility] Stop: 03/05/17 10:01 Last Admin: 02/28/17 17:31 Dose: 1 drop Nitroglycerin (Nitro-Bid 2% Oint) 1 ea TOP Q4H [facility] Last Admin: 03/01/17 06:01 Dose: Not Given Quetiapine Fumarate (Seroquel) 12.5 mg PO HS PRN; Protocol PRN Reason: RESTLESS/AGITATION/PSYCHOSIS Saliva Substitute (Saliva Substitute) 5 ml PO Q6 [facility] Last Admin: 03/01/17 06:01 Dose: Not Given Vitamin A (Vitamin A & D Oint Ud Foilpak) 1 ea TOP Q8 PRN PRN Reason: DRYNESS - Labs Labs: 02/28/17 08:10 02/28/17 08:10 PT 20.1 SECONDS (9.4-12.5) H 02/24/17 06:30 INR 1.82 (0.93-1.08) H 02/24/17 06:30 APTT 26.4 Seconds (25.1-36.5) 02/24/17 06:30 - Constitutional Appears: In Acute Distress (on BiPAP), Chronically Ill - Head Exam Head Exam: NORMAL INSPECTION - ENT Exam ENT Exam: Mucous Membranes Moist - Neck Exam Neck Exam: absent: Lymphadenopathy, Meningismus - Respiratory Exam Respiratory Exam: Decreased Breath Sounds - Cardiovascular Exam Cardiovascular Exam: +S1, +S2 - GI/Abdominal Exam GI & Abdominal Exam: Soft. absent: Tenderness Assessment and Plan - Assessment and Plan (Free Text) Plan: Assessment Consider severe sepsis with acute encephalopathy and respiratory distress due to left sided healthcare-associated pneumonia with associated methicillin- sensitive Staph aureus bacteremia, R/O endocarditis atrial fibrillation chronic CHF HTN cataracts DM chronic anemia S/P ORIF of the left hip history of anxiety and depression history of bilateral lower extremity cellulitis Plan continue Merrem and Doxycycline day 4, Zyvox day 2; patient has been given IV Vancomycin and Daptomycin but we are switching to Nafcillin - will need to get 2D echo to rule out vegetations; repeat blood cx from yesterday are negative so far - reviewed CXR and Dr. El's evaluation and recommendations Neurology is on consult; currently no signs of meningismus overall prognosis is poor; patient is DNR and DNI discussed with ICU team and discussed with daughter that overall prognosis of patient is poor
[2017-03-01] MEDS: Meropenem IV 1 gm in NS 50 ML IVPB SCH (10:51)
[2017-03-01] MEDS: Linezolid 600 mg in D5W 300 ml 600 MG/300 ML BAG IVPB SCH ×2 (10:52→21:23)
--- NOTE | 2017-03-01 10:53 | CP.PCM.PN ---
<Frandy Cervantes - Last Filed: 03/01/17 10:49> Subjective - Date & Time of Evaluation Date of Evaluation: 03/01/17 Time of Evaluation: 08:45 - Subjective Subjective: Frandy Cervantes D.O. PGY-2, Critical Care Follow Up Note 81 year old female with a PMH HTN, DM, atrial fibrillation on Coumadin, CHF, chronic anemia, anxiety/depression who [place] [facility] [place] for anemia found on outpatient labs. Patient was seen and examined at bedside and with critical care team. Patient continues at same state, not awake but arousable and delirious. Daughter at bedside and today states that she would like to "try everything" versus comfort care initiated yesterday. No events overnight. Objective - Vital Signs/Intake and Output Vital Signs (last 24 hours): Temp Pulse Resp BP Pulse Ox 97 F L 109 H 8 L 92/62 L 90 L 03/01/17 04:00 03/01/17 05:17 03/01/17 05:00 03/01/17 05:17 03/01/17 05:00 Intake and Output: 03/01/17 03/01/17 06:59 18:59 Intake Total 25 Balance 25 - Medications Medications: Current Medications Diltiazem HCl (Cardizem) 30 mg PO QID [facility] Last Admin: 02/25/17 01:27 Dose: Not Given Famotidine (Pepcid) 20 mg IVP DAILY [facility] Last Admin: 02/28/17 09:19 Dose: 20 mg Furosemide (Lasix) 20 mg PO DAILY [facility] Last Admin: 02/24/17 15:59 Dose: Not Given Hydralazine HCl (Apresoline) 10 mg IVP Q6 [facility] Last Admin: 03/01/17 05:14 Dose: Not Given Doxycycline Hyclate 100 mg/ (Sodium Chloride) 100 mls @ 100 mls/hr IVPB Q12 [facility] PRN Reason: Protocol Last Admin: 02/28/17 21:02 Dose: Not Given Meropenem (Merrem Iv 1 Gm Premix) 50 mls @ 100 mls/hr IVPB Q12 [facility] PRN Reason: Protocol Stop: 03/05/17 18:21 Last Admin: 02/28/17 21:02 Dose: Not Given Linezolid (Zyvox 600mg/300ml D5w) 600 mg in 300 mls @ 200 mls/hr IVPB Q12 [facility] PRN Reason: Protocol Stop: 03/07/17 07:16 Last Admin: 02/28/17 21:02 Dose: Not Given Potassium Chloride 20 meq/ (Dextrose) 1,010 mls @ 125 mls/hr IV .Q8H5M [facility] Last Admin: 03/01/17 05:20 Dose: 125 mls/hr Nafcillin Sodium 2 gm/ (Dextrose) 100 mls @ 100 mls/hr IVPB Q4 [facility] PRN Reason: Protocol Lorazepam (Ativan) 0.5 mg PO BID [facility] PRN Reason: Protocol Last Admin: 02/28/17 18:40 Dose: Not Given Lorazepam (Ativan) 1 mg IVP Q4H PRN; Protocol PRN Reason: RESTLESSNESS, AGITATION Last Admin: 02/28/17 05:50 Dose: 1 mg Lorazepam (Ativan) 0.5 mg IVP Q6H PRN; Protocol PRN Reason: Agitation Metoprolol Tartrate (Lopressor) 50 mg PO BRKDIN [facility] Last Admin: 02/24/17 17:44 Dose: Not Given Metoprolol Tartrate (Lopressor) 5 mg IVP Q6H [facility] Last Admin: 03/01/17 05:17 Dose: Not Given Morphine Sulfate (Morphine) 2 mg IVP Q4H PRN PRN Reason: Pain, moderate (4-7) Last Admin: 02/28/17 09:19 Dose: 2 mg Mupirocin (Bactroban Ointment) 0 gm NS BID [facility] Stop: 03/05/17 10:01 Last Admin: 02/28/17 17:31 Dose: 1 drop Nitroglycerin (Nitro-Bid 2% Oint) 1 ea TOP Q4H [facility] Last Admin: 03/01/17 06:01 Dose: Not Given Quetiapine Fumarate (Seroquel) 12.5 mg PO HS PRN; Protocol PRN Reason: RESTLESS/AGITATION/PSYCHOSIS Saliva Substitute (Saliva Substitute) 5 ml PO Q6 [facility] Last Admin: 03/01/17 06:01 Dose: Not Given Vitamin A (Vitamin A & D Oint Ud Foilpak) 1 ea TOP Q8 PRN PRN Reason: DRYNESS - Labs Labs: 02/28/17 08:10 02/28/17 08:10 PT 20.1 SECONDS (9.4-12.5) H 02/24/17 06:30 INR 1.82 (0.93-1.08) H 02/24/17 06:30 APTT 26.4 Seconds (25.1-36.5) 02/24/17 06:30 - Constitutional Appears: Other (elderly, frail female, not awake but somewhat arousable, does not respond) - Head Exam Head Exam: ATRAUMATIC, NORMOCEPHALIC - Eye Exam Eye Exam: absent: Scleral icterus - ENT Exam ENT Exam: Mucous Membranes Moist - Neck Exam Additional comments: soft - Respiratory Exam Respiratory Exam: Decreased Breath Sounds. absent: Rales, Rhonchi, Wheezes Additional comments: on BIPAP - Cardiovascular Exam Cardiovascular Exam: RRR, +S1, +S2, Murmur (2/6 holosystolic LSB). absent: Gallop, Rubs - GI/Abdominal Exam GI & Abdominal Exam: Soft. absent: Distended, Tenderness - Extremities Exam Extremities Exam: absent: Tenderness - Neurological Exam Neurological Exam: absent: Alert, Awake Additional comments: somewhat arousable, moves all 4 extremities to noxious stimuli - Skin Skin Exam: Warm Assessment and Plan - Assessment and Plan (Free Text) Assessment: 81 year old female with a PMH HTN, DM, atrial fibrillation, CHF, chronic anemia , and depression who [place] [facility] [place] for anemia found on outpatient labs, found to be pancytopenic and was undergoing work up who then developed worsening shortness of breath and delirium and was transferred to the ICU for monitoring, currently being treated for persistent bacteremia. Plan: Neurological Continues to be AMS, likely delirium from unknown origin, possibly bacteremia Lorazepam and seroquel PRN for agitation Monitoring closely Cardiovascular Known atrial fibrillation history, rate controlled, cont cardizem, cardiology following, recs appreciated Not on AC, HAS-BLED = 3, CHADsVASC > 2 Also hx of HTN, continue losartan and metoprolol at this time, prn hydralazine Pulmonologic Pulm Dr. El following, recs appreciated After extensive discussion with the family they now wish to place patient back on BIPAP, order placed Cont O2 sat GI Continues to be NPO - abdominal ultrasound is reviewed and appreciated- shows atrophic pancreas, dilation of pancreatic duct, sludge in gallbladder lumen no stones - no acute intervention at this time Renal Per family request no repeat labs drawn Monitoring IxO's Endo Known diabetic, accuchecks discontinued per family request Heme Hem/Onc following for pancytopenia, recs appreciated, flow cytometry and peripheral smear pending ID ID followings, recs appreciated BCxs 02/26 and 02/27 + x2 for staph aeurus BCxs 02/28 negative x2 day 1 On Doxycyline D4, Linezolid D2, merrem D3, and switched from daptomycin to nafcillin Nares + for MRSA, on mupirocin top Discussed Echo again with family to rule out vegetations and now they do want to get test performed, order placed GI/DVT ppx: famotidine/SCDs Dispo: extensive multi-disciplinary discussion was had with the daughter at bedside, including PMD, Pulmnologist, and critical care team, and it is now the wish of the daughter to re-start all antibiotics and re-start BIPAP as well as now have the Echo performed. Patient's daughter verbalized both the understanding and agreement with aforementioned plan. Patient was seen and examined and case was discussed at length with attending physician. <Lm Alexandre - Last Filed: 03/01/17 15:18> Objective - Vital Signs/Intake and Output Vital Signs (last 24 hours): Temp Pulse Resp BP Pulse Ox 97.0 F L 109 H 19 92/62 L 100 03/01/17 12:00 03/01/17 05:17 03/01/17 12:00 03/01/17 05:17 03/01/17 12:00 Intake and Output: 03/01/17 03/01/17 06:59 18:59 Intake Total 25 Balance 25 - Medications Medications: Current Medications Diltiazem HCl (Cardizem) 30 mg PO QID [facility] Last Admin: 02/25/17 01:27 Dose: Not Given Famotidine (Pepcid) 20 mg IVP DAILY [facility] Last Admin: 03/01/17 10:53 Dose: 20 mg Furosemide (Lasix) 20 mg PO DAILY [facility] Last Admin: 02/24/17 15:59 Dose: Not Given Hydralazine HCl (Apresoline) 10 mg IVP Q6 [facility] Last Admin: 03/01/17 05:14 Dose: Not Given Doxycycline Hyclate 100 mg/ (Sodium Chloride) 100 mls @ 100 mls/hr IVPB Q12 [facility] PRN Reason: Protocol Last Admin: 03/01/17 10:52 Dose: 100 mls/hr Meropenem (Merrem Iv 1 Gm Premix) 50 mls @ 100 mls/hr IVPB Q12 [facility] PRN Reason: Protocol Stop: 03/05/17 18:21 Last Admin: 03/01/17 10:51 Dose: 100 mls/hr Linezolid (Zyvox 600mg/300ml D5w) 600 mg in 300 mls @ 200 mls/hr IVPB Q12 [facility] PRN Reason: Protocol Stop: 03/07/17 07:16 Last Admin: 03/01/17 10:52 Dose: 200 mls/hr Potassium Chloride 20 meq/ (Dextrose) 1,010 mls @ 125 mls/hr IV .Q8H5M [facility] Last Admin: 03/01/17 05:20 Dose: 125 mls/hr Nafcillin Sodium 2 gm/ (Dextrose) 100 mls @ 100 mls/hr IVPB Q4 [facility] PRN Reason: Protocol Last Admin: 03/01/17 10:54 Dose: 100 mls/hr Lorazepam (Ativan) 0.5 mg PO BID [facility] PRN Reason: Protocol Last Admin: 03/01/17 10:53 Dose: Not Given Lorazepam (Ativan) 1 mg IVP Q4H PRN; Protocol PRN Reason: RESTLESSNESS, AGITATION Last Admin: 02/28/17 05:50 Dose: 1 mg Lorazepam (Ativan) 0.5 mg IVP Q6H PRN; Protocol PRN Reason: Agitation Metoprolol Tartrate (Lopressor) 50 mg PO BRKDIN [facility] Last Admin: 02/24/17 17:44 Dose: Not Given Metoprolol Tartrate (Lopressor) 5 mg IVP Q6H [facility] Last Admin: 03/01/17 05:17 Dose: Not Given Morphine Sulfate (Morphine) 2 mg IVP Q4H PRN PRN Reason: Pain, moderate (4-7) Last Admin: 02/28/17 09:19 Dose: 2 mg Mupirocin (Bactroban Ointment) 0 gm NS BID [facility] Stop: 03/05/17 10:01 Last Admin: 02/28/17 17:31 Dose: 1 drop Nitroglycerin (Nitro-Bid 2% Oint) 1 ea TOP Q4H [facility] Last Admin: 03/01/17 06:01 Dose: Not Given Quetiapine Fumarate (Seroquel) 12.5 mg PO HS PRN; Protocol PRN Reason: RESTLESS/AGITATION/PSYCHOSIS Saliva Substitute (Saliva Substitute) 5 ml PO Q6 [facility] Last Admin: 03/01/17 06:01 Dose: Not Given Vitamin A (Vitamin A & D Oint Ud Foilpak) 1 ea TOP Q8 PRN PRN Reason: DRYNESS - Labs Labs: 02/28/17 08:10 02/28/17 08:10 PT 20.1 SECONDS (9.4-12.5) H 02/24/17 06:30 INR 1.82 (0.93-1.08) H 02/24/17 06:30 APTT 26.4 Seconds (25.1-36.5) 02/24/17 06:30 Attending/Attestation - Attestation I have personally seen and examined this patient.: Yes I have fully participated in the care of the patient.: Yes I have reviewed all pertinent clinical information, including history, physical exam and plan: Yes Notes (Text): 03/01/17 15:12 81 yo with severe sepsis due to severe CAP, complicated by MODS, including respiratory failure, septic encephalopathy, KATHERINE, GPC bacteremia, now DNR/DNI. Family requested comfort care/palliative care yesterday with morphine on PRN basis. Goals of care achieved-- but now off of morphine and appears to be comfortable. Family requested to continue BPAP and Abx in addition to comfort palliative measures. Private senior controls analyst and PMD are aware and concurred. ccm time 40 min
[2017-03-01 16:21] LABS: EOS % 0.2 % (1.5-5.0); GRAN # 5.79 (1.4-6.5); GRAN % 87.6 % (50.0-68.0); HEMATOCRIT 27.8 % (36.0-48.0); LYMPH # 0.4 (1.2-3.4); LYMPH % 6.7 % (22.0-35.0); MEAN CELL VOLUME 117.8 fl (80.0-105.0); MEAN CORPUSCULAR HEMOGLOBIN 34.3 pg (25.0-35.0); MEAN CORPUSCULAR HGB CONC 29.1 g/dl (31.0-37.0); MEAN PLATELET VOLUME 11.1 fl (7.0-11.0); MONO # 0.4 (0.1-0.6); MONO % 5.5 % (1.0-6.0); RED CELL DISTRIBUTION WIDTH 24.7 % (11.5-14.5); WHITE BLOOD COUNT 6.6 10^3/ul (4.5-11.0)
[2017-03-01 16:26] LABS: ALB/GLOB RATIO 0.4 (1.1-1.8); BILIRUBIN,TOTAL 1.9 mg/dL (0.2-1.3); CALCIUM 8.9 mg/dL (8.4-10.5); TOTAL PROTEIN 8.3 g/dL (5.8-8.3)
[2017-03-01 16:28] LABS: POTASSIUM 5.5 mmol/L (3.6-5.0)
[2017-03-01] MEDS ORDERED: Dextrose 50% SYRINGE Inj (50 ml) IVP STA ×2 (18:16)
[2017-03-01] MEDS ORDERED: Insulin Regular 1 UNITS/0.01 ML ML SC ONE (18:40)
[2017-03-01] MEDS ORDERED: Insulin Regular 1 UNITS/0.01 ML ML IV ONE (18:45)
[2017-03-01] MEDS: Sodium Chloride 0.9% 1,000 ML IV SCH (18:50)
[2017-03-01] MEDS ORDERED: Meropenem 1 GM in Sodium Chloride 0.9% 100 ML IVPB SCH (22:00)
[2017-03-01] MEDS: Morphine 2 mg/ml ISec IVP PRN (22:25)
[2017-03-02] MEDS: Nitroglycerin 2% Ointment Foilpak UD TOP SCH ×2 (02:00→06:00)
--- NOTE | 2017-03-02 02:20 | PN ---
DATE: 03/01/2017 SUBJECTIVE: The patient is obtunded, not able to answer questions. PHYSICAL EXAMINATION: VITAL SIGNS: Temperature is 97, pulse of 112, blood pressure is 100/54, respiration is 19. GENERAL: The patient is lying in bed, flat, comfortable. HEENT: No oral lesion. Anicteric sclerae. Moist mucosa. NECK: No JVD, adenopathy, or thyromegaly. CARDIOVASCULAR: S1 and S2, regular. No murmurs, rubs, or gallops. LUNGS: Clear to auscultation bilaterally. No wheeze, rales, or rhonchi. ABDOMEN: Bowel sounds are positive, soft, nontender and nondistended. EXTREMITIES: No cyanosis, clubbing or edema. LABORATORY DATA: White count of 6.6, hemoglobin of 8.1. Potassium is 5.5, creatinine is 1.2. Chest x-ray showed moderate cardiomegaly and moderate vascular congestion. He has an infiltrate at the right lung base, so cytometry done. There is increase in IgG lambda plasma cell population less than 2%. The patient continues to have pancytopenia. The patient's FRANKIE is negative. In the immunofluorescence, there is a restricted M-Chato migrating in the gammaglobulin region. ASSESSMENT AND PLAN: Monoclonal spike. The patient is on IV fluids with D5W and potassium. The patient's sodium has improved to 144. The patient also had acute kidney injury. We will need to continue normal saline. I did speak to Dr. Alexandre from the ICU and also Dr. El from pulmonary. The patient has been made comfort care after discussing with the patient's daughter regarding prognosis. I thought that the patient may still improve. Given that the patient has sepsis, she has 2 sets of blood cultures that have been positive. Repeat blood cultures are negative. She has a high procalcitonin level. There is a hope that if the sepsis improves, the patient may improve, although the chances of recovery remained poor. We will repeat the patient's blood work tomorrow. I suspect if the patient has a plasma cell dyscrasia, and at this point, bone marrow is not a option given her critical care unit based illness. Nas Barrera MD
[2017-03-02] MEDS: Sodium Chloride 0.9% 1,000 ML IV SCH (04:00)
[2017-03-02 04:47] VITALS: TEMP 97.2
[2017-03-02] MEDS: Metoprolol 1 mg/ml Inj IVP SCH ×2 (06:00)
[2017-03-02] MEDS: Saliva Substitute 44.3 ML PO SCH ×3 (06:00→11:11)
[2017-03-02 06:13] LABS: BASO # 0.01 K/mm3 (0.0-2.0); BASO % 0.1 % (0.0-3.0); EOS % 0.1 % (1.5-5.0); GRAN # 8.63 (1.4-6.5); GRAN % 88.8 % (50.0-68.0); HEMATOCRIT 29.4 % (36.0-48.0); LYMPH # 0.5 (1.2-3.4); MEAN CELL VOLUME 116.2 fl (80.0-105.0); MEAN CORPUSCULAR HEMOGLOBIN 33.6 pg (25.0-35.0); MEAN CORPUSCULAR HGB CONC 28.9 g/dl (31.0-37.0); MEAN PLATELET VOLUME 10.6 fl (7.0-11.0); MONO # 0.6 (0.1-0.6); PLATELET COUNT 91 10^3/uL (120.0-450.0); RED CELL DISTRIBUTION WIDTH 23.9 % (11.5-14.5); WHITE BLOOD COUNT 9.7 10^3/ul (4.5-11.0)
[2017-03-02 06:29] VITALS: RESP 10
[2017-03-02 06:29] LABS: ALB/GLOB RATIO 0.4 (1.1-1.8); BILIRUBIN,TOTAL 4.7 mg/dL (0.2-1.3); CALCIUM 8.7 mg/dL (8.4-10.5); TOTAL PROTEIN 8.2 g/dL (5.8-8.3)
[2017-03-02 06:51] LABS: NEUTROPHIL 83 % (50.0-70.0)
[2017-03-02 06:52] LABS: ANISOCYTOSIS 1+; OVALOCYTES SLIGHT; PLATELET ESTIMATE LOW (NORMAL); POIKILOCYTOSIS SLIGHT
[2017-03-02 06:57] LABS: BAND 11 % (0-2)
[2017-03-02 07:11] LABS: POTASSIUM 5.8 mmol/L (3.6-5.0)
[2017-03-02 08:03] VITALS: BP 84/47; O2SAT 94
--- NOTE | 2017-03-02 08:15 | CARD ---
APPROVED REPORT EXAM: Two-dimensional and M-mode echocardiogram with Doppler and color Doppler. Other Information Quality : GoodRhythm : INDICATION Infection:Rule out subacute bacterial endocarditis , AF, HBP, AMS. 2D DIMENSIONS Left Atrium (2D)4.4 (1.6-4.0cm)IVSd1.3 (0.7-1.1cm) LVDd3.7 (3.9-5.9cm)PWd1.3 (0.7-1.1cm) LVDs2.2 (2.5-4.0cm)FS (%) 41.7 % LVEF (%)73.0 (>50%) M-Mode DIMENSIONS Aortic Root2.40 (2.2-3.7cm)Aortic Cusp Exc.1.80 (1.5-2.0cm) Aortic Valve AoV Peak Rjroehem663.0cm/s Mitral Valve E/A ratio0.0 TDI E/Lateral E'0.0E/Medial E'0.0 Tricuspid Valve TR Peak [id number] [id number] Peak Gr.50mmHg [id number] LEFT VENTRICLE The left ventricle is normal size. There is mild concentric left ventricular hypertrophy. The left ventricular function is normal. The left ventricular ejection fraction is within the normal range. There is normal LV segmental wall motion. RIGHT VENTRICLE The right ventricle is normal size. ATRIA The left atrium is moderately dilated. The right atrium is mildly dilated. The interatrial septum is intact with no evidence for an atrial septal defect. AORTIC VALVE The aortic valve is mildly calcified. There is mild aortic regurgitation. MITRAL VALVE The mitral valve is normal in structure. Mitral regurgitation is mild. TRICUSPID VALVE The tricuspid valve is normal in structure. There is moderate to severe tricuspid regurgitation. There is moderate-severe pulmonary hypertension. PULMONIC VALVE The pulmonary valve is normal in structure. There is mild pulmonic valvular regurgitation. GREAT VESSELS The aortic root is normal in size. PERICARDIAL EFFUSION There is no pericardial effusion. <Conclusion> The left ventricle is normal size. There is mild concentric left ventricular hypertrophy. The left ventricular function is normal. There is mild aortic regurgitation. Mitral regurgitation is mild. There is moderate to severe tricuspid regurgitation. There is moderate-severe pulmonary hypertension. No vegetation seen.
[2017-03-02] MEDS ORDERED: Sod Polystyrene Sulf 15 gm/60 ml Susp PR ONE (08:30)
[2017-03-02] MEDS ORDERED: Dextrose 5%/0.9% NS 1,000 ML IV SCH (08:45)
[2017-03-02] MEDS ORDERED: Morphine 2 mg/ml ISec IVP PRN (08:46)
[2017-03-02] MEDS ORDERED: Morphine 2 mg/ml ISec IVP ONE (08:47)
--- NOTE | 2017-03-02 09:06 | RAD ---
HISTORY: follow up COMPARISON: 03/01/2017. FINDINGS: LUNGS: There persistent right lower lobe airspace disease. The left lung is well inflated and clear. PLEURA: Persistent small right pleural effusion. No significant left pleural effusion identified, no pneumothorax apparent. CARDIOVASCULAR: Stable. OSSEOUS STRUCTURES: There is mild dextroscoliosis in the thoracic spine. VISUALIZED UPPER ABDOMEN: Normal. OTHER FINDINGS: None. IMPRESSION: No significant interval change in right lower lobe pneumonia and small right pleural effusion.
--- NOTE | 2017-03-02 09:16 | PN ---
DATE: 03/02/2017(640am-730am) SUBJECTIVE: The patient is currently sedated (received morphine). She is not short of breath at rest. PHYSICAL EXAMINATION: VITAL SIGNS: Temperature is 97.2, pulse on the monitor is 122, respiratory rate 16/18, blood pressure 99/47. Oxygen saturation on BiPAP is 96%. HEENT: Normocephalic, atraumatic. No JVD. CARDIOVASCULAR: Systolic ejection murmur at the lower left sternal border. No S3 gallop. LUNGS: Minimal crackles at both lower lobes. Less rhonchi. No wheezing. EXTREMITIES: No clubbing, cyanosis, or edema. Calves are nontender to palpation. GI: Abdomen is soft, nontender, and nondistended. Bowel sounds are positive. SKIN: No acute rash. NEUROLOGIC: Limited at the present time. PERTINENT LABORATORY DATA: Chest x-ray was done this morning and reviewed. The left-sided infiltrate has almost completely resolved. There is now a small right lower lobe infiltrate with possible small right pleural effusion. CBC; white count 9.7, hemoglobin 8.5, hematocrit 29.4, platelets of 91,000. IMPRESSION: 1. Aspiration pneumonia. 2. Acute bronchospasm. 3. Encephalopathy. 4. Pancytopenia. 5. Rapid atrial fibrillation. PLAN: The patient remains in the ICU. She is currently sedated. I did discuss the case with the night nurse at length. The night nurse does confirm that she had to give the patient a dose of morphine-- for restlessness. Because of her tenuous respiratory status, I would prefer using a benzodiazepine for restlessness( at this point in time). I did relay this concern to the medical residents. On physical exam, there is less bronchospasm noted. I will continue the current nebulizer treatments and aspiration precautions for now. I did review the chest x-ray as above. The left-sided infiltrate has almost completely resolved. There is now a small right lower lobe infiltrate with possible small right pleural effusion. I would continue with the antibiotic coverage as per Infectious Disease. There are no temperatures noted. There is no leukocytosis. Cardiology evaluation is also noted. The patient remains critically ill with overall poor status/prognosis. All are aware. I will discuss the above with the entire ICU team in the next few moments. I will also discuss the above with Dr. Barrera later this morning. Bear El MD GABI
--- NOTE | 2017-03-02 09:21 | CP.PCM.PN ---
Subjective - Date & Time of Evaluation Date of Evaluation: 03/02/17 Time of Evaluation: 09:16 - Subjective Subjective: Heme/Onc Progress Note for Kathi Gallo PGY2 Patient seen and examined at bedside. There were no acute overnight events as per nursing staff. Patient is on Bipap and altered. Daughter was not at bedside at time of examination. ROS could not be obtained. Objective - Vital Signs/Intake and Output Vital Signs (last 24 hours): Temp Pulse Resp BP Pulse Ox 97.2 F L 120 H 10 L 84/47 L 94 L 03/02/17 04:00 03/02/17 08:00 03/02/17 06:00 03/02/17 08:00 03/02/17 08:00 Intake and Output: 03/02/17 03/02/17 06:59 18:59 Intake Total 2000 Output Total 100 Balance 1900 - Medications Medications: Current Medications Lorazepam (Ativan) 1 mg IVP Q4H PRN; Protocol PRN Reason: RESTLESSNESS, AGITATION Last Admin: 02/28/17 05:50 Dose: 1 mg Morphine Sulfate (Morphine) 2 mg IVP Q4H PRN PRN Reason: Agitation Mupirocin (Bactroban Ointment) 0 gm NS BID NIKKIE Stop: 03/05/17 10:01 Last Admin: 03/01/17 18:52 Dose: 1 drop Saliva Substitute (Saliva Substitute) 5 ml PO Q6 NIKKIE Last Admin: 03/02/17 06:00 Dose: Not Given Vitamin A (Vitamin A & D Oint Ud Foilpak) 1 ea TOP Q8 PRN PRN Reason: DRYNESS - Labs Labs: 03/02/17 05:45 03/02/17 05:45 PT 20.1 SECONDS (9.4-12.5) H 02/24/17 06:30 INR 1.82 (0.93-1.08) H 02/24/17 06:30 APTT 26.4 Seconds (25.1-36.5) 02/24/17 06:30 - Constitutional Appears: Chronically Ill - Head Exam Head Exam: ATRAUMATIC, NORMAL INSPECTION, NORMOCEPHALIC - Eye Exam Eye Exam: PERRL Pupil Exam: PERRL - ENT Exam ENT Exam: Mucous Membranes Moist - Neck Exam Neck Exam: Full ROM - Respiratory Exam Respiratory Exam: Rhonchi, NORMAL BREATHING PATTERN. absent: Rales, Wheezes - Cardiovascular Exam Cardiovascular Exam: Tachycardia, REGULAR RHYTHM, +S1, +S2. absent: Gallop, Rubs, Murmur - GI/Abdominal Exam GI & Abdominal Exam: Soft, Normal Bowel Sounds. absent: Rigid, Tenderness, Mass , Rebound - Extremities Exam Extremities Exam: Pedal Edema (+1 bilaterally ) Additional comments: chronic discoloration of lower extremities bilaterally - Neurological Exam Neurological Exam: Altered, CN II-XII Intact. absent: Alert, Awake - Skin Skin Exam: Dry, Warm Assessment and Plan - Assessment and Plan (Free Text) Assessment: This is an 81Y F with PMH HTN, DM, atrial fibrillation on Coumadin, CHF, chronic anemia, anxiety/depression who was sent to [facility] [place] for [place] with Hgb of 7.5 status post 1 unit transfusion of PRBC. Patient is found to have: 1. Pancytopenia 2. Bacteremia with positive blood cultures for gram positive cocci (3rd set of cultures now negative) 3. Atrial fibrillation 4. Aspiration pneumonia 5. Delirium 6. CHF 7. DM type 2 8. 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 Adelina Webster PGY2
--- NOTE | 2017-03-02 09:40 | CP.PCM.PN ---
Subjective - Date & Time of Evaluation Date of Evaluation: 03/02/17 Time of Evaluation: 09:10 - Subjective Subjective: Patient is very lethargic and not responsive, breathing very slowly, on BiPAP. No fevers overnight. Objective - Vital Signs/Intake and Output Vital Signs (last 24 hours): Temp Pulse Resp BP Pulse Ox 97.2 F L 125 H 10 L 99/47 L 96 03/02/17 04:00 03/02/17 06:00 03/02/17 06:00 03/02/17 06:00 03/02/17 06:00 Intake and Output: 03/01/17 03/02/17 18:59 06:59 Intake Total 2250 2000 Output Total 150 100 Balance 2100 1900 - Medications Medications: Current Medications Diltiazem HCl (Cardizem) 30 mg PO QID [facility] Last Admin: 02/25/17 01:27 Dose: Not Given Famotidine (Pepcid) 20 mg IVP DAILY [facility] Last Admin: 03/01/17 10:53 Dose: 20 mg Furosemide (Lasix) 20 mg PO DAILY [facility] Last Admin: 02/24/17 15:59 Dose: Not Given Hydralazine HCl (Apresoline) 10 mg IVP Q6 [facility] Last Admin: 03/02/17 00:00 Dose: Not Given Doxycycline Hyclate 100 mg/ (Sodium Chloride) 100 mls @ 100 mls/hr IVPB Q12 NIKKIE PRN Reason: Protocol Last Admin: 03/01/17 22:28 Dose: 100 mls/hr Linezolid (Zyvox 600mg/300ml D5w) 600 mg in 300 mls @ 200 mls/hr IVPB Q12 NIKKIE PRN Reason: Protocol Stop: 03/07/17 07:16 Last Admin: 03/01/17 21:23 Dose: 200 mls/hr Nafcillin Sodium 2 gm/ (Dextrose) 100 mls @ 100 mls/hr IVPB Q4 NIKKIE PRN Reason: Protocol Last Admin: 03/02/17 04:26 Dose: 100 mls/hr Sodium Chloride (Sodium Chloride 0.9%) 1,000 mls @ 100 mls/hr IV .Q10H [facility] Last Admin: 03/02/17 04:00 Dose: 100 mls/hr Meropenem 1 gm/ Sodium (Chloride) 100 mls @ 100 mls/hr IVPB Q12 NIKKIE PRN Reason: Protocol Stop: 03/05/17 23:59 Last Admin: 03/01/17 22:27 Dose: 100 mls/hr Lorazepam (Ativan) 0.5 mg PO BID NIKKIE PRN Reason: Protocol Last Admin: 03/01/17 18:51 Dose: Not Given Lorazepam (Ativan) 1 mg IVP Q4H PRN; Protocol PRN Reason: RESTLESSNESS, AGITATION Last Admin: 02/28/17 05:50 Dose: 1 mg Lorazepam (Ativan) 0.5 mg IVP Q6H PRN; Protocol PRN Reason: Agitation Metoprolol Tartrate (Lopressor) 50 mg PO BRKDIN [facility] Last Admin: 02/24/17 17:44 Dose: Not Given Metoprolol Tartrate (Lopressor) 5 mg IVP Q6H [facility] Last Admin: 03/02/17 00:00 Dose: Not Given Morphine Sulfate (Morphine) 2 mg IVP Q4H PRN PRN Reason: Pain, moderate (4-7) Last Admin: 03/01/17 22:25 Dose: 2 mg Mupirocin (Bactroban Ointment) 0 gm NS BID [facility] Stop: 03/05/17 10:01 Last Admin: 03/01/17 18:52 Dose: 1 drop Nitroglycerin (Nitro-Bid 2% Oint) 1 ea TOP Q4H [facility] Last Admin: 03/02/17 02:00 Dose: Not Given Quetiapine Fumarate (Seroquel) 12.5 mg PO HS PRN; Protocol PRN Reason: RESTLESS/AGITATION/PSYCHOSIS Saliva Substitute (Saliva Substitute) 5 ml PO Q6 [facility] Last Admin: 03/02/17 00:00 Dose: Not Given Vitamin A (Vitamin A & D Oint Ud Foilpak) 1 ea TOP Q8 PRN PRN Reason: DRYNESS - Labs Labs: 03/02/17 05:45 03/01/17 16:09 PT 20.1 SECONDS (9.4-12.5) H 02/24/17 06:30 INR 1.82 (0.93-1.08) H 02/24/17 06:30 APTT 26.4 Seconds (25.1-36.5) 02/24/17 06:30 - Constitutional Appears: Other (very lethargic, poorly responsive) - Head Exam Head Exam: NORMAL INSPECTION - Neck Exam Neck Exam: absent: Meningismus - Respiratory Exam Respiratory Exam: Decreased Breath Sounds - Cardiovascular Exam Cardiovascular Exam: +S1, +S2 - GI/Abdominal Exam GI & Abdominal Exam: Soft. absent: Tenderness Assessment and Plan - Assessment and Plan (Free Text) Plan: Assessment severe sepsis with acute encephalopathy and respiratory distress due to left sided healthcare-associated pneumonia with associated methicillin-sensitive Staph aureus bacteremia, R/O endocarditis atrial fibrillation chronic CHF HTN cataracts DM chronic anemia S/P ORIF of the left hip history of anxiety and depression history of bilateral lower extremity cellulitis Plan was on Merrem, Doxycycline day 4, S/P Zyvox day 2 then switched to Nafcillin - antibiotics have been stopped by PMD - patient to be placed on comfort care overall prognosis is poor; patient is DNR and DNI discussed with ICU team and discussed with daughter that overall prognosis of patient is poor discussed with Dr. García as well - patient for comfort care
--- NOTE | 2017-03-02 10:08 | PN ---
DATE: 03/02/2017 SUBJECTIVE: The patient is confused, unable to speak. PHYSICAL EXAMINATION: VITAL SIGNS: Temperature is 97.2, pulse of 120, blood pressure 84/47, respirations 10. GENERAL: The patient is lying in bed, flat, comfortable. HEENT: No oral lesion. Anicteric sclerae. Moist mucosa. NECK: No JVD, adenopathy, or thyromegaly. CARDIOVASCULAR: S1 and S2, regular. No murmurs, rubs, or gallops. LUNGS: Bilateral rhonchi. Good air entry. No wheezing. ABDOMEN: Bowel sounds are positive, soft, nontender and nondistended. EXTREMITIES: No cyanosis, clubbing or edema. LABORATORY DATA: White count of 9.7, hemoglobin of 8.5. Potassium is 5.8, creatinine is 2.6. ASSESSMENT: 1. Sepsis. 2. Aspiration pneumonia. 3. Pancytopenia. 4. Delirium. 5. Hypertension. 6. Diabetes type 2. 7. Hypokalemia. 8. Acute kidney injury. 9. Do not resuscitate/do dot intubate. 10. Congestive heart failure secondary to systolic dysfunction, stable. PLAN: The patient is currently critical. She is not improved. She is on Cardizem, this has been placed on hold because of the hypotension. She is on doxycycline for antibiotics. The patient is on nafcillin for antibiotics. We will hold her Seroquel. She is receiving IV fluids. Her urine output has decreased significantly. She has Patino, does have input, and 250 mL of urine output. Her creatinine continues to increase while on IV fluids. Creatinine is 2.6 at this point. Her potassium is 5.8. She is also becoming acidotic with a bicarb low at 19. Overall prognosis is poor. We will updated the patient's family. Nas Barrera MD
[2017-03-02 11:37] VITALS: PULSE 126
[2017-03-02] MEDS ORDERED: Morphine 5 MG/ML SYRINGE IVP PRN (12:19)
--- NOTE | 2017-03-02 14:17 | CP.PCM.PRO ---
Pronouncement of Note - Clinical Findings Physical Exam: No Response Verbal/Painful Stimuli, Absent Peripheral Pulses{ Carotid & Femoral}, Absent Heart & Breath Sounds, No Pupillary Light Reflex, No Corneal Reflex, Pupils Fixed & Dilated, Absence of Vital Signs - Pronouncement Time Time of Pronouncement of : 13:47 - Notifications Pronouncement Notifications: Family Notified, Atending Notified Supervisor Purification Notified: No - Autopsy Autopsy Requested: No [place] [id number] Additional Comments: EDRS note initiated. Remainder to be filled by attending.
--- NOTE | 2017-03-02 14:25 | PN ---
DATE: 03/02/2017 ADDENDUM Addendum to the note done earlier. The patient remains critically ill, going into multiorgan failure. She is actively dying. The patient is going to be made comfortable. We did stop IV medication, vitals check and IV fluids. She will be transferred to the medical floor for comfort measures. I did speak to the patient's daughter Roxy to give her an update on her diagnosis and plan of care. I spoke to her at [phone]. I also spoke with nurse to update her. Nas Barrera MD
== END 2017-03-02 13:47 | DRG 811 ==
LOC: ED 11:55 → ERH 15:01 → 5RNO 20:30 → 2RNO 23:55 → CCU 02-26 19:50 → 5RNO 03-02 11:55
PROVIDERS: ADMIT Internal Medicine Nephrology; ATTEND Internal Medicine Nephrology
PROC: 30233N1 Transfusion of Nonautologous Red Blood Cells into Peripheral Vein, Percutaneous Approach (ICD-10-PCS; 2017-02-23)
PROC: 5A09357 Assistance with Respiratory Ventilation, Less than 24 Consecutive Hours, Continuous Positive Airway Pressure (ICD-10-PCS; principal; 2017-02-24)
PROC: 0T9B70Z Drainage of Bladder with Drainage Device, Via Natural or Artificial Opening (ICD-10-PCS; 2017-02-25)
DX: D46.9 Myelodysplastic syndrome, unspecified (principal); A41.01 Sepsis due to Methicillin susceptible Staphylococcus aureus; J69.0 Pneumonitis due to inhalation of food and vomit; J96.91 Respiratory failure, unspecified with hypoxia; G92 Toxic encephalopathy; R65.20 Severe sepsis without septic shock; N17.9 Acute kidney failure, unspecified; E87.0 Hyperosmolality and hypernatremia; I50.22 Chronic systolic (congestive) heart failure; D61.818 Other pancytopenia; F05 Delirium due to known physiological condition; I11.0 Hypertensive heart disease with heart failure; E87.6 Hypokalemia; Z66 Do not resuscitate; E11.9 Type 2 diabetes mellitus without complications; I48.2 Chronic atrial fibrillation; F41.9 Anxiety disorder, unspecified; F32.9 Major depressive disorder, single episode, unspecified; J98.01 Acute bronchospasm; Z51.5 Encounter for palliative care; H26.9 Unspecified cataract; Z96.651 Presence of right artificial knee joint; Z78.1 Physical restraint status; Z79.01 Long term (current) use of anticoagulants